=== PATIENT | female | born 1960 | race Caucasian/White ===

== ENCOUNTER 2017-06-19 12:11 | Inpatient (IN) | payer OTHER ==
[~2017-06-19] VITALS: Ht 170.2 cm; Wt 138.3 kg
[~2017-06-19 12:11] MED LIST: ASPI325T8 PO; ATORVASTATIN CA80 MG PO; CHOL200044 PO; FERR325C PO; FLUT12AE IH; FOLI1TAB16 PO; HYDR-2762 PO; LANS30CA PO; LINA5TAB4 PO; LISI40TA PO; MAGN71.5 PO; METF-620 PO; METO10TA PO; MONT10TA9 PO; PRED50TA PO; PROAIR HFA8.5 GM IH; SERT25TA PO; VERA240C2 PO; VITA1TAB19 PO
--- NOTE | 2017-06-19 12:33 | EKG ---
[facility] [address] [place] [address] Test Date: 2017-06-19 Test Time: 12:19:59 Pat Name: MANDY DONALDSON Department: Room: Gender: Female Inspector Timers: : 1960 Requested By: BEATRICE ROLAND Order Number: [id number] Reading MD: Shalom Garrison MD Measurements Intervals Divide Rate: 92 P: 48 IL: 188 QRS: -74 QRSD: 136 T: 57 QT: 376 QTc: 470 Interpretive Statements SINUS RHYTHM ABNORMAL LEFT AXIS DEVIATION RIGHT BUNDLE BRANCH BLOCK RVH WITH REPOLARIZATION ABNORMALITY QRS(T) CONTOUR ABNORMALITY CONSISTENT WITH ANTERIOR INFARCT Electronically Signed On 06-19-2017 16:22:15 [employer]IC[employer] HELPER by Shalom Garrison MD
--- NOTE | 2017-06-19 12:34 | PHYS DOC ---
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 Denies congestive heart failure but reports taking a diuretic unsure which type. Denies blood clots to the leg or lung or anticoagulation therapy. Denies worsening leg swelling Review of Systems Review of Systems Constitutional: Denies fever or chills [] Eyes: Denies change in visual acuity, redness, or eye pain [] HENT: Denies nasal congestion or sore throat [] Respiratory: Denies cough or shortness of breath [] Cardiovascular: No additional information not addressed in HPI [] GI: Denies abdominal pain, nausea, vomiting, bloody stools or diarrhea [] : Denies dysuria or hematuria [] Musculoskeletal: Denies back pain or joint pain [] Integument: Denies rash or skin lesions [] Neurologic: Denies headache, focal weakness or sensory changes [] Endocrine: Denies polyuria or polydipsia [] All other systems were reviewed and found to be within normal limits, except as documented in this note. Current Medications Current Medications Current Medications Medications (Trade) Dose Ordered Sig/Joy Start Time Stop Time Status Last Admin Dose Admin Azithromycin 250 ml @ 250 mls/hr 1X ONCE 06/19/17 13:45 06/19/17 14:44 Azithromycin 500 mg/Sodium Chloride 250 ml @ 250 mls/hr 1X ONCE 06/19/17 13:45 06/19/17 14:44 UNV Ceftriaxone Sodium 50 ml @ 100 mls/hr 1X ONCE 06/19/17 13:45 06/19/17 14:14 Methylprednisolone Sodium Succinate (SOLU-Medrol 125MG VIAL) 125 mg 1X ONCE 06/19/17 12:45 06/19/17 12:46 DC 06/19/17 12:45 125 MG Allergies Allergies Allergies Coded Allergies Type Severity Reaction Last Updated Verified I S O L A T I O N *CONTACT* Allergy Unknown 10/02/15 Yes prednisone Adverse Reaction Intermediate VOMITING 10/05/15 Yes theophylline Adverse Reaction Intermediate VOMITING 10/05/15 Yes Physical Exam Physical Exam Constitutional: Well developed, well nourished, mild acute distress, non-toxic appearance. [] HENT: Normocephalic, atraumatic, bilateral external ears normal, oropharynx moist, no oral exudates, nose normal. [] Eyes: PERRLA, EOMI, conjunctiva normal, no discharge. [] Neck: Normal range of motion, no tenderness, supple, no stridor. [] Cardiovascular:Heart rate regular rhythm, no murmur [] Lungs & Thorax: Bilateral breath sounds mild wheezing to auscultation [] Abdomen: Bowel sounds normal, soft, no tenderness, no masses, no pulsatile masses. [] Skin: Warm, dry, no erythema, no rash. [] Back: No tenderness, no CVA tenderness. [] Extremities: No tenderness, no cyanosis, no clubbing, ROM intact, no edema. [] Neurologic: Alert and oriented X 3, normal motor function, normal sensory function, no focal deficits noted. [] Psychologic: Affect normal, judgement normal, mood normal. [] Current Patient Data Vital Signs Vital Signs Date Time Temp Pulse Resp B/P (MAP) Pulse Ox O2 Delivery O2 Flow Rate FiO2 06/19/17 12:13 98.2 100 24 191/96 (127) 94 Room Air 98.2 Lab Values Laboratory Tests Test 06/19/17 12:31 06/19/17 13:00 White Blood Count 17.1 x10^3/uL (4.0-11.0) H Red Blood Count 4.57 x10^6/uL (3.50-5.40) Hemoglobin 14.0 g/dL (12.0-15.5) Hematocrit 42.7 % (36.0-47.0) Mean Corpuscular Volume 93 fL (79-100) Mean Corpuscular Hemoglobin 31 pg (25-35) Mean Corpuscular Hemoglobin Concent 33 g/dL (31-37) Red Cell Distribution Width 15.7 % (11.5-14.5) H Platelet Count 383 x10^3/uL (140-400) Neutrophils (%) (Auto) 81 % (31-73) H Lymphocytes (%) (Auto) 12 % (24-48) L Monocytes (%) (Auto) 6 % (0-9) Eosinophils (%) (Auto) 0 % (0-3) Basophils (%) (Auto) 0 % (0-3) Neutrophils # (Auto) 13.8 x10^3uL (1.8-7.7) H Lymphocytes # (Auto) 2.0 x10^3/uL (1.0-4.8) Monocytes # (Auto) 1.1 x10^3/uL (0.0-1.1) Eosinophils # (Auto) 0.1 x10^3/uL (0.0-0.7) Basophils # (Auto) 0.1 x10^3/uL (0.0-0.2) Segmented Neutrophils % 79 % (35-66) H Lymphocytes % 16 % (24-48) L Monocytes % 3 % (0-10) Eosinophils % 2 % (0-5) Platelet Estimate Adequate (ADEQUATE) Lactic Acid Level 2.2 mmol/L (0.4-2.0) H Sodium Level 139 mmol/L (136-145) Potassium Level 4.2 mmol/L (3.5-5.1) Chloride Level 101 mmol/L (98-107) Carbon Dioxide Level 31 mmol/L (21-32) Anion Gap 7 (6-14) Blood Urea Nitrogen 27 mg/dL (7-20) H Creatinine 1.0 mg/dL (0.6-1.0) Estimated GFR (Cockcroft-Gault) 56.7 BUN/Creatinine Ratio 27 (6-20) H Glucose Level 139 mg/dL (70-99) H Calcium Level 10.3 mg/dL (8.5-10.1) H Total Bilirubin 0.4 mg/dL (0.2-1.0) Aspartate Amino Transferase (AST) 12 U/L (15-37) L Alanine Aminotransferase (ALT) 24 U/L (14-59) Alkaline Phosphatase 120 U/L (46-116) H Troponin I Quantitative < 0.017 ng/mL (0.000-0.055) QM-Uhx-C-Type Natriuretic Peptide 260 pg/mL (0-124) H Total Protein 7.2 g/dL (6.4-8.2) Albumin 3.2 g/dL (3.4-5.0) L Albumin/Globulin Ratio 0.8 (1.0-1.7) L Laboratory Tests 06/19/17 12:31 Laboratory Tests 06/19/17 13:00 EKG EKG EKG normal sinus rhythm rate of 92) right bundle branch block no STEMI QTC 470 my interpretation[] Radiology/Procedures Radiology/Procedures Chest x-ray suggestive of left lower lobe pneumonia per radiology report[] Course & Med Decision Making Course & Med Decision Making Pertinent Labs and Imaging studies reviewed. (See chart for details). Patient reports productive cough chest x-ray consistent with left lower lobe infiltrate and leukocytosis on the labs will treat accordingly she'll be admitted. We've given her IV Rocephin and azithromycin. Discussed case with Dr. Daniela Burden agrees to the admission.[] Dragon Disclaimer Dragon Disclaimer This electronic medical record was generated, in whole or in part, using a voice recognition dictation system. Departure Departure Impression: Primary Impression: Left lower lobe pneumonia Additional Impression: Asthma Disposition: ADMITTED INPATIENT Condition: STABLE Referrals: DEEPIKA BEAVERS DO (PCP) Problem Qualifiers BEATRICE ROLAND MD Jun 19, 2017 12:34
[2017-06-19 12:45] LABS: BASO # 0.1 x10^3/uL (0.0-0.2); BASO % 0 % (0-3); EOS % 0 % (0-3); HEMATOCRIT 42.7 % (36.0-47.0); LYMPH % 12 % (24-48); MEAN CORPUSCULAR HEMOGLOBIN 31 pg (25-35); MEAN CORPUSCULAR HGB CONC 33 g/dL (31-37); MEAN CORPUSCULAR VOLUME 93 fL (79-100); MONO % 6 % (0-9); NEUT % 81 % (31-73); PLATELET COUNT 383 x10^3/uL (140-400); RED BLOOD COUNT 4.57 x10^6/uL (3.50-5.40); RED CELL DISTRIBUTION WIDTH 15.7 % (11.5-14.5); WHITE BLOOD COUNT 17.1 x10^3/uL (4.0-11.0)
[2017-06-19] MEDS ORDERED: methylPREDNISolone SOD SUCC PF 125 MG/2 ML VIAL. IV ONE (12:45)
--- NOTE | 2017-06-19 12:58 | RAD ---
Indication: Cough and short of breath. Technique: Upright portable chest radiograph was obtained. Comparison is from June 10, 2017. Findings: There is left basilar atelectasis and/ or infiltrate which is new from prior. Right lung is clear. Heart is upper limits of normal in size although there is no evidence of heart failure. Leads overlie the patient. Impression: 1. New left basilar atelectasis and/ or infiltrate. 2. Borderline cardiomegaly.
[2017-06-19 13:20] LABS: CALCIUM 10.3 mg/dL (8.5-10.1); GFR 56.7; POTASSIUM 4.2 mmol/L (3.5-5.1)
[2017-06-19 13:26] LABS: ALBUMIN 3.2 g/dL (3.4-5.0); ALBUMIN/GLOBULIN RATIO 0.8 (1.0-1.7); TOTAL BILIRUBIN 0.4 mg/dL (0.2-1.0); TOTAL PROTEIN 7.2 g/dL (6.4-8.2)
[2017-06-19] MEDS ORDERED: AZITHRMYCN 500MG IVPB FOR OMNI 250 ML IV ONE (13:45)
[2017-06-19] MEDS ORDERED: AZITHROMYCIN 500 MG in IV NORMAL SALINE 250ML 250 ML IV ONE (13:45)
[2017-06-19 13:52] LABS: % EOS 2 % (0-5); PLT ESTIMATE ADEQUATE (ADEQUATE)
[2017-06-19] MEDS ORDERED: MORPHINE SULFATE 4 MG/ML DISP.SYRIN. IV PRN (14:00)
[2017-06-19] MEDS ORDERED: ONDANSETRON PF 4 MG/2 ML VIAL. IV PRN (14:00)
[2017-06-19] MEDS ORDERED: IV NORMAL SALINE 500ML BAG 500 ML IV ONE (14:45)
[2017-06-19 15:00] VITALS: BP 161/95
[2017-06-19] MEDS ORDERED: HYDROcodone/CHLORPHEN POLIS 5 ML SUS.ER.12H PO PRN (16:00)
[2017-06-19] MEDS ORDERED: ALBUTEROL SULFATE 2.5 MG/3 ML NEBU. NEB PRN (16:00)
[2017-06-19] MEDS ORDERED: BUDESONIDE 0.5 MG/2 ML NEBU. NEB ONE (16:00)
[2017-06-19] MEDS ORDERED: LISI10TA2 PO (16:06)
--- NOTE | 2017-06-19 17:26 | PDOC1 ---
History and Physical Date of Admission Date of Admission DATE: 06/19/17 TIME: 17:20 Identification/Chief Complaint Chief Complaint cough, dyspnea, weakness Problems: Source Source: Caregiver, Chart review, Patient History of Present Illness History of Present Illness Miss Colindres is a 57 year old female admit with acute shortness of breath and cough productive of sputum; denies fever or chest pain; She has been in pulm clinic a few days ago, and was given a burst of prednisone for wheeze, was intially better, now has cough, new sputum, dyspnea and the wheeze is worse, some chest pain with cough, mild she lives with her mother, who was here with her Past Medical History Cardiovascular: HTN Pulmonary: Asthma GI: No pertinent hx Heme/Onc: No pertinent hx Hepatobiliary: No pertinent hx Psych: Other Musculoskeletal: low back pain Rheumatologic: No pertinent hx Infectious disease: No pertinent hx Past Surgical History Past Surgical History: Cholecystectomy Family History Family History: No Significant Social History Smoke: No ALCOHOL: none Drugs: None Current Problem List Problem List Problems Medical Problems: (1) Asthma Status: Acute (2) Left lower lobe pneumonia Status: Acute Problems: Current Medications Current Medications Current Medications Methylprednisolone Sodium Succinate (SOLU-Medrol 125MG VIAL) 125 mg 1X ONCE IV Last administered on 06/19/17t 12:45; Start 06/19/17 at 12:45; Stop at 12:46; Status DC Ceftriaxone Sodium 50 ml @ 100 mls/hr 1X ONCE IV Last administered on t 14:41; Start 06/19/17 at 13:45; Stop 06/19/17 at 14:14; Status DC Azithromycin 500 mg/Sodium Chloride 250 ml @ 250 mls/hr 1X ONCE IV ; Start at 13:45; Stop 06/19/17 at 14:44; Status UNV Azithromycin 250 ml @ 250 mls/hr 1X ONCE IV ; Start 06/19/17 at 13:45; Stop 06/19/17 at 14:44; Status DC Ondansetron HCl (Zofran) 4 mg PRN Q8HRS PRN IV NAUSEA/VOMITING; Start at 14:00; Stop 06/20/17 at 13:59 Morphine Sulfate 4 mg PRN Q2HR PRN IV PAIN; Start 06/19/17 at 14:00; Stop at 13:59 Sodium Chloride 500 ml @ 500 mls/hr 1X ONCE IV ; Start 06/19/17 at 14:45; Stop 06/19/17 at 15:44; Status DC Chlorphenir/ Hydrocodone Polistirex (Tussionex) 5 ml PRN Q12HR PRN PO COUGH; Start 06/19/17 at 16:00 Albuterol Sulfate (Ventolin Neb Soln) 2.5 mg PRN Q4HRS PRN NEB SHORTNESS OF BREATH; Start 06/19/17 at 16:00 Albuterol Sulfate (Ventolin Neb Soln) 2.5 mg RTQID NEB ; Start 06/19/17 at 16: 00 Budesonide (Pulmicort) 0.5 mg RTBID NEB ; Start 06/19/17 at 20:00 Budesonide (Pulmicort) 0.5 mg 1X ONCE NEB ; Start 06/19/17 at 16:00; Stop at 16:01; Status DC Aspirin (Zak Aspirin) 325 mg DAILY PO ; Start 06/20/17 at 09:00 Acetaminophen/ Hydrocodone Bitart (Lortab 7.5/325) 1 tab PRN Q6HRS PRN PO PAIN ; Start 06/19/17 at 16:00 Linagliptin (Tradjenta) 5 mg DAILY PO ; Start 06/20/17 at 09:00 Lisinopril (Prinivil) 40 mg DAILY PO ; Start 06/20/17 at 09:00 Metformin HCl (Glucophage) 1,000 mg BIDWMEALS PO ; Start 06/19/17 at 17:00 Metoclopramide HCl (Reglan) 10 mg QIDACHS PO ; Start 06/19/17 at 16:30 Montelukast Sodium (Singulair) 10 mg HS PO ; Start 06/19/17 at 21:00 Sertraline HCl (Zoloft) 25 mg DAILY PO ; Start 06/20/17 at 09:00 Atorvastatin Calcium (Lipitor) 80 mg QHS PO ; Start 06/19/17 at 21:00 Pantoprazole Sodium (Protonix) 40 mg DAILYAC PO ; Start 06/20/17 at 07:30 Non-Formulary Medication 0.5 cap DAILY PO ; Start 06/20/17 at 09:00; Stop at 09:00; Status DC Verapamil HCl (Calan Sr) 120 mg DAILY PO ; Start 06/20/17 at 09:00 Active Scripts Active Prednisone 50 Mg Tablet 1 Tab PO DAILY B Complex (Vitamin B Complex) 1 Each Tablet 1 Each PO DAILY Reported Lisinopril 10 Mg Tablet 1 Tab PO DAILY Tradjenta (Linagliptin) 5 Mg Tablet 5 Tab PO DAILY Proair Hfa Inhaler (Albuterol Sulfate) 8.5 Gm Hfa.aer.ad 2 Puff IH PRN Q4-6HRS Flovent 110MCG Hfa (Fluticasone Propionate) 12 Gm Aer.w.adap 2 Puff IH BID Montelukast Sodium Tablet (Montelukast Sodium) 10 Mg Tablet 10 Mg PO HS Aspirin 325 Mg Tablet 1 Tab PO DAILY Iron (Ferrous Sulfate) 325 Mg Capsule.er 325 Mg PO Metoclopramide Hcl 10 Mg Tablet 10 Mg PO QIDACHS Atorvastatin Calcium 80 Mg Tablet 1 Tab PO DAILY Lansoprazole 30 Mg Capsule.dr 1 Cap PO DAILY Metformin Hcl 1,000 Mg Tablet 1 Tab PO BID Verapamil Er (Verapamil Hcl) 240 Mg Cap24h.pel 0.5 Cap PO DAILY Folic Acid 1 Mg Tablet 1 Tab PO DAILY Zoloft (Sertraline Hcl) 25 Mg Tablet 1 Tab PO DAILY Hydrocodone-Apap 7.5-325 (Hydrocodone Bit/Acetaminophen) 1 Each Tablet 1 Tab PO PRN Q6HRS PRN Allergies Allergies: Coded Allergies: I S O L A T I O N *CONTACT* (Verified Allergy, Unknown, 10/02/15) mrsa + prednisone (Verified Adverse Reaction, Intermediate, VOMITING, 10/05/15) theophylline (Verified Adverse Reaction, Intermediate, VOMITING, 10/05/15) ROS General: YES: Fatigue, Malaise, Appetite, No: Chills, Night Sweats, Other PSYCHOLOGICAL ROS: No: Anxiety, Behavioral Disorder, Concentration difficultie , Decreased libido, Depression, Disorientation, Hallucinations, Hostility, Irritablity, Memory difficulties, Mood Swings, Obsessive thoughts, Physical abuse, Sexual abuse, Sleep disturbances, Suicidal ideation, Other Eyes: No Blurry vision, No Decreased vision, No Double vision, No Dry eyes, No Excessive tearing, No Eye Pain, No Itchy Eyes, No Loss of vision, No Photophobia , No Scotomata, No Uses contacts, No Uses glasses, No Other HEENT: No: Heacaches, Visual Changes, Hearing change, Nasal congestion, Nasal discharge, Oral lesions, Sinus pain, Sore Throat, Epistaxis, Sneezing, Snoring, Tinnitus, Vertigo, Vocal changes, Other Hematological and Lymphatic: No: Bleeding Problems, Blood Clots, Blood Transfusions, Brusing, Night Sweats, Pallor, Swollen Lymph Nodes, Other ENDOCRINE: No: Breast Changes, Galactorrhea, Hair Pattern Changes, Hot Flashes , Malaise/lethargy, Mood Swings, Palpitations, Polydipsia/polyuria, Skin Changes , Temperature Intolerance, Unexpected Weight Changes, Other Respiratory: YES: Cough, SOB with excertion, Sputum Changes Cardiovascular: yes Chest Pain, No Palpitations, No Orthopnea, No Paroxysmal Noc. Dyspnea, No Edema, No Lt Headedness, No Other Gastrointestinal: Yes Nausea, No Vomiting, No Abdominal Pain, No Diarrhea, No Constipation, No Melena, No Hematochezia, No Other Genitourinary: No Dysuria, No Frequency, No Incontinence, No Hematuria, No Retention, No Discharge, No Urgency, No Pain, No Flank Pain, No Other, No , No , No , No , No , No , No Musculoskeletal: Yes Joint Pain, Yes Joint Stiffness, No Gait Disturbance, No Joint Swelling, No Muscle Pain, No Muscular Weakness , No Pain In:, No Swelling In:, No Other Neurological: No Behavorial Changes, No Bowel/Bladder ControlChng, No Confusion , No Dizziness, No Gait Disturbance, No Headaches, No Impaired Coord/balance, No Memory Loss, No Numbness/Tingling, No Seizures, No Speech Problems, No Tremors, No Visual Changes, No Weakness, No Other Skin: Yes Rash, No Dry Skin, No Eczema, No Hair Changes, No Lumps, No Mole Changes, No Mottling, No Nail Changes, No Pruritus Physical Exam General: Alert, Cooperative, mild distress HEENT: PERRLA, EOMI, Mucous membr. moist/pink Lungs: Other (wheeze, mod volume) Heart: no gallops Abdomen: Normal bowel sounds (very obese), Soft Rectal Exam: not examined Extremities: Normal pulses Skin: No rashes, No significant lesion Neuro: Normal speech, Normal tone, Sensation intact Psych/Mental Status: Other Vitals Vitals Vital Signs Date Time Temp Pulse Resp B/P (MAP) Pulse Ox O2 Delivery O2 Flow Rate FiO2 06/19/17 15:40 Nasal Cannula 2.0 06/19/17 15:00 98.1 103 20 161/95 (117) 92 98.1 Labs Labs Laboratory Tests Test 06/19/17 12:31 06/19/17 13:00 06/19/17 16:56 White Blood Count 17.1 x10^3/uL (4.0-11.0) Red Blood Count 4.57 x10^6/uL (3.50-5.40) Hemoglobin 14.0 g/dL (12.0-15.5) Hematocrit 42.7 % (36.0-47.0) Mean Corpuscular Volume 93 fL (79-100) Mean Corpuscular Hemoglobin 31 pg (25-35) Mean Corpuscular Hemoglobin Concent 33 g/dL (31-37) Red Cell Distribution Width 15.7 % (11.5-14.5) Platelet Count 383 x10^3/uL (140-400) Neutrophils (%) (Auto) 81 % (31-73) Lymphocytes (%) (Auto) 12 % (24-48) Monocytes (%) (Auto) 6 % (0-9) Eosinophils (%) (Auto) 0 % (0-3) Basophils (%) (Auto) 0 % (0-3) Neutrophils # (Auto) 13.8 x10^3uL (1.8-7.7) Lymphocytes # (Auto) 2.0 x10^3/uL (1.0-4.8) Monocytes # (Auto) 1.1 x10^3/uL (0.0-1.1) Eosinophils # (Auto) 0.1 x10^3/uL (0.0-0.7) Basophils # (Auto) 0.1 x10^3/uL (0.0-0.2) Segmented Neutrophils % 79 % (35-66) Lymphocytes % 16 % (24-48) Monocytes % 3 % (0-10) Eosinophils % 2 % (0-5) Platelet Estimate Adequate (ADEQUATE) Lactic Acid Level 2.2 mmol/L (0.4-2.0) Sodium Level 139 mmol/L (136-145) Potassium Level 4.2 mmol/L (3.5-5.1) Chloride Level 101 mmol/L (98-107) Carbon Dioxide Level 31 mmol/L (21-32) Anion Gap 7 (6-14) Blood Urea Nitrogen 27 mg/dL (7-20) Creatinine 1.0 mg/dL (0.6-1.0) Estimated GFR (Cockcroft-Gault) 56.7 BUN/Creatinine Ratio 27 (6-20) Glucose Level 139 mg/dL (70-99) Calcium Level 10.3 mg/dL (8.5-10.1) Total Bilirubin 0.4 mg/dL (0.2-1.0) Aspartate Amino Transf (AST/SGOT) 12 U/L (15-37) Alanine Aminotransferase (ALT/SGPT) 24 U/L (14-59) Alkaline Phosphatase 120 U/L (46-116) Troponin I Quantitative < 0.017 ng/mL (0.000-0.055) KZ-Zzt-B-Type Natriuretic Peptide 260 pg/mL (0-124) Total Protein 7.2 g/dL (6.4-8.2) Albumin 3.2 g/dL (3.4-5.0) Albumin/Globulin Ratio 0.8 (1.0-1.7) Glucose (Fingerstick) 282 mg/dL (70-99) Laboratory Tests Test 06/19/17 12:31 06/19/17 13:00 06/19/17 16:56 White Blood Count 17.1 x10^3/uL (4.0-11.0) Red Blood Count 4.57 x10^6/uL (3.50-5.40) Hemoglobin 14.0 g/dL (12.0-15.5) Hematocrit 42.7 % (36.0-47.0) Mean Corpuscular Volume 93 fL (79-100) Mean Corpuscular Hemoglobin 31 pg (25-35) Mean Corpuscular Hemoglobin Concent 33 g/dL (31-37) Red Cell Distribution Width 15.7 % (11.5-14.5) Platelet Count 383 x10^3/uL (140-400) Neutrophils (%) (Auto) 81 % (31-73) Lymphocytes (%) (Auto) 12 % (24-48) Monocytes (%) (Auto) 6 % (0-9) Eosinophils (%) (Auto) 0 % (0-3) Basophils (%) (Auto) 0 % (0-3) Neutrophils # (Auto) 13.8 x10^3uL (1.8-7.7) Lymphocytes # (Auto) 2.0 x10^3/uL (1.0-4.8) Monocytes # (Auto) 1.1 x10^3/uL (0.0-1.1) Eosinophils # (Auto) 0.1 x10^3/uL (0.0-0.7) Basophils # (Auto) 0.1 x10^3/uL (0.0-0.2) Segmented Neutrophils % 79 % (35-66) Lymphocytes % 16 % (24-48) Monocytes % 3 % (0-10) Eosinophils % 2 % (0-5) Platelet Estimate Adequate (ADEQUATE) Lactic Acid Level 2.2 mmol/L (0.4-2.0) Sodium Level 139 mmol/L (136-145) Potassium Level 4.2 mmol/L (3.5-5.1) Chloride Level 101 mmol/L (98-107) Carbon Dioxide Level 31 mmol/L (21-32) Anion Gap 7 (6-14) Blood Urea Nitrogen 27 mg/dL (7-20) Creatinine 1.0 mg/dL (0.6-1.0) Estimated GFR (Cockcroft-Gault) 56.7 BUN/Creatinine Ratio 27 (6-20) Glucose Level 139 mg/dL (70-99) Calcium Level 10.3 mg/dL (8.5-10.1) Total Bilirubin 0.4 mg/dL (0.2-1.0) Aspartate Amino Transf (AST/SGOT) 12 U/L (15-37) Alanine Aminotransferase (ALT/SGPT) 24 U/L (14-59) Alkaline Phosphatase 120 U/L (46-116) Troponin I Quantitative < 0.017 ng/mL (0.000-0.055) UV-Jfg-R-Type Natriuretic Peptide 260 pg/mL (0-124) Total Protein 7.2 g/dL (6.4-8.2) Albumin 3.2 g/dL (3.4-5.0) Albumin/Globulin Ratio 0.8 (1.0-1.7) Glucose (Fingerstick) 282 mg/dL (70-99) VTE Prophylaxis Ordered VTE Prophylaxis Devices: No VTE Pharmacological Prophylaxi: Yes Assessment/Plan Assessment/Plan pneumonia tachycardia, tachypnea, sirs, Sepsis acute hypoxic respiratory failure morbid obesity, BMI 48 Dm2 htn rash on hands from compulsive handwashing, admit JOSE JUAN YOST MD Jun 19, 2017 17:26
[2017-06-19] MEDS: HYDROcodone/APAP 7.5/325MG 1 TAB TABLET PO PRN (17:43)
[2017-06-19] MEDS: METOCLOPRAMIDE 10 MG TABLET. PO SCH ×2 (17:43→21:36)
[2017-06-19 19:00] VITALS: BP 145/85
[2017-06-19] MEDS: ALBUTEROL SULFATE 2.5 MG/3 ML NEBU. NEB SCH (20:32)
[2017-06-19] MEDS: BUDESONIDE 0.5 MG/2 ML NEBU. NEB SCH (20:33)
[2017-06-19] MEDS: ENOXAPARIN 40 MG/0.4 ML SYRINGE. SQ SCH (21:36)
[2017-06-19] MEDS: MONTELUKAST SODIUM 10 MG TABLET. PO SCH (21:37)
[2017-06-19] MEDS: ATORVASTATIN CALCIUM 40 MG TABLET. PO SCH (21:37)
[2017-06-19 23:00] VITALS: BP 146/76
[2017-06-20] MEDS: HYDROcodone/APAP 7.5/325MG 1 TAB TABLET PO PRN ×2 (03:08→21:24)
[2017-06-20 03:40] VITALS: BP 152/82
[2017-06-20 07:00] VITALS: BP 148/80
[2017-06-20] MEDS: BUDESONIDE 0.5 MG/2 ML NEBU. NEB SCH ×2 (07:30→18:24)
[2017-06-20] MEDS: ALBUTEROL SULFATE 2.5 MG/3 ML NEBU. NEB SCH ×4 (07:32→18:23)
[2017-06-20] MEDS: ASPIRIN 325 MG TABLET PO SCH (08:59)
[2017-06-20] MEDS: LINAGLIPTIN 5 MG TABLET PO SCH (08:59)
[2017-06-20] MEDS: PANTOPRAZOLE 40 MG TABLET.DR. PO SCH (08:59)
[2017-06-20] MEDS: SERTRALINE 25 MG TABLET. PO SCH (08:59)
[2017-06-20] MEDS: METOCLOPRAMIDE 10 MG TABLET. PO SCH ×4 (08:59→21:25)
[2017-06-20] MEDS: LISINOPRIL 40 MG TABLET. PO SCH (09:00)
[2017-06-20] MEDS ORDERED: VERAPAMIL HCL PO SCH (09:00)
[2017-06-20] MEDS: ENOXAPARIN 40 MG/0.4 ML SYRINGE. SQ SCH ×2 (09:00→21:26)
--- NOTE | 2017-06-20 09:49 | PDOC ---
PROGRESS NOTES Chief Complaint Chief Complaint Acute hypoxic respir failure ASSESSMENT AND PLAN: 1. RLL PNA: cont azithro/ceftriax 2. Asthma exacerbation: Prednisone allergic , but apparently tolerating methylpred. d/w her and mother: rxn was back pain - doubt allergy 3. Sepsis: tachycardia, leukocytosis, no hypotension or fevers. lactic acid increasing, rpt in AM 4. HTN: borderline control. monitor closely, prob will need med adjustment 5. DM2: fair control on home regimen; prob affected by steroids, infection 6. Morbid obesity (BMI 48): nutrition consult 7. Rash on hands from compulsive handwashing 8. upper back/shoulder pain: add flexeril to pain regimen History of Present Illness History of Present Illness some SOB, but much improved since admit. c/o R back/shoulder pain, worsening Vitals Vitals Vital Signs Date Time Temp Pulse Resp B/P (MAP) Pulse Ox O2 Delivery O2 Flow Rate FiO2 06/20/17 09:00 80 148/80 06/20/17 07:35 93 Nasal Cannula 2.0 06/20/17 07:00 97.2 22 97.2 Physical Exam General: Alert, Cooperative, No acute distress Heart: Regular rate Lungs: Clear Abdomen: Normal bowel sounds (very obese), Soft Extremities: No edema Skin: No rashes Labs LABS Laboratory Tests Test 06/19/17 12:31 06/19/17 13:00 06/19/17 16:56 06/19/17 17:00 White Blood Count 17.1 x10^3/uL (4.0-11.0) Red Blood Count 4.57 x10^6/uL (3.50-5.40) Hemoglobin 14.0 g/dL (12.0-15.5) Hematocrit 42.7 % (36.0-47.0) Mean Corpuscular Volume 93 fL (79-100) Mean Corpuscular Hemoglobin 31 pg (25-35) Mean Corpuscular Hemoglobin Concent 33 g/dL (31-37) Red Cell Distribution Width 15.7 % (11.5-14.5) Platelet Count 383 x10^3/uL (140-400) Neutrophils (%) (Auto) 81 % (31-73) Lymphocytes (%) (Auto) 12 % (24-48) Monocytes (%) (Auto) 6 % (0-9) Eosinophils (%) (Auto) 0 % (0-3) Basophils (%) (Auto) 0 % (0-3) Neutrophils # (Auto) 13.8 x10^3uL (1.8-7.7) Lymphocytes # (Auto) 2.0 x10^3/uL (1.0-4.8) Monocytes # (Auto) 1.1 x10^3/uL (0.0-1.1) Eosinophils # (Auto) 0.1 x10^3/uL (0.0-0.7) Basophils # (Auto) 0.1 x10^3/uL (0.0-0.2) Segmented Neutrophils % 79 % (35-66) Lymphocytes % 16 % (24-48) Monocytes % 3 % (0-10) Eosinophils % 2 % (0-5) Platelet Estimate Adequate (ADEQUATE) Lactic Acid Level 2.2 mmol/L (0.4-2.0) Sodium Level 139 mmol/L (136-145) Potassium Level 4.2 mmol/L (3.5-5.1) Chloride Level 101 mmol/L (98-107) Carbon Dioxide Level 31 mmol/L (21-32) Anion Gap 7 (6-14) Blood Urea Nitrogen 27 mg/dL (7-20) Creatinine 1.0 mg/dL (0.6-1.0) Estimated GFR (Cockcroft-Gault) 56.7 BUN/Creatinine Ratio 27 (6-20) Glucose Level 139 mg/dL (70-99) Calcium Level 10.3 mg/dL (8.5-10.1) Total Bilirubin 0.4 mg/dL (0.2-1.0) Aspartate Amino Transf (AST/SGOT) 12 U/L (15-37) Alanine Aminotransferase (ALT/SGPT) 24 U/L (14-59) Alkaline Phosphatase 120 U/L (46-116) Troponin I Quantitative < 0.017 ng/mL (0.000-0.055) SQ-Pxk-L-Type Natriuretic Peptide 260 pg/mL (0-124) Total Protein 7.2 g/dL (6.4-8.2) Albumin 3.2 g/dL (3.4-5.0) Albumin/Globulin Ratio 0.8 (1.0-1.7) Glucose (Fingerstick) 282 mg/dL (70-99) Nasal Screen MRSA (PCR) Positive (Negative) Test 06/19/17 20:00 06/19/17 21:29 06/20/17 08:24 Lactic Acid Level 3.8 mmol/L (0.4-2.0) Glucose (Fingerstick) 181 mg/dL (70-99) 152 mg/dL (70-99) DANYA KLINE MD Jun 20, 2017 09:49
[2017-06-20] MEDS: VERAPAMIL SR 120 MG TABLET.ER. PO SCH (09:58)
[2017-06-20 11:00] VITALS: BP 148/80
[2017-06-20] MEDS: cefTRIAXone IV Push 1 GM VIAL. IVP SCH (11:46)
[2017-06-20] MEDS: MINERAL OIL/PETROLATUM TOPICAL CREAM 113GM JAR. TP PRN (11:46)
[2017-06-20] MEDS: AZITHROMYCIN 500 MG in IV NORMAL SALINE 250ML 250 ML IV SCH (11:46)
--- NOTE | 2017-06-20 13:26 | CONS ---
DATE OF CONSULTATION: PULMONARY CONSULTATION ATTENDING PHYSICIAN: Dr. Burden. REASON FOR CONSULTATION: Dyspnea. HISTORY OF PRESENT ILLNESS: The patient is a 57-year-old morbidly obese patient who has a history of adult-onset asthma. She was seen in the Pulmonary Clinic few days ago with wheezing and was given prednisone. She did not have any significant clinical improvement and as a result, she was having more wheezing and was hospitalized. She also has a cough, which is productive of colored sputum. She thinks it is yellow to green and the wheezing was worse as well. The patient was seen in the ER and hospitalized. Her chest x-ray was reviewed by me and it shows elevated left hemidiaphragm with associated atelectasis versus infiltrate. Her symptoms do suggest pneumonia. I have been asked to see her for further evaluation. She states she does meet the criteria for sleep apnea testing; however, her insurance does not cover. PAST MEDICAL HISTORY: Significant for history of asthma, history of hypertension, morbid obesity, low back pain. PAST SURGICAL HISTORY: Cholecystectomy. FAMILY HISTORY: Noncontributory to lungs. ALLERGIES: PREDNISONE AND THEOPHYLLINE. REVIEW OF SYSTEMS: Twelve-point systems were obtained. Pertinent positives discussed in my history of present illness, otherwise noncontributory. All systems that were negative were reviewed as well. CURRENT MEDICATIONS: Reviewed as listed in the MRAD. SOCIAL HISTORY: Nonsmoker. PHYSICAL EXAMINATION: GENERAL: She is awake, following commands. VITAL SIGNS: Blood pressure 148/80, pulse ox 93% on 2 liters, afebrile. HEENT: Sclerae nonicteric. NECK: Supple. LUNGS: With occasional wheezes. CARDIOVASCULAR: Regular ____. ABDOMEN: Soft, obese. EXTREMITIES: With trace pitting edema. LABORATORY DATA: Reviewed. White cell count 17.1, hemoglobin 14.0 and platelets are 383. BUN is 27 and creatinine of 1.0. Albumin 3.2. IMPRESSION: 1. Dyspnea secondary to acute exacerbation of asthma with bronchospasm. 2. Suspected left lower lobe pneumonia. 3. Underlying obesity with suspected obstructive sleep apnea, but her insurance Medicaid does not cover sleep study or CPAP. RECOMMENDATIONS: 1. Continue with present bronchodilators with albuterol nebulizer q.i.d. 2. Continue with Pulmicort. 3. Holding oral prednisone due to allergies. 4. Continue antibiotics. 5. Wean off oxygen once clinically better. 6. We will follow along with you. BECKIE MARTÍNEZ MD DR: ANGIE/faizan JOB#: [id number] / [id number]
[2017-06-20 15:00] VITALS: BP 110/66
[2017-06-20 19:00] VITALS: BP 123/58
[2017-06-20] MEDS: MONTELUKAST SODIUM 10 MG TABLET. PO SCH (21:25)
[2017-06-20] MEDS: ATORVASTATIN CALCIUM 40 MG TABLET. PO SCH (21:25)
[2017-06-20] MEDS: LACTOBACILLUS RHAMNOSUS GG 1 CAPSULE. PO SCH (21:25)
[2017-06-20 23:00] VITALS: BP 139/55
[2017-06-21 03:00] VITALS: BP 140/64
[2017-06-21 05:29] LABS: BASO % 0 % (0-3); EOS % 1 % (0-3); HEMATOCRIT 39.6 % (36.0-47.0); HEMOGLOBIN 12.8 g/dL (12.0-15.5); LYMPH # 1.5 x10^3/uL (1.0-4.8); LYMPH % 11 % (24-48); MEAN CORPUSCULAR HEMOGLOBIN 30 pg (25-35); MEAN CORPUSCULAR HGB CONC 32 g/dL (31-37); MEAN CORPUSCULAR VOLUME 94 fL (79-100); MONO % 6 % (0-9); NEUT % 81 % (31-73); PLATELET COUNT 314 x10^3/uL (140-400); RED BLOOD COUNT 4.23 x10^6/uL (3.50-5.40); RED CELL DISTRIBUTION WIDTH 15.9 % (11.5-14.5); WHITE BLOOD COUNT 13.1 x10^3/uL (4.0-11.0)
[2017-06-21 05:55] LABS: ALBUMIN 2.8 g/dL (3.4-5.0); ALBUMIN/GLOBULIN RATIO 0.8 (1.0-1.7); CALCIUM 9.4 mg/dL (8.5-10.1); CREATININE 1.4 mg/dL (0.6-1.0); GFR 38.5; POTASSIUM 4.3 mmol/L (3.5-5.1); TOTAL BILIRUBIN 0.4 mg/dL (0.2-1.0); TOTAL PROTEIN 6.5 g/dL (6.4-8.2)
[2017-06-21] MEDS: CYCLOBENZAPRINE 10 MG TABLET. PO PRN ×3 (06:38→20:13)
[2017-06-21 07:00] VITALS: BP 106/68
[2017-06-21] MEDS: ALBUTEROL SULFATE 2.5 MG/3 ML NEBU. NEB SCH ×4 (08:14→20:57)
[2017-06-21] MEDS: BUDESONIDE 0.5 MG/2 ML NEBU. NEB SCH ×2 (08:14→20:57)
[2017-06-21] MEDS: SERTRALINE 25 MG TABLET. PO SCH (09:21)
[2017-06-21] MEDS: VERAPAMIL SR 120 MG TABLET.ER. PO SCH (09:21)
[2017-06-21] MEDS: PANTOPRAZOLE 40 MG TABLET.DR. PO SCH (09:21)
[2017-06-21] MEDS: ASPIRIN 325 MG TABLET PO SCH (09:22)
[2017-06-21] MEDS: ENOXAPARIN 40 MG/0.4 ML SYRINGE. SQ SCH ×2 (09:22→20:14)
[2017-06-21] MEDS: LACTOBACILLUS RHAMNOSUS GG 1 CAPSULE. PO SCH ×2 (09:22→20:13)
[2017-06-21] MEDS: LINAGLIPTIN 5 MG TABLET PO SCH (09:22)
[2017-06-21] MEDS: METOCLOPRAMIDE 10 MG TABLET. PO SCH ×4 (09:22→23:54)
[2017-06-21] MEDS: LISINOPRIL 40 MG TABLET. PO SCH (09:22)
[2017-06-21] MEDS: MINERAL OIL/PETROLATUM TOPICAL CREAM 113GM JAR. TP PRN (09:23)
[2017-06-21] MEDS: cefTRIAXone IV Push 1 GM VIAL. IVP SCH (09:23)
[2017-06-21] MEDS: AZITHROMYCIN 500 MG in IV NORMAL SALINE 250ML 250 ML IV SCH (09:24)
[2017-06-21 10:31] VITALS: BP 96/55
--- NOTE | 2017-06-21 12:01 | PDOC ---
PULMONARY PROGRESS NOTES Subjective better Vitals Vital Signs Date Time Temp Pulse Resp B/P (MAP) Pulse Ox O2 Delivery O2 Flow Rate FiO2 06/21/17 11:05 89 Nasal Cannula 3.0 06/21/17 10:31 98.3 90 20 96/55 (69) 98.3 General: Alert, No acute distress Lungs: Clear Cardiovascular: S1 Abdomen: Soft Neuro Exam: Alert Extremities: Other (trace edema) Labs Laboratory Tests Test 06/19/17 12:31 06/19/17 13:00 06/19/17 16:56 06/19/17 17:00 White Blood Count 17.1 x10^3/uL (4.0-11.0) Red Blood Count 4.57 x10^6/uL (3.50-5.40) Hemoglobin 14.0 g/dL (12.0-15.5) Hematocrit 42.7 % (36.0-47.0) Mean Corpuscular Volume 93 fL (79-100) Mean Corpuscular Hemoglobin 31 pg (25-35) Mean Corpuscular Hemoglobin Concent 33 g/dL (31-37) Red Cell Distribution Width 15.7 % (11.5-14.5) Platelet Count 383 x10^3/uL (140-400) Neutrophils (%) (Auto) 81 % (31-73) Lymphocytes (%) (Auto) 12 % (24-48) Monocytes (%) (Auto) 6 % (0-9) Eosinophils (%) (Auto) 0 % (0-3) Basophils (%) (Auto) 0 % (0-3) Neutrophils # (Auto) 13.8 x10^3uL (1.8-7.7) Lymphocytes # (Auto) 2.0 x10^3/uL (1.0-4.8) Monocytes # (Auto) 1.1 x10^3/uL (0.0-1.1) Eosinophils # (Auto) 0.1 x10^3/uL (0.0-0.7) Basophils # (Auto) 0.1 x10^3/uL (0.0-0.2) Segmented Neutrophils % 79 % (35-66) Lymphocytes % 16 % (24-48) Monocytes % 3 % (0-10) Eosinophils % 2 % (0-5) Platelet Estimate Adequate (ADEQUATE) Lactic Acid Level 2.2 mmol/L (0.4-2.0) Sodium Level 139 mmol/L (136-145) Potassium Level 4.2 mmol/L (3.5-5.1) Chloride Level 101 mmol/L (98-107) Carbon Dioxide Level 31 mmol/L (21-32) Anion Gap 7 (6-14) Blood Urea Nitrogen 27 mg/dL (7-20) Creatinine 1.0 mg/dL (0.6-1.0) Estimated GFR (Cockcroft-Gault) 56.7 BUN/Creatinine Ratio 27 (6-20) Glucose Level 139 mg/dL (70-99) Calcium Level 10.3 mg/dL (8.5-10.1) Total Bilirubin 0.4 mg/dL (0.2-1.0) Aspartate Amino Transf (AST/SGOT) 12 U/L (15-37) Alanine Aminotransferase (ALT/SGPT) 24 U/L (14-59) Alkaline Phosphatase 120 U/L (46-116) Troponin I Quantitative < 0.017 ng/mL (0.000-0.055) [id number]-I-Type Natriuretic Peptide 260 pg/mL (0-124) Total Protein 7.2 g/dL (6.4-8.2) Albumin 3.2 g/dL (3.4-5.0) Albumin/Globulin Ratio 0.8 (1.0-1.7) Glucose (Fingerstick) 282 mg/dL (70-99) Nasal Screen MRSA (PCR) Positive (Negative) Test 06/19/17 20:00 06/19/17 21:29 06/20/17 08:24 06/20/17 11:59 Lactic Acid Level 3.8 mmol/L (0.4-2.0) Glucose (Fingerstick) 181 mg/dL (70-99) 152 mg/dL (70-99) 137 mg/dL (70-99) Test 06/20/17 16:56 06/21/17 03:45 06/21/17 03:50 06/21/17 07:53 Glucose (Fingerstick) 149 mg/dL (70-99) 141 mg/dL (70-99) White Blood Count 13.1 x10^3/uL (4.0-11.0) Red Blood Count 4.23 x10^6/uL (3.50-5.40) Hemoglobin 12.8 g/dL (12.0-15.5) Hematocrit 39.6 % (36.0-47.0) Mean Corpuscular Volume 94 fL (79-100) Mean Corpuscular Hemoglobin 30 pg (25-35) Mean Corpuscular Hemoglobin Concent 32 g/dL (31-37) Red Cell Distribution Width 15.9 % (11.5-14.5) Platelet Count 314 x10^3/uL (140-400) Neutrophils (%) (Auto) 81 % (31-73) Lymphocytes (%) (Auto) 11 % (24-48) Monocytes (%) (Auto) 6 % (0-9) Eosinophils (%) (Auto) 1 % (0-3) Basophils (%) (Auto) 0 % (0-3) Neutrophils # (Auto) 10.6 x10^3uL (1.8-7.7) Lymphocytes # (Auto) 1.5 x10^3/uL (1.0-4.8) Monocytes # (Auto) 0.8 x10^3/uL (0.0-1.1) Eosinophils # (Auto) 0.1 x10^3/uL (0.0-0.7) Basophils # (Auto) 0.0 x10^3/uL (0.0-0.2) Sodium Level 140 mmol/L (136-145) Potassium Level 4.3 mmol/L (3.5-5.1) Chloride Level 102 mmol/L (98-107) Carbon Dioxide Level 31 mmol/L (21-32) Anion Gap 7 (6-14) Blood Urea Nitrogen 34 mg/dL (7-20) Creatinine 1.4 mg/dL (0.6-1.0) Estimated GFR (Cockcroft-Gault) 38.5 BUN/Creatinine Ratio 24 (6-20) Glucose Level 144 mg/dL (70-99) Lactic Acid Level 0.5 mmol/L (0.4-2.0) Calcium Level 9.4 mg/dL (8.5-10.1) Total Bilirubin 0.4 mg/dL (0.2-1.0) Aspartate Amino Transf (AST/SGOT) 15 U/L (15-37) Alanine Aminotransferase (ALT/SGPT) 23 U/L (14-59) Alkaline Phosphatase 106 U/L (46-116) Total Protein 6.5 g/dL (6.4-8.2) Albumin 2.8 g/dL (3.4-5.0) Albumin/Globulin Ratio 0.8 (1.0-1.7) Test 06/21/17 11:49 Glucose (Fingerstick) 105 mg/dL (70-99) Laboratory Tests Test 06/20/17 11:59 06/20/17 16:56 06/21/17 03:45 06/21/17 03:50 Glucose (Fingerstick) 137 mg/dL (70-99) 149 mg/dL (70-99) White Blood Count 13.1 x10^3/uL (4.0-11.0) Red Blood Count 4.23 x10^6/uL (3.50-5.40) Hemoglobin 12.8 g/dL (12.0-15.5) Hematocrit 39.6 % (36.0-47.0) Mean Corpuscular Volume 94 fL (79-100) Mean Corpuscular Hemoglobin 30 pg (25-35) Mean Corpuscular Hemoglobin Concent 32 g/dL (31-37) Red Cell Distribution Width 15.9 % (11.5-14.5) Platelet Count 314 x10^3/uL (140-400) Neutrophils (%) (Auto) 81 % (31-73) Lymphocytes (%) (Auto) 11 % (24-48) Monocytes (%) (Auto) 6 % (0-9) Eosinophils (%) (Auto) 1 % (0-3) Basophils (%) (Auto) 0 % (0-3) Neutrophils # (Auto) 10.6 x10^3uL (1.8-7.7) Lymphocytes # (Auto) 1.5 x10^3/uL (1.0-4.8) Monocytes # (Auto) 0.8 x10^3/uL (0.0-1.1) Eosinophils # (Auto) 0.1 x10^3/uL (0.0-0.7) Basophils # (Auto) 0.0 x10^3/uL (0.0-0.2) Sodium Level 140 mmol/L (136-145) Potassium Level 4.3 mmol/L (3.5-5.1) Chloride Level 102 mmol/L (98-107) Carbon Dioxide Level 31 mmol/L (21-32) Anion Gap 7 (6-14) Blood Urea Nitrogen 34 mg/dL (7-20) Creatinine 1.4 mg/dL (0.6-1.0) Estimated GFR (Cockcroft-Gault) 38.5 BUN/Creatinine Ratio 24 (6-20) Glucose Level 144 mg/dL (70-99) Lactic Acid Level 0.5 mmol/L (0.4-2.0) Calcium Level 9.4 mg/dL (8.5-10.1) Total Bilirubin 0.4 mg/dL (0.2-1.0) Aspartate Amino Transf (AST/SGOT) 15 U/L (15-37) Alanine Aminotransferase (ALT/SGPT) 23 U/L (14-59) Alkaline Phosphatase 106 U/L (46-116) Total Protein 6.5 g/dL (6.4-8.2) Albumin 2.8 g/dL (3.4-5.0) Albumin/Globulin Ratio 0.8 (1.0-1.7) Test 06/21/17 07:53 06/21/17 11:49 Glucose (Fingerstick) 141 mg/dL (70-99) 105 mg/dL (70-99) Medications Active Scripts Medications Dose Route/Sig Max Daily Dose Days Date Category Lisinopril 10 Mg Tablet 1 Tab PO DAILY 06/19/17 Reported Prednisone 50 Mg Tablet 1 Tab PO DAILY 06/10/17 Rx Tradjenta (Linagliptin) 5 Mg Tablet 5 Tab PO DAILY 06/10/17 Reported B Complex (Vitamin B Complex) 1 Each Tablet 1 Each PO DAILY 10/08/15 Rx Proair Hfa Inhaler (Albuterol Sulfate) 8.5 Gm Hfa.aer.ad 2 Puff IH PRN Q4-6HRS 10/01/15 Reported Flovent 110MCG Hfa (Fluticasone Propionate) 12 Gm Aer.w.adap 2 Puff IH BID 10/01/15 Reported Montelukast Sodium Tablet (Montelukast Sodium) 10 Mg Tablet 10 Mg PO HS 10/01/15 Reported Aspirin 325 Mg Tablet 1 Tab PO DAILY 10/01/15 Reported Iron (Ferrous Sulfate) 325 Mg Capsule.er 325 Mg PO 10/01/15 Reported Metoclopramide Hcl 10 Mg Tablet 10 Mg PO QIDACHS 10/01/15 Reported Atorvastatin Calcium 80 Mg Tablet 1 Tab PO DAILY 10/01/15 Reported Lansoprazole 30 Mg Capsule.dr 1 Cap PO DAILY 10/01/15 Reported Metformin Hcl 1,000 Mg Tablet 1 Tab PO BID 10/01/15 Reported Verapamil Er (Verapamil Hcl) 240 Mg Cap24h.pel 0.5 Cap PO DAILY 10/01/15 Reported Folic Acid 1 Mg Tablet 1 Tab PO DAILY 10/01/15 Reported Zoloft (Sertraline Hcl) 25 Mg Tablet 1 Tab PO DAILY 10/01/15 Reported Hydrocodone-Apap 7.5-325 (Hydrocodone Bit/Acetaminophen) 1 Each Tablet 1 Tab PO PRN Q6HRS PRN 10/01/15 Reported Impression . 1. Dyspnea secondary to acute exacerbation of asthma with bronchospasm. 2. Suspected left lower lobe pneumonia. 3. Underlying obesity with suspected obstructive sleep apnea, but her insurance Medicaid does not cover sleep study or CPAP. Plan . 1. Continue with present bronchodilators with albuterol nebulizer q.i.d. 2. Continue with Pulmicort. 3. Holding oral prednisone due to allergies. 4. Continue antibiotics. 5. Wean off oxygen once clinically better. 6. We will follow along with you. BECKIE MARTÍNEZ MD Jun 21, 2017 12:01
--- NOTE | 2017-06-21 13:53 | PDOC ---
PROGRESS NOTES Chief Complaint Chief Complaint Acute hypoxic respir failure ASSESSMENT AND PLAN: 1. RLL PNA: cont azithro/ceftriax 2. Asthma exacerbation: Prednisone allergic , but apparently tolerating methylpred. d/w her and mother: rxn was back pain - doubt allergy 3. Sepsis: tachycardia, leukocytosis improving. no hypotension or fevers. lactic acidosis resolved 4. HTN: borderline control. monitor closely, prob will need med adjustment 5. DM2: fair control on home regimen; prob affected by steroids, infection 6. Morbid obesity (BMI 48): nutrition consult 7. Rash on hands from compulsive handwashing 8. upper back/shoulder pain: add flexeril to pain regimen 9. Chest pain: admits to it today, although apparently off and on for days/ weeks. relates she has had "heart issues" in past, requests cardiology consult. suspect MS pain History of Present Illness History of Present Illness breathing unchanged. minor cough. pain in upper back/shoulder R Vitals Vitals Vital Signs Date Time Temp Pulse Resp B/P (MAP) Pulse Ox O2 Delivery O2 Flow Rate FiO2 06/21/17 11:05 89 Nasal Cannula 3.0 06/21/17 10:31 98.3 90 20 96/55 (69) 98.3 Physical Exam General: Alert, Cooperative, No acute distress Heart: Regular rate Lungs: Clear Abdomen: Normal bowel sounds (very obese), Soft Extremities: No edema Skin: No rashes Labs LABS Laboratory Tests Test 06/20/17 16:56 06/21/17 03:45 06/21/17 03:50 06/21/17 07:53 Glucose (Fingerstick) 149 mg/dL (70-99) 141 mg/dL (70-99) White Blood Count 13.1 x10^3/uL (4.0-11.0) Red Blood Count 4.23 x10^6/uL (3.50-5.40) Hemoglobin 12.8 g/dL (12.0-15.5) Hematocrit 39.6 % (36.0-47.0) Mean Corpuscular Volume 94 fL (79-100) Mean Corpuscular Hemoglobin 30 pg (25-35) Mean Corpuscular Hemoglobin Concent 32 g/dL (31-37) Red Cell Distribution Width 15.9 % (11.5-14.5) Platelet Count 314 x10^3/uL (140-400) Neutrophils (%) (Auto) 81 % (31-73) Lymphocytes (%) (Auto) 11 % (24-48) Monocytes (%) (Auto) 6 % (0-9) Eosinophils (%) (Auto) 1 % (0-3) Basophils (%) (Auto) 0 % (0-3) Neutrophils # (Auto) 10.6 x10^3uL (1.8-7.7) Lymphocytes # (Auto) 1.5 x10^3/uL (1.0-4.8) Monocytes # (Auto) 0.8 x10^3/uL (0.0-1.1) Eosinophils # (Auto) 0.1 x10^3/uL (0.0-0.7) Basophils # (Auto) 0.0 x10^3/uL (0.0-0.2) Sodium Level 140 mmol/L (136-145) Potassium Level 4.3 mmol/L (3.5-5.1) Chloride Level 102 mmol/L (98-107) Carbon Dioxide Level 31 mmol/L (21-32) Anion Gap 7 (6-14) Blood Urea Nitrogen 34 mg/dL (7-20) Creatinine 1.4 mg/dL (0.6-1.0) Estimated GFR (Cockcroft-Gault) 38.5 BUN/Creatinine Ratio 24 (6-20) Glucose Level 144 mg/dL (70-99) Lactic Acid Level 0.5 mmol/L (0.4-2.0) Calcium Level 9.4 mg/dL (8.5-10.1) Total Bilirubin 0.4 mg/dL (0.2-1.0) Aspartate Amino Transf (AST/SGOT) 15 U/L (15-37) Alanine Aminotransferase (ALT/SGPT) 23 U/L (14-59) Alkaline Phosphatase 106 U/L (46-116) Total Protein 6.5 g/dL (6.4-8.2) Albumin 2.8 g/dL (3.4-5.0) Albumin/Globulin Ratio 0.8 (1.0-1.7) Test 06/21/17 11:49 Glucose (Fingerstick) 105 mg/dL (70-99) DANYA KLINE MD Jun 21, 2017 13:53
[2017-06-21 14:38] VITALS: BP 117/64
--- NOTE | 2017-06-21 15:43 | PDOC2 ---
PATRICA WILKINSON AIRCRAFT MAINTENANCE INSTRUCTOR 06/21/17 1543: CARDIAC CONSULT DATE OF CONSULT Date of Consult DATE: 06/21/17 TIME: 15:22 REASON FOR CONSULT Reason for Consult: Chest pain REFERRING PHYSICIAN Referring Physician: Laurie SOURCE Source: Chart review, Patient HISTORY OF PRESENT ILLNESS HISTORY OF PRESENT ILLNESS This is a 57 yo female admitted for complains of increasing SOA with productive cough. NO fever or chills. Reports that 2 days prior she got admitted she was having right upper chest tightness and more so to her right shoulder and right back. This is not reproducible with cough but with moderate palpation and also relieved by muscle relaxant. Complains of slight nausea but claims she does have GERD. Denies any diaphoresis, palpitations or frequent dizziness. Complains of increasing SOA as well and she does not utilize O2 at home and previously using CPAP but she needed to be retested but cold not afford it for reevaluation and continuation of device. Denies any VTE or arrhythmias. PAST MEDICAL HISTORY Cardiovascular: CAD, HTN, Hyperlipidemia Pulmonary: COPD, Other (DRAKE) CENTRAL NERVOUS SYSTEM: Other (No pertinent history) GI: Diverticulosis, GERD, GI bleed, Hemorrhoids, Other (gastroparesis) Heme/Onc: Anemia NOS (pernicious with blood transfusion) Hepatobiliary: Other (MENDEZ) Psych: Anxiety Musculoskeletal: low back pain, Osteoarthritis Rheumatologic: No pertinent hx Infectious disease: Other (MRSA) ENT: No pertinent hx Renal/: No pertinent hx Endocrine: Diabetes (2) Dermatology: No pertinent hx PAST SURGICAL HISTORY Past Surgical History: Cholecystectomy, Tubal Ligation FAMILY HISTORY Family History noncontributory to CV SOCIAL HISTORY Smoke: Quit ALCOHOL: none Drugs: None Lives: Alone CURRENT MEDICATIONS CURRENT MEDICATIONS Current Medications Medications (Trade) Dose Ordered Sig/Joy Route PRN Reason Start Time Stop Time Status Last Admin Dose Admin Lactobacillus Rhamnosus (Culturelle) 1 cap BID PO 06/20/17 21:00 06/21/17 09:22 Cyclobenzaprine HCl (Flexeril) 10 mg PRN Q6HRS PRN PO MUSCLE SPASMS 06/20/17 20:15 06/21/17 13:45 ALLERGIES ALLERGIES: Coded Allergies: I S O L A T I O N *CONTACT* (Verified Allergy, Unknown, 10/02/15) mrsa + prednisone (Verified Adverse Reaction, Intermediate, VOMITING, 10/05/15) theophylline (Verified Adverse Reaction, Intermediate, VOMITING, 10/05/15) ROS Review of System 14 point ROS evaluated with pertinent positives noted per HPI PHYSICAL EXAM General: Alert, Oriented X3, Cooperative, No acute distress HEENT: Atraumatic, Mucous membr. moist/pink Lungs: Other (faint basilar crackles O2 3LPM) Heart: Regular rate (SR), Other (distant heart sounds) Abdomen: Soft, Other (obese) Extremities: No cyanosis, No edema Skin: No breakdown, No significant lesion Neuro: Normal speech, Sensation intact Psych/Mental Status: Mental status NL, Mood NL MUSCULOSKELETAL: Osteoarthritic changes both hands VITALS VITALS Vital Signs Date Time Temp Pulse Resp B/P (MAP) Pulse Ox O2 Delivery O2 Flow Rate FiO2 06/21/17 14:38 98.1 100 18 117/64 (81) 92 Nasal Cannula 3.0 98.1 LABS Lab: Laboratory Tests Test 06/20/17 16:56 06/21/17 03:45 06/21/17 03:50 06/21/17 07:53 Glucose (Fingerstick) 149 mg/dL (70-99) 141 mg/dL (70-99) White Blood Count 13.1 x10^3/uL (4.0-11.0) Red Blood Count 4.23 x10^6/uL (3.50-5.40) Hemoglobin 12.8 g/dL (12.0-15.5) Hematocrit 39.6 % (36.0-47.0) Mean Corpuscular Volume 94 fL (79-100) Mean Corpuscular Hemoglobin 30 pg (25-35) Mean Corpuscular Hemoglobin Concent 32 g/dL (31-37) Red Cell Distribution Width 15.9 % (11.5-14.5) Platelet Count 314 x10^3/uL (140-400) Neutrophils (%) (Auto) 81 % (31-73) Lymphocytes (%) (Auto) 11 % (24-48) Monocytes (%) (Auto) 6 % (0-9) Eosinophils (%) (Auto) 1 % (0-3) Basophils (%) (Auto) 0 % (0-3) Neutrophils # (Auto) 10.6 x10^3uL (1.8-7.7) Lymphocytes # (Auto) 1.5 x10^3/uL (1.0-4.8) Monocytes # (Auto) 0.8 x10^3/uL (0.0-1.1) Eosinophils # (Auto) 0.1 x10^3/uL (0.0-0.7) Basophils # (Auto) 0.0 x10^3/uL (0.0-0.2) Sodium Level 140 mmol/L (136-145) Potassium Level 4.3 mmol/L (3.5-5.1) Chloride Level 102 mmol/L (98-107) Carbon Dioxide Level 31 mmol/L (21-32) Anion Gap 7 (6-14) Blood Urea Nitrogen 34 mg/dL (7-20) Creatinine 1.4 mg/dL (0.6-1.0) Estimated GFR (Cockcroft-Gault) 38.5 BUN/Creatinine Ratio 24 (6-20) Glucose Level 144 mg/dL (70-99) Lactic Acid Level 0.5 mmol/L (0.4-2.0) Calcium Level 9.4 mg/dL (8.5-10.1) Total Bilirubin 0.4 mg/dL (0.2-1.0) Aspartate Amino Transf (AST/SGOT) 15 U/L (15-37) Alanine Aminotransferase (ALT/SGPT) 23 U/L (14-59) Alkaline Phosphatase 106 U/L (46-116) Total Protein 6.5 g/dL (6.4-8.2) Albumin 2.8 g/dL (3.4-5.0) Albumin/Globulin Ratio 0.8 (1.0-1.7) Test 06/21/17 11:49 Glucose (Fingerstick) 105 mg/dL (70-99) IMAGES IMAGES CTA IMPRESSION: 1. No finding to suggest active gastrointestinal hemorrhage. 2. Slight stranding within the right inguinal region likely due to relative recent catheterization. No pseudoaneurysm or hematoma is seen. 3. Colonic diverticulosis without diverticulitis. 4. Hepatomegaly and hepatic steatosis. There is a ill-defined region of hyperdensity within the right hepatic lobe likely due to focal fatty sparing or transient hepatic attenuation difference. 5. Small right renal cysts and 5 mm hypodense lesion within the left kidney which is too small to characterize, possibly a complicated cyst. Follow-up can be performed to confirm benignity. 6. Grade 2-3 anterolisthesis with partial defects and severe degenerative change at the lumbosacral junction. DATE: 10/03/15 1207 HEART CATH HEART CATH Conclusion 1. Nonobstructive single vessel coronary artery disease 2. Normal left ventricular systolic function with ejection fraction estimated at 55% 3. No significant mitral regurgitation or aortic stenosis The right coronary artery was a large and dominant vessel arising from the right sinus of Valsalva and that showed 60-70% stenosis involving the proximal segment of a medium caliber posterior descending branch. The rest of the artery did not show any significant stenosis. Recommendations Medical Therapy DATE: 10/01/15 0720 ASSESSMENT/PLAN ASSESSMENT/PLAN 1. Atypical chest pain: likely MSK but concerning with associated dyspnea and EKG SR with RBBB/LAFB and first degree AV block with anterolateral ST-T wave changes Initial troponin normal. 2. CAD: 60-70% RCA lesion involving the proximal segment of a medium caliber posterior descending branch from [facility] 09/2015 3. AECOPD with possible pneumonia: pulmonary following 4. Accelerated HTN: now normalized 5. TRUMAN on CKD: per PCP 6. DM2/HLP 7. Morbid obesity/MENDEZ: BMI 47 8. Hx of GERD and gastroparesis 9. Arrhythmia: PSVT episode difficult to discern due to first degree AV block likely sinus tach. 10. Uncontrolled DRAKE: could not afford retest for DRAKE but used to wear CPAP in the past. Recommendations 1. TTE. lipid panel, troponin 2. Continue with secondary prevention 3. Await pending cardiac testing for ishcemic w/u consideration 4. Hold metformin this afternoon. Continue with verapamil. 5. BMP and Mg in am. Problems: MIKAELA CAMARA MD 06/22/17 0914: CARDIAC CONSULT ALLERGIES ALLERGIES: Coded Allergies: I S O L A T I O N *CONTACT* (Verified Allergy, Unknown, 10/02/15) mrsa + prednisone (Verified Adverse Reaction, Intermediate, VOMITING, 10/05/15) theophylline (Verified Adverse Reaction, Intermediate, VOMITING, 10/05/15) ASSESSMENT/PLAN ASSESSMENT/PLAN Patient seen and examined 06/21/17 (late entry). Agree with ACCOUNTS RECEIVABLE ASSOCIATE's assessment and plan. Chest pain with atypical features and most probably musculoskeletal. Myocardial infarction was ruled out. 2-D echo showed normal LV systolic function without any wall motion abnormalities. Blood pressure better controlled since admission. Telemetry showed sinus tachycardia without any significant arrhythmias. Continue treatment for AECOPD per pulmonary team. Thank you for your consultation. Problems: PATRICA WILKINSON APRN Jun 21, 2017 15:43 MIKAELA CAMARA MD Jun 22, 2017 09:14
[2017-06-21 15:54] LABS: CHOLESTEROL/HDL RATIO 3.8
[2017-06-21] MEDS ORDERED: PERFLUTREN PROTEIN-A MICROSPHR 0.22 MG/ML 3 ML VIAL. IV ONE (16:00)
--- NOTE | 2017-06-21 16:08 | EKG ---
[facility] [address] [place] [address] Test Date: 2017-06-21 Test Time: 15:57:41 Pat Name: MANDY DONALDSON Department: Room: 567 1 Gender: F Vegetable Inspector: CELIA : 1960 Requested By: PATRICA WILKINSON Order Number: [id number] Reading MD: Shaji Sykes Measurements Intervals Dustin Rate: 95 P: -36 MI: 142 QRS: -85 QRSD: 146 T: 58 QT: 370 QTc: 468 Interpretive Statements SINUS RHYTHM ABNORMAL LEFT AXIS DEVIATION NON SPECIFIC INTRAVENTRICULAR BLOCK RVH WITH REPOLARIZATION ABNORMALITY QRS(T) CONTOUR ABNORMALITY CONSIDER ANTEROLATERAL INFARCT CONSISTENT WITH INFERIOR INFARCT PROBABLY OLD ABNORMAL ECG RI6.01 Electronically Signed On 06-21-2017 16:14:04 MARINE GEOLOGIST by Shaji Sykes
--- NOTE | 2017-06-21 16:45 | CARD ---
APPROVED REPORT EXAM: Two-dimensional and M-mode echocardiogram with Doppler, color Doppler with contrast. Other Information Quality : Technically Limited Rhythm : NSRTechnically limited study due to body habitus. INDICATION Dyspnea Echo Enhancing Agent Indication: Endocardial border delineation Agent/Amount Used: Optison 2mL 2D DIMENSIONS Left Atrium(2D)3.9 (1.6-4.0cm)Aortic Root(2D)3.1 (2.0-3.7cm) LVOT Diameter2.5 (1.8-2.4cm) Aortic Valve AoV Peak Alfredo.167.9cm/sAoV VTI23.7cm AO Peak GR.11.3mmHgLVOT VTI 18.08cm AO Mean GR.6mmHg Mitral Valve MV E Wtzdhgpx87.8cm/sMV E Peak Gr.3mmHg MV DECEL [id number] A Eapdfcgp550.9cm/s MV KHN76hnQ/A Ratio0.7 MV A Xvnhclhm050ahIGN (PHT)4.07cm2 TDI Lateral E' P. V7.01cm/sMedial E' P. V5.53cm/s E/Lateral E'10.4E/Medial E'13.2 LEFT VENTRICLE The left ventricle is not well visualized. There is normal left ventricular wall thickness. Left vent ricle systolic function is normal. The Ejection Fraction is 55-60%. There is normal LV segmental wall motion, delineated with contrast use due to technically difficult images. Tissue Doppler imaging rev eals mild left ventricular diastolic dysfunction. Transmitral Doppler flow pattern is Grade I-abnorma l relaxation pattern. RIGHT VENTRICLE The right ventricle appears normal size. The right ventricular systolic function is normal. ATRIA The left atrium size is normal. The right atrium is not well visualized. The interatrial septum is in tact with no evidence for an atrial septal defect or patent foramen ovale as noted on 2-D or Doppler imaging. AORTIC VALVE Not well visualized. Doppler and Color Flow revealed no significant aortic regurgitation. There is no significant aortic valvular stenosis. MITRAL VALVE Not well visualized. There is no evidence of mitral valve prolapse. There is no mitral valve stenosis . Doppler and Color Flow revealed no mitral valve regurgitation noted. TRICUSPID VALVE The tricuspid valve is not well visualized. Doppler and Color Flow revealed no tricuspid valve regurg itation noted. Unable to estimate PA pressure. There is no tricuspid valve stenosis. PULMONIC VALVE The pulmonic valve is not well visualized. Doppler and Color Flow revealed no pulmonic valvular regur gitation. There is no pulmonic valvular stenosis. GREAT VESSELS The aortic root is normal in size. The ascending aorta is normal in size. Pulmonary veins not recorde d. The IVC was not visualized. PERICARDIAL EFFUSION There is no evidence of significant pericardial effusion. Critical Notification Critical Value: No <Conclusion> Left ventricle systolic function is normal. The Ejection Fraction is 55-60%. There is normal LV segmental wall motion, delineated with contrast use due to technically difficult i mages.
[2017-06-21 19:00] VITALS: BP 128/75
[2017-06-21] MEDS: ATORVASTATIN CALCIUM 40 MG TABLET. PO SCH (20:13)
[2017-06-21] MEDS: MONTELUKAST SODIUM 10 MG TABLET. PO SCH (20:13)
[2017-06-21 22:34] VITALS: BP 133/61
[2017-06-21] MEDS: oxyCODONE/APAP 5/325 1 TAB TABLET PO PRN (23:54)
[2017-06-22 02:38] VITALS: BP 136/89
[2017-06-22 05:36] LABS: BASO % 0 % (0-3); EOS % 2 % (0-3); HEMATOCRIT 39.1 % (36.0-47.0); HEMOGLOBIN 12.4 g/dL (12.0-15.5); LYMPH # 1.3 x10^3/uL (1.0-4.8); LYMPH % 11 % (24-48); MEAN CORPUSCULAR HEMOGLOBIN 30 pg (25-35); MEAN CORPUSCULAR HGB CONC 32 g/dL (31-37); MEAN CORPUSCULAR VOLUME 94 fL (79-100); MONO % 6 % (0-9); NEUT % 81 % (31-73); PLATELET COUNT 290 x10^3/uL (140-400); RED BLOOD COUNT 4.15 x10^6/uL (3.50-5.40); RED CELL DISTRIBUTION WIDTH 15.7 % (11.5-14.5)
[2017-06-22] MEDS: oxyCODONE/APAP 5/325 1 TAB TABLET PO PRN ×3 (06:04→20:41)
[2017-06-22 06:07] LABS: ALBUMIN 2.8 g/dL (3.4-5.0); ALBUMIN/GLOBULIN RATIO 0.8 (1.0-1.7); CALCIUM 9.5 mg/dL (8.5-10.1); CREATININE 1.1 mg/dL (0.6-1.0); GFR 50.8; MAGNESIUM 1.6 mg/dL (1.8-2.4); POTASSIUM 4.1 mmol/L (3.5-5.1); TOTAL BILIRUBIN 0.4 mg/dL (0.2-1.0); TOTAL PROTEIN 6.3 g/dL (6.4-8.2)
[2017-06-22 07:00] VITALS: BP 123/67
[2017-06-22] MEDS: ALBUTEROL SULFATE 2.5 MG/3 ML NEBU. NEB SCH ×4 (07:18→20:39)
[2017-06-22] MEDS: METOCLOPRAMIDE 10 MG TABLET. PO SCH ×4 (07:30→20:35)
[2017-06-22] MEDS: BUDESONIDE 0.5 MG/2 ML NEBU. NEB SCH ×2 (08:00→20:39)
--- NOTE | 2017-06-22 09:03 | PDOC ---
PROGRESS NOTES Chief Complaint Chief Complaint Acute hypoxic respir failure ASSESSMENT AND PLAN: 1. RLL PNA: cont azithro/ceftriax 2. Asthma exacerbation: much improved.cont nebs, suppl O2 PRN 3. Sepsis: tachycardia, leukocytosis improving. no hypotension or fevers. lactic acidosis resolved 4. HTN: borderline control. monitor closely, prob will need med adjustment 5. DM2: better control on home regimen plus ISS. prob affected by steroids, infection 6. Morbid obesity (BMI 48): nutrition consult 7. Rash on hands from compulsive handwashing 8. upper back/shoulder pain: flexeril 9. Chest pain: ruled out for ACS with enzymes. echo WNL. d/w card: MPI would be inappropriate in setting of PNA/acute asthma. she admits pain is only in post R shoulder, most likely musculoskeletal History of Present Illness History of Present Illness breathing better. no c/o Vitals Vitals Vital Signs Date Time Temp Pulse Resp B/P (MAP) Pulse Ox O2 Delivery O2 Flow Rate FiO2 06/22/17 07:20 93 Nasal Cannula 3.0 06/22/17 07:00 97.9 88 20 123/67 (85) 97.9 Physical Exam General: Alert, Oriented X3, Cooperative, No acute distress Heart: Regular rate, Other (distant heart sounds) Lungs: Clear Abdomen: Soft, Other (obese) Extremities: No cyanosis, No edema Skin: No breakdown, No significant lesion Labs LABS Laboratory Tests Test 06/21/17 11:49 06/21/17 16:04 06/21/17 20:30 06/22/17 03:50 Glucose (Fingerstick) 105 mg/dL (70-99) 215 mg/dL (70-99) 158 mg/dL (70-99) White Blood Count 12.0 x10^3/uL (4.0-11.0) Red Blood Count 4.15 x10^6/uL (3.50-5.40) Hemoglobin 12.4 g/dL (12.0-15.5) Hematocrit 39.1 % (36.0-47.0) Mean Corpuscular Volume 94 fL (79-100) Mean Corpuscular Hemoglobin 30 pg (25-35) Mean Corpuscular Hemoglobin Concent 32 g/dL (31-37) Red Cell Distribution Width 15.7 % (11.5-14.5) Platelet Count 290 x10^3/uL (140-400) Neutrophils (%) (Auto) 81 % (31-73) Lymphocytes (%) (Auto) 11 % (24-48) Monocytes (%) (Auto) 6 % (0-9) Eosinophils (%) (Auto) 2 % (0-3) Basophils (%) (Auto) 0 % (0-3) Neutrophils # (Auto) 9.7 x10^3uL (1.8-7.7) Lymphocytes # (Auto) 1.3 x10^3/uL (1.0-4.8) Monocytes # (Auto) 0.7 x10^3/uL (0.0-1.1) Eosinophils # (Auto) 0.2 x10^3/uL (0.0-0.7) Basophils # (Auto) 0.0 x10^3/uL (0.0-0.2) Sodium Level 141 mmol/L (136-145) Potassium Level 4.1 mmol/L (3.5-5.1) Chloride Level 104 mmol/L (98-107) Carbon Dioxide Level 32 mmol/L (21-32) Anion Gap 5 (6-14) Blood Urea Nitrogen 31 mg/dL (7-20) Creatinine 1.1 mg/dL (0.6-1.0) Estimated GFR (Cockcroft-Gault) 50.8 BUN/Creatinine Ratio 28 (6-20) Glucose Level 151 mg/dL (70-99) Calcium Level 9.5 mg/dL (8.5-10.1) Magnesium Level 1.6 mg/dL (1.8-2.4) Total Bilirubin 0.4 mg/dL (0.2-1.0) Aspartate Amino Transf (AST/SGOT) 12 U/L (15-37) Alanine Aminotransferase (ALT/SGPT) 22 U/L (14-59) Alkaline Phosphatase 100 U/L (46-116) Total Protein 6.3 g/dL (6.4-8.2) Albumin 2.8 g/dL (3.4-5.0) Albumin/Globulin Ratio 0.8 (1.0-1.7) Test 06/22/17 07:38 Glucose (Fingerstick) 157 mg/dL (70-99) DANYA KLINE MD Jun 22, 2017 09:03
[2017-06-22 11:00] VITALS: BP 122/72
[2017-06-22] MEDS: VERAPAMIL SR 120 MG TABLET.ER. PO SCH (11:03)
[2017-06-22] MEDS: SERTRALINE 25 MG TABLET. PO SCH (11:03)
[2017-06-22] MEDS: LACTOBACILLUS RHAMNOSUS GG 1 CAPSULE. PO SCH ×2 (11:03→20:35)
[2017-06-22] MEDS: PANTOPRAZOLE 40 MG TABLET.DR. PO SCH (11:04)
[2017-06-22] MEDS: LINAGLIPTIN 5 MG TABLET PO SCH (11:04)
[2017-06-22] MEDS: LISINOPRIL 40 MG TABLET. PO SCH (11:05)
[2017-06-22] MEDS: ENOXAPARIN 40 MG/0.4 ML SYRINGE. SQ SCH ×2 (11:07→20:36)
[2017-06-22] MEDS: ASPIRIN ENTERIC COATED 325 MG TABLET.DR. PO SCH (11:07)
[2017-06-22] MEDS: cefTRIAXone IV Push 1 GM VIAL. IVP SCH (11:08)
[2017-06-22] MEDS: CYCLOBENZAPRINE 10 MG TABLET. PO PRN (11:09)
--- NOTE | 2017-06-22 13:53 | PDOC ---
PULMONARY PROGRESS NOTES Subjective better Vitals Vital Signs Date Time Temp Pulse Resp B/P (MAP) Pulse Ox O2 Delivery O2 Flow Rate FiO2 06/22/17 11:09 Nasal Cannula 3.0 06/22/17 11:05 95 122/72 06/22/17 11:00 97.7 20 93 97.7 General: Alert, No acute distress Lungs: Clear Cardiovascular: S1 Abdomen: Soft Neuro Exam: Alert Extremities: Other (trace edema) Labs Laboratory Tests Test 06/20/17 16:56 06/21/17 03:45 06/21/17 03:50 06/21/17 07:53 Glucose (Fingerstick) 149 mg/dL (70-99) 141 mg/dL (70-99) White Blood Count 13.1 x10^3/uL (4.0-11.0) Red Blood Count 4.23 x10^6/uL (3.50-5.40) Hemoglobin 12.8 g/dL (12.0-15.5) Hematocrit 39.6 % (36.0-47.0) Mean Corpuscular Volume 94 fL (79-100) Mean Corpuscular Hemoglobin 30 pg (25-35) Mean Corpuscular Hemoglobin Concent 32 g/dL (31-37) Red Cell Distribution Width 15.9 % (11.5-14.5) Platelet Count 314 x10^3/uL (140-400) Neutrophils (%) (Auto) 81 % (31-73) Lymphocytes (%) (Auto) 11 % (24-48) Monocytes (%) (Auto) 6 % (0-9) Eosinophils (%) (Auto) 1 % (0-3) Basophils (%) (Auto) 0 % (0-3) Neutrophils # (Auto) 10.6 x10^3uL (1.8-7.7) Lymphocytes # (Auto) 1.5 x10^3/uL (1.0-4.8) Monocytes # (Auto) 0.8 x10^3/uL (0.0-1.1) Eosinophils # (Auto) 0.1 x10^3/uL (0.0-0.7) Basophils # (Auto) 0.0 x10^3/uL (0.0-0.2) Sodium Level 140 mmol/L (136-145) Potassium Level 4.3 mmol/L (3.5-5.1) Chloride Level 102 mmol/L (98-107) Carbon Dioxide Level 31 mmol/L (21-32) Anion Gap 7 (6-14) Blood Urea Nitrogen 34 mg/dL (7-20) Creatinine 1.4 mg/dL (0.6-1.0) Estimated GFR (Cockcroft-Gault) 38.5 BUN/Creatinine Ratio 24 (6-20) Glucose Level 144 mg/dL (70-99) Lactic Acid Level 0.5 mmol/L (0.4-2.0) Calcium Level 9.4 mg/dL (8.5-10.1) Total Bilirubin 0.4 mg/dL (0.2-1.0) Aspartate Amino Transf (AST/SGOT) 15 U/L (15-37) Alanine Aminotransferase (ALT/SGPT) 23 U/L (14-59) Alkaline Phosphatase 106 U/L (46-116) Troponin I Quantitative < 0.017 ng/mL (0.000-0.055) Total Protein 6.5 g/dL (6.4-8.2) Albumin 2.8 g/dL (3.4-5.0) Albumin/Globulin Ratio 0.8 (1.0-1.7) Triglycerides Level 293 mg/dL (0-150) Cholesterol Level 160 mg/dL (0-200) LDL Cholesterol, Calculated 59 mg/dL (0-100) VLDL Cholesterol, Calculated 59 mg/dL (0-40) Non-HDL Cholesterol Calculated 118 mg/dL (0-129) HDL Cholesterol 42 mg/dL (40-60) Cholesterol/HDL Ratio 3.8 Test 06/21/17 11:49 06/21/17 16:04 06/21/17 20:30 06/22/17 03:50 Glucose (Fingerstick) 105 mg/dL (70-99) 215 mg/dL (70-99) 158 mg/dL (70-99) White Blood Count 12.0 x10^3/uL (4.0-11.0) Red Blood Count 4.15 x10^6/uL (3.50-5.40) Hemoglobin 12.4 g/dL (12.0-15.5) Hematocrit 39.1 % (36.0-47.0) Mean Corpuscular Volume 94 fL (79-100) Mean Corpuscular Hemoglobin 30 pg (25-35) Mean Corpuscular Hemoglobin Concent 32 g/dL (31-37) Red Cell Distribution Width 15.7 % (11.5-14.5) Platelet Count 290 x10^3/uL (140-400) Neutrophils (%) (Auto) 81 % (31-73) Lymphocytes (%) (Auto) 11 % (24-48) Monocytes (%) (Auto) 6 % (0-9) Eosinophils (%) (Auto) 2 % (0-3) Basophils (%) (Auto) 0 % (0-3) Neutrophils # (Auto) 9.7 x10^3uL (1.8-7.7) Lymphocytes # (Auto) 1.3 x10^3/uL (1.0-4.8) Monocytes # (Auto) 0.7 x10^3/uL (0.0-1.1) Eosinophils # (Auto) 0.2 x10^3/uL (0.0-0.7) Basophils # (Auto) 0.0 x10^3/uL (0.0-0.2) Sodium Level 141 mmol/L (136-145) Potassium Level 4.1 mmol/L (3.5-5.1) Chloride Level 104 mmol/L (98-107) Carbon Dioxide Level 32 mmol/L (21-32) Anion Gap 5 (6-14) Blood Urea Nitrogen 31 mg/dL (7-20) Creatinine 1.1 mg/dL (0.6-1.0) Estimated GFR (Cockcroft-Gault) 50.8 BUN/Creatinine Ratio 28 (6-20) Glucose Level 151 mg/dL (70-99) Calcium Level 9.5 mg/dL (8.5-10.1) Magnesium Level 1.6 mg/dL (1.8-2.4) Total Bilirubin 0.4 mg/dL (0.2-1.0) Aspartate Amino Transf (AST/SGOT) 12 U/L (15-37) Alanine Aminotransferase (ALT/SGPT) 22 U/L (14-59) Alkaline Phosphatase 100 U/L (46-116) Total Protein 6.3 g/dL (6.4-8.2) Albumin 2.8 g/dL (3.4-5.0) Albumin/Globulin Ratio 0.8 (1.0-1.7) Test 06/22/17 07:38 06/22/17 11:42 Glucose (Fingerstick) 157 mg/dL (70-99) 117 mg/dL (70-99) Laboratory Tests Test 06/21/17 16:04 06/21/17 20:30 06/22/17 03:50 06/22/17 07:38 Glucose (Fingerstick) 215 mg/dL (70-99) 158 mg/dL (70-99) 157 mg/dL (70-99) White Blood Count 12.0 x10^3/uL (4.0-11.0) Red Blood Count 4.15 x10^6/uL (3.50-5.40) Hemoglobin 12.4 g/dL (12.0-15.5) Hematocrit 39.1 % (36.0-47.0) Mean Corpuscular Volume 94 fL (79-100) Mean Corpuscular Hemoglobin 30 pg (25-35) Mean Corpuscular Hemoglobin Concent 32 g/dL (31-37) Red Cell Distribution Width 15.7 % (11.5-14.5) Platelet Count 290 x10^3/uL (140-400) Neutrophils (%) (Auto) 81 % (31-73) Lymphocytes (%) (Auto) 11 % (24-48) Monocytes (%) (Auto) 6 % (0-9) Eosinophils (%) (Auto) 2 % (0-3) Basophils (%) (Auto) 0 % (0-3) Neutrophils # (Auto) 9.7 x10^3uL (1.8-7.7) Lymphocytes # (Auto) 1.3 x10^3/uL (1.0-4.8) Monocytes # (Auto) 0.7 x10^3/uL (0.0-1.1) Eosinophils # (Auto) 0.2 x10^3/uL (0.0-0.7) Basophils # (Auto) 0.0 x10^3/uL (0.0-0.2) Sodium Level 141 mmol/L (136-145) Potassium Level 4.1 mmol/L (3.5-5.1) Chloride Level 104 mmol/L (98-107) Carbon Dioxide Level 32 mmol/L (21-32) Anion Gap 5 (6-14) Blood Urea Nitrogen 31 mg/dL (7-20) Creatinine 1.1 mg/dL (0.6-1.0) Estimated GFR (Cockcroft-Gault) 50.8 BUN/Creatinine Ratio 28 (6-20) Glucose Level 151 mg/dL (70-99) Calcium Level 9.5 mg/dL (8.5-10.1) Magnesium Level 1.6 mg/dL (1.8-2.4) Total Bilirubin 0.4 mg/dL (0.2-1.0) Aspartate Amino Transf (AST/SGOT) 12 U/L (15-37) Alanine Aminotransferase (ALT/SGPT) 22 U/L (14-59) Alkaline Phosphatase 100 U/L (46-116) Total Protein 6.3 g/dL (6.4-8.2) Albumin 2.8 g/dL (3.4-5.0) Albumin/Globulin Ratio 0.8 (1.0-1.7) Test 06/22/17 11:42 Glucose (Fingerstick) 117 mg/dL (70-99) Medications Active Scripts Medications Dose Route/Sig Max Daily Dose Days Date Category Lisinopril 10 Mg Tablet 1 Tab PO DAILY 06/19/17 Reported Prednisone 50 Mg Tablet 1 Tab PO DAILY 06/10/17 Rx Tradjenta (Linagliptin) 5 Mg Tablet 5 Tab PO DAILY 06/10/17 Reported B Complex (Vitamin B Complex) 1 Each Tablet 1 Each PO DAILY 10/08/15 Rx Proair Hfa Inhaler (Albuterol Sulfate) 8.5 Gm Hfa.aer.ad 2 Puff IH PRN Q4-6HRS 10/01/15 Reported Flovent 110MCG Hfa (Fluticasone Propionate) 12 Gm Aer.w.adap 2 Puff IH BID 10/01/15 Reported Montelukast Sodium Tablet (Montelukast Sodium) 10 Mg Tablet 10 Mg PO HS 10/01/15 Reported Aspirin 325 Mg Tablet 1 Tab PO DAILY 10/01/15 Reported Iron (Ferrous Sulfate) 325 Mg Capsule.er 325 Mg PO 10/01/15 Reported Metoclopramide Hcl 10 Mg Tablet 10 Mg PO QIDACHS 10/01/15 Reported Atorvastatin Calcium 80 Mg Tablet 1 Tab PO DAILY 10/01/15 Reported Lansoprazole 30 Mg Capsule. 1 Cap PO DAILY 10/01/15 Reported Metformin Hcl 1,000 Mg Tablet 1 Tab PO BID 10/01/15 Reported Verapamil Er (Verapamil Hcl) 240 Mg Cap24h.pel 0.5 Cap PO DAILY 10/01/15 Reported Folic Acid 1 Mg Tablet 1 Tab PO DAILY 10/01/15 Reported Zoloft (Sertraline Hcl) 25 Mg Tablet 1 Tab PO DAILY 10/01/15 Reported Hydrocodone-Apap 7.5-325 (Hydrocodone Bit/Acetaminophen) 1 Each Tablet 1 Tab PO PRN Q6HRS PRN 10/01/15 Reported Impression . 1. Dyspnea secondary to acute exacerbation of asthma with bronchospasm. better 2. Suspected left lower lobe pneumonia. 3. Underlying obesity with suspected obstructive sleep apnea, but her insurance Medicaid does not cover sleep study or CPAP. Plan . 1. Continue with present bronchodilators with albuterol nebulizer q.i.d. 2. Continue with Pulmicort. 3. Holding oral prednisone due to allergies. 4. Continue antibiotics. 5. Wean off oxygen once clinically better. 6. repeat cxr, If better, can go home in am. d/w BECKIE Gibbs MD Jun 22, 2017 13:53
--- NOTE | 2017-06-22 14:37 | PDOC ---
CARDIO Progress Notes Date and Time Date of Service 06/22/2017 Time of Evaluation 1200 Subjective Subjective: No Chest Pain, No shortness of breath, No Palpitations, Other ( right shoulder blade pain reproducible with palpation) Vitals Vitals Vital Signs Date Time Temp Pulse Resp B/P (MAP) Pulse Ox O2 Delivery O2 Flow Rate FiO2 06/22/17 11:09 Nasal Cannula 3.0 06/22/17 11:05 95 122/72 06/22/17 11:00 97.7 20 93 97.7 Weight Weight [ ] Input and Output Intake and Output Intake and Output 06/22/17 07:00 Intake Total 880 ml Output Total 400 ml Balance 480 ml Intake Oral 880 ml Output Urine Total 400 ml # Voids 6 # Bowel Movements 1 Laboratory Labs Laboratory Tests Test 06/21/17 16:04 06/21/17 20:30 06/22/17 03:50 06/22/17 07:38 Glucose (Fingerstick) 215 mg/dL (70-99) 158 mg/dL (70-99) 157 mg/dL (70-99) White Blood Count 12.0 x10^3/uL (4.0-11.0) Red Blood Count 4.15 x10^6/uL (3.50-5.40) Hemoglobin 12.4 g/dL (12.0-15.5) Hematocrit 39.1 % (36.0-47.0) Mean Corpuscular Volume 94 fL (79-100) Mean Corpuscular Hemoglobin 30 pg (25-35) Mean Corpuscular Hemoglobin Concent 32 g/dL (31-37) Red Cell Distribution Width 15.7 % (11.5-14.5) Platelet Count 290 x10^3/uL (140-400) Neutrophils (%) (Auto) 81 % (31-73) Lymphocytes (%) (Auto) 11 % (24-48) Monocytes (%) (Auto) 6 % (0-9) Eosinophils (%) (Auto) 2 % (0-3) Basophils (%) (Auto) 0 % (0-3) Neutrophils # (Auto) 9.7 x10^3uL (1.8-7.7) Lymphocytes # (Auto) 1.3 x10^3/uL (1.0-4.8) Monocytes # (Auto) 0.7 x10^3/uL (0.0-1.1) Eosinophils # (Auto) 0.2 x10^3/uL (0.0-0.7) Basophils # (Auto) 0.0 x10^3/uL (0.0-0.2) Sodium Level 141 mmol/L (136-145) Potassium Level 4.1 mmol/L (3.5-5.1) Chloride Level 104 mmol/L (98-107) Carbon Dioxide Level 32 mmol/L (21-32) Anion Gap 5 (6-14) Blood Urea Nitrogen 31 mg/dL (7-20) Creatinine 1.1 mg/dL (0.6-1.0) Estimated GFR (Cockcroft-Gault) 50.8 BUN/Creatinine Ratio 28 (6-20) Glucose Level 151 mg/dL (70-99) Calcium Level 9.5 mg/dL (8.5-10.1) Magnesium Level 1.6 mg/dL (1.8-2.4) Total Bilirubin 0.4 mg/dL (0.2-1.0) Aspartate Amino Transf (AST/SGOT) 12 U/L (15-37) Alanine Aminotransferase (ALT/SGPT) 22 U/L (14-59) Alkaline Phosphatase 100 U/L (46-116) Total Protein 6.3 g/dL (6.4-8.2) Albumin 2.8 g/dL (3.4-5.0) Albumin/Globulin Ratio 0.8 (1.0-1.7) Test 06/22/17 11:42 Glucose (Fingerstick) 117 mg/dL (70-99) Microbiology Micro Microbiology 06/19/17 Blood Culture - Preliminary, Resulted NO GROWTH AFTER 3 DAYS Physical Exam HEENT: Neck Supple W Full Motion Chest: Symmetric LUNGS: Other (basilar crackles) Heart: S1S2, RRR (SR) Abdomen: Soft N/T, Other (obese) Extremities: No Edema, No Calf Tenderness Neurology: alert, oriented, follow commands Assessment Assessment 1. Atypical chest pain: MSK reprodcuible and relieved by muscle relaxant. Troponin series normal. EKG changes likely from LV strain. EF normal and wall motion normal. 2. CAD: 60-70% RCA lesion involving the proximal segment of a medium caliber posterior descending branch from [facility] 09/2015 3. AECOPD with possible pneumonia: pulmonary following 4. Accelerated HTN: controlled 5. TRUMAN on CKD: per PCP 6. DM2/HLP 7. Morbid obesity/MENDEZ: BMI 47 8. Hx of GERD and gastroparesis 9. Arrhythmia: PSVT episode difficult to discern due to first degree AV block likely sinus tach. 10. Uncontrolled DRAKE: could not afford retest for DRAKE but used to wear CPAP in the past. Recommendations 1. Continue with secondary prevention 2. Follow up in office in 4 weeks. 3. Continue with pulmonary recommendations 4. Replace Mg today. Will follow along peripherally. PATRICA WILKINSON EMPLOYEE RELATIONS DIRECTOR Jun 22, 2017 14:37
[2017-06-22 15:00] VITALS: BP 113/72
[2017-06-22] MEDS ORDERED: MAGNESIUM SULFATE 2GM 50 ML IV ONE (15:00)
[2017-06-22] MEDS: DOCUSATE SODIUM 100 MG CAPSULE. PO SCH (15:49)
[2017-06-22] MEDS: HYDROcodone/APAP 7.5/325MG 1 TAB TABLET PO PRN (16:46)
[2017-06-22 19:00] VITALS: BP 122/80
[2017-06-22] MEDS: MONTELUKAST SODIUM 10 MG TABLET. PO SCH (20:35)
[2017-06-22] MEDS: ATORVASTATIN CALCIUM 40 MG TABLET. PO SCH (20:36)
[2017-06-22 23:00] VITALS: BP 136/78
[2017-06-23 03:00] VITALS: BP 125/78
[2017-06-23 06:14] LABS: BASO % 0 % (0-3); EOS % 2 % (0-3); HEMATOCRIT 39.3 % (36.0-47.0); HEMOGLOBIN 12.7 g/dL (12.0-15.5); LYMPH # 1.6 x10^3/uL (1.0-4.8); LYMPH % 12 % (24-48); MEAN CORPUSCULAR HEMOGLOBIN 30 pg (25-35); MEAN CORPUSCULAR HGB CONC 32 g/dL (31-37); MEAN CORPUSCULAR VOLUME 94 fL (79-100); MONO % 6 % (0-9); NEUT % 80 % (31-73); PLATELET COUNT 306 x10^3/uL (140-400); RED CELL DISTRIBUTION WIDTH 15.4 % (11.5-14.5); WHITE BLOOD COUNT 13.4 x10^3/uL (4.0-11.0)
[2017-06-23] MEDS: oxyCODONE/APAP 5/325 1 TAB TABLET PO PRN (06:33)
[2017-06-23 06:35] LABS: ALBUMIN/GLOBULIN RATIO 0.8 (1.0-1.7); CREATININE 1.2 mg/dL (0.6-1.0); TOTAL BILIRUBIN 0.3 mg/dL (0.2-1.0); TOTAL PROTEIN 6.8 g/dL (6.4-8.2)
[2017-06-23 07:00] VITALS: BP 124/76
[2017-06-23] MEDS: BUDESONIDE 0.5 MG/2 ML NEBU. NEB SCH (07:33)
[2017-06-23] MEDS: ALBUTEROL SULFATE 2.5 MG/3 ML NEBU. NEB SCH (07:33)
[2017-06-23 08:09] VITALS: BP 136/78
[2017-06-23] MEDS: LACTOBACILLUS RHAMNOSUS GG 1 CAPSULE. PO SCH (08:22)
[2017-06-23] MEDS: VERAPAMIL SR 120 MG TABLET.ER. PO SCH (08:23)
[2017-06-23] MEDS: SERTRALINE 25 MG TABLET. PO SCH (08:23)
[2017-06-23] MEDS: DOCUSATE SODIUM 100 MG CAPSULE. PO SCH (08:23)
[2017-06-23] MEDS: PANTOPRAZOLE 40 MG TABLET.DR. PO SCH (08:23)
[2017-06-23] MEDS: LISINOPRIL 40 MG TABLET. PO SCH (08:29)
[2017-06-23] MEDS: CYCLOBENZAPRINE 10 MG TABLET. PO PRN (08:29)
[2017-06-23] MEDS: ASPIRIN ENTERIC COATED 325 MG TABLET.DR. PO SCH (08:29)
[2017-06-23] MEDS: LINAGLIPTIN 5 MG TABLET PO SCH (08:29)
[2017-06-23] MEDS: METOCLOPRAMIDE 10 MG TABLET. PO SCH ×2 (08:30→11:15)
[2017-06-23] MEDS: ENOXAPARIN 40 MG/0.4 ML SYRINGE. SQ SCH (08:36)
--- NOTE | 2017-06-23 08:39 | RAD ---
Portable chest, 06/23/2017: History: Pneumonia Comparison is made to a study from 06/19/2017. The cardiac silhouette is at the upper limits of normal in size, accentuated by prominent epicardial fat pads. The pulmonary vascularity is normal. There is a mild unchanged streaky left basilar opacity compatible with atelectasis. A component of pneumonia cannot be excluded. The lungs are otherwise clear. There is no evidence of pleural fluid. IMPRESSION: 1. Mild streaky left basilar atelectasis. 2. No significant change since 06/19/2017.
--- NOTE | 2017-06-23 09:41 | PDOC ---
PULMONARY PROGRESS NOTES Subjective better Vitals Vital Signs Date Time Temp Pulse Resp B/P (MAP) Pulse Ox O2 Delivery O2 Flow Rate FiO2 06/23/17 08:29 72 136/78 06/23/17 08:09 97.5 18 91 97.5 06/23/17 07:37 Nasal Cannula 3.0 General: Alert, No acute distress Lungs: Clear Cardiovascular: S1 Abdomen: Soft Neuro Exam: Alert Extremities: Other (trace edema) Labs Laboratory Tests Test 06/21/17 11:49 06/21/17 16:04 06/21/17 20:30 06/22/17 03:50 Glucose (Fingerstick) 105 mg/dL (70-99) 215 mg/dL (70-99) 158 mg/dL (70-99) White Blood Count 12.0 x10^3/uL (4.0-11.0) Red Blood Count 4.15 x10^6/uL (3.50-5.40) Hemoglobin 12.4 g/dL (12.0-15.5) Hematocrit 39.1 % (36.0-47.0) Mean Corpuscular Volume 94 fL (79-100) Mean Corpuscular Hemoglobin 30 pg (25-35) Mean Corpuscular Hemoglobin Concent 32 g/dL (31-37) Red Cell Distribution Width 15.7 % (11.5-14.5) Platelet Count 290 x10^3/uL (140-400) Neutrophils (%) (Auto) 81 % (31-73) Lymphocytes (%) (Auto) 11 % (24-48) Monocytes (%) (Auto) 6 % (0-9) Eosinophils (%) (Auto) 2 % (0-3) Basophils (%) (Auto) 0 % (0-3) Neutrophils # (Auto) 9.7 x10^3uL (1.8-7.7) Lymphocytes # (Auto) 1.3 x10^3/uL (1.0-4.8) Monocytes # (Auto) 0.7 x10^3/uL (0.0-1.1) Eosinophils # (Auto) 0.2 x10^3/uL (0.0-0.7) Basophils # (Auto) 0.0 x10^3/uL (0.0-0.2) Sodium Level 141 mmol/L (136-145) Potassium Level 4.1 mmol/L (3.5-5.1) Chloride Level 104 mmol/L (98-107) Carbon Dioxide Level 32 mmol/L (21-32) Anion Gap 5 (6-14) Blood Urea Nitrogen 31 mg/dL (7-20) Creatinine 1.1 mg/dL (0.6-1.0) Estimated GFR (Cockcroft-Gault) 50.8 BUN/Creatinine Ratio 28 (6-20) Glucose Level 151 mg/dL (70-99) Calcium Level 9.5 mg/dL (8.5-10.1) Magnesium Level 1.6 mg/dL (1.8-2.4) Total Bilirubin 0.4 mg/dL (0.2-1.0) Aspartate Amino Transf (AST/SGOT) 12 U/L (15-37) Alanine Aminotransferase (ALT/SGPT) 22 U/L (14-59) Alkaline Phosphatase 100 U/L (46-116) Total Protein 6.3 g/dL (6.4-8.2) Albumin 2.8 g/dL (3.4-5.0) Albumin/Globulin Ratio 0.8 (1.0-1.7) Test 06/22/17 07:38 06/22/17 11:42 06/22/17 16:45 06/22/17 21:10 Glucose (Fingerstick) 157 mg/dL (70-99) 117 mg/dL (70-99) 138 mg/dL (70-99) 134 mg/dL (70-99) Test 06/23/17 04:00 06/23/17 07:49 White Blood Count 13.4 x10^3/uL (4.0-11.0) Red Blood Count 4.20 x10^6/uL (3.50-5.40) Hemoglobin 12.7 g/dL (12.0-15.5) Hematocrit 39.3 % (36.0-47.0) Mean Corpuscular Volume 94 fL (79-100) Mean Corpuscular Hemoglobin 30 pg (25-35) Mean Corpuscular Hemoglobin Concent 32 g/dL (31-37) Red Cell Distribution Width 15.4 % (11.5-14.5) Platelet Count 306 x10^3/uL (140-400) Neutrophils (%) (Auto) 80 % (31-73) Lymphocytes (%) (Auto) 12 % (24-48) Monocytes (%) (Auto) 6 % (0-9) Eosinophils (%) (Auto) 2 % (0-3) Basophils (%) (Auto) 0 % (0-3) Neutrophils # (Auto) 10.7 x10^3uL (1.8-7.7) Lymphocytes # (Auto) 1.6 x10^3/uL (1.0-4.8) Monocytes # (Auto) 0.8 x10^3/uL (0.0-1.1) Eosinophils # (Auto) 0.3 x10^3/uL (0.0-0.7) Basophils # (Auto) 0.0 x10^3/uL (0.0-0.2) Sodium Level 141 mmol/L (136-145) Potassium Level 4.0 mmol/L (3.5-5.1) Chloride Level 102 mmol/L (98-107) Carbon Dioxide Level 31 mmol/L (21-32) Anion Gap 8 (6-14) Blood Urea Nitrogen 32 mg/dL (7-20) Creatinine 1.2 mg/dL (0.6-1.0) Estimated GFR (Cockcroft-Gault) 46.0 BUN/Creatinine Ratio 27 (6-20) Glucose Level 145 mg/dL (70-99) Calcium Level 10.0 mg/dL (8.5-10.1) Total Bilirubin 0.3 mg/dL (0.2-1.0) Aspartate Amino Transf (AST/SGOT) 11 U/L (15-37) Alanine Aminotransferase (ALT/SGPT) 24 U/L (14-59) Alkaline Phosphatase 100 U/L (46-116) Total Protein 6.8 g/dL (6.4-8.2) Albumin 3.0 g/dL (3.4-5.0) Albumin/Globulin Ratio 0.8 (1.0-1.7) Glucose (Fingerstick) 130 mg/dL (70-99) Laboratory Tests Test 06/22/17 11:42 06/22/17 16:45 06/22/17 21:10 06/23/17 04:00 Glucose (Fingerstick) 117 mg/dL (70-99) 138 mg/dL (70-99) 134 mg/dL (70-99) White Blood Count 13.4 x10^3/uL (4.0-11.0) Red Blood Count 4.20 x10^6/uL (3.50-5.40) Hemoglobin 12.7 g/dL (12.0-15.5) Hematocrit 39.3 % (36.0-47.0) Mean Corpuscular Volume 94 fL (79-100) Mean Corpuscular Hemoglobin 30 pg (25-35) Mean Corpuscular Hemoglobin Concent 32 g/dL (31-37) Red Cell Distribution Width 15.4 % (11.5-14.5) Platelet Count 306 x10^3/uL (140-400) Neutrophils (%) (Auto) 80 % (31-73) Lymphocytes (%) (Auto) 12 % (24-48) Monocytes (%) (Auto) 6 % (0-9) Eosinophils (%) (Auto) 2 % (0-3) Basophils (%) (Auto) 0 % (0-3) Neutrophils # (Auto) 10.7 x10^3uL (1.8-7.7) Lymphocytes # (Auto) 1.6 x10^3/uL (1.0-4.8) Monocytes # (Auto) 0.8 x10^3/uL (0.0-1.1) Eosinophils # (Auto) 0.3 x10^3/uL (0.0-0.7) Basophils # (Auto) 0.0 x10^3/uL (0.0-0.2) Sodium Level 141 mmol/L (136-145) Potassium Level 4.0 mmol/L (3.5-5.1) Chloride Level 102 mmol/L (98-107) Carbon Dioxide Level 31 mmol/L (21-32) Anion Gap 8 (6-14) Blood Urea Nitrogen 32 mg/dL (7-20) Creatinine 1.2 mg/dL (0.6-1.0) Estimated GFR (Cockcroft-Gault) 46.0 BUN/Creatinine Ratio 27 (6-20) Glucose Level 145 mg/dL (70-99) Calcium Level 10.0 mg/dL (8.5-10.1) Total Bilirubin 0.3 mg/dL (0.2-1.0) Aspartate Amino Transf (AST/SGOT) 11 U/L (15-37) Alanine Aminotransferase (ALT/SGPT) 24 U/L (14-59) Alkaline Phosphatase 100 U/L (46-116) Total Protein 6.8 g/dL (6.4-8.2) Albumin 3.0 g/dL (3.4-5.0) Albumin/Globulin Ratio 0.8 (1.0-1.7) Test 06/23/17 07:49 Glucose (Fingerstick) 130 mg/dL (70-99) Medications Active Scripts Medications Dose Route/Sig Max Daily Dose Days Date Category Lisinopril 10 Mg Tablet 1 Tab PO DAILY 06/19/17 Reported Prednisone 50 Mg Tablet 1 Tab PO DAILY 06/10/17 Rx Tradjenta (Linagliptin) 5 Mg Tablet 5 Tab PO DAILY 06/10/17 Reported B Complex (Vitamin B Complex) 1 Each Tablet 1 Each PO DAILY 10/08/15 Rx Proair Hfa Inhaler (Albuterol Sulfate) 8.5 Gm Hfa.aer.ad 2 Puff IH PRN Q4-6HRS 10/01/15 Reported Flovent 110MCG Hfa (Fluticasone Propionate) 12 Gm Aer.w.adap 2 Puff IH BID 10/01/15 Reported Montelukast Sodium Tablet (Montelukast Sodium) 10 Mg Tablet 10 Mg PO HS 10/01/15 Reported Aspirin 325 Mg Tablet 1 Tab PO DAILY 10/01/15 Reported Iron (Ferrous Sulfate) 325 Mg Capsule.er 325 Mg PO 10/01/15 Reported Metoclopramide Hcl 10 Mg Tablet 10 Mg PO QIDACHS 10/01/15 Reported Atorvastatin Calcium 80 Mg Tablet 1 Tab PO DAILY 10/01/15 Reported Lansoprazole 30 Mg Capsule.dr 1 Cap PO DAILY 10/01/15 Reported Metformin Hcl 1,000 Mg Tablet 1 Tab PO BID 10/01/15 Reported Verapamil Er (Verapamil Hcl) 240 Mg Cap24h.pel 0.5 Cap PO DAILY 10/01/15 Reported Folic Acid 1 Mg Tablet 1 Tab PO DAILY 10/01/15 Reported Zoloft (Sertraline Hcl) 25 Mg Tablet 1 Tab PO DAILY 10/01/15 Reported Hydrocodone-Apap 7.5-325 (Hydrocodone Bit/Acetaminophen) 1 Each Tablet 1 Tab PO PRN Q6HRS PRN 10/01/15 Reported Impression . 1. Dyspnea secondary to acute exacerbation of asthma with bronchospasm. better 2. Suspected left lower lobe pneumonia. 3. Underlying obesity with suspected obstructive sleep apnea, but her insurance Medicaid does not cover sleep study or CPAP. Plan . 1. Continue with present bronchodilators with albuterol nebulizer q.i.d. 2. Continue with Pulmicort. 3. Holding oral prednisone due to allergies. 4. Continue antibiotics. 5. Wean off oxygen once clinically better. 6. repeat cxr, stable, ok with dc home BECKIE MARTÍNEZ MD Jun 23, 2017 09:41
[2017-06-23 10:38] VITALS: BP 127/74
[2017-06-23] MEDS: cefTRIAXone IV Push 1 GM VIAL. IVP SCH (10:53)
[2017-06-23] MEDS ORDERED: LISI40TA PO (12:10)
[2017-06-23] MEDS ORDERED: ASPI325T11 PO (12:10)
[2017-06-23] MEDS ORDERED: VERA120T2 PO (12:10)
[2017-06-23] MEDS ORDERED: LACT1CAP19 PO (12:10)
[2017-06-23] MEDS ORDERED: DOXY100C2 PO (12:11)
[2017-06-23] MEDS: HYDROcodone/APAP 7.5/325MG 1 TAB TABLET PO PRN (12:13)
[2017-06-23 14:31] VITALS: BP 120/73
[2017-06-23] MEDS ORDERED: CEFPODOXIME PROXETIL 100 MG TABLET. PO SCH (21:00)
--- NOTE | 2017-06-24 19:15 | DS ---
DATE OF DISCHARGE: 06/23/2017 CHIEF COMPLAINT: Acute hypoxic respiratory failure. HOSPITAL COURSE: The patient is a 57-year-old morbidly obese woman with asthma, who presented with acute respiratory failure. She was diagnosed with a right lower lobe pneumonia triggering an asthma exacerbation. She was started on azithromycin and ceftriaxone as well as IV steroids, which were later switched to a p.o. taper. Nebulizers and supplemental O2 were added. Her symptoms slowly improved. With tachycardia and leukocytosis as well as lactic acidosis, she was deemed to have sepsis as well, which thankfully resolved within the first 12 hours of admission. Blood pressure and hypertension were monitored and adjusted as needed. She complained of some chest pain although later admitted that this was essentially located only in her right back/shoulder area. A Cardiology consult was obtained and an echocardiogram was obtained, which was negative. A stress test was deferred due to respiratory issues and can be obtained on an outpatient basis. Her back pain was attributed to musculoskeletal causes. PHYSICAL EXAMINATION: VITAL SIGNS: Blood pressure of 122/72, heart rate 95, respiratory rate 20. No fevers. GENERAL: Alert and oriented, morbidly obese. LUNGS: Clear without wheezes. HEART: Regular rate and rhythm. ABDOMEN: Morbidly obese, positive bowel sounds. EXTREMITIES: Trace edema. DISCHARGE DATE: 06/23/2017. DISCHARGE DIAGNOSES: Right lower lobe pneumonia and asthma exacerbation. DISCHARGE DISPOSITION: To home with services. DISCHARGE CONDITION: Improved. DISCHARGE MEDICATIONS: Please refer to MAR. DISCHARGE INSTRUCTIONS: The patient will follow up with her nuclear medical technologist and primary care physician in the next month. Greater than 30 minutes were spent in arranging her discharge. DANYA KLINE MD DR: [place]/nts JOB#: [id number] / [id number] DEEPIKA Ovalles
[2017-07-07] MEDS ORDERED: LACT1CAP19 PO (16:03)
[2017-07-07] MEDS ORDERED: ALPR0.254 PO (16:03)
[2017-07-07] MEDS ORDERED: GUAI600T47 PO (16:03)
[2017-07-07] MEDS ORDERED: AMOX1TAB11 PO (16:03)
[2017-07-07] MEDS ORDERED: CLON0.2T10 PO (16:03)
== END 2017-06-23 15:30 | disposition home health service (06) | DRG 871 ==
LOC: ER 12:11 → 5 SOUTH 13:49
PROVIDERS: ADMIT Internal Medicine; ATTEND Internal Medicine
DX: A41.9 Sepsis, unspecified organism (principal); J96.01 Acute respiratory failure with hypoxia; E87.2 Acidosis; J44.0 Chronic obstructive pulmonary disease with (acute) lower respiratory infection; N17.9 Acute kidney failure, unspecified; J18.1 Lobar pneumonia, unspecified organism; J45.901 Unspecified asthma with (acute) exacerbation; E66.01 Morbid (severe) obesity due to excess calories; J44.1 Chronic obstructive pulmonary disease with (acute) exacerbation; Z68.42 Body mass index [BMI] 45.0-49.9, adult; E11.22 Type 2 diabetes mellitus with diabetic chronic kidney disease; E11.43 Type 2 diabetes mellitus with diabetic autonomic (poly)neuropathy; E78.5 Hyperlipidemia, unspecified; G47.33 Obstructive sleep apnea (adult) (pediatric); I12.9 Hypertensive chronic kidney disease with stage 1 through stage 4 chronic kidney disease, or unspecified chronic kidney disease; I25.10 Atherosclerotic heart disease of native coronary artery without angina pectoris; I45.10 Unspecified right bundle-branch block; I44.0 Atrioventricular block, first degree; K21.9 Gastro-esophageal reflux disease without esophagitis; K31.84 Gastroparesis; K57.30 Diverticulosis of large intestine without perforation or abscess without bleeding; K76.0 Fatty (change of) liver, not elsewhere classified; R07.89 Other chest pain; N18.9 Chronic kidney disease, unspecified; N28.1 Cyst of kidney, acquired; F41.9 Anxiety disorder, unspecified; M43.17 Spondylolisthesis, lumbosacral region; Z90.49 Acquired absence of other specified parts of digestive tract; Z88.5 Allergy status to narcotic agent; Z88.8 Allergy status to other drugs, medicaments and biological substances
CPT/HCPCS: 99285; C8929; 36415; 71010; 80053; 80061; 82962; 83605; 83735; 83880; 84484; 85007; 85025; 87040; 87641; 93005; 94620; 94640; 94760; 96374; J0456; J0690; J0696; J1650; J2405; J2930; J7050; J7060; J7613; J7626; J8597; Q9956; J7030

== ENCOUNTER 2017-06-29 02:31 | Inpatient (IN) | payer OTHER ==
[~2017-06-29] VITALS: Ht 170.2 cm; Wt 141.2 kg
[~2017-06-29 02:31] MED LIST changes: +ASPI325T11 PO; +DOXY100C2 PO; +LACT1CAP19 PO; +LISI10TA2 PO; +VERA120T2 PO
[2017-06-29 03:00] LABS: HCO3 ABG 27 mmol/L (21-28); PCO2 ABG 48 mmHg (35-46); PO2 ABG 70 mmHg (65-108); SAT O2 ABG 93 % (92-99)
[2017-06-29] MEDS ORDERED: methylPREDNISolone SOD SUCC PF 125 MG/2 ML VIAL. IV ONE (03:00)
[2017-06-29] MEDS ORDERED: IV NORMAL SALINE 1000ML BAG 1,000 ML IV SCH (03:00)
[2017-06-29 03:01] LABS: PH ABG 7.37 (7.35-7.45)
--- NOTE | 2017-06-29 03:04 | PHYS DOC ---
Past Medical History Past Medical History: Asthma, Bronchitis, Diabetes-Type II, Hypertension, Other Additional Past Medical Histor: Morbid Obesity Past Surgical History: Cholecystectomy Additional Information: non smoker Alcohol Use: None Drug Use: None Adult General Chief Complaint Chief Complaint: SHORTNESS OF BREATH HPI HPI Patient is a 57 year old female who presents with respiratory distress. SHe was recently admitted from June 19 - June 24 with right lower lobe pneumonia, acute respiratory failure and exacerbation of her asthma. She is treated with Rocephin and Zithromax and placed on IV steroids. Echocardiogram was unremarkable. Lactic acid was 2.2 and a creatinine was 1.2. She was discharged to home. She states she was doing better and then earlier in the evening at 2100 PM she developed increasing difficulty breathing. When the paramedics arrived her oxygen saturation was in the mid 80s on room air. She's given breathing treatment placed on oxygen she did improve to 90%. Per the mother (who lives with patient) she has been struggling ever since she came home with her breathing. Review of Systems Review of Systems Constitutional: Denies fever or chills Eyes: Denies change in visual acuity, redness, or eye pain HENT: Denies nasal congestion or sore throat Respiratory: POS cough and shortness of breath Cardiovascular: No chest pain GI: Denies abdominal pain, nausea, vomiting, bloody stools or diarrhea : Denies dysuria or hematuria Musculoskeletal: Denies back pain or joint pain Integument: POS rash and bilateral hands Neurologic: Denies headache, focal weakness or sensory changes All other systems were reviewed and found to be within normal limits, except as documented in this note. Current Medications Current Medications Current Medications Medications (Trade) Dose Ordered Sig/Joy Start Time Stop Time Status Last Admin Dose Admin Enoxaparin Sodium (Lovenox 150mg Syringe) 140 mg Q12HR 06/29/17 04:00 Enoxaparin Sodium (Lovenox Per Pharmacy Treatment Dosing) 1 each 1X ONCE 06/29/17 03:45 06/29/17 03:53 DC Info (Anti-Coagulation Monitoring By Pharmacy) 1 each PRN DAILY PRN 06/29/17 04:00 Levofloxacin/ Dextrose 150 ml @ 100 mls/hr 1X ONCE 06/29/17 03:30 06/29/17 04:59 06/29/17 03:09 100 MLS/HR Methylprednisolone Sodium Succinate (SOLU-Medrol 125MG VIAL) 125 mg 1X ONCE 06/29/17 03:00 06/29/17 03:01 DC 06/29/17 03:10 125 MG Sodium Chloride 1,000 ml @ 150 mls/hr Q6H40M 06/29/17 03:00 06/29/17 09:39 06/29/17 03:10 150 MLS/HR Allergies Allergies Allergies Coded Allergies Type Severity Reaction Last Updated Verified I S O L A T I O N *CONTACT* Allergy Unknown 10/02/15 Yes prednisone Adverse Reaction Intermediate VOMITING 10/05/15 Yes theophylline Adverse Reaction Intermediate VOMITING 10/05/15 Yes Physical Exam Physical Exam Constitutional: Well developed, well nourished, morbidly obese female in respiratory distress HENT: Normocephalic, atraumatic, bilateral external ears normal, oropharynx moist, no oral exudates, nose normal. Eyes: PERRLA, EOMI, conjunctiva normal, no discharge. Neck: Normal range of motion, no tenderness, supple, no stridor. Cardiovascular:Heart rate regular rhythm, no murmur Lungs & Thorax: Bilateral breath sounds coarse and wheezing. Abdomen: Bowel sounds normal, soft, no tenderness, no masses, no pulsatile masses. Skin: Warm, dry, no erythema, contact dermatitis to bilateral dorsum of hands. Back: No tenderness, no CVA tenderness. Extremities: No tenderness, no cyanosis, no clubbing, ROM intact, no edema. Neurologic: Alert and oriented X 3, normal motor function, normal sensory function, no focal deficits noted. Current Patient Data Vital Signs Vital Signs Date Time Temp Pulse Resp B/P (MAP) Pulse Ox O2 Delivery O2 Flow Rate FiO2 06/29/17 02:45 96 BiPAP/CPAP 06/29/17 02:35 98.1 88 28 111/67 (82) 4.0 98.1 Lab Values Laboratory Tests Test 06/29/17 02:42 06/29/17 03:00 O2 Saturation 93 % (92-99) Arterial Blood pH 7.37 (7.35-7.45) Arterial Blood pCO2 at Patient Temp 48 mmHg (35-46) H Arterial Blood pO2 at Patient Temp 70 mmHg (65-108) Arterial Blood HCO3 27 mmol/L (21-28) Arterial Blood Base Excess 1 mmol/L (-3-3) FiO2 25.0 White Blood Count 13.9 x10^3/uL (4.0-11.0) H Red Blood Count 4.14 x10^6/uL (3.50-5.40) Hemoglobin 12.5 g/dL (12.0-15.5) Hematocrit 38.1 % (36.0-47.0) Mean Corpuscular Volume 92 fL (79-100) Mean Corpuscular Hemoglobin 30 pg (25-35) Mean Corpuscular Hemoglobin Concent 33 g/dL (31-37) Red Cell Distribution Width 14.8 % (11.5-14.5) H Platelet Count 326 x10^3/uL (140-400) Neutrophils (%) (Auto) 84 % (31-73) H Lymphocytes (%) (Auto) 8 % (24-48) L Monocytes (%) (Auto) 6 % (0-9) Eosinophils (%) (Auto) 2 % (0-3) Basophils (%) (Auto) 0 % (0-3) Neutrophils # (Auto) 11.7 x10^3uL (1.8-7.7) H Lymphocytes # (Auto) 1.1 x10^3/uL (1.0-4.8) Monocytes # (Auto) 0.8 x10^3/uL (0.0-1.1) Eosinophils # (Auto) 0.2 x10^3/uL (0.0-0.7) Basophils # (Auto) 0.0 x10^3/uL (0.0-0.2) Prothrombin Time 13.4 SEC (11.7-14.0) Prothrombin Time INR 1.1 (0.8-1.1) D-Dimer (Aileen) 0.54 ug/mlFEU (0.00-0.50) H Sodium Level 131 mmol/L (136-145) L Potassium Level 4.4 mmol/L (3.5-5.1) Chloride Level 92 mmol/L (98-107) L Carbon Dioxide Level 29 mmol/L (21-32) Anion Gap 10 (6-14) Blood Urea Nitrogen 24 mg/dL (7-20) H Creatinine 0.9 mg/dL (0.6-1.0) Estimated GFR (Cockcroft-Gault) 64.1 BUN/Creatinine Ratio 27 (6-20) H Glucose Level 164 mg/dL (70-99) H Lactic Acid Level 0.8 mmol/L (0.4-2.0) Calcium Level 9.4 mg/dL (8.5-10.1) Magnesium Level 2.1 mg/dL (1.8-2.4) Total Bilirubin 0.6 mg/dL (0.2-1.0) Aspartate Amino Transferase (AST) 18 U/L (15-37) Alanine Aminotransferase (ALT) 21 U/L (14-59) Alkaline Phosphatase 107 U/L (46-116) Creatine Kinase 100 U/L (26-192) Creatine Kinase MB (Mass) 0.9 ng/mL (0.0-3.6) Creatine Kinase MB Relative Index 0.9 % (0-4) Troponin I Quantitative < 0.017 ng/mL (0.000-0.055) RZ-Sec-D-Type Natriuretic Peptide 171 pg/mL (0-124) H Total Protein 6.5 g/dL (6.4-8.2) Albumin 3.4 g/dL (3.4-5.0) Albumin/Globulin Ratio 1.1 (1.0-1.7) Lipase 113 U/L (73-393) Laboratory Tests 06/29/17 03:00 Laboratory Tests 06/29/17 03:00 EKG EKG EKG interpreted by myself at 0243 am with NSR, rate 89, LAD, RBBB, no specific ST changes (no change from prior 06/19/17) Radiology/Procedures Radiology/Procedures CXR interpreted by myself at 0315 am with enlarged cardiac silhouette, bibasilar atelectasis, little change from 06/23/17 that possible improvement in the left linear atelectasis in the lower lobe Course & Med Decision Making Course & Med Decision Making Evaluated patient upon arrival. Reviewed recent admission. Patient had improved on oxygen and duoneb but with history of recent pulmonary compromise and her increase work of breathing felt BIPAP would be appropriate. Solumedrol 125 IV; lab; blood culture drawn. Levaquin for broad spectrum coverage (was treated with Rocephin and azithromax last week). No recent d dimer performed; will check due to change in respiratory status. At 0255 AM: ABG on 25% BIPAP: 7.37/ 47/70. At 0330 am: D dimer elevated. Lovenox dosed and will order VQ today as her Cr elevated. Patient resting. BP 98/61, P 93, sat 95% on BIPAP. Updated mother. I have spoken with the patient and/or caregivers. I have explained the patient' s condition, diagnosis and treatment plan based on the information available to me at this time. I have answered the patient's and/or caregiver's questions and addressed any concerns. The patient and/or caregivers have as good an understanding of the patient's diagnosis, condition and treatment plan as can be expected at this point. The patient has been stabilized within the capability of the emergency department. The patient will be transported for further care and management or will be moved to an observation or inpatient service. I have communicated with the staff or medical practitioner taking over this patient's care. I have assessed this patient clinically and believe that their condition requires admission to the hospital. After consulting the admitting physician about this case, they have asked that I admit this patient to their service as an inpatient based on the clinical presentation and my impression. I spent approximately 30 minutes working and engaged directly in the patient care providing critical care evaluation this includes but not limited to time spent engaged in work directly related to the individual patients care. I spent time at the bedside, reviewing test results, discussing the case with staff, documenting the medical record and time spent with EMS discussing specific treatment issues when the patient presented and during his evaluation. This includes any discussion and updates with family members and/or patient. PERC Criteria Assessment: Age > 50: YES HR > 100: No 02 < 95%: No H/o DVT/PE: YES Recent trauma/surgery: No Hemoptysis No Exogenous Estrogen: No Unilateral Leg swelling: No Pretest probability > 15%: YES MACE Scoring: History: Highly suspicious (2 points); Moderately suspicious (1 point). Slightly suspicious (0 point). EKG: ST segment depression (2 points). Nonspecific repolarization disturbance ( 1 point). normal (0 point) Age: Greater than 65 (2 points), 65-45 (1 point); less than 45 years old (0 points). Risk factors:> 3 risk factors (2 points), 1-2 risk factors (one point), no risk factors (0 point). Troponin: > 2 times normal (2 points), 1-2 times normal (1 point) normal limits (0 point) Total score: _3 Score % pts MACE/n MACE Policy 0-3: 32% 1.9% 0.05% Discharge 4-6: 51% 413/3136 13% 1.3% Observation Risk management 7-10: 17% 518/1045 50% 2.8% Observation Treatment, CAGb Dragon Disclaimer Dragon Disclaimer This electronic medical record was generated, in whole or in part, using a voice recognition dictation system. Departure Departure Impression: Primary Impression: Respiratory failure, acute and chronic Additional Impressions: Asthma exacerbation Elevated d-dimer Disposition: ADMITTED INPATIENT Admitting Physician: Other (Flbright) Condition: CRITICAL Referrals: DEEPIKA BEAVERS DO (PCP) Problem Qualifiers Primary Impression: Respiratory failure, acute and chronic Respiratory failure complication: hypoxia Qualified Codes: J96.21 - Acute and chronic respiratory failure with hypoxia Additional Impressions: Asthma exacerbation Asthma severity: severe Asthma persistence: persistent Qualified Codes: J45.51 - Severe persistent asthma with (acute) exacerbation RAAD GEORGES MD Jun 29, 2017 03:04
[2017-06-29 03:12] LABS: BASO % 0 % (0-3); EOS % 2 % (0-3); HEMATOCRIT 38.1 % (36.0-47.0); HEMOGLOBIN 12.5 g/dL (12.0-15.5); LYMPH # 1.1 x10^3/uL (1.0-4.8); LYMPH % 8 % (24-48); MEAN CORPUSCULAR HEMOGLOBIN 30 pg (25-35); MEAN CORPUSCULAR HGB CONC 33 g/dL (31-37); MEAN CORPUSCULAR VOLUME 92 fL (79-100); MONO % 6 % (0-9); NEUT % 84 % (31-73); PLATELET COUNT 326 x10^3/uL (140-400); RED BLOOD COUNT 4.14 x10^6/uL (3.50-5.40); RED CELL DISTRIBUTION WIDTH 14.8 % (11.5-14.5); WHITE BLOOD COUNT 13.9 x10^3/uL (4.0-11.0)
[2017-06-29 03:20] LABS: INR 1.1 (0.8-1.1); PROTHROMBIN TIME PATIENT 13.4 SEC (11.7-14.0)
[2017-06-29 03:46] LABS: CALCIUM 9.4 mg/dL (8.5-10.1); CREATININE 0.9 mg/dL (0.6-1.0); GFR 64.1; POTASSIUM 4.4 mmol/L (3.5-5.1)
[2017-06-29 03:49] LABS: CKMB MASS 0.9 ng/mL (0.0-3.6)
[2017-06-29 03:52] LABS: ALBUMIN 3.4 g/dL (3.4-5.0); ALBUMIN/GLOBULIN RATIO 1.1 (1.0-1.7); MAGNESIUM 2.1 mg/dL (1.8-2.4); TOTAL BILIRUBIN 0.6 mg/dL (0.2-1.0); TOTAL PROTEIN 6.5 g/dL (6.4-8.2)
[2017-06-29] MEDS ORDERED: ANTI-COAG MONITOR BY PHARMACY. MC PRN (04:00)
[2017-06-29] MEDS ORDERED: ONDANSETRON PF 4 MG/2 ML VIAL. IV PRN (04:15)
[2017-06-29] MEDS ORDERED: levOFLOXacin PER PHARMACY. MC PRN (04:15)
[2017-06-29 05:35] VITALS: BP 121/72
[2017-06-29] MEDS: IV NORMAL SALINE 1000ML BAG 1,000 ML IV SCH ×2 (05:41→12:27)
[2017-06-29] MEDS: methylPREDNISolone SOD SUCC PF 40 MG/ML VIAL. IV SCH ×3 (05:46→17:56)
[2017-06-29 07:00] VITALS: BP 148/88
--- NOTE | 2017-06-29 07:45 | RAD ---
Single view chest History:Shortness of air An AP view of the chest is submitted. Comparison: 06/23/2017. Findings: Pericardial cardiac silhouette is stable, probably within normal limits given the presence of epicardial fat. There is again tortuous, possibly ectatic thoracic aorta. There is decreased atelectasis of the left lung base. There is some residual somewhat linear airspace opacity of the perihilar region. There are low lung volumes, suboptimal inspiration. There is some fullness of the right hilar region although fairly similar compared with 2015 exam allowing for lesser degree of inspiration on this exam. Impression: 1. There is suboptimal inspiration. There is decreased atelectasis left lung base, some residual possible atelectasis of the right perihilar region.
[2017-06-29 11:00] VITALS: BP 122/85
--- NOTE | 2017-06-29 11:35 | EKG ---
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
[2017-06-29] MEDS: LACTOBACILLUS RHAMNOSUS GG 1 CAPSULE. PO SCH ×2 (12:22→20:51)
[2017-06-29] MEDS: ASPIRIN ENTERIC COATED 325 MG TABLET.DR. PO SCH (12:23)
[2017-06-29] MEDS: VERAPAMIL SR 120 MG TABLET.ER. PO SCH (12:23)
[2017-06-29] MEDS: METOCLOPRAMIDE 10 MG TABLET. PO SCH ×3 (12:23→20:51)
[2017-06-29] MEDS: LISINOPRIL 10 MG TABLET PO SCH (12:24)
[2017-06-29] MEDS: LINAGLIPTIN 5 MG TABLET PO SCH (12:24)
[2017-06-29] MEDS: SERTRALINE 25 MG TABLET. PO SCH (12:24)
[2017-06-29] MEDS: FOLIC ACID 1 MG TABLET. PO SCH (12:24)
[2017-06-29] MEDS: PANTOPRAZOLE 40 MG TABLET.DR. PO SCH (12:24)
[2017-06-29] MEDS: BUDESONIDE 0.5 MG/2 ML NEBU. NEB SCH ×2 (13:00→19:29)
[2017-06-29] MEDS ORDERED: AZITHROMYCIN 500 MG in IV NORMAL SALINE 250ML 250 ML IV SCH (13:30)
--- NOTE | 2017-06-29 13:38 | HP ---
ADMIT DATE: 06/29/2017 CHIEF COMPLAINT: Dyspnea. HISTORY OF PRESENT ILLNESS: The patient is a 57-year-old morbidly obese woman with history of asthma and recent admission from June 19- with right lower lobe pneumonia who presented with acute onset shortness of breath. She relates that she has been doing fairly well since discharge, but yesterday started to become very short of breath prompting return to the Emergency Room. Her mother actually states that she has been short of breath ever since she left the hospital. The patient denies. In the Emergency Room, she was found hypoxic in the mid 80s on room air, but improved with placement of oxygen and breathing treatment. She is now admitted for asthma exacerbation. PAST MEDICAL HISTORY: Asthma and recent bronchitis/pneumonia, diabetes type 2, hypertension, morbid obesity. PAST SURGICAL HISTORY: She is status post cholecystectomy. FAMILY HISTORY: No asthma known in family. Morbid obesity. SOCIAL HISTORY: Lives with her mother. Never smoked, no toxic habits. ALLERGIES: PREDNISONE AND THEOPHYLLINE. MEDICATIONS: MAR reconciled with home medications. REVIEW OF SYSTEMS: Positive as per history of present illness. She does have cough, mainly nonproductive. Denies any fevers or chills, any nausea, vomiting or diarrhea. Rest of organ system review is likewise negative for any other findings. PHYSICAL EXAMINATION: VITAL SIGNS: From today show a blood pressure of 122/85, heart rate of 97, respiratory rate at 16. She is afebrile. GENERAL: This is a morbidly obese 57-year-old woman, in mild respiratory distress, alert and oriented. HEENT: Shows no scleral icterus. NECK: Thick. LUNGS: Fairly clear, bilaterally tight. HEART: Tachycardic. ABDOMEN: Massively obese, positive bowel sounds. EXTREMITIES: Showed trace edema. SKIN: Warm, soft and dry. NEUROLOGIC: She appears grossly intact. LABORATORY DATA: CBC with a WBC of 13.9, hemoglobin 12.5, platelets of 326. Chemistries with a BUN and creatinine of 24 and 0.9. Electrolytes with sodium of 131. Liver function tests within normal, albumin of 3.4. IMAGING: Chest x-ray shows suboptimal inspiration, decreased atelectasis left lung base. Some residual in the right perihilar region. ASSESSMENT AND PLAN: The patient is a 57-year-old asthmatic now presenting with recurrent asthma exacerbation. It is unclear what has set this off. She does not appear infected, although bronchitis cannot be ruled out. We will place her on empiric azithromycin, stop the Levaquin started in the Emergency Room. She will receive IV steroids for the time being, inhalers and supplemental oxygen. She has diabetes mellitus, typically controlled on linagliptin. This is worse with ongoing steroids. We will add insulin sliding scale; if need be, start Levemir to cover her in the interim. Home medications otherwise will be continued including for high blood pressure and tachycardia. She will be started on Lovenox for prophylaxis. DANYA KLINE MD DR: [place]/nts JOB#: [id number] / [id number] DEEPIKA Ovalles
[2017-06-29 15:00] VITALS: BP 125/79
[2017-06-29] MEDS: IPRATRPIUM/ALBUTEROL 0.5/2.5MG 3 ML NEBU. NEB SCH ×2 (15:05→19:30)
--- NOTE | 2017-06-29 18:01 | PDOC ---
PULMONARY PROGRESS NOTES Vitals Vital Signs Date Time Temp Pulse Resp B/P (MAP) Pulse Ox O2 Delivery O2 Flow Rate FiO2 06/29/17 15:05 97 Nasal Cannula 1.0 06/29/17 15:00 98.2 95 17 125/79 (94) 98.2 General: Alert, No acute distress Lungs: Clear Cardiovascular: S1 Abdomen: Soft Extremities: Other Labs Laboratory Tests Test 06/29/17 02:42 06/29/17 03:00 06/29/17 07:47 06/29/17 08:36 O2 Saturation 93 % (92-99) Arterial Blood pH 7.37 (7.35-7.45) Arterial Blood pCO2 at Patient Temp 48 mmHg (35-46) Arterial Blood pO2 at Patient Temp 70 mmHg (65-108) Arterial Blood HCO3 27 mmol/L (21-28) Arterial Blood Base Excess 1 mmol/L (-3-3) FiO2 25.0 White Blood Count 13.9 x10^3/uL (4.0-11.0) Red Blood Count 4.14 x10^6/uL (3.50-5.40) Hemoglobin 12.5 g/dL (12.0-15.5) Hematocrit 38.1 % (36.0-47.0) Mean Corpuscular Volume 92 fL (79-100) Mean Corpuscular Hemoglobin 30 pg (25-35) Mean Corpuscular Hemoglobin Concent 33 g/dL (31-37) Red Cell Distribution Width 14.8 % (11.5-14.5) Platelet Count 326 x10^3/uL (140-400) Neutrophils (%) (Auto) 84 % (31-73) Lymphocytes (%) (Auto) 8 % (24-48) Monocytes (%) (Auto) 6 % (0-9) Eosinophils (%) (Auto) 2 % (0-3) Basophils (%) (Auto) 0 % (0-3) Neutrophils # (Auto) 11.7 x10^3uL (1.8-7.7) Lymphocytes # (Auto) 1.1 x10^3/uL (1.0-4.8) Monocytes # (Auto) 0.8 x10^3/uL (0.0-1.1) Eosinophils # (Auto) 0.2 x10^3/uL (0.0-0.7) Basophils # (Auto) 0.0 x10^3/uL (0.0-0.2) Prothrombin Time 13.4 SEC (11.7-14.0) Prothromb Time International Ratio 1.1 (0.8-1.1) D-Dimer (Aileen) 0.54 ug/mlFEU (0.00-0.50) Sodium Level 131 mmol/L (136-145) Potassium Level 4.4 mmol/L (3.5-5.1) Chloride Level 92 mmol/L (98-107) Carbon Dioxide Level 29 mmol/L (21-32) Anion Gap 10 (6-14) Blood Urea Nitrogen 24 mg/dL (7-20) Creatinine 0.9 mg/dL (0.6-1.0) Estimated GFR (Cockcroft-Gault) 64.1 BUN/Creatinine Ratio 27 (6-20) Glucose Level 164 mg/dL (70-99) Lactic Acid Level 0.8 mmol/L (0.4-2.0) Calcium Level 9.4 mg/dL (8.5-10.1) Magnesium Level 2.1 mg/dL (1.8-2.4) Total Bilirubin 0.6 mg/dL (0.2-1.0) Aspartate Amino Transf (AST/SGOT) 18 U/L (15-37) Alanine Aminotransferase (ALT/SGPT) 21 U/L (14-59) Alkaline Phosphatase 107 U/L (46-116) Creatine Kinase 100 U/L (26-192) Creatine Kinase MB (Mass) 0.9 ng/mL (0.0-3.6) Creatine Kinase MB Relative Index 0.9 % (0-4) Troponin I Quantitative < 0.017 ng/mL (0.000-0.055) AG-Eyk-S-Type Natriuretic Peptide 171 pg/mL (0-124) Total Protein 6.5 g/dL (6.4-8.2) Albumin 3.4 g/dL (3.4-5.0) Albumin/Globulin Ratio 1.1 (1.0-1.7) Lipase 113 U/L (73-393) Glucose (Fingerstick) 185 mg/dL (70-99) Nasal Screen MRSA (PCR) Positive (Negative) Test 06/29/17 09:45 06/29/17 11:18 06/29/17 15:45 Troponin I Quantitative < 0.017 ng/mL (0.000-0.055) < 0.017 ng/mL (0.000-0.055) Glucose (Fingerstick) 191 mg/dL (70-99) Laboratory Tests Test 06/29/17 02:42 06/29/17 03:00 06/29/17 07:47 06/29/17 08:36 O2 Saturation 93 % (92-99) Arterial Blood pH 7.37 (7.35-7.45) Arterial Blood pCO2 at Patient Temp 48 mmHg (35-46) Arterial Blood pO2 at Patient Temp 70 mmHg (65-108) Arterial Blood HCO3 27 mmol/L (21-28) Arterial Blood Base Excess 1 mmol/L (-3-3) FiO2 25.0 White Blood Count 13.9 x10^3/uL (4.0-11.0) Red Blood Count 4.14 x10^6/uL (3.50-5.40) Hemoglobin 12.5 g/dL (12.0-15.5) Hematocrit 38.1 % (36.0-47.0) Mean Corpuscular Volume 92 fL (79-100) Mean Corpuscular Hemoglobin 30 pg (25-35) Mean Corpuscular Hemoglobin Concent 33 g/dL (31-37) Red Cell Distribution Width 14.8 % (11.5-14.5) Platelet Count 326 x10^3/uL (140-400) Neutrophils (%) (Auto) 84 % (31-73) Lymphocytes (%) (Auto) 8 % (24-48) Monocytes (%) (Auto) 6 % (0-9) Eosinophils (%) (Auto) 2 % (0-3) Basophils (%) (Auto) 0 % (0-3) Neutrophils # (Auto) 11.7 x10^3uL (1.8-7.7) Lymphocytes # (Auto) 1.1 x10^3/uL (1.0-4.8) Monocytes # (Auto) 0.8 x10^3/uL (0.0-1.1) Eosinophils # (Auto) 0.2 x10^3/uL (0.0-0.7) Basophils # (Auto) 0.0 x10^3/uL (0.0-0.2) Prothrombin Time 13.4 SEC (11.7-14.0) Prothromb Time International Ratio 1.1 (0.8-1.1) D-Dimer (Aileen) 0.54 ug/mlFEU (0.00-0.50) Sodium Level 131 mmol/L (136-145) Potassium Level 4.4 mmol/L (3.5-5.1) Chloride Level 92 mmol/L (98-107) Carbon Dioxide Level 29 mmol/L (21-32) Anion Gap 10 (6-14) Blood Urea Nitrogen 24 mg/dL (7-20) Creatinine 0.9 mg/dL (0.6-1.0) Estimated GFR (Cockcroft-Gault) 64.1 BUN/Creatinine Ratio 27 (6-20) Glucose Level 164 mg/dL (70-99) Lactic Acid Level 0.8 mmol/L (0.4-2.0) Calcium Level 9.4 mg/dL (8.5-10.1) Magnesium Level 2.1 mg/dL (1.8-2.4) Total Bilirubin 0.6 mg/dL (0.2-1.0) Aspartate Amino Transf (AST/SGOT) 18 U/L (15-37) Alanine Aminotransferase (ALT/SGPT) 21 U/L (14-59) Alkaline Phosphatase 107 U/L (46-116) Creatine Kinase 100 U/L (26-192) Creatine Kinase MB (Mass) 0.9 ng/mL (0.0-3.6) Creatine Kinase MB Relative Index 0.9 % (0-4) Troponin I Quantitative < 0.017 ng/mL (0.000-0.055) OY-Cnm-W-Type Natriuretic Peptide 171 pg/mL (0-124) Total Protein 6.5 g/dL (6.4-8.2) Albumin 3.4 g/dL (3.4-5.0) Albumin/Globulin Ratio 1.1 (1.0-1.7) Lipase 113 U/L (73-393) Glucose (Fingerstick) 185 mg/dL (70-99) Nasal Screen MRSA (PCR) Positive (Negative) Test 06/29/17 09:45 06/29/17 11:18 06/29/17 15:45 Troponin I Quantitative < 0.017 ng/mL (0.000-0.055) < 0.017 ng/mL (0.000-0.055) Glucose (Fingerstick) 191 mg/dL (70-99) Medications Active Scripts Medications Dose Route/Sig Max Daily Dose Days Date Category Doxycycline Hyclate 100 Mg Capsule 1 Cap PO BID 06/23/17 Rx Calan Sr (Verapamil Hcl) 120 Mg Tablet.er 120 Mg PO DAILY 06/23/17 Rx Lisinopril 40 Mg Tablet 40 Mg PO DAILY 06/23/17 Rx Culturelle (Lactobacillus Rhamnosus Gg) 1 Each Cap.sprink 1 Cap PO BID 06/23/17 Rx Aspirin Ec (Aspirin) 325 Mg Tablet. 325 Mg PO DAILYWBKFT 06/23/17 Rx Lisinopril 10 Mg Tablet 1 Tab PO DAILY 06/19/17 Reported Prednisone 50 Mg Tablet 1 Tab PO DAILY 06/10/17 Rx Tradjenta (Linagliptin) 5 Mg Tablet 5 Tab PO DAILY 06/10/17 Reported Proair Hfa Inhaler (Albuterol Sulfate) 8.5 Gm Hfa.aer.ad 2 Puff IH PRN Q4-6HRS 10/01/15 Reported Flovent 110MCG Hfa (Fluticasone Propionate) 12 Gm Aer.w.adap 2 Puff IH BID 10/01/15 Reported Montelukast Sodium Tablet (Montelukast Sodium) 10 Mg Tablet 10 Mg PO HS 10/01/15 Reported Aspirin 325 Mg Tablet 1 Tab PO DAILY 10/01/15 Reported Iron (Ferrous Sulfate) 325 Mg Capsule.er 325 Mg PO 10/01/15 Reported Metoclopramide Hcl 10 Mg Tablet 10 Mg PO QIDACHS 10/01/15 Reported Atorvastatin Calcium 80 Mg Tablet 1 Tab PO DAILY 10/01/15 Reported Lansoprazole 30 Mg Capsule.dr 1 Cap PO DAILY 10/01/15 Reported Verapamil Er (Verapamil Hcl) 240 Mg Cap24h.pel 0.5 Cap PO DAILY 10/01/15 Reported Folic Acid 1 Mg Tablet 1 Tab PO DAILY 10/01/15 Reported Zoloft (Sertraline Hcl) 25 Mg Tablet 1 Tab PO DAILY 10/01/15 Reported Hydrocodone-Apap 7.5-325 (Hydrocodone Bit/Acetaminophen) 1 Each Tablet 1 Tab PO PRN Q6HRS PRN 10/01/15 Reported Impression . CONSULT DICTATED VENOUS DOPPLER ORDERED AGREE WITH CURRENT RX THANKS MARTHA MAGALLANES MD Jun 29, 2017 18:01
--- NOTE | 2017-06-29 18:23 | CONS ---
DATE OF CONSULTATION: 06/29/2017 ATTENDING PHYSICIAN: Mary Grace Sullivan MD DICTATING PHYSICIAN: Martha Magallanes MD REASON FOR CONSULTATION: The patient seen in pulmonary consultation at the request of Dr. Sullivan for increasing shortness of air. HISTORY OF PRESENT ILLNESS: The patient is a 57-year-old who is nonsmoker with history of asthma, presented with increasing shortness of breath, cough productive of discolored sputum. She denies fever, chills or night sweats. She was seen in the Emergency Room, had saturations of 80%. Past medical history is otherwise remarkable for recent hospitalization, treated for pneumonia. The patient was discharged home. PAST MEDICAL HISTORY: Remarkable for asthma, hypertension, morbid obesity, lower back pain. PAST SURGICAL HISTORY: Cholecystectomy. FAMILY HISTORY: No lung disorders. ALLERGIES: PREDNISONE, THEOPHYLLINE. REVIEW OF SYSTEMS: As indicated above, otherwise, a 10-point system was reviewed and negative. SOCIAL HISTORY: She denies any tobacco use. PHYSICAL EXAMINATION: GENERAL: Morbid obese individual in no respiratory distress. VITAL SIGNS: Stable. O2 saturation greater than 92%. HEENT: Eyes, the sclerae were nonicteric. NECK: Jugular venous distention could not be assessed secondary to body habitus. CHEST: Full expansion. LUNGS: Expiratory wheeze, rhonchi. CARDIOVASCULAR: Regular rate and rhythm with S1, S2, no S3. ABDOMEN: Obese. EXTREMITIES: No clubbing, cyanosis, some edema along with obesity. NEUROLOGIC: The patient was awake, alert, following commands. A detailed neuro exam was not performed. LABORATORY DATA: Arterial blood gas; pH of 7.37, PaCO2 of 48, PaO2 of 70. White count is elevated. Electrolytes were noted. INR was 1.0. Chest x-ray reviewed, no acute cardiopulmonary process. IMPRESSION: 1. Acute respiratory failure secondary to acute asthma exacerbation. 2. Diabetes. 3. Morbid obesity. 4. Acute nonspecific bronchitis. PLAN: 1. Continue current medical regimen. 2. DVT prophylaxis. 3. The patient was to undergo CT angiogram for pulmonary embolism. She is unable to lie down flat. We will obtain venous Dopplers of the lower extremities. I do appreciate the privilege in sharing in the patient's care. MARTHA MAGALLANES MD DR: PREET/faizan JOB#: [id number] / [id number]
[2017-06-29 19:00] VITALS: BP 133/84
[2017-06-29] MEDS: MONTELUKAST SODIUM 10 MG TABLET. PO SCH (20:51)
[2017-06-29] MEDS: ENOXAPARIN 40 MG/0.4 ML SYRINGE. SQ SCH (20:51)
[2017-06-29] MEDS: FERROUS SULFATE 325 MG TABLET. PO SCH (20:51)
[2017-06-29] MEDS: ATORVASTATIN CALCIUM 40 MG TABLET. PO SCH (20:51)
[2017-06-29] MEDS ORDERED: NON FORMULARY ITEM (Fluticasone Propionate (Flovent 110MCG Hfa) 2 PUFF) IH SCH (21:00)
[2017-06-29 22:51] VITALS: BP 130/90
[2017-06-30] VITALS (18 sets, daily range): BP systolic 84–150; BP diastolic 64–96
[2017-06-30] MEDS: methylPREDNISolone SOD SUCC PF 40 MG/ML VIAL. IV SCH ×4 (00:25→17:44)
[2017-06-30] MEDS: IV NORMAL SALINE 1000ML BAG 1,000 ML IV SCH ×3 (00:27→22:47)
[2017-06-30] MEDS: ALBUTEROL SULFATE 2.5 MG/3 ML NEBU. NEB PRN (02:07)
[2017-06-30] MEDS ORDERED: ALBUTEROL SULFATE 2.5 MG/3 ML NEBU. NEB ONE (07:00)
[2017-06-30] MEDS ORDERED: ETOMIDATE 20 MG/10 ML VIAL. IV ONE (07:12)
[2017-06-30] MEDS ORDERED: ROCURONIUM 50 MG/5 ML VIAL. ONE (07:13)
--- NOTE | 2017-06-30 07:26 | ED.ADGEN ---
Past Medical History Past Medical History: Asthma, Bronchitis, Diabetes-Type II, Hypertension, Other Additional Past Medical Histor: Morbid Obesity Past Surgical History: Cholecystectomy Additional Information: non smoker Alcohol Use: None Drug Use: None Physician Documentation Physician Documentation A CODE BLUE was called on this patient at 0643. On arrival, the patient was undergoing CPR. Staff had not obtained an initial rhythm strip prior to my arrival. CPR was continued. The patient's rhythm strip was initially interpreted as ventricular tachycardia and patient received defibrillation. On reevaluation of this however, it was determined that the patient did not have ventricular tachycardia but rather had a wide-complex tachycardia. The patient was intubated as outlined in the procedure note during the code. The patient was able to achieve return of spontaneous circulation. The patient's EKG postcode showed atrial fibrillation with rapid ventricular response. With supportive care the patient's heart rate continued to lower to 105-115 bpm and thus was not started on any rate lowering agents. The patient was transferred to ICU for further care. Indication: Respiratory failure Consent: Unable to give consent due to emergent nature. Medications Used: see nursing note Procedure: The patient was placed in the appropriate position. Intubation was performed under direct laryngoscopy with placement of a 7.5 endotracheal tube. Tube was secured at 21 cm at the lip. Initial confirmation of placement included bilateral breath sounds, tube fogging, adequate chest rise, adequate pulse oximetry reading. The patient tolerated the procedure well. Complications: none. EKG interpretation by me: Heart rate 141 bpm, atrial fibrillation with rapid ventricular response Final impression: 1. Cardiac arrest with return of spontaneous circulation 2. Acute respiratory failure BEATRICE PAREDES MD Jun 30, 2017 07:26
[2017-06-30] MEDS: PANTOPRAZOLE 40 MG TABLET.DR. PO SCH (07:30)
[2017-06-30] MEDS: METOCLOPRAMIDE 10 MG TABLET. PO SCH ×4 (07:30→20:44)
--- NOTE | 2017-06-30 07:32 | RAD ---
EXAM: Bilateral lower extremity venous Doppler. HISTORY: Bilateral lower extremity pain/swelling. COMPARISON: None. FINDINGS: Grayscale and Doppler analysis of the both lower extremity deep venous systems was performed with graded compression and augmentation. The common femoral, greater saphenous, superficial femoral, popliteal and calf veins were assessed. Visualization was limited by habitus. There is no evidence of deep venous thrombosis. IMPRESSION: 1. No evidence of deep venous thrombosis.
[2017-06-30] MEDS: IPRATRPIUM/ALBUTEROL 0.5/2.5MG 3 ML NEBU. NEB SCH ×4 (08:00→19:53)
[2017-06-30] MEDS: ASPIRIN ENTERIC COATED 325 MG TABLET.DR. PO SCH (08:00)
[2017-06-30 08:33] LABS: HCO3 ABG 25 mmol/L (21-28); PCO2 ABG 50 mmHg (35-46); PH ABG 7.32 (7.35-7.45); PO2 ABG 91 mmHg (65-108); SAT O2 ABG 96 % (92-99)
[2017-06-30] MEDS: VERAPAMIL SR 120 MG TABLET.ER. PO SCH (08:36)
[2017-06-30] MEDS: SERTRALINE 25 MG TABLET. PO SCH (08:37)
[2017-06-30] MEDS: LINAGLIPTIN 5 MG TABLET PO SCH (08:37)
[2017-06-30] MEDS: LISINOPRIL 10 MG TABLET PO SCH (08:37)
[2017-06-30] MEDS: FOLIC ACID 1 MG TABLET. PO SCH (08:37)
[2017-06-30] MEDS: LACTOBACILLUS RHAMNOSUS GG 1 CAPSULE. PO SCH ×2 (08:37→20:44)
--- NOTE | 2017-06-30 08:54 | RAD ---
Single view of the abdomen 06/30/2017 Indication: Enteric tube placement Comparison study: None Discussion: There is an enteric tube with tip projecting over the expected region of the stomach. Partially visualized bowel gas pattern is nonobstructive. No acute osseous changes are identified. Possible left basilar atelectasis noted. Impression: Enteric tube with tip curled in the stomach
[2017-06-30] MEDS ORDERED: AZITHROMYCIN 250 MG TABLET. PO SCH (09:00)
[2017-06-30] MEDS ORDERED: EPINEPHrine SYRINGE 1 MG/10 ML SYRINGE ONE (09:00)
[2017-06-30 09:08] LABS: BASO % 0 % (0-3); EOS % 0 % (0-3); HEMATOCRIT 35.6 % (36.0-47.0); HEMOGLOBIN 11.5 g/dL (12.0-15.5); LYMPH # 0.3 x10^3/uL (1.0-4.8); LYMPH % 1 % (24-48); MEAN CORPUSCULAR HEMOGLOBIN 30 pg (25-35); MEAN CORPUSCULAR HGB CONC 32 g/dL (31-37); MEAN CORPUSCULAR VOLUME 93 fL (79-100); MONO % 3 % (0-9); NEUT % 95 % (31-73); PLATELET COUNT 352 x10^3/uL (140-400); RED BLOOD COUNT 3.85 x10^6/uL (3.50-5.40); WHITE BLOOD COUNT 24.5 x10^3/uL (4.0-11.0)
[2017-06-30 09:10] LABS: FIO2 ABG 100
[2017-06-30 09:14] LABS: CALCIUM 9.2 mg/dL (8.5-10.1); CREATININE 1.2 mg/dL (0.6-1.0); POTASSIUM 4.4 mmol/L (3.5-5.1)
--- NOTE | 2017-06-30 10:19 | RAD ---
EXAM: Chest one view. HISTORY: Intubated, respiratory failure. COMPARISON: 06/29/2017. FINDINGS: A frontal view of the chest is obtained. An endotracheal tube has its tip 2 cm above the mirna. A nasogastric tube has its tip below the inferior margin of the field of view. Airspace opacities in the left greater than right bases have progressed since the prior study. There is no pneumothorax or clear pleural effusion. The heart is not enlarged. IMPRESSION: 1. Left greater than right basilar airspace infiltrates have progressed.
[2017-06-30 10:31] LABS: PLT ESTIMATE ADEQUATE (ADEQUATE)
--- NOTE | 2017-06-30 10:57 | PDOC ---
Infectious Disease Note Vital Sign Vital Signs Vital Signs Date Time Temp Pulse Resp B/P (MAP) Pulse Ox O2 Delivery O2 Flow Rate FiO2 06/30/17 10:00 92 20 105/72 (83) 100 Ventilator 06/30/17 08:00 97.6 97.6 06/30/17 02:39 3.0 Labs Lab Laboratory Tests Test 06/29/17 11:18 06/29/17 15:45 06/29/17 16:38 06/30/17 08:31 Glucose (Fingerstick) 191 mg/dL (70-99) 171 mg/dL (70-99) Troponin I Quantitative < 0.017 ng/mL (0.000-0.055) O2 Saturation 96 % (92-99) Arterial Blood pH 7.32 (7.35-7.45) Arterial Blood pCO2 at Patient Temp 50 mmHg (35-46) Arterial Blood pO2 at Patient Temp 91 mmHg (65-108) Arterial Blood HCO3 25 mmol/L (21-28) Arterial Blood Base Excess -2 mmol/L (-3-3) FiO2 100 Test 06/30/17 08:47 06/30/17 10:25 White Blood Count 24.5 x10^3/uL (4.0-11.0) Red Blood Count 3.85 x10^6/uL (3.50-5.40) Hemoglobin 11.5 g/dL (12.0-15.5) Hematocrit 35.6 % (36.0-47.0) Mean Corpuscular Volume 93 fL (79-100) Mean Corpuscular Hemoglobin 30 pg (25-35) Mean Corpuscular Hemoglobin Concent 32 g/dL (31-37) Red Cell Distribution Width 15.0 % (11.5-14.5) Platelet Count 352 x10^3/uL (140-400) Neutrophils (%) (Auto) 95 % (31-73) Lymphocytes (%) (Auto) 1 % (24-48) Monocytes (%) (Auto) 3 % (0-9) Eosinophils (%) (Auto) 0 % (0-3) Basophils (%) (Auto) 0 % (0-3) Neutrophils # (Auto) 23.3 x10^3uL (1.8-7.7) Lymphocytes # (Auto) 0.3 x10^3/uL (1.0-4.8) Monocytes # (Auto) 0.8 x10^3/uL (0.0-1.1) Eosinophils # (Auto) 0.0 x10^3/uL (0.0-0.7) Basophils # (Auto) 0.0 x10^3/uL (0.0-0.2) Segmented Neutrophils % 92 % (35-66) Band Neutrophils % 3 % (0-9) Lymphocytes % 1 % (24-48) Monocytes % 4 % (0-10) Platelet Estimate Adequate (ADEQUATE) Sodium Level 127 mmol/L (136-145) Potassium Level 4.4 mmol/L (3.5-5.1) Chloride Level 93 mmol/L (98-107) Carbon Dioxide Level 28 mmol/L (21-32) Anion Gap 6 (6-14) Blood Urea Nitrogen 26 mg/dL (7-20) Creatinine 1.2 mg/dL (0.6-1.0) Estimated GFR (Cockcroft-Gault) 46.0 Glucose Level 290 mg/dL (70-99) Calcium Level 9.2 mg/dL (8.5-10.1) Troponin I Quantitative 0.305 ng/mL (0.000-0.055) Lactic Acid Level 1.7 mmol/L (0.4-2.0) Objective Assessment Pneumonia Respiratory failure s/p Code Dehydration Leukocytosis Morbid obesity Plan Plan of Care zyvox and zosyn d/c azithro supportive care trach aspirate for culture d/w family SANCHO MARTIN MD Jun 30, 2017 10:57
[2017-06-30] MEDS: BUDESONIDE 0.5 MG/2 ML NEBU. NEB SCH ×2 (11:19→19:53)
[2017-06-30] MEDS: PROPOFOL 100 ML IV PRN ×3 (11:27→22:48)
[2017-06-30] MEDS: ENOXAPARIN 40 MG/0.4 ML SYRINGE. SQ SCH ×2 (11:28→20:46)
[2017-06-30] MEDS: PIPERACILLIN/TAZO IV Push 3.375 GM VIAL. IVP SCH ×2 (11:28→17:44)
[2017-06-30] MEDS ORDERED: PIPERACILLIN/TAZOBACTAM 3.375 GM in IV DEXTROSE 5% 50 ML IV SCH (12:00)
--- NOTE | 2017-06-30 12:19 | CONS ---
DATE OF CONSULTATION: DATE OF ADMISSION: 06/29/2017. DATE OF CONSULTATION: 06/30/2017. REQUESTING PHYSICIAN: Dr. Sullivan. REASON FOR CONSULTATION: Pneumonia and sepsis. HISTORY OF PRESENT ILLNESS: This is a 57-year-old morbidly obese female who was just recently discharged from the hospital on 06/24/2017 with pneumonia who came back with shortness of breath. The patient has lot of thick mucus and this morning on the floor as she was coded and had respiratory distress requiring intubation. The patient is currently intubated on a ventilator. The blood pressure in the 100 systolic. The patient is receiving azithromycin, received a dose of Levaquin and consult has been requested. The patient has also white cell count is up, also received steroids. The patient is not able to provide any information. All information was obtained through chart review and discussing with the patient's family at the bedside. PAST MEDICAL HISTORY: Positive for asthma, bronchitis, diabetes, hypertension, morbid obesity and has had cholecystectomy. SOCIAL HISTORY: Negative for smoking, alcohol use or drug use. ALLERGIES: LISTED ALLERGIC TO PREDNISONE AND THEOPHYLLINE. CURRENT MEDICATIONS: The patient is on azithromycin. REVIEW OF SYSTEMS: As per the history of present illness through the patient's nurse and patient's family. No nausea, vomiting, diarrhea or fever noted. PHYSICAL EXAMINATION: GENERAL: She is orally intubated, sedated female, not in distress. VITAL SIGNS: Stable, afebrile. HEENT: NAD. NECK: Supple, no JVP, no lymphadenopathy. LUNGS: Clear. HEART: S1, S2 regular. ABDOMEN: Benign. EXTREMITIES: No edema, cyanosis. SKIN: Unremarkable. NEUROLOGIC: The patient is neurologically intact before the intubation. LABORATORY DATA: White cell count is 24,000. BUN 24, creatinine 0.9. Urinalysis unremarkable. Methicillin-resistant Staphylococcus aureus screen is positive. Blood culture last admission was negative, sputum was not done. Chest x-ray is showing left greater than right basilar infiltrate. IMPRESSION: 1. Pneumonia. 2. Respiratory failure. 3. Status post code. 4. Dehydration. 5. Leukocytosis. 6. Morbid obesity. RECOMMENDATIONS: Recommend discontinue azithromycin, start Zyvox and Zosyn, supportive care. Tracheal aspirate for culture and discussion with family done at the bedside. Thank you very much, Dr. Sullivan for giving me the opportunity to participate in this patient's care. SANCHO MARTIN MD DR: ANA/faizan JOB#: [id number] / [id number]
--- NOTE | 2017-06-30 12:27 | PDOC ---
PROGRESS NOTES Chief Complaint Chief Complaint Pneumonia Respiratory failure Asthma Hypertension Morbid obesity DM 2 Dehydration Leukocytosis Morbid obesity History of Present Illness History of Present Illness Pt seen and examined in the ICU Sedated and intubated: AC/20/500/100 with 5% PEEP Excess salivary secretions noted s/p code Vitals Vitals Vital Signs Date Time Temp Pulse Resp B/P (MAP) Pulse Ox O2 Delivery O2 Flow Rate FiO2 06/30/17 12:00 100.0 91 20 105/66 (79) 100 Ventilator 100.0 06/30/17 02:39 3.0 Physical Exam Physical Exam pt. intubated General: No acute distress Heart: Normal S1, Normal S2 Lungs: Clear, Other (deminished airflow ) Abdomen: Normal bowel sounds, Soft Extremities: No clubbing, No cyanosis Skin: No breakdown, No significant lesion Labs LABS Laboratory Tests Test 06/29/17 15:45 06/29/17 16:38 06/30/17 08:31 06/30/17 08:47 Troponin I Quantitative < 0.017 ng/mL (0.000-0.055) 0.305 ng/mL (0.000-0.055) Glucose (Fingerstick) 171 mg/dL (70-99) O2 Saturation 96 % (92-99) Arterial Blood pH 7.32 (7.35-7.45) Arterial Blood pCO2 at Patient Temp 50 mmHg (35-46) Arterial Blood pO2 at Patient Temp 91 mmHg (65-108) Arterial Blood HCO3 25 mmol/L (21-28) Arterial Blood Base Excess -2 mmol/L (-3-3) FiO2 100 White Blood Count 24.5 x10^3/uL (4.0-11.0) Red Blood Count 3.85 x10^6/uL (3.50-5.40) Hemoglobin 11.5 g/dL (12.0-15.5) Hematocrit 35.6 % (36.0-47.0) Mean Corpuscular Volume 93 fL (79-100) Mean Corpuscular Hemoglobin 30 pg (25-35) Mean Corpuscular Hemoglobin Concent 32 g/dL (31-37) Red Cell Distribution Width 15.0 % (11.5-14.5) Platelet Count 352 x10^3/uL (140-400) Neutrophils (%) (Auto) 95 % (31-73) Lymphocytes (%) (Auto) 1 % (24-48) Monocytes (%) (Auto) 3 % (0-9) Eosinophils (%) (Auto) 0 % (0-3) Basophils (%) (Auto) 0 % (0-3) Neutrophils # (Auto) 23.3 x10^3uL (1.8-7.7) Lymphocytes # (Auto) 0.3 x10^3/uL (1.0-4.8) Monocytes # (Auto) 0.8 x10^3/uL (0.0-1.1) Eosinophils # (Auto) 0.0 x10^3/uL (0.0-0.7) Basophils # (Auto) 0.0 x10^3/uL (0.0-0.2) Segmented Neutrophils % 92 % (35-66) Band Neutrophils % 3 % (0-9) Lymphocytes % 1 % (24-48) Monocytes % 4 % (0-10) Platelet Estimate Adequate (ADEQUATE) Sodium Level 127 mmol/L (136-145) Potassium Level 4.4 mmol/L (3.5-5.1) Chloride Level 93 mmol/L (98-107) Carbon Dioxide Level 28 mmol/L (21-32) Anion Gap 6 (6-14) Blood Urea Nitrogen 26 mg/dL (7-20) Creatinine 1.2 mg/dL (0.6-1.0) Estimated GFR (Cockcroft-Gault) 46.0 Glucose Level 290 mg/dL (70-99) Calcium Level 9.2 mg/dL (8.5-10.1) Test 06/30/17 10:25 Lactic Acid Level 1.7 mmol/L (0.4-2.0) Review of Systems Review of Systems Unobtainable - Pt. intubated Assessment and Plan Assessmemt and Plan Problems Medical Problems: (1) Elevated d-dimer Status: Acute Assessment: Pneumonia Respiratory failure Asthma Hypertension Morbid obesity DM 2 Dehydration Leukocytosis Morbid obesity Plan: ID Consulted, continue empiric abx Continue ICU monitoring Continue steroids and breathing treatment Continue home medications Recheck labs in am PT/OT consult Problems: Comment Review of Relevant I have reviewed the following items jess (where applicable) has been applied. Labs Laboratory Tests Test 06/29/17 02:42 06/29/17 03:00 06/29/17 07:47 06/29/17 08:36 O2 Saturation 93 % (92-99) Arterial Blood pH 7.37 (7.35-7.45) Arterial Blood pCO2 at Patient Temp 48 mmHg (35-46) Arterial Blood pO2 at Patient Temp 70 mmHg (65-108) Arterial Blood HCO3 27 mmol/L (21-28) Arterial Blood Base Excess 1 mmol/L (-3-3) FiO2 25.0 White Blood Count 13.9 x10^3/uL (4.0-11.0) Red Blood Count 4.14 x10^6/uL (3.50-5.40) Hemoglobin 12.5 g/dL (12.0-15.5) Hematocrit 38.1 % (36.0-47.0) Mean Corpuscular Volume 92 fL (79-100) Mean Corpuscular Hemoglobin 30 pg (25-35) Mean Corpuscular Hemoglobin Concent 33 g/dL (31-37) Red Cell Distribution Width 14.8 % (11.5-14.5) Platelet Count 326 x10^3/uL (140-400) Neutrophils (%) (Auto) 84 % (31-73) Lymphocytes (%) (Auto) 8 % (24-48) Monocytes (%) (Auto) 6 % (0-9) Eosinophils (%) (Auto) 2 % (0-3) Basophils (%) (Auto) 0 % (0-3) Neutrophils # (Auto) 11.7 x10^3uL (1.8-7.7) Lymphocytes # (Auto) 1.1 x10^3/uL (1.0-4.8) Monocytes # (Auto) 0.8 x10^3/uL (0.0-1.1) Eosinophils # (Auto) 0.2 x10^3/uL (0.0-0.7) Basophils # (Auto) 0.0 x10^3/uL (0.0-0.2) Prothrombin Time 13.4 SEC (11.7-14.0) Prothromb Time International Ratio 1.1 (0.8-1.1) D-Dimer (Aileen) 0.54 ug/mlFEU (0.00-0.50) Sodium Level 131 mmol/L (136-145) Potassium Level 4.4 mmol/L (3.5-5.1) Chloride Level 92 mmol/L (98-107) Carbon Dioxide Level 29 mmol/L (21-32) Anion Gap 10 (6-14) Blood Urea Nitrogen 24 mg/dL (7-20) Creatinine 0.9 mg/dL (0.6-1.0) Estimated GFR (Cockcroft-Gault) 64.1 BUN/Creatinine Ratio 27 (6-20) Glucose Level 164 mg/dL (70-99) Lactic Acid Level 0.8 mmol/L (0.4-2.0) Calcium Level 9.4 mg/dL (8.5-10.1) Magnesium Level 2.1 mg/dL (1.8-2.4) Total Bilirubin 0.6 mg/dL (0.2-1.0) Aspartate Amino Transf (AST/SGOT) 18 U/L (15-37) Alanine Aminotransferase (ALT/SGPT) 21 U/L (14-59) Alkaline Phosphatase 107 U/L (46-116) Creatine Kinase 100 U/L (26-192) Creatine Kinase MB (Mass) 0.9 ng/mL (0.0-3.6) Creatine Kinase MB Relative Index 0.9 % (0-4) Troponin I Quantitative < 0.017 ng/mL (0.000-0.055) HN-Vmx-L-Type Natriuretic Peptide 171 pg/mL (0-124) Total Protein 6.5 g/dL (6.4-8.2) Albumin 3.4 g/dL (3.4-5.0) Albumin/Globulin Ratio 1.1 (1.0-1.7) Lipase 113 U/L (73-393) Glucose (Fingerstick) 185 mg/dL (70-99) Nasal Screen MRSA (PCR) Positive (Negative) Test 06/29/17 09:45 06/29/17 11:18 06/29/17 15:45 06/29/17 16:38 Troponin I Quantitative < 0.017 ng/mL (0.000-0.055) < 0.017 ng/mL (0.000-0.055) Glucose (Fingerstick) 191 mg/dL (70-99) 171 mg/dL (70-99) Test 06/30/17 08:31 06/30/17 08:47 06/30/17 10:25 O2 Saturation 96 % (92-99) Arterial Blood pH 7.32 (7.35-7.45) Arterial Blood pCO2 at Patient Temp 50 mmHg (35-46) Arterial Blood pO2 at Patient Temp 91 mmHg (65-108) Arterial Blood HCO3 25 mmol/L (21-28) Arterial Blood Base Excess -2 mmol/L (-3-3) FiO2 100 White Blood Count 24.5 x10^3/uL (4.0-11.0) Red Blood Count 3.85 x10^6/uL (3.50-5.40) Hemoglobin 11.5 g/dL (12.0-15.5) Hematocrit 35.6 % (36.0-47.0) Mean Corpuscular Volume 93 fL (79-100) Mean Corpuscular Hemoglobin 30 pg (25-35) Mean Corpuscular Hemoglobin Concent 32 g/dL (31-37) Red Cell Distribution Width 15.0 % (11.5-14.5) Platelet Count 352 x10^3/uL (140-400) Neutrophils (%) (Auto) 95 % (31-73) Lymphocytes (%) (Auto) 1 % (24-48) Monocytes (%) (Auto) 3 % (0-9) Eosinophils (%) (Auto) 0 % (0-3) Basophils (%) (Auto) 0 % (0-3) Neutrophils # (Auto) 23.3 x10^3uL (1.8-7.7) Lymphocytes # (Auto) 0.3 x10^3/uL (1.0-4.8) Monocytes # (Auto) 0.8 x10^3/uL (0.0-1.1) Eosinophils # (Auto) 0.0 x10^3/uL (0.0-0.7) Basophils # (Auto) 0.0 x10^3/uL (0.0-0.2) Segmented Neutrophils % 92 % (35-66) Band Neutrophils % 3 % (0-9) Lymphocytes % 1 % (24-48) Monocytes % 4 % (0-10) Platelet Estimate Adequate (ADEQUATE) Sodium Level 127 mmol/L (136-145) Potassium Level 4.4 mmol/L (3.5-5.1) Chloride Level 93 mmol/L (98-107) Carbon Dioxide Level 28 mmol/L (21-32) Anion Gap 6 (6-14) Blood Urea Nitrogen 26 mg/dL (7-20) Creatinine 1.2 mg/dL (0.6-1.0) Estimated GFR (Cockcroft-Gault) 46.0 Glucose Level 290 mg/dL (70-99) Calcium Level 9.2 mg/dL (8.5-10.1) Troponin I Quantitative 0.305 ng/mL (0.000-0.055) Lactic Acid Level 1.7 mmol/L (0.4-2.0) Laboratory Tests Test 06/29/17 15:45 06/29/17 16:38 06/30/17 08:31 06/30/17 08:47 Troponin I Quantitative < 0.017 ng/mL (0.000-0.055) 0.305 ng/mL (0.000-0.055) Glucose (Fingerstick) 171 mg/dL (70-99) O2 Saturation 96 % (92-99) Arterial Blood pH 7.32 (7.35-7.45) Arterial Blood pCO2 at Patient Temp 50 mmHg (35-46) Arterial Blood pO2 at Patient Temp 91 mmHg (65-108) Arterial Blood HCO3 25 mmol/L (21-28) Arterial Blood Base Excess -2 mmol/L (-3-3) FiO2 100 White Blood Count 24.5 x10^3/uL (4.0-11.0) Red Blood Count 3.85 x10^6/uL (3.50-5.40) Hemoglobin 11.5 g/dL (12.0-15.5) Hematocrit 35.6 % (36.0-47.0) Mean Corpuscular Volume 93 fL (79-100) Mean Corpuscular Hemoglobin 30 pg (25-35) Mean Corpuscular Hemoglobin Concent 32 g/dL (31-37) Red Cell Distribution Width 15.0 % (11.5-14.5) Platelet Count 352 x10^3/uL (140-400) Neutrophils (%) (Auto) 95 % (31-73) Lymphocytes (%) (Auto) 1 % (24-48) Monocytes (%) (Auto) 3 % (0-9) Eosinophils (%) (Auto) 0 % (0-3) Basophils (%) (Auto) 0 % (0-3) Neutrophils # (Auto) 23.3 x10^3uL (1.8-7.7) Lymphocytes # (Auto) 0.3 x10^3/uL (1.0-4.8) Monocytes # (Auto) 0.8 x10^3/uL (0.0-1.1) Eosinophils # (Auto) 0.0 x10^3/uL (0.0-0.7) Basophils # (Auto) 0.0 x10^3/uL (0.0-0.2) Segmented Neutrophils % 92 % (35-66) Band Neutrophils % 3 % (0-9) Lymphocytes % 1 % (24-48) Monocytes % 4 % (0-10) Platelet Estimate Adequate (ADEQUATE) Sodium Level 127 mmol/L (136-145) Potassium Level 4.4 mmol/L (3.5-5.1) Chloride Level 93 mmol/L (98-107) Carbon Dioxide Level 28 mmol/L (21-32) Anion Gap 6 (6-14) Blood Urea Nitrogen 26 mg/dL (7-20) Creatinine 1.2 mg/dL (0.6-1.0) Estimated GFR (Cockcroft-Gault) 46.0 Glucose Level 290 mg/dL (70-99) Calcium Level 9.2 mg/dL (8.5-10.1) Test 06/30/17 10:25 Lactic Acid Level 1.7 mmol/L (0.4-2.0) Microbiology 06/29/17 Blood Culture - Preliminary, Resulted NO GROWTH AFTER 1 DAY Medications Current Medications Sodium Chloride 1,000 ml @ 150 mls/hr Q6H40M IV Last administered on 03:10; Start 06/29/17 at 03:00; Stop 06/29/17 at 09:39; Status DC Methylprednisolone Sodium Succinate (SOLU-Medrol 125MG VIAL) 125 mg 1X ONCE IV Last administered on 06/29/17 03:10; Start 06/29/17 at 03:00; Stop at 03:01; Status DC Levofloxacin/ Dextrose 150 ml @ 100 mls/hr 1X ONCE IV Last administered on 03:09; Start 06/29/17 at 03:30; Stop 06/29/17 at 12:50; Status DC Enoxaparin Sodium (Lovenox Per Pharmacy Treatment Dosing) 1 each 1X ONCE MC ; Start 06/29/17 at 03:45; Stop 06/29/17 at 03:53; Status DC Enoxaparin Sodium (Lovenox 150mg Syringe) 140 mg Q12HR SQ Last administered on 06/29/17 04:07; Start 06/29/17 at 04:00; Stop 06/29/17 at 12:50; Status DC Info (Anti-Coagulation Monitoring By Pharmacy) 1 each PRN DAILY PRN MC SEE COMMENTS Last administered on 06/29/17 05:11; Start 06/29/17 at 04:00; Stop 06/29/17 at 12:57; Status DC Ondansetron HCl (Zofran) 4 mg PRN Q8HRS PRN IV NAUSEA/VOMITING; Start at 04:15; Stop 06/30/17 at 04:14; Status DC Methylprednisolone Sodium Succinate (SOLU-Medrol 40MG VIAL) 40 mg Q6HRS IV Last administered on 06/30/17 11:27; Start 06/29/17 at 06:00 Levofloxacin/ Dextrose (Levaquin Per Pharmacy) 1 each PRN DAILY PRN MC SEE COMMENTS; Start 06/29/17 at 04:15; Stop 06/29/17 at 17:11; Status DC Sodium Chloride 1,000 ml @ 100 mls/hr Q10H IV Last administered on 06/30/17 00:27; Start 06/29/17 at 05:15 Levofloxacin/ Dextrose 150 ml @ 100 mls/hr Q24H IV ; Start 06/30/17 at 05:00; Stop 06/30/17 at 05:00; Status DC Aspirin (Ecotrin) 325 mg DAILYWBKFT PO Last administered on 06/29/17 12:23; Start 06/29/17 at 13:00 Folic Acid (Folic Acid) 1 mg DAILY PO Last administered on 06/29/17 12:24; Start 06/29/17 at 13:00 Acetaminophen/ Hydrocodone Bitart (Lortab 7.5/325) 1 tab PRN Q6HRS PRN PO PAIN ; Start 06/29/17 at 12:15 Lactobacillus Rhamnosus (Culturelle) 1 cap BID PO Last administered on 20:51; Start 06/29/17 at 13:00 Linagliptin (Tradjenta) 5 mg DAILY PO Last administered on 06/29/17 12:24; Start 06/29/17 at 13:00 Lisinopril (Prinivil) 10 mg DAILY PO Last administered on 06/29/17 12:24; Start 06/29/17 at 13:00 Metoclopramide HCl (Reglan) 10 mg QIDACHS PO Last administered on 06/29/17 20 :51; Start 06/29/17 at 13:00 Montelukast Sodium (Singulair) 10 mg HS PO Last administered on 06/29/17 20: 51; Start 06/29/17 at 21:00 Sertraline HCl (Zoloft) 25 mg DAILY PO Last administered on 06/29/17 12:24; Start 06/29/17 at 13:00 Verapamil HCl (Calan Sr) 120 mg DAILY PO Last administered on 06/29/17 12:23 ; Start 06/29/17 at 13:00 Albuterol Sulfate (Ventolin Neb Soln) 2.5 mg PRN Q4HRS PRN NEB SHORTNESS OF BREATH Last administered on 06/30/17 02:07; Start 06/29/17 at 12:15 Atorvastatin Calcium (Lipitor) 80 mg QHS PO Last administered on 06/29/17 20: 51; Start 06/29/17 at 21:00 Non-Formulary Medication 2 puff BID IH ; Start 06/29/17 at 21:00; Status UNV Pantoprazole Sodium (Protonix) 40 mg DAILYAC PO Last administered on 12:24; Start 06/29/17 at 13:00 Ferrous Sulfate (Feosol) 325 mg QHS PO Last administered on 06/29/17 20:51; Start 06/29/17 at 21:00 Budesonide (Pulmicort) 0.5 mg RTBID NEB Last administered on 06/30/17 11:19; Start 06/29/17 at 13:00 Enoxaparin Sodium (Lovenox 40mg Syringe) 40 mg BID SQ Last administered on 11:28; Start 06/29/17 at 21:00 Azithromycin 500 mg/Sodium Chloride 250 ml @ 250 mls/hr Q24H IV Last administered on 06/29/17 14:18; Start 06/29/17 at 13:30; Stop 06/30/17 at 03 :30; Status DC Albuterol/ Ipratropium (Duoneb) 3 ml RTQID NEB Last administered on 06/30/17 11:19; Start 06/29/17 at 13:00 Guaifenesin (Mucinex) 600 mg BID PO ; Start 06/30/17 at 09:00 Azithromycin (Zithromax) 500 mg DAILY PO ; Start 06/30/17 at 09:00; Stop 06/30 at 09:00; Status DC Albuterol Sulfate (Ventolin Neb Soln) 2.5 mg 1X ONCE NEB ; Start 06/30/17 at 07:00; Stop 06/30/17 at 07:01; Status DC Azithromycin 500 mg/Sodium Chloride 250 ml @ 250 mls/hr Q24H IV ; Start at 14:00; Stop 06/30/17 at 14:00; Status DC Propofol 100 ml @ 0 mls/hr CONT PRN IV SEE I/O RECORD Last administered on 11:27; Start 06/30/17 at 08:15 Linezolid 300 ml @ 300 mls/hr Q12HR IV Last administered on 06/30/17 11:28; Start 06/30/17 at 11:30 Piperacillin Sod/ Tazobactam Sod 3.375 gm/Dextrose 50 ml @ 100 mls/hr Q6HRS IV ; Start 06/30/17 at 12:00; Status UNV Piperacillin Sod/ Tazobactam Sod (Zosyn) 3.375 gm Q6HRS IVP Last administered on 06/30/17 11:28; Start 06/30/17 at 11:30 Active Scripts Active Doxycycline Hyclate 100 Mg Capsule 1 Cap PO BID Calan Sr (Verapamil Hcl) 120 Mg Tablet.er 120 Mg PO DAILY Lisinopril 40 Mg Tablet 40 Mg PO DAILY Culturelle (Lactobacillus Rhamnosus Gg) 1 Each Cap.sprink 1 Cap PO BID Aspirin Ec (Aspirin) 325 Mg Tablet.dr 325 Mg PO DAILYWBKFT Prednisone 50 Mg Tablet 1 Tab PO DAILY Reported Lisinopril 10 Mg Tablet 1 Tab PO DAILY Tradjenta (Linagliptin) 5 Mg Tablet 5 Tab PO DAILY Proair Hfa Inhaler (Albuterol Sulfate) 8.5 Gm Hfa.aer.ad 2 Puff IH PRN Q4-6HRS Flovent 110MCG Hfa (Fluticasone Propionate) 12 Gm Aer.w.adap 2 Puff IH BID Montelukast Sodium Tablet (Montelukast Sodium) 10 Mg Tablet 10 Mg PO HS Aspirin 325 Mg Tablet 1 Tab PO DAILY Iron (Ferrous Sulfate) 325 Mg Capsule.er 325 Mg PO Metoclopramide Hcl 10 Mg Tablet 10 Mg PO QIDACHS Atorvastatin Calcium 80 Mg Tablet 1 Tab PO DAILY Lansoprazole 30 Mg Capsule.dr 1 Cap PO DAILY Verapamil Er (Verapamil Hcl) 240 Mg Cap24h.pel 0.5 Cap PO DAILY Folic Acid 1 Mg Tablet 1 Tab PO DAILY Zoloft (Sertraline Hcl) 25 Mg Tablet 1 Tab PO DAILY Hydrocodone-Apap 7.5-325 (Hydrocodone Bit/Acetaminophen) 1 Each Tablet 1 Tab PO PRN Q6HRS PRN Vitals/I & O Vital Sign - Last 24 Hours 06/29/17 06/29/17 06/29/17 06/29/17 12:23 12:24 15:00 15:05 Temp 98.2 98.2 Pulse 97 97 95 Resp 17 B/P (MAP) 122/85 122/85 125/79 (94) Pulse Ox 97 O2 Delivery BiPAP/CPAP Nasal Cannula O2 Flow Rate 1.0 06/29/17 06/29/17 06/29/17 06/29/17 19:00 19:30 19:55 22:43 Temp 95.0 95.0 Pulse 86 Resp 18 B/P (MAP) 133/84 (100) Pulse Ox 97 97 96 O2 Delivery Nasal Cannula Nasal Cannula BiPAP/CPAP O2 Flow Rate 1.0 2.0 2.5 06/29/17 06/30/17 06/30/17 06/30/17 22:51 01:09 02:07 02:39 Temp 95.0 96.2 95.0 96.2 Pulse 83 90 Resp 18 18 B/P (MAP) 130/90 (103) 132/87 (102) Pulse Ox 95 100 98 O2 Delivery Nasal Cannula BiPAP/CPAP Nasal Cannula Nasal Cannula O2 Flow Rate 2.5 3.0 3.0 06/30/17 06/30/17 06/30/17 06/30/17 05:19 07:30 07:38 08:00 Temp 97.6 97.6 Pulse 114 96 Resp 20 20 B/P (MAP) 143/96 (112) 84/66 (72) Pulse Ox 99 100 100 O2 Delivery BiPAP/CPAP Ventilator Ventilator Ventilator 06/30/17 06/30/17 06/30/17 06/30/17 08:00 09:00 10:00 11:00 Pulse 94 92 90 Resp 20 20 20 B/P (MAP) 97/64 (75) 105/72 (83) 109/67 (81) Pulse Ox 98 100 100 O2 Delivery Mechanical Ventilator Ventilator Ventilator Ventilator 06/30/17 06/30/17 11:21 12:00 Temp 100.0 100.0 Pulse 91 Resp 20 B/P (MAP) 105/66 (79) Pulse Ox 100 100 O2 Delivery Ventilator Ventilator Intake and Output 06/29/17 06/29/17 06/30/17 15:00 23:00 07:00 Intake Total 200 ml 2572 ml Output Total 252 ml Balance -52 ml 2572 ml TEJAL [id number] III DO Jun 30, 2017 12:27
[2017-06-30] MEDS ORDERED: AZITHROMYCIN 500 MG in IV NORMAL SALINE 250ML 250 ML IV SCH (14:00)
--- NOTE | 2017-06-30 15:55 | PDOC ---
PULMONARY PROGRESS NOTES Subjective PT HAD SHORT CODE THIS AM NOW INTUBATED SPOKE WITH RN THIS AM AFTER CODE SHE WAS MOVING ALL EXT Vitals Vital Signs Date Time Temp Pulse Resp B/P (MAP) Pulse Ox O2 Delivery O2 Flow Rate FiO2 06/30/17 15:33 100 Ventilator 06/30/17 15:00 84 20 127/81 (96) 06/30/17 12:00 100.0 100.0 06/30/17 02:39 3.0 Lungs: Clear Cardiovascular: S1 Abdomen: Soft Extremities: No Edema Skin: Warm Labs Laboratory Tests Test 06/29/17 02:42 06/29/17 03:00 06/29/17 07:47 06/29/17 08:36 O2 Saturation 93 % (92-99) Arterial Blood pH 7.37 (7.35-7.45) Arterial Blood pCO2 at Patient Temp 48 mmHg (35-46) Arterial Blood pO2 at Patient Temp 70 mmHg (65-108) Arterial Blood HCO3 27 mmol/L (21-28) Arterial Blood Base Excess 1 mmol/L (-3-3) FiO2 25.0 White Blood Count 13.9 x10^3/uL (4.0-11.0) Red Blood Count 4.14 x10^6/uL (3.50-5.40) Hemoglobin 12.5 g/dL (12.0-15.5) Hematocrit 38.1 % (36.0-47.0) Mean Corpuscular Volume 92 fL (79-100) Mean Corpuscular Hemoglobin 30 pg (25-35) Mean Corpuscular Hemoglobin Concent 33 g/dL (31-37) Red Cell Distribution Width 14.8 % (11.5-14.5) Platelet Count 326 x10^3/uL (140-400) Neutrophils (%) (Auto) 84 % (31-73) Lymphocytes (%) (Auto) 8 % (24-48) Monocytes (%) (Auto) 6 % (0-9) Eosinophils (%) (Auto) 2 % (0-3) Basophils (%) (Auto) 0 % (0-3) Neutrophils # (Auto) 11.7 x10^3uL (1.8-7.7) Lymphocytes # (Auto) 1.1 x10^3/uL (1.0-4.8) Monocytes # (Auto) 0.8 x10^3/uL (0.0-1.1) Eosinophils # (Auto) 0.2 x10^3/uL (0.0-0.7) Basophils # (Auto) 0.0 x10^3/uL (0.0-0.2) Prothrombin Time 13.4 SEC (11.7-14.0) Prothromb Time International Ratio 1.1 (0.8-1.1) D-Dimer (Aileen) 0.54 ug/mlFEU (0.00-0.50) Sodium Level 131 mmol/L (136-145) Potassium Level 4.4 mmol/L (3.5-5.1) Chloride Level 92 mmol/L (98-107) Carbon Dioxide Level 29 mmol/L (21-32) Anion Gap 10 (6-14) Blood Urea Nitrogen 24 mg/dL (7-20) Creatinine 0.9 mg/dL (0.6-1.0) Estimated GFR (Cockcroft-Gault) 64.1 BUN/Creatinine Ratio 27 (6-20) Glucose Level 164 mg/dL (70-99) Lactic Acid Level 0.8 mmol/L (0.4-2.0) Calcium Level 9.4 mg/dL (8.5-10.1) Magnesium Level 2.1 mg/dL (1.8-2.4) Total Bilirubin 0.6 mg/dL (0.2-1.0) Aspartate Amino Transf (AST/SGOT) 18 U/L (15-37) Alanine Aminotransferase (ALT/SGPT) 21 U/L (14-59) Alkaline Phosphatase 107 U/L (46-116) Creatine Kinase 100 U/L (26-192) Creatine Kinase MB (Mass) 0.9 ng/mL (0.0-3.6) Creatine Kinase MB Relative Index 0.9 % (0-4) Troponin I Quantitative < 0.017 ng/mL (0.000-0.055) GF-[id number]-[id number]-Type Natriuretic Peptide 171 pg/mL (0-124) Total Protein 6.5 g/dL (6.4-8.2) Albumin 3.4 g/dL (3.4-5.0) Albumin/Globulin Ratio 1.1 (1.0-1.7) Lipase 113 U/L (73-393) Glucose (Fingerstick) 185 mg/dL (70-99) Nasal Screen MRSA (PCR) Positive (Negative) Test 06/29/17 09:45 06/29/17 11:18 06/29/17 15:45 06/29/17 16:38 Troponin I Quantitative < 0.017 ng/mL (0.000-0.055) < 0.017 ng/mL (0.000-0.055) Glucose (Fingerstick) 191 mg/dL (70-99) 171 mg/dL (70-99) Test 06/30/17 08:31 06/30/17 08:47 06/30/17 10:25 O2 Saturation 96 % (92-99) Arterial Blood pH 7.32 (7.35-7.45) Arterial Blood pCO2 at Patient Temp 50 mmHg (35-46) Arterial Blood pO2 at Patient Temp 91 mmHg (65-108) Arterial Blood HCO3 25 mmol/L (21-28) Arterial Blood Base Excess -2 mmol/L (-3-3) FiO2 100 White Blood Count 24.5 x10^3/uL (4.0-11.0) Red Blood Count 3.85 x10^6/uL (3.50-5.40) Hemoglobin 11.5 g/dL (12.0-15.5) Hematocrit 35.6 % (36.0-47.0) Mean Corpuscular Volume 93 fL (79-100) Mean Corpuscular Hemoglobin 30 pg (25-35) Mean Corpuscular Hemoglobin Concent 32 g/dL (31-37) Red Cell Distribution Width 15.0 % (11.5-14.5) Platelet Count 352 x10^3/uL (140-400) Neutrophils (%) (Auto) 95 % (31-73) Lymphocytes (%) (Auto) 1 % (24-48) Monocytes (%) (Auto) 3 % (0-9) Eosinophils (%) (Auto) 0 % (0-3) Basophils (%) (Auto) 0 % (0-3) Neutrophils # (Auto) 23.3 x10^3uL (1.8-7.7) Lymphocytes # (Auto) 0.3 x10^3/uL (1.0-4.8) Monocytes # (Auto) 0.8 x10^3/uL (0.0-1.1) Eosinophils # (Auto) 0.0 x10^3/uL (0.0-0.7) Basophils # (Auto) 0.0 x10^3/uL (0.0-0.2) Segmented Neutrophils % 92 % (35-66) Band Neutrophils % 3 % (0-9) Lymphocytes % 1 % (24-48) Monocytes % 4 % (0-10) Platelet Estimate Adequate (ADEQUATE) Sodium Level 127 mmol/L (136-145) Potassium Level 4.4 mmol/L (3.5-5.1) Chloride Level 93 mmol/L (98-107) Carbon Dioxide Level 28 mmol/L (21-32) Anion Gap 6 (6-14) Blood Urea Nitrogen 26 mg/dL (7-20) Creatinine 1.2 mg/dL (0.6-1.0) Estimated GFR (Cockcroft-Gault) 46.0 Glucose Level 290 mg/dL (70-99) Calcium Level 9.2 mg/dL (8.5-10.1) Troponin I Quantitative 0.305 ng/mL (0.000-0.055) Lactic Acid Level 1.7 mmol/L (0.4-2.0) Laboratory Tests Test 06/29/17 16:38 06/30/17 08:31 06/30/17 08:47 06/30/17 10:25 Glucose (Fingerstick) 171 mg/dL (70-99) O2 Saturation 96 % (92-99) Arterial Blood pH 7.32 (7.35-7.45) Arterial Blood pCO2 at Patient Temp 50 mmHg (35-46) Arterial Blood pO2 at Patient Temp 91 mmHg (65-108) Arterial Blood HCO3 25 mmol/L (21-28) Arterial Blood Base Excess -2 mmol/L (-3-3) FiO2 100 White Blood Count 24.5 x10^3/uL (4.0-11.0) Red Blood Count 3.85 x10^6/uL (3.50-5.40) Hemoglobin 11.5 g/dL (12.0-15.5) Hematocrit 35.6 % (36.0-47.0) Mean Corpuscular Volume 93 fL (79-100) Mean Corpuscular Hemoglobin 30 pg (25-35) Mean Corpuscular Hemoglobin Concent 32 g/dL (31-37) Red Cell Distribution Width 15.0 % (11.5-14.5) Platelet Count 352 x10^3/uL (140-400) Neutrophils (%) (Auto) 95 % (31-73) Lymphocytes (%) (Auto) 1 % (24-48) Monocytes (%) (Auto) 3 % (0-9) Eosinophils (%) (Auto) 0 % (0-3) Basophils (%) (Auto) 0 % (0-3) Neutrophils # (Auto) 23.3 x10^3uL (1.8-7.7) Lymphocytes # (Auto) 0.3 x10^3/uL (1.0-4.8) Monocytes # (Auto) 0.8 x10^3/uL (0.0-1.1) Eosinophils # (Auto) 0.0 x10^3/uL (0.0-0.7) Basophils # (Auto) 0.0 x10^3/uL (0.0-0.2) Segmented Neutrophils % 92 % (35-66) Band Neutrophils % 3 % (0-9) Lymphocytes % 1 % (24-48) Monocytes % 4 % (0-10) Platelet Estimate Adequate (ADEQUATE) Sodium Level 127 mmol/L (136-145) Potassium Level 4.4 mmol/L (3.5-5.1) Chloride Level 93 mmol/L (98-107) Carbon Dioxide Level 28 mmol/L (21-32) Anion Gap 6 (6-14) Blood Urea Nitrogen 26 mg/dL (7-20) Creatinine 1.2 mg/dL (0.6-1.0) Estimated GFR (Cockcroft-Gault) 46.0 Glucose Level 290 mg/dL (70-99) Calcium Level 9.2 mg/dL (8.5-10.1) Troponin I Quantitative 0.305 ng/mL (0.000-0.055) Lactic Acid Level 1.7 mmol/L (0.4-2.0) Medications Active Scripts Medications Dose Route/Sig Max Daily Dose Days Date Category Doxycycline Hyclate 100 Mg Capsule 1 Cap PO BID 06/23/17 Rx Calan Sr (Verapamil Hcl) 120 Mg Tablet.er 120 Mg PO DAILY 06/23/17 Rx Lisinopril 40 Mg Tablet 40 Mg PO DAILY 06/23/17 Rx Culturelle (Lactobacillus Rhamnosus Gg) 1 Each Cap.sprink 1 Cap PO BID 06/23/17 Rx Aspirin Ec (Aspirin) 325 Mg Tablet. 325 Mg PO DAILYWBKFT 06/23/17 Rx Lisinopril 10 Mg Tablet 1 Tab PO DAILY 06/19/17 Reported Prednisone 50 Mg Tablet 1 Tab PO DAILY 06/10/17 Rx Tradjenta (Linagliptin) 5 Mg Tablet 5 Tab PO DAILY 06/10/17 Reported Proair Hfa Inhaler (Albuterol Sulfate) 8.5 Gm Hfa.aer.ad 2 Puff IH PRN Q4-6HRS 10/01/15 Reported Flovent 110MCG Hfa (Fluticasone Propionate) 12 Gm Aer.w.adap 2 Puff IH BID 10/01/15 Reported Montelukast Sodium Tablet (Montelukast Sodium) 10 Mg Tablet 10 Mg PO HS 10/01/15 Reported Aspirin 325 Mg Tablet 1 Tab PO DAILY 10/01/15 Reported Iron (Ferrous Sulfate) 325 Mg Capsule.er 325 Mg PO 10/01/15 Reported Metoclopramide Hcl 10 Mg Tablet 10 Mg PO QIDACHS 10/01/15 Reported Atorvastatin Calcium 80 Mg Tablet 1 Tab PO DAILY 10/01/15 Reported Lansoprazole 30 Mg Capsule. 1 Cap PO DAILY 10/01/15 Reported Verapamil Er (Verapamil Hcl) 240 Mg Cap24h.pel 0.5 Cap PO DAILY 10/01/15 Reported Folic Acid 1 Mg Tablet 1 Tab PO DAILY 10/01/15 Reported Zoloft (Sertraline Hcl) 25 Mg Tablet 1 Tab PO DAILY 10/01/15 Reported Hydrocodone-Apap 7.5-325 (Hydrocodone Bit/Acetaminophen) 1 Each Tablet 1 Tab PO PRN Q6HRS PRN 10/01/15 Reported Comments CXR REVIEWED WHITE OUT LEFT LUNG Impression . 1. Acute respiratory failure secondary to acute asthma exacerbation. 2. Diabetes. 3. Morbid obesity. 4. Acute nonspecific bronchitis. 5. Cardiopulmonary arrest sec to pt taking off 02 and possible mucus plug on left There is no evidence of deep venous thrombosis. IMPRESSION: 1. No evidence of deep venous thrombosis. Plan . support for now will repeat cxr may need a bronch prior to extubation anitbx negative venous doppler clinical suspicion for PE is very low, BUN and creat are up CT angio will cause more harm sedate start tube feeding CCT 30min MARTHA MAGALLANES MD Jun 30, 2017 15:55
[2017-06-30] MEDS: FERROUS SULFATE 325 MG TABLET. PO SCH (20:44)
[2017-06-30] MEDS: MONTELUKAST SODIUM 10 MG TABLET. PO SCH (20:44)
[2017-06-30] MEDS: ATORVASTATIN CALCIUM 40 MG TABLET. PO SCH (20:45)
[2017-06-30] MEDS: HYDROcodone/APAP 7.5/325MG 1 TAB TABLET PO PRN (20:47)
[2017-06-30] MEDS: NYSTATIN TOPICAL POWDER 15GM BOTTLE. TP SCH (22:59)
[2017-07-01] VITALS (24 sets, daily range): BP systolic 100–154; BP diastolic 66–102
[2017-07-01] MEDS: PIPERACILLIN/TAZO IV Push 3.375 GM VIAL. IVP SCH ×5 (00:41→23:48)
[2017-07-01] MEDS: methylPREDNISolone SOD SUCC PF 40 MG/ML VIAL. IV SCH ×5 (00:41→23:47)
[2017-07-01] MEDS: fentaNYL PF VIAL 100 MCG/2 ML VIAL IV PRN ×6 (00:42→23:53)
[2017-07-01] MEDS: PROPOFOL 100 ML IV PRN ×5 (02:57→21:58)
[2017-07-01 06:01] LABS: BASO % 0 % (0-3); EOS % 0 % (0-3); HEMATOCRIT 34.5 % (36.0-47.0); HEMOGLOBIN 11.5 g/dL (12.0-15.5); LYMPH # 0.6 x10^3/uL (1.0-4.8); LYMPH % 6 % (24-48); MEAN CORPUSCULAR HEMOGLOBIN 31 pg (25-35); MEAN CORPUSCULAR HGB CONC 33 g/dL (31-37); MEAN CORPUSCULAR VOLUME 92 fL (79-100); MONO % 5 % (0-9); NEUT % 89 % (31-73); PLATELET COUNT 235 x10^3/uL (140-400); RED BLOOD COUNT 3.75 x10^6/uL (3.50-5.40); RED CELL DISTRIBUTION WIDTH 15.3 % (11.5-14.5)
[2017-07-01 06:14] LABS: CALCIUM 9.2 mg/dL (8.5-10.1); CREATININE 1.2 mg/dL (0.6-1.0); POTASSIUM 4.2 mmol/L (3.5-5.1)
[2017-07-01] MEDS: METOCLOPRAMIDE 10 MG TABLET. PO SCH ×4 (07:50→20:54)
[2017-07-01] MEDS: PANTOPRAZOLE 40 MG TABLET.DR. PO SCH (07:50)
[2017-07-01] MEDS: ASPIRIN ENTERIC COATED 325 MG TABLET.DR. PO SCH (08:00)
[2017-07-01] MEDS: IPRATRPIUM/ALBUTEROL 0.5/2.5MG 3 ML NEBU. NEB SCH ×4 (08:06→19:40)
[2017-07-01] MEDS: BUDESONIDE 0.5 MG/2 ML NEBU. NEB SCH ×2 (08:06→19:40)
[2017-07-01 08:24] LABS: HCO3 ABG 27 mmol/L (21-28); PCO2 ABG 39 mmHg (35-46); PH ABG 7.46 (7.35-7.45); PO2 ABG 80 mmHg (65-108); SAT O2 ABG 96 % (92-99)
[2017-07-01 08:26] LABS: FIO2 ABG 40
[2017-07-01] MEDS: VERAPAMIL SR 120 MG TABLET.ER. PO SCH (08:45)
[2017-07-01] MEDS: SERTRALINE 25 MG TABLET. PO SCH (08:45)
[2017-07-01] MEDS: LISINOPRIL 10 MG TABLET PO SCH (08:45)
[2017-07-01] MEDS: FOLIC ACID 1 MG TABLET. PO SCH (08:45)
[2017-07-01] MEDS: LINAGLIPTIN 5 MG TABLET PO SCH (08:45)
[2017-07-01] MEDS: NYSTATIN TOPICAL POWDER 15GM BOTTLE. TP SCH ×2 (08:46→20:51)
[2017-07-01] MEDS: ENOXAPARIN 40 MG/0.4 ML SYRINGE. SQ SCH ×2 (08:47→20:52)
[2017-07-01] MEDS: CHLORHEXIDINE 0.12% 15 ML MOUTHWASH. MM SCH ×2 (09:00→20:51)
--- NOTE | 2017-07-01 11:05 | RAD ---
Single view chest History:Ventilator An AP view of the chest is submitted. Comparison: 06/30/2017. Findings: Endotracheal tube tip terminates about 4 cm from mirna. Enteric catheter courses into the stomach, tip not fully seen. There is improved aeration of the right lung base. There is persistent coarse airspace opacity of the mid to inferior left hemithorax although somewhat improved aeration. No pneumothorax is identified. Cardiac silhouette is similar. Impression: There is improved aeration of the hemithoraces, persistent coarse infiltrate on the left.
--- NOTE | 2017-07-01 11:05 | PDOC ---
PROGRESS NOTES Chief Complaint Chief Complaint Acute Respiratory failure- secondary to acute asthma exacerbation Pneumonia Acute nonspecific bronchitis Asthma Hypertension Morbid obesity DM 2 Dehydration Leukocytosis Morbid obesity History of Present Illness History of Present Illness Pt seen and examined in the ICU Sedated and intubated: AC/20/500/40 with 5% PEEP, FiO2 decreased to 40% Rash on upper extremities Vitals Vitals Vital Signs Date Time Temp Pulse Resp B/P (MAP) Pulse Ox O2 Delivery O2 Flow Rate FiO2 07/01/17 10:00 75 139/87 (104) 99 Ventilator 07/01/17 09:00 25 07/01/17 08:00 98.6 98.6 07/01/17 08:00 Physical Exam Physical Exam pt. intubated General: No acute distress Heart: Normal S1, Normal S2, Other (Distant ) Lungs: Clear, Other (No crackels or wheezes) Abdomen: Normal bowel sounds, Soft Extremities: No clubbing, No cyanosis Skin: No significant lesion, Other (b/l rash on dorsal side of hands) Labs LABS Laboratory Tests Test 06/30/17 17:56 07/01/17 05:45 07/01/17 08:15 Glucose (Fingerstick) 176 mg/dL (70-99) White Blood Count 10.0 x10^3/uL (4.0-11.0) Red Blood Count 3.75 x10^6/uL (3.50-5.40) Hemoglobin 11.5 g/dL (12.0-15.5) Hematocrit 34.5 % (36.0-47.0) Mean Corpuscular Volume 92 fL (79-100) Mean Corpuscular Hemoglobin 31 pg (25-35) Mean Corpuscular Hemoglobin Concent 33 g/dL (31-37) Red Cell Distribution Width 15.3 % (11.5-14.5) Platelet Count 235 x10^3/uL (140-400) Neutrophils (%) (Auto) 89 % (31-73) Lymphocytes (%) (Auto) 6 % (24-48) Monocytes (%) (Auto) 5 % (0-9) Eosinophils (%) (Auto) 0 % (0-3) Basophils (%) (Auto) 0 % (0-3) Neutrophils # (Auto) 8.9 x10^3uL (1.8-7.7) Lymphocytes # (Auto) 0.6 x10^3/uL (1.0-4.8) Monocytes # (Auto) 0.5 x10^3/uL (0.0-1.1) Eosinophils # (Auto) 0.0 x10^3/uL (0.0-0.7) Basophils # (Auto) 0.0 x10^3/uL (0.0-0.2) Sodium Level 134 mmol/L (136-145) Potassium Level 4.2 mmol/L (3.5-5.1) Chloride Level 100 mmol/L (98-107) Carbon Dioxide Level 27 mmol/L (21-32) Anion Gap 7 (6-14) Blood Urea Nitrogen 25 mg/dL (7-20) Creatinine 1.2 mg/dL (0.6-1.0) Estimated GFR (Cockcroft-Gault) 46.0 Glucose Level 192 mg/dL (70-99) Calcium Level 9.2 mg/dL (8.5-10.1) Magnesium Level 2.2 mg/dL (1.8-2.4) O2 Saturation 96 % (92-99) Arterial Blood pH 7.46 (7.35-7.45) Arterial Blood pCO2 at Patient Temp 39 mmHg (35-46) Arterial Blood pO2 at Patient Temp 80 mmHg (65-108) Arterial Blood HCO3 27 mmol/L (21-28) Arterial Blood Base Excess 3 mmol/L (-3-3) FiO2 40 Review of Systems Review of Systems unable- pt sedated and intubated Assessment and Plan Assessmemt and Plan Problems Medical Problems: (1) Elevated d-dimer Status: Acute Assessment: Acute Respiratory failure- secondary to acute asthma exacerbation Pneumonia Acute nonspecific bronchitis Asthma Hypertension Morbid obesity DM 2 Dehydration Leukocytosis Morbid obesity Plan: Continue ICU monitoring Continue ventilation Continue home medications Continue abx per ID Recheck labs in am Consulted PT/OT Problems: Comment Review of Relevant I have reviewed the following items jess (where applicable) has been applied. Labs Laboratory Tests Test 06/29/17 11:18 06/29/17 15:45 06/29/17 16:38 06/30/17 08:31 Glucose (Fingerstick) 191 mg/dL (70-99) 171 mg/dL (70-99) Troponin I Quantitative < 0.017 ng/mL (0.000-0.055) O2 Saturation 96 % (92-99) Arterial Blood pH 7.32 (7.35-7.45) Arterial Blood pCO2 at Patient Temp 50 mmHg (35-46) Arterial Blood pO2 at Patient Temp 91 mmHg (65-108) Arterial Blood HCO3 25 mmol/L (21-28) Arterial Blood Base Excess -2 mmol/L (-3-3) FiO2 100 Test 06/30/17 08:47 06/30/17 10:25 06/30/17 17:56 07/01/17 05:45 White Blood Count 24.5 x10^3/uL (4.0-11.0) 10.0 x10^3/uL (4.0-11.0) Red Blood Count 3.85 x10^6/uL (3.50-5.40) 3.75 x10^6/uL (3.50-5.40) Hemoglobin 11.5 g/dL (12.0-15.5) 11.5 g/dL (12.0-15.5) Hematocrit 35.6 % (36.0-47.0) 34.5 % (36.0-47.0) Mean Corpuscular Volume 93 fL (79-100) 92 fL (79-100) Mean Corpuscular Hemoglobin 30 pg (25-35) 31 pg (25-35) Mean Corpuscular Hemoglobin Concent 32 g/dL (31-37) 33 g/dL (31-37) Red Cell Distribution Width 15.0 % (11.5-14.5) 15.3 % (11.5-14.5) Platelet Count 352 x10^3/uL (140-400) 235 x10^3/uL (140-400) Neutrophils (%) (Auto) 95 % (31-73) 89 % (31-73) Lymphocytes (%) (Auto) 1 % (24-48) 6 % (24-48) Monocytes (%) (Auto) 3 % (0-9) 5 % (0-9) Eosinophils (%) (Auto) 0 % (0-3) 0 % (0-3) Basophils (%) (Auto) 0 % (0-3) 0 % (0-3) Neutrophils # (Auto) 23.3 x10^3uL (1.8-7.7) 8.9 x10^3uL (1.8-7.7) Lymphocytes # (Auto) 0.3 x10^3/uL (1.0-4.8) 0.6 x10^3/uL (1.0-4.8) Monocytes # (Auto) 0.8 x10^3/uL (0.0-1.1) 0.5 x10^3/uL (0.0-1.1) Eosinophils # (Auto) 0.0 x10^3/uL (0.0-0.7) 0.0 x10^3/uL (0.0-0.7) Basophils # (Auto) 0.0 x10^3/uL (0.0-0.2) 0.0 x10^3/uL (0.0-0.2) Segmented Neutrophils % 92 % (35-66) Band Neutrophils % 3 % (0-9) Lymphocytes % 1 % (24-48) Monocytes % 4 % (0-10) Platelet Estimate Adequate (ADEQUATE) Sodium Level 127 mmol/L (136-145) 134 mmol/L (136-145) Potassium Level 4.4 mmol/L (3.5-5.1) 4.2 mmol/L (3.5-5.1) Chloride Level 93 mmol/L (98-107) 100 mmol/L (98-107) Carbon Dioxide Level 28 mmol/L (21-32) 27 mmol/L (21-32) Anion Gap 6 (6-14) 7 (6-14) Blood Urea Nitrogen 26 mg/dL (7-20) 25 mg/dL (7-20) Creatinine 1.2 mg/dL (0.6-1.0) 1.2 mg/dL (0.6-1.0) Estimated GFR (Cockcroft-Gault) 46.0 46.0 Glucose Level 290 mg/dL (70-99) 192 mg/dL (70-99) Calcium Level 9.2 mg/dL (8.5-10.1) 9.2 mg/dL (8.5-10.1) Troponin I Quantitative 0.305 ng/mL (0.000-0.055) Lactic Acid Level 1.7 mmol/L (0.4-2.0) Glucose (Fingerstick) 176 mg/dL (70-99) Magnesium Level 2.2 mg/dL (1.8-2.4) Test 07/01/17 08:15 O2 Saturation 96 % (92-99) Arterial Blood pH 7.46 (7.35-7.45) Arterial Blood pCO2 at Patient Temp 39 mmHg (35-46) Arterial Blood pO2 at Patient Temp 80 mmHg (65-108) Arterial Blood HCO3 27 mmol/L (21-28) Arterial Blood Base Excess 3 mmol/L (-3-3) FiO2 40 Laboratory Tests Test 06/30/17 17:56 07/01/17 05:45 07/01/17 08:15 Glucose (Fingerstick) 176 mg/dL (70-99) White Blood Count 10.0 x10^3/uL (4.0-11.0) Red Blood Count 3.75 x10^6/uL (3.50-5.40) Hemoglobin 11.5 g/dL (12.0-15.5) Hematocrit 34.5 % (36.0-47.0) Mean Corpuscular Volume 92 fL (79-100) Mean Corpuscular Hemoglobin 31 pg (25-35) Mean Corpuscular Hemoglobin Concent 33 g/dL (31-37) Red Cell Distribution Width 15.3 % (11.5-14.5) Platelet Count 235 x10^3/uL (140-400) Neutrophils (%) (Auto) 89 % (31-73) Lymphocytes (%) (Auto) 6 % (24-48) Monocytes (%) (Auto) 5 % (0-9) Eosinophils (%) (Auto) 0 % (0-3) Basophils (%) (Auto) 0 % (0-3) Neutrophils # (Auto) 8.9 x10^3uL (1.8-7.7) Lymphocytes # (Auto) 0.6 x10^3/uL (1.0-4.8) Monocytes # (Auto) 0.5 x10^3/uL (0.0-1.1) Eosinophils # (Auto) 0.0 x10^3/uL (0.0-0.7) Basophils # (Auto) 0.0 x10^3/uL (0.0-0.2) Sodium Level 134 mmol/L (136-145) Potassium Level 4.2 mmol/L (3.5-5.1) Chloride Level 100 mmol/L (98-107) Carbon Dioxide Level 27 mmol/L (21-32) Anion Gap 7 (6-14) Blood Urea Nitrogen 25 mg/dL (7-20) Creatinine 1.2 mg/dL (0.6-1.0) Estimated GFR (Cockcroft-Gault) 46.0 Glucose Level 192 mg/dL (70-99) Calcium Level 9.2 mg/dL (8.5-10.1) Magnesium Level 2.2 mg/dL (1.8-2.4) O2 Saturation 96 % (92-99) Arterial Blood pH 7.46 (7.35-7.45) Arterial Blood pCO2 at Patient Temp 39 mmHg (35-46) Arterial Blood pO2 at Patient Temp 80 mmHg (65-108) Arterial Blood HCO3 27 mmol/L (21-28) Arterial Blood Base Excess 3 mmol/L (-3-3) FiO2 40 Microbiology 06/30/17 Blood Culture - Preliminary, Resulted NO GROWTH AFTER 1 DAY Medications Current Medications Sodium Chloride 1,000 ml @ 150 mls/hr Q6H40M IV Last administered on 03:10; Start 06/29/17 at 03:00; Stop 06/29/17 at 09:39; Status DC Methylprednisolone Sodium Succinate (SOLU-Medrol 125MG VIAL) 125 mg 1X ONCE IV Last administered on 06/29/17 03:10; Start 06/29/17 at 03:00; Stop at 03:01; Status DC Levofloxacin/ Dextrose 150 ml @ 100 mls/hr 1X ONCE IV Last administered on 03:09; Start 06/29/17 at 03:30; Stop 06/29/17 at 12:50; Status DC Enoxaparin Sodium (Lovenox Per Pharmacy Treatment Dosing) 1 each 1X ONCE MC ; Start 06/29/17 at 03:45; Stop 06/29/17 at 03:53; Status DC Enoxaparin Sodium (Lovenox 150mg Syringe) 140 mg Q12HR SQ Last administered on 06/29/17 04:07; Start 06/29/17 at 04:00; Stop 06/29/17 at 12:50; Status DC Info (Anti-Coagulation Monitoring By Pharmacy) 1 each PRN DAILY PRN MC SEE COMMENTS Last administered on 06/29/17 05:11; Start 06/29/17 at 04:00; Stop 06/29/17 at 12:57; Status DC Ondansetron HCl (Zofran) 4 mg PRN Q8HRS PRN IV NAUSEA/VOMITING; Start at 04:15; Stop 06/30/17 at 04:14; Status DC Methylprednisolone Sodium Succinate (SOLU-Medrol 40MG VIAL) 40 mg Q6HRS IV Last administered on 07/01/17 05:43; Start 06/29/17 at 06:00 Levofloxacin/ Dextrose (Levaquin Per Pharmacy) 1 each PRN DAILY PRN MC SEE COMMENTS; Start 06/29/17 at 04:15; Stop 06/29/17 at 17:11; Status DC Sodium Chloride 1,000 ml @ 100 mls/hr Q10H IV Last administered on 06/30/17 22:47; Start 06/29/17 at 05:15 Levofloxacin/ Dextrose 150 ml @ 100 mls/hr Q24H IV ; Start 06/30/17 at 05:00; Stop 06/30/17 at 05:00; Status DC Aspirin (Ecotrin) 325 mg DAILYWBKFT PO Last administered on 06/29/17 12:23; Start 06/29/17 at 13:00 Folic Acid (Folic Acid) 1 mg DAILY PO Last administered on 07/01/17 08:45; Start 06/29/17 at 13:00 Acetaminophen/ Hydrocodone Bitart (Lortab 7.5/325) 1 tab PRN Q6HRS PRN PO PAIN Last administered on 06/30/17 20:47; Start 06/29/17 at 12:15 Lactobacillus Rhamnosus (Culturelle) 1 cap BID PO Last administered on 20:44; Start 06/29/17 at 13:00; Stop 07/01/17 at 08:40; Status DC Linagliptin (Tradjenta) 5 mg DAILY PO Last administered on 07/01/17 08:45; Start 06/29/17 at 13:00 Lisinopril (Prinivil) 10 mg DAILY PO Last administered on 07/01/17 08:45; Start 06/29/17 at 13:00 Metoclopramide HCl (Reglan) 10 mg QIDACHS PO Last administered on 07/01/17 07 :50; Start 06/29/17 at 13:00 Montelukast Sodium (Singulair) 10 mg HS PO Last administered on 06/30/17 20: 44; Start 06/29/17 at 21:00 Sertraline HCl (Zoloft) 25 mg DAILY PO Last administered on 07/01/17 08:45; Start 06/29/17 at 13:00 Verapamil HCl (Calan Sr) 120 mg DAILY PO Last administered on 07/01/17 08:45 ; Start 06/29/17 at 13:00 Albuterol Sulfate (Ventolin Neb Soln) 2.5 mg PRN Q4HRS PRN NEB SHORTNESS OF BREATH Last administered on 06/30/17 02:07; Start 06/29/17 at 12:15 Atorvastatin Calcium (Lipitor) 80 mg QHS PO Last administered on 06/30/17 20: 45; Start 06/29/17 at 21:00 Non-Formulary Medication 2 puff BID IH ; Start 06/29/17 at 21:00; Status UNV Pantoprazole Sodium (Protonix) 40 mg DAILYAC PO Last administered on 07:50; Start 06/29/17 at 13:00; Stop 07/01/17 at 08:48; Status DC Ferrous Sulfate (Feosol) 325 mg QHS PO Last administered on 06/30/17 20:44; Start 06/29/17 at 21:00 Budesonide (Pulmicort) 0.5 mg RTBID NEB Last administered on 07/01/17 08:06; Start 06/29/17 at 13:00 Enoxaparin Sodium (Lovenox 40mg Syringe) 40 mg BID SQ Last administered on 08:47; Start 06/29/17 at 21:00 Azithromycin 500 mg/Sodium Chloride 250 ml @ 250 mls/hr Q24H IV Last administered on 06/29/17 14:18; Start 06/29/17 at 13:30; Stop 06/30/17 at 03 :30; Status DC Albuterol/ Ipratropium (Duoneb) 3 ml RTQID NEB Last administered on 07/01/17 08:06; Start 06/29/17 at 13:00 Guaifenesin (Mucinex) 600 mg BID PO Last administered on 06/30/17 20:45; Start 06/30/17 at 09:00 Azithromycin (Zithromax) 500 mg DAILY PO ; Start 06/30/17 at 09:00; Stop 06/30 at 09:00; Status DC Albuterol Sulfate (Ventolin Neb Soln) 2.5 mg 1X ONCE NEB ; Start 06/30/17 at 07:00; Stop 06/30/17 at 07:01; Status DC Azithromycin 500 mg/Sodium Chloride 250 ml @ 250 mls/hr Q24H IV ; Start at 14:00; Stop 06/30/17 at 14:00; Status DC Propofol 100 ml @ 0 mls/hr CONT PRN IV SEE I/O RECORD Last administered on 05:43; Start 06/30/17 at 08:15 Linezolid 300 ml @ 300 mls/hr Q12HR IV Last administered on 07/01/17 08:46; Start 06/30/17 at 11:30 Piperacillin Sod/ Tazobactam Sod 3.375 gm/Dextrose 50 ml @ 100 mls/hr Q6HRS IV ; Start 06/30/17 at 12:00; Status UNV Piperacillin Sod/ Tazobactam Sod (Zosyn) 3.375 gm Q6HRS IVP Last administered on 07/01/17 05:43; Start 06/30/17 at 11:30 Nystatin (Nystop) 1 bib BID TP Last administered on 07/01/17 08:46; Start at 21:00 Fentanyl Citrate (Fentanyl 2ml Vial) 50 mcg PRN Q2HR PRN IV SEVERE PAIN Last administered on 07/01/17 08:48; Start 06/30/17 at 22:45 Pantoprazole Sodium (PROTONIX VIAL for IV PUSH) 40 mg DAILYAC IVP ; Start 07/02 at 07:30 Chlorhexidine Gluconate (Peridex) 15 ml BID MM Last administered on 07/01/17 09:00; Start 07/01/17 at 09:00 Active Scripts Active Doxycycline Hyclate 100 Mg Capsule 1 Cap PO BID Calan Sr (Verapamil Hcl) 120 Mg Tablet.er 120 Mg PO DAILY Lisinopril 40 Mg Tablet 40 Mg PO DAILY Culturelle (Lactobacillus Rhamnosus Gg) 1 Each Cap.sprink 1 Cap PO BID Aspirin Ec (Aspirin) 325 Mg Tablet. 325 Mg PO DAILYWBKFT Prednisone 50 Mg Tablet 1 Tab PO DAILY Reported Lisinopril 10 Mg Tablet 1 Tab PO DAILY Tradjenta (Linagliptin) 5 Mg Tablet 5 Tab PO DAILY Proair Hfa Inhaler (Albuterol Sulfate) 8.5 Gm Hfa.aer.ad 2 Puff IH PRN Q4-6HRS Flovent 110MCG Hfa (Fluticasone Propionate) 12 Gm Aer.w.adap 2 Puff IH BID Montelukast Sodium Tablet (Montelukast Sodium) 10 Mg Tablet 10 Mg PO HS Aspirin 325 Mg Tablet 1 Tab PO DAILY Iron (Ferrous Sulfate) 325 Mg Capsule.er 325 Mg PO Metoclopramide Hcl 10 Mg Tablet 10 Mg PO QIDACHS Atorvastatin Calcium 80 Mg Tablet 1 Tab PO DAILY Lansoprazole 30 Mg Capsule.dr 1 Cap PO DAILY Verapamil Er (Verapamil Hcl) 240 Mg Cap24h.pel 0.5 Cap PO DAILY Folic Acid 1 Mg Tablet 1 Tab PO DAILY Zoloft (Sertraline Hcl) 25 Mg Tablet 1 Tab PO DAILY Hydrocodone-Apap 7.5-325 (Hydrocodone Bit/Acetaminophen) 1 Each Tablet 1 Tab PO PRN Q6HRS PRN Vitals/I & O Vital Sign - Last 24 Hours 06/30/17 06/30/17 06/30/17 06/30/17 11:00 11:21 12:00 12:00 Temp 100.0 100.0 Pulse 90 91 Resp 20 20 B/P (MAP) 109/67 (81) 105/66 (79) Pulse Ox 100 100 100 O2 Delivery Ventilator Ventilator Mechanical Ventilator Ventilator 06/30/17 06/30/17 06/30/17 06/30/17 13:00 13:16 14:00 15:00 Pulse 91 94 84 Resp 20 20 20 B/P (MAP) 129/73 (91) 113/80 (91) 127/81 (96) Pulse Ox 100 100 100 100 O2 Delivery Ventilator Ventilator Ventilator Ventilator 06/30/17 06/30/17 06/30/17 06/30/17 15:33 16:00 16:00 17:00 Temp 99.4 99.4 Pulse 93 84 Resp 20 20 B/P (MAP) 125/81 (96) 127/82 (97) Pulse Ox 100 100 100 O2 Delivery Ventilator Ventilator Mechanical Ventilator Ventilator 06/30/17 06/30/17 06/30/17 06/30/17 18:00 18:11 19:00 19:54 Temp 100.4 100.4 Pulse 98 82 Resp 20 20 B/P (MAP) 131/80 (97) 136/81 (99) Pulse Ox 100 99 100 99 O2 Delivery Ventilator Ventilator Ventilator Ventilator 06/30/17 06/30/17 06/30/17 06/30/17 20:00 20:00 20:47 21:00 Pulse 80 81 Resp 20 20 20 B/P (MAP) 127/80 (96) 121/80 (94) Pulse Ox 100 97 100 O2 Delivery Ventilator Mechanical Ventilator Ventilator Ventilator 06/30/17 06/30/17 06/30/17 06/30/17 21:47 21:50 22:00 23:00 Pulse 102 85 Resp 22 26 22 B/P (MAP) 150/81 (104) 127/81 (96) Pulse Ox 97 100 98 O2 Delivery Ventilator Ventilator Ventilator Ventilator 06/30/17 07/01/17 07/01/17 07/01/17 23:50 00:00 00:00 00:42 Temp 99.0 99.0 Pulse 80 Resp 20 20 B/P (MAP) 100/70 (80) Pulse Ox 97 98 98 O2 Delivery Ventilator Ventilator Mechanical Ventilator Ventilator 07/01/17 07/01/17 07/01/17 07/01/17 01:00 01:09 01:12 02:00 Pulse 77 76 Resp 20 20 20 B/P (MAP) 111/78 (89) 109/78 (88) Pulse Ox 97 100 96 O2 Delivery Ventilator Ventilator Ventilator Ventilator 07/01/17 07/01/17 07/01/17 07/01/17 03:00 03:35 04:00 04:00 Temp 99.3 99.3 Pulse 72 75 Resp 20 20 B/P (MAP) 108/77 (87) 122/80 (94) Pulse Ox 96 100 96 O2 Delivery Ventilator Ventilator Ventilator Mechanical Ventilator 07/01/17 07/01/17 07/01/17 07/01/17 05:00 05:20 06:01 07:00 Pulse 73 73 74 Resp 20 20 20 B/P (MAP) 120/73 (89) 115/66 (82) 148/92 (110) Pulse Ox 98 100 98 98 O2 Delivery Ventilator Ventilator Ventilator Ventilator 07/01/17 07/01/17 07/01/17 07/01/17 08:00 08:00 08:00 08:07 Temp 98.6 98.6 Pulse 88 Resp 21 B/P (MAP) 154/100 (118) Pulse Ox 99 100 O2 Delivery Mechanical Ventilator Mechanical Ventilator Ventilator Ventilator O2 Flow Rate 07/01/17 07/01/17 07/01/17 07/01/17 08:45 08:45 08:48 08:59 Pulse 88 88 Resp 21 B/P (MAP) 143/89 143/89 Pulse Ox 100 100 O2 Delivery Ventilator Ventilator 07/01/17 07/01/17 09:00 10:00 Pulse 84 75 Resp 25 B/P (MAP) 147/102 (117) 139/87 (104) Pulse Ox 100 99 O2 Delivery Ventilator Ventilator Intake and Output 06/30/17 06/30/17 07/01/17 15:00 23:00 07:00 Intake Total 300 ml 1355.91 ml 910 ml Output Total 488 ml 515 ml 880 ml Balance -188 ml 840.91 ml 30 ml TEJAL LUNDBERG III DO Jul 01, 2017 11:05
--- NOTE | 2017-07-01 11:59 | PDOC ---
Infectious Disease Note Subjective Subjective + cough, deneis SOA or CP Remains intubated or sedation FiO2 40% Fever Tmax 100.4 ROS ROS GI: Denies n/v/d Vital Sign Vital Signs Vital Signs Date Time Temp Pulse Resp B/P (MAP) Pulse Ox O2 Delivery O2 Flow Rate FiO2 07/01/17 11:16 100 Ventilator 07/01/17 11:00 90 27 142/89 (106) 07/01/17 08:00 98.6 98.6 07/01/17 08:00 Physical Exam PHYSICAL EXAM GENERAL: Awake, calm, intubated HEENT: PERRL, ETT LUNGS: Clear anteriorly HEART: S1, S2 regular. ABDOMEN: Obese, BS active, soft, NT : Green EXTREMITIES: 1+ edema BLE SKIN: No rash NEUROLOGIC: Nods to questions, follows commands PIV: ok Labs Lab Laboratory Tests Test 06/30/17 17:56 07/01/17 05:45 07/01/17 08:15 Glucose (Fingerstick) 176 mg/dL (70-99) White Blood Count 10.0 x10^3/uL (4.0-11.0) Red Blood Count 3.75 x10^6/uL (3.50-5.40) Hemoglobin 11.5 g/dL (12.0-15.5) Hematocrit 34.5 % (36.0-47.0) Mean Corpuscular Volume 92 fL (79-100) Mean Corpuscular Hemoglobin 31 pg (25-35) Mean Corpuscular Hemoglobin Concent 33 g/dL (31-37) Red Cell Distribution Width 15.3 % (11.5-14.5) Platelet Count 235 x10^3/uL (140-400) Neutrophils (%) (Auto) 89 % (31-73) Lymphocytes (%) (Auto) 6 % (24-48) Monocytes (%) (Auto) 5 % (0-9) Eosinophils (%) (Auto) 0 % (0-3) Basophils (%) (Auto) 0 % (0-3) Neutrophils # (Auto) 8.9 x10^3uL (1.8-7.7) Lymphocytes # (Auto) 0.6 x10^3/uL (1.0-4.8) Monocytes # (Auto) 0.5 x10^3/uL (0.0-1.1) Eosinophils # (Auto) 0.0 x10^3/uL (0.0-0.7) Basophils # (Auto) 0.0 x10^3/uL (0.0-0.2) Sodium Level 134 mmol/L (136-145) Potassium Level 4.2 mmol/L (3.5-5.1) Chloride Level 100 mmol/L (98-107) Carbon Dioxide Level 27 mmol/L (21-32) Anion Gap 7 (6-14) Blood Urea Nitrogen 25 mg/dL (7-20) Creatinine 1.2 mg/dL (0.6-1.0) Estimated GFR (Cockcroft-Gault) 46.0 Glucose Level 192 mg/dL (70-99) Calcium Level 9.2 mg/dL (8.5-10.1) Magnesium Level 2.2 mg/dL (1.8-2.4) O2 Saturation 96 % (92-99) Arterial Blood pH 7.46 (7.35-7.45) Arterial Blood pCO2 at Patient Temp 39 mmHg (35-46) Arterial Blood pO2 at Patient Temp 80 mmHg (65-108) Arterial Blood HCO3 27 mmol/L (21-28) Arterial Blood Base Excess 3 mmol/L (-3-3) FiO2 40 Single view chest Comparison: 06/30/2017. Impression: There is improved aeration of the hemithoraces, persistent coarse infiltrate on the left. Micro BC NGTD Objective Assessment Pneumonia. Respiratory failure. Status post code. Dehydration. Leukocytosis, improved Morbid obesity. MRSA in nares Plan Plan of Care Zyvox and Zosyn f/u am labs and cultures D/w mother Patient seen examined. Chart reviewed in detail. Case discussed with QUANTITATIVE STRATEGY ANALYST. Agree with above LYRIC REICH APRN Jul 01, 2017 11:59 ANDREAS RUBY MD Jul 01, 2017 17:58
[2017-07-01] MEDS: IV NORMAL SALINE 1000ML BAG 1,000 ML IV SCH ×2 (13:00→20:01)
--- NOTE | 2017-07-01 15:53 | PDOC ---
PULMONARY PROGRESS NOTES Subjective PT HAD SHORT CODE 06/29 NOW INTUBATED SPOKE WITH RN THIS AM AFTER CODE SHE WAS MOVING ALL EXT Vitals Vital Signs Date Time Temp Pulse Resp B/P (MAP) Pulse Ox O2 Delivery O2 Flow Rate FiO2 07/01/17 15:34 100 Ventilator 07/01/17 15:00 83 20 141/89 (106) 07/01/17 12:00 99.7 99.7 07/01/17 08:00 Lungs: Clear Cardiovascular: S1, S2 Abdomen: Soft Extremities: No Edema Skin: Warm Labs Laboratory Tests Test 06/29/17 16:38 06/30/17 08:31 06/30/17 08:47 06/30/17 10:25 Glucose (Fingerstick) 171 mg/dL (70-99) O2 Saturation 96 % (92-99) Arterial Blood pH 7.32 (7.35-7.45) Arterial Blood pCO2 at Patient Temp 50 mmHg (35-46) Arterial Blood pO2 at Patient Temp 91 mmHg (65-108) Arterial Blood HCO3 25 mmol/L (21-28) Arterial Blood Base Excess -2 mmol/L (-3-3) FiO2 100 White Blood Count 24.5 x10^3/uL (4.0-11.0) Red Blood Count 3.85 x10^6/uL (3.50-5.40) Hemoglobin 11.5 g/dL (12.0-15.5) Hematocrit 35.6 % (36.0-47.0) Mean Corpuscular Volume 93 fL (79-100) Mean Corpuscular Hemoglobin 30 pg (25-35) Mean Corpuscular Hemoglobin Concent 32 g/dL (31-37) Red Cell Distribution Width 15.0 % (11.5-14.5) Platelet Count 352 x10^3/uL (140-400) Neutrophils (%) (Auto) 95 % (31-73) Lymphocytes (%) (Auto) 1 % (24-48) Monocytes (%) (Auto) 3 % (0-9) Eosinophils (%) (Auto) 0 % (0-3) Basophils (%) (Auto) 0 % (0-3) Neutrophils # (Auto) 23.3 x10^3uL (1.8-7.7) Lymphocytes # (Auto) 0.3 x10^3/uL (1.0-4.8) Monocytes # (Auto) 0.8 x10^3/uL (0.0-1.1) Eosinophils # (Auto) 0.0 x10^3/uL (0.0-0.7) Basophils # (Auto) 0.0 x10^3/uL (0.0-0.2) Segmented Neutrophils % 92 % (35-66) Band Neutrophils % 3 % (0-9) Lymphocytes % 1 % (24-48) Monocytes % 4 % (0-10) Platelet Estimate Adequate (ADEQUATE) Sodium Level 127 mmol/L (136-145) Potassium Level 4.4 mmol/L (3.5-5.1) Chloride Level 93 mmol/L (98-107) Carbon Dioxide Level 28 mmol/L (21-32) Anion Gap 6 (6-14) Blood Urea Nitrogen 26 mg/dL (7-20) Creatinine 1.2 mg/dL (0.6-1.0) Estimated GFR (Cockcroft-Gault) 46.0 Glucose Level 290 mg/dL (70-99) Calcium Level 9.2 mg/dL (8.5-10.1) Troponin I Quantitative 0.305 ng/mL (0.000-0.055) Lactic Acid Level 1.7 mmol/L (0.4-2.0) Test 06/30/17 17:56 07/01/17 05:45 07/01/17 08:15 Glucose (Fingerstick) 176 mg/dL (70-99) White Blood Count 10.0 x10^3/uL (4.0-11.0) Red Blood Count 3.75 x10^6/uL (3.50-5.40) Hemoglobin 11.5 g/dL (12.0-15.5) Hematocrit 34.5 % (36.0-47.0) Mean Corpuscular Volume 92 fL (79-100) Mean Corpuscular Hemoglobin 31 pg (25-35) Mean Corpuscular Hemoglobin Concent 33 g/dL (31-37) Red Cell Distribution Width 15.3 % (11.5-14.5) Platelet Count 235 x10^3/uL (140-400) Neutrophils (%) (Auto) 89 % (31-73) Lymphocytes (%) (Auto) 6 % (24-48) Monocytes (%) (Auto) 5 % (0-9) Eosinophils (%) (Auto) 0 % (0-3) Basophils (%) (Auto) 0 % (0-3) Neutrophils # (Auto) 8.9 x10^3uL (1.8-7.7) Lymphocytes # (Auto) 0.6 x10^3/uL (1.0-4.8) Monocytes # (Auto) 0.5 x10^3/uL (0.0-1.1) Eosinophils # (Auto) 0.0 x10^3/uL (0.0-0.7) Basophils # (Auto) 0.0 x10^3/uL (0.0-0.2) Sodium Level 134 mmol/L (136-145) Potassium Level 4.2 mmol/L (3.5-5.1) Chloride Level 100 mmol/L (98-107) Carbon Dioxide Level 27 mmol/L (21-32) Anion Gap 7 (6-14) Blood Urea Nitrogen 25 mg/dL (7-20) Creatinine 1.2 mg/dL (0.6-1.0) Estimated GFR (Cockcroft-Gault) 46.0 Glucose Level 192 mg/dL (70-99) Calcium Level 9.2 mg/dL (8.5-10.1) Magnesium Level 2.2 mg/dL (1.8-2.4) O2 Saturation 96 % (92-99) Arterial Blood pH 7.46 (7.35-7.45) Arterial Blood pCO2 at Patient Temp 39 mmHg (35-46) Arterial Blood pO2 at Patient Temp 80 mmHg (65-108) Arterial Blood HCO3 27 mmol/L (21-28) Arterial Blood Base Excess 3 mmol/L (-3-3) FiO2 40 Laboratory Tests Test 06/30/17 17:56 07/01/17 05:45 07/01/17 08:15 Glucose (Fingerstick) 176 mg/dL (70-99) White Blood Count 10.0 x10^3/uL (4.0-11.0) Red Blood Count 3.75 x10^6/uL (3.50-5.40) Hemoglobin 11.5 g/dL (12.0-15.5) Hematocrit 34.5 % (36.0-47.0) Mean Corpuscular Volume 92 fL (79-100) Mean Corpuscular Hemoglobin 31 pg (25-35) Mean Corpuscular Hemoglobin Concent 33 g/dL (31-37) Red Cell Distribution Width 15.3 % (11.5-14.5) Platelet Count 235 x10^3/uL (140-400) Neutrophils (%) (Auto) 89 % (31-73) Lymphocytes (%) (Auto) 6 % (24-48) Monocytes (%) (Auto) 5 % (0-9) Eosinophils (%) (Auto) 0 % (0-3) Basophils (%) (Auto) 0 % (0-3) Neutrophils # (Auto) 8.9 x10^3uL (1.8-7.7) Lymphocytes # (Auto) 0.6 x10^3/uL (1.0-4.8) Monocytes # (Auto) 0.5 x10^3/uL (0.0-1.1) Eosinophils # (Auto) 0.0 x10^3/uL (0.0-0.7) Basophils # (Auto) 0.0 x10^3/uL (0.0-0.2) Sodium Level 134 mmol/L (136-145) Potassium Level 4.2 mmol/L (3.5-5.1) Chloride Level 100 mmol/L (98-107) Carbon Dioxide Level 27 mmol/L (21-32) Anion Gap 7 (6-14) Blood Urea Nitrogen 25 mg/dL (7-20) Creatinine 1.2 mg/dL (0.6-1.0) Estimated GFR (Cockcroft-Gault) 46.0 Glucose Level 192 mg/dL (70-99) Calcium Level 9.2 mg/dL (8.5-10.1) Magnesium Level 2.2 mg/dL (1.8-2.4) O2 Saturation 96 % (92-99) Arterial Blood pH 7.46 (7.35-7.45) Arterial Blood pCO2 at Patient Temp 39 mmHg (35-46) Arterial Blood pO2 at Patient Temp 80 mmHg (65-108) Arterial Blood HCO3 27 mmol/L (21-28) Arterial Blood Base Excess 3 mmol/L (-3-3) FiO2 40 Medications Active Scripts Medications Dose Route/Sig Max Daily Dose Days Date Category Doxycycline Hyclate 100 Mg Capsule 1 Cap PO BID 06/23/17 Rx Calan Sr (Verapamil Hcl) 120 Mg Tablet.er 120 Mg PO DAILY 06/23/17 Rx Lisinopril 40 Mg Tablet 40 Mg PO DAILY 06/23/17 Rx Culturelle (Lactobacillus Rhamnosus Gg) 1 Each Cap.sprink 1 Cap PO BID 06/23/17 Rx Aspirin Ec (Aspirin) 325 Mg Tablet.dr 325 Mg PO DAILYWBKFT 06/23/17 Rx Lisinopril 10 Mg Tablet 1 Tab PO DAILY 06/19/17 Reported Prednisone 50 Mg Tablet 1 Tab PO DAILY 06/10/17 Rx Tradjenta (Linagliptin) 5 Mg Tablet 5 Tab PO DAILY 06/10/17 Reported Proair Hfa Inhaler (Albuterol Sulfate) 8.5 Gm Hfa.aer.ad 2 Puff IH PRN Q4-6HRS 10/01/15 Reported Flovent 110MCG Hfa (Fluticasone Propionate) 12 Gm Aer.w.adap 2 Puff IH BID 10/01/15 Reported Montelukast Sodium Tablet (Montelukast Sodium) 10 Mg Tablet 10 Mg PO HS 10/01/15 Reported Aspirin 325 Mg Tablet 1 Tab PO DAILY 10/01/15 Reported Iron (Ferrous Sulfate) 325 Mg Capsule.er 325 Mg PO 10/01/15 Reported Metoclopramide Hcl 10 Mg Tablet 10 Mg PO QIDACHS 10/01/15 Reported Atorvastatin Calcium 80 Mg Tablet 1 Tab PO DAILY 10/01/15 Reported Lansoprazole 30 Mg Capsule.dr 1 Cap PO DAILY 10/01/15 Reported Verapamil Er (Verapamil Hcl) 240 Mg Cap24h.pel 0.5 Cap PO DAILY 10/01/15 Reported Folic Acid 1 Mg Tablet 1 Tab PO DAILY 10/01/15 Reported Zoloft (Sertraline Hcl) 25 Mg Tablet 1 Tab PO DAILY 10/01/15 Reported Hydrocodone-Apap 7.5-325 (Hydrocodone Bit/Acetaminophen) 1 Each Tablet 1 Tab PO PRN Q6HRS PRN 10/01/15 Reported Comments CXR REVIEWED WHITE OUT LEFT LUNG Impression . 1. Acute respiratory failure secondary to acute asthma exacerbation. 2. Diabetes. 3. Morbid obesity. 4. Acute nonspecific bronchitis. 5. Cardiopulmonary arrest sec to pt taking off 02 and possible mucus plug on left 6. Pneumonia Left side There is no evidence of deep venous thrombosis. IMPRESSION: 1. No evidence of deep venous thrombosis. Plan . Spoke with mother will proceed with bronch in am and possible extubate will repeat cxr in am anitbx negative venous doppler clinical suspicion for PE is very low, BUN and creat are up CT angio will cause more harm sedate start tube feeding CCT 30min MARTHA MAGALLANES MD Jul 01, 2017 15:53
[2017-07-01] MEDS: MONTELUKAST SODIUM 10 MG TABLET. PO SCH (20:54)
[2017-07-01] MEDS: ATORVASTATIN CALCIUM 40 MG TABLET. PO SCH (20:54)
[2017-07-01] MEDS: FERROUS SULFATE 325 MG TABLET. PO SCH (21:00)
[2017-07-02] VITALS (24 sets, daily range): BP systolic 115–164; BP diastolic 71–99
[2017-07-02] MEDS: PROPOFOL 100 ML IV PRN ×2 (01:01→04:25)
[2017-07-02 05:21] LABS: BASO % 0 % (0-3); EOS % 0 % (0-3); HEMATOCRIT 31.9 % (36.0-47.0); HEMOGLOBIN 10.5 g/dL (12.0-15.5); LYMPH # 0.5 x10^3/uL (1.0-4.8); LYMPH % 7 % (24-48); MEAN CORPUSCULAR HEMOGLOBIN 30 pg (25-35); MEAN CORPUSCULAR HGB CONC 33 g/dL (31-37); MEAN CORPUSCULAR VOLUME 91 fL (79-100); MONO % 5 % (0-9); NEUT % 88 % (31-73); PLATELET COUNT 239 x10^3/uL (140-400); RED BLOOD COUNT 3.51 x10^6/uL (3.50-5.40); RED CELL DISTRIBUTION WIDTH 15.2 % (11.5-14.5); WHITE BLOOD COUNT 7.2 x10^3/uL (4.0-11.0)
[2017-07-02 05:50] LABS: CALCIUM 9.4 mg/dL (8.5-10.1); GFR 56.7
[2017-07-02] MEDS: PIPERACILLIN/TAZO IV Push 3.375 GM VIAL. IVP SCH ×4 (05:51→23:18)
[2017-07-02] MEDS: methylPREDNISolone SOD SUCC PF 40 MG/ML VIAL. IV SCH ×4 (05:51→23:17)
[2017-07-02] MEDS: fentaNYL PF VIAL 100 MCG/2 ML VIAL IV PRN ×5 (06:38→18:11)
[2017-07-02] MEDS: ASPIRIN ENTERIC COATED 325 MG TABLET.DR. PO SCH (08:00)
[2017-07-02] MEDS: BUDESONIDE 0.5 MG/2 ML NEBU. NEB SCH ×2 (08:19→20:19)
[2017-07-02] MEDS: IPRATRPIUM/ALBUTEROL 0.5/2.5MG 3 ML NEBU. NEB SCH ×4 (08:19→20:19)
[2017-07-02] MEDS: METOCLOPRAMIDE 10 MG TABLET. PO SCH ×4 (08:30→20:57)
[2017-07-02] MEDS: LINAGLIPTIN 5 MG TABLET PO SCH (08:31)
[2017-07-02] MEDS: PANTOPRAZOLE IV PUSH 40 MG VIAL. IVP SCH (08:31)
[2017-07-02] MEDS: SERTRALINE 25 MG TABLET. PO SCH (08:31)
[2017-07-02] MEDS: FOLIC ACID 1 MG TABLET. PO SCH (08:31)
[2017-07-02] MEDS: HYDROcodone/APAP 7.5/325MG 1 TAB TABLET PO PRN ×2 (08:31→20:57)
[2017-07-02] MEDS: LISINOPRIL 10 MG TABLET PO SCH (08:31)
[2017-07-02] MEDS: CHLORHEXIDINE 0.12% 15 ML MOUTHWASH. MM SCH ×2 (08:31→20:59)
[2017-07-02] MEDS: VERAPAMIL SR 120 MG TABLET.ER. PO SCH (08:31)
[2017-07-02] MEDS: NYSTATIN TOPICAL POWDER 15GM BOTTLE. TP SCH ×2 (08:32→20:58)
[2017-07-02] MEDS: ENOXAPARIN 40 MG/0.4 ML SYRINGE. SQ SCH ×2 (08:32→20:57)
[2017-07-02 08:51] LABS: HCO3 ABG 26 mmol/L (21-28); PCO2 ABG 38 mmHg (35-46); PH ABG 7.45 (7.35-7.45); PO2 ABG 85 mmHg (65-108); SAT O2 ABG 96 % (92-99)
[2017-07-02 08:54] LABS: FIO2 ABG 40
--- NOTE | 2017-07-02 09:28 | PDOC ---
PULMONARY PROGRESS NOTES Subjective PT HAD SHORT CODE 06/29 NOW INTUBATED SPOKE WITH RN THIS AM AFTER CODE SHE WAS MOVING ALL EXT PT AWAKE WANTS TUBE OUT FOLLOW COMMANDS Vitals Vital Signs Date Time Temp Pulse Resp B/P (MAP) Pulse Ox O2 Delivery O2 Flow Rate FiO2 07/02/17 09:00 81 20 152/87 (108) 100 Ventilator 07/02/17 08:00 98.5 98.5 07/02/17 06:38 3.0 Lungs: Clear Cardiovascular: S1, S2 Abdomen: Soft Extremities: No Edema Skin: Warm Labs Laboratory Tests Test 06/30/17 10:25 06/30/17 17:56 07/01/17 05:45 07/01/17 08:15 Lactic Acid Level 1.7 mmol/L (0.4-2.0) Glucose (Fingerstick) 176 mg/dL (70-99) White Blood Count 10.0 x10^3/uL (4.0-11.0) Red Blood Count 3.75 x10^6/uL (3.50-5.40) Hemoglobin 11.5 g/dL (12.0-15.5) Hematocrit 34.5 % (36.0-47.0) Mean Corpuscular Volume 92 fL (79-100) Mean Corpuscular Hemoglobin 31 pg (25-35) Mean Corpuscular Hemoglobin Concent 33 g/dL (31-37) Red Cell Distribution Width 15.3 % (11.5-14.5) Platelet Count 235 x10^3/uL (140-400) Neutrophils (%) (Auto) 89 % (31-73) Lymphocytes (%) (Auto) 6 % (24-48) Monocytes (%) (Auto) 5 % (0-9) Eosinophils (%) (Auto) 0 % (0-3) Basophils (%) (Auto) 0 % (0-3) Neutrophils # (Auto) 8.9 x10^3uL (1.8-7.7) Lymphocytes # (Auto) 0.6 x10^3/uL (1.0-4.8) Monocytes # (Auto) 0.5 x10^3/uL (0.0-1.1) Eosinophils # (Auto) 0.0 x10^3/uL (0.0-0.7) Basophils # (Auto) 0.0 x10^3/uL (0.0-0.2) Sodium Level 134 mmol/L (136-145) Potassium Level 4.2 mmol/L (3.5-5.1) Chloride Level 100 mmol/L (98-107) Carbon Dioxide Level 27 mmol/L (21-32) Anion Gap 7 (6-14) Blood Urea Nitrogen 25 mg/dL (7-20) Creatinine 1.2 mg/dL (0.6-1.0) Estimated GFR (Cockcroft-Gault) 46.0 Glucose Level 192 mg/dL (70-99) Calcium Level 9.2 mg/dL (8.5-10.1) Magnesium Level 2.2 mg/dL (1.8-2.4) O2 Saturation 96 % (92-99) Arterial Blood pH 7.46 (7.35-7.45) Arterial Blood pCO2 at Patient Temp 39 mmHg (35-46) Arterial Blood pO2 at Patient Temp 80 mmHg (65-108) Arterial Blood HCO3 27 mmol/L (21-28) Arterial Blood Base Excess 3 mmol/L (-3-3) FiO2 40 Test 07/02/17 04:00 07/02/17 08:20 White Blood Count 7.2 x10^3/uL (4.0-11.0) Red Blood Count 3.51 x10^6/uL (3.50-5.40) Hemoglobin 10.5 g/dL (12.0-15.5) Hematocrit 31.9 % (36.0-47.0) Mean Corpuscular Volume 91 fL (79-100) Mean Corpuscular Hemoglobin 30 pg (25-35) Mean Corpuscular Hemoglobin Concent 33 g/dL (31-37) Red Cell Distribution Width 15.2 % (11.5-14.5) Platelet Count 239 x10^3/uL (140-400) Neutrophils (%) (Auto) 88 % (31-73) Lymphocytes (%) (Auto) 7 % (24-48) Monocytes (%) (Auto) 5 % (0-9) Eosinophils (%) (Auto) 0 % (0-3) Basophils (%) (Auto) 0 % (0-3) Neutrophils # (Auto) 6.3 x10^3uL (1.8-7.7) Lymphocytes # (Auto) 0.5 x10^3/uL (1.0-4.8) Monocytes # (Auto) 0.4 x10^3/uL (0.0-1.1) Eosinophils # (Auto) 0.0 x10^3/uL (0.0-0.7) Basophils # (Auto) 0.0 x10^3/uL (0.0-0.2) Sodium Level 138 mmol/L (136-145) Potassium Level 4.0 mmol/L (3.5-5.1) Chloride Level 103 mmol/L (98-107) Carbon Dioxide Level 27 mmol/L (21-32) Anion Gap 8 (6-14) Blood Urea Nitrogen 22 mg/dL (7-20) Creatinine 1.0 mg/dL (0.6-1.0) Estimated GFR (Cockcroft-Gault) 56.7 Glucose Level 191 mg/dL (70-99) Calcium Level 9.4 mg/dL (8.5-10.1) O2 Saturation 96 % (92-99) Arterial Blood pH 7.45 (7.35-7.45) Arterial Blood pCO2 at Patient Temp 38 mmHg (35-46) Arterial Blood pO2 at Patient Temp 85 mmHg (65-108) Arterial Blood HCO3 26 mmol/L (21-28) Arterial Blood Base Excess 2 mmol/L (-3-3) FiO2 40 Laboratory Tests Test 07/02/17 04:00 07/02/17 08:20 White Blood Count 7.2 x10^3/uL (4.0-11.0) Red Blood Count 3.51 x10^6/uL (3.50-5.40) Hemoglobin 10.5 g/dL (12.0-15.5) Hematocrit 31.9 % (36.0-47.0) Mean Corpuscular Volume 91 fL (79-100) Mean Corpuscular Hemoglobin 30 pg (25-35) Mean Corpuscular Hemoglobin Concent 33 g/dL (31-37) Red Cell Distribution Width 15.2 % (11.5-14.5) Platelet Count 239 x10^3/uL (140-400) Neutrophils (%) (Auto) 88 % (31-73) Lymphocytes (%) (Auto) 7 % (24-48) Monocytes (%) (Auto) 5 % (0-9) Eosinophils (%) (Auto) 0 % (0-3) Basophils (%) (Auto) 0 % (0-3) Neutrophils # (Auto) 6.3 x10^3uL (1.8-7.7) Lymphocytes # (Auto) 0.5 x10^3/uL (1.0-4.8) Monocytes # (Auto) 0.4 x10^3/uL (0.0-1.1) Eosinophils # (Auto) 0.0 x10^3/uL (0.0-0.7) Basophils # (Auto) 0.0 x10^3/uL (0.0-0.2) Sodium Level 138 mmol/L (136-145) Potassium Level 4.0 mmol/L (3.5-5.1) Chloride Level 103 mmol/L (98-107) Carbon Dioxide Level 27 mmol/L (21-32) Anion Gap 8 (6-14) Blood Urea Nitrogen 22 mg/dL (7-20) Creatinine 1.0 mg/dL (0.6-1.0) Estimated GFR (Cockcroft-Gault) 56.7 Glucose Level 191 mg/dL (70-99) Calcium Level 9.4 mg/dL (8.5-10.1) O2 Saturation 96 % (92-99) Arterial Blood pH 7.45 (7.35-7.45) Arterial Blood pCO2 at Patient Temp 38 mmHg (35-46) Arterial Blood pO2 at Patient Temp 85 mmHg (65-108) Arterial Blood HCO3 26 mmol/L (21-28) Arterial Blood Base Excess 2 mmol/L (-3-3) FiO2 40 Medications Active Scripts Medications Dose Route/Sig Max Daily Dose Days Date Category Doxycycline Hyclate 100 Mg Capsule 1 Cap PO BID 06/23/17 Rx Calan Sr (Verapamil Hcl) 120 Mg Tablet.er 120 Mg PO DAILY 06/23/17 Rx Lisinopril 40 Mg Tablet 40 Mg PO DAILY 06/23/17 Rx Culturelle (Lactobacillus Rhamnosus Gg) 1 Each Cap.sprink 1 Cap PO BID 06/23/17 Rx Aspirin Ec (Aspirin) 325 Mg Tablet. 325 Mg PO DAILYWBKFT 06/23/17 Rx Lisinopril 10 Mg Tablet 1 Tab PO DAILY 06/19/17 Reported Prednisone 50 Mg Tablet 1 Tab PO DAILY 06/10/17 Rx Tradjenta (Linagliptin) 5 Mg Tablet 5 Tab PO DAILY 06/10/17 Reported Proair Hfa Inhaler (Albuterol Sulfate) 8.5 Gm Hfa.aer.ad 2 Puff IH PRN Q4-6HRS 10/01/15 Reported Flovent 110MCG Hfa (Fluticasone Propionate) 12 Gm Aer.w.adap 2 Puff IH BID 10/01/15 Reported Montelukast Sodium Tablet (Montelukast Sodium) 10 Mg Tablet 10 Mg PO HS 10/01/15 Reported Aspirin 325 Mg Tablet 1 Tab PO DAILY 10/01/15 Reported Iron (Ferrous Sulfate) 325 Mg Capsule.er 325 Mg PO 10/01/15 Reported Metoclopramide Hcl 10 Mg Tablet 10 Mg PO QIDACHS 10/01/15 Reported Atorvastatin Calcium 80 Mg Tablet 1 Tab PO DAILY 10/01/15 Reported Lansoprazole 30 Mg Capsule.dr 1 Cap PO DAILY 10/01/15 Reported Verapamil Er (Verapamil Hcl) 240 Mg Cap24h.pel 0.5 Cap PO DAILY 10/01/15 Reported Folic Acid 1 Mg Tablet 1 Tab PO DAILY 10/01/15 Reported Zoloft (Sertraline Hcl) 25 Mg Tablet 1 Tab PO DAILY 10/01/15 Reported Hydrocodone-Apap 7.5-325 (Hydrocodone Bit/Acetaminophen) 1 Each Tablet 1 Tab PO PRN Q6HRS PRN 10/01/15 Reported Comments CXR REVIEWED WHITE OUT LEFT LUNG Impression . 1. Acute respiratory failure secondary to acute asthma exacerbation. 2. Diabetes. 3. Morbid obesity. 4. Acute nonspecific bronchitis. 5. Cardiopulmonary arrest sec to pt taking off 02 and possible mucus plug on left 6. Pneumonia Left side 7. ATELECTASIS ON LEFT RULE OUT MUCUS PLUGGING There is no evidence of deep venous thrombosis. IMPRESSION: 1. No evidence of deep venous thrombosis. Plan . BROCH TODAY AND POSSIBLE EXTUBATION CXR PENDING anitbx negative venous doppler clinical suspicion for PE is very low, BUN and creat are up CT angio will cause more harm sedate start tube feeding CCT 30min MARTHA MAGALLANES MD Jul 02, 2017 09:28
--- NOTE | 2017-07-02 09:42 | RAD ---
Single view chest History:Ventilator An AP view of the chest is submitted. Comparison: 07/01/2017. Findings: There is again endotracheal tube, tip about 3 cm from mirna. Enteric catheter courses into the stomach, not fully seen. There is no pneumothorax. There is persistent prominent opacity of the mid to inferior left hemithorax, also of the left perihilar region. This may be somewhat increased of the medial left lung base. Impression: 1. There is again prominent opacity of the mid to inferior left hemithorax, questionably somewhat increased of the more medial left lung base.
[2017-07-02] MEDS ORDERED: MIDAZOLAM HCL/PF 5 MG/5 ML VIAL. ONE (09:49)
--- NOTE | 2017-07-02 10:02 | PDOC4 ---
PROCEDURE Procedure BRONCH CHARITO MUCUS PLUGGING NO ENDO LESION MARTHA MAGALLANES MD Jul 02, 2017 10:02
[2017-07-02] MEDS: IV NORMAL SALINE 1000ML BAG 1,000 ML IV SCH ×2 (10:47→20:42)
--- NOTE | 2017-07-02 10:50 | OP ---
DATE OF SURGERY: 07/02/2017 ATTENDING PHYSICIAN: Mary Grace Sullivan MD. PROCEDURE: Bronchoscopy, bronchoalveolar lavage. INDICATIONS: The patient with respiratory failure, on mechanical ventilation. Chest x-ray revealed whiteout of the left lung, undergoing diagnostic therapeutic bronchoscopy prior to extubation. Risks, benefits and alternatives reviewed with family. They consented. DESCRIPTION OF PROCEDURE: A timeout was performed prior to sedation and procedure. The patient was given 2 mg of Versed IV. The bronchoscope was then passed through the indwelling, orally placed endotracheal tube. The endotracheal tube was properly positioned above the mirna. The right and left segments and subsegments were visualized. There was mucus plugging on the left. The mucosa was friable. In fact, with scope trauma, she started to bleed a bit. The scope was wedged into the left upper lobe bronchus, and the lavage was performed, the return was mixed with minimal amount of blood. FINDINGS: 1. Properly positioned endotracheal tube. 2. Mucus plugging, left greater than right. 3. Friable mucosa leading up to the left upper lobe. PLAN: 1. We will await the BAL results. The patient tolerated procedure well with no immediate complications. 2. We will proceed with extubation. MARTHA MAGALLANES MD DR: PREET/faizan JOB#: [id number] / [id number]
--- NOTE | 2017-07-02 11:20 | PDOC ---
Infectious Disease Note Subjective Subjective Extubated Resting voice O2 6LNC + cough, denies SOA or CP No fever last 24 hours ROS ROS GEN: Denies fevers, chills, sweats GI: Denies n/v/d N Vital Sign Vital Signs Vital Signs Date Time Temp Pulse Resp B/P (MAP) Pulse Ox O2 Delivery O2 Flow Rate FiO2 07/02/17 11:00 94 25 162/99 (120) 98 Nasal Cannula 6.0 07/02/17 08:00 98.5 98.5 Physical Exam PHYSICAL EXAM GENERAL: Alert, calm, NAD HEENT: PERRL, Oral cavity clear LUNGS: Clear anteriorly HEART: S1, S2 regular. ABDOMEN: Obese, BS active, soft, NT : Green EXTREMITIES: 1+ edema BLE SKIN: No rash NEUROLOGIC: Nods to questions, follows commands PIV: ok Labs Lab Laboratory Tests Test 07/02/17 04:00 07/02/17 08:20 White Blood Count 7.2 x10^3/uL (4.0-11.0) Red Blood Count 3.51 x10^6/uL (3.50-5.40) Hemoglobin 10.5 g/dL (12.0-15.5) Hematocrit 31.9 % (36.0-47.0) Mean Corpuscular Volume 91 fL (79-100) Mean Corpuscular Hemoglobin 30 pg (25-35) Mean Corpuscular Hemoglobin Concent 33 g/dL (31-37) Red Cell Distribution Width 15.2 % (11.5-14.5) Platelet Count 239 x10^3/uL (140-400) Neutrophils (%) (Auto) 88 % (31-73) Lymphocytes (%) (Auto) 7 % (24-48) Monocytes (%) (Auto) 5 % (0-9) Eosinophils (%) (Auto) 0 % (0-3) Basophils (%) (Auto) 0 % (0-3) Neutrophils # (Auto) 6.3 x10^3uL (1.8-7.7) Lymphocytes # (Auto) 0.5 x10^3/uL (1.0-4.8) Monocytes # (Auto) 0.4 x10^3/uL (0.0-1.1) Eosinophils # (Auto) 0.0 x10^3/uL (0.0-0.7) Basophils # (Auto) 0.0 x10^3/uL (0.0-0.2) Sodium Level 138 mmol/L (136-145) Potassium Level 4.0 mmol/L (3.5-5.1) Chloride Level 103 mmol/L (98-107) Carbon Dioxide Level 27 mmol/L (21-32) Anion Gap 8 (6-14) Blood Urea Nitrogen 22 mg/dL (7-20) Creatinine 1.0 mg/dL (0.6-1.0) Estimated GFR (Cockcroft-Gault) 56.7 Glucose Level 191 mg/dL (70-99) Calcium Level 9.4 mg/dL (8.5-10.1) O2 Saturation 96 % (92-99) Arterial Blood pH 7.45 (7.35-7.45) Arterial Blood pCO2 at Patient Temp 38 mmHg (35-46) Arterial Blood pO2 at Patient Temp 85 mmHg (65-108) Arterial Blood HCO3 26 mmol/L (21-28) Arterial Blood Base Excess 2 mmol/L (-3-3) FiO2 40 CXR Impression: 1. There is again prominent opacity of the mid to inferior left hemithorax, questionably somewhat increased of the more medial left lung base. Micro BC NGTD Sputum: resp [id number] Objective Assessment Pneumonia. Respiratory failure. s/p extubation Status post code. Dehydration. Leukocytosis, improved Morbid obesity. MRSA in nares Plan Plan of Care Zyvox and Zosyn f/u am labs and cultures D/w family Patient seen and examined. Case discussed with LEATHER TANNER. Chart reviewed in [place]. Agree with above plan. LYRIC REICH APRN Jul 02, 2017 11:20 ANDREAS RUBY MD Jul 02, 2017 16:23
--- NOTE | 2017-07-02 14:12 | PDOC ---
PROGRESS NOTES Chief Complaint Chief Complaint Acute Respiratory failure- secondary to acute asthma exacerbation Pneumonia Acute nonspecific bronchitis Asthma Hypertension Morbid obesity DM 2 Dehydration Leukocytosis Morbid obesity History of Present Illness History of Present Illness Pt seen and examined in the ICU Pt extubated 07/02/17 Pt sitting upright in bed, using hand gestures and head nodding for communication Rash on b/l upper extremities Vitals Vitals Vital Signs Date Time Temp Pulse Resp B/P (MAP) Pulse Ox O2 Delivery O2 Flow Rate FiO2 07/02/17 13:00 90 32 148/88 (108) 98 Nasal Cannula 4.0 07/02/17 12:00 97.9 97.9 Physical Exam General: Alert, Cooperative, No acute distress Heart: Normal S1, Normal S2 Lungs: Clear, Other (Wheezes throughout ) Abdomen: Normal bowel sounds, Soft Extremities: No clubbing, No cyanosis Skin: No breakdown, Other (b/l rash on dorsal side of hands) Labs LABS Laboratory Tests Test 07/02/17 04:00 07/02/17 08:20 White Blood Count 7.2 x10^3/uL (4.0-11.0) Red Blood Count 3.51 x10^6/uL (3.50-5.40) Hemoglobin 10.5 g/dL (12.0-15.5) Hematocrit 31.9 % (36.0-47.0) Mean Corpuscular Volume 91 fL (79-100) Mean Corpuscular Hemoglobin 30 pg (25-35) Mean Corpuscular Hemoglobin Concent 33 g/dL (31-37) Red Cell Distribution Width 15.2 % (11.5-14.5) Platelet Count 239 x10^3/uL (140-400) Neutrophils (%) (Auto) 88 % (31-73) Lymphocytes (%) (Auto) 7 % (24-48) Monocytes (%) (Auto) 5 % (0-9) Eosinophils (%) (Auto) 0 % (0-3) Basophils (%) (Auto) 0 % (0-3) Neutrophils # (Auto) 6.3 x10^3uL (1.8-7.7) Lymphocytes # (Auto) 0.5 x10^3/uL (1.0-4.8) Monocytes # (Auto) 0.4 x10^3/uL (0.0-1.1) Eosinophils # (Auto) 0.0 x10^3/uL (0.0-0.7) Basophils # (Auto) 0.0 x10^3/uL (0.0-0.2) Sodium Level 138 mmol/L (136-145) Potassium Level 4.0 mmol/L (3.5-5.1) Chloride Level 103 mmol/L (98-107) Carbon Dioxide Level 27 mmol/L (21-32) Anion Gap 8 (6-14) Blood Urea Nitrogen 22 mg/dL (7-20) Creatinine 1.0 mg/dL (0.6-1.0) Estimated GFR (Cockcroft-Gault) 56.7 Glucose Level 191 mg/dL (70-99) Calcium Level 9.4 mg/dL (8.5-10.1) O2 Saturation 96 % (92-99) Arterial Blood pH 7.45 (7.35-7.45) Arterial Blood pCO2 at Patient Temp 38 mmHg (35-46) Arterial Blood pO2 at Patient Temp 85 mmHg (65-108) Arterial Blood HCO3 26 mmol/L (21-28) Arterial Blood Base Excess 2 mmol/L (-3-3) FiO2 40 Review of Systems Review of Systems General: Admits to fatigue Heart: denies any chest pain GI: denies N/V Assessment and Plan Assessmemt and Plan Problems Medical Problems: (1) Elevated d-dimer Status: Acute Assessment: Acute Respiratory failure- secondary to acute asthma exacerbation Pneumonia Acute nonspecific bronchitis Asthma Hypertension Morbid obesity DM 2 Dehydration Leukocytosis Morbid obesity Plan: Labetalol 20mg PRN ordered Advance diet as tolerated Consulted Cardiology Continue ICU monitoring Continue breathing treatments PT/OT consulted Recheck labs in am Problems: Comment Review of Relevant I have reviewed the following items jess (where applicable) has been applied. Labs Laboratory Tests Test 06/30/17 17:56 07/01/17 05:45 07/01/17 08:15 07/02/17 04:00 Glucose (Fingerstick) 176 mg/dL (70-99) White Blood Count 10.0 x10^3/uL (4.0-11.0) 7.2 x10^3/uL (4.0-11.0) Red Blood Count 3.75 x10^6/uL (3.50-5.40) 3.51 x10^6/uL (3.50-5.40) Hemoglobin 11.5 g/dL (12.0-15.5) 10.5 g/dL (12.0-15.5) Hematocrit 34.5 % (36.0-47.0) 31.9 % (36.0-47.0) Mean Corpuscular Volume 92 fL (79-100) 91 fL (79-100) Mean Corpuscular Hemoglobin 31 pg (25-35) 30 pg (25-35) Mean Corpuscular Hemoglobin Concent 33 g/dL (31-37) 33 g/dL (31-37) Red Cell Distribution Width 15.3 % (11.5-14.5) 15.2 % (11.5-14.5) Platelet Count 235 x10^3/uL (140-400) 239 x10^3/uL (140-400) Neutrophils (%) (Auto) 89 % (31-73) 88 % (31-73) Lymphocytes (%) (Auto) 6 % (24-48) 7 % (24-48) Monocytes (%) (Auto) 5 % (0-9) 5 % (0-9) Eosinophils (%) (Auto) 0 % (0-3) 0 % (0-3) Basophils (%) (Auto) 0 % (0-3) 0 % (0-3) Neutrophils # (Auto) 8.9 x10^3uL (1.8-7.7) 6.3 x10^3uL (1.8-7.7) Lymphocytes # (Auto) 0.6 x10^3/uL (1.0-4.8) 0.5 x10^3/uL (1.0-4.8) Monocytes # (Auto) 0.5 x10^3/uL (0.0-1.1) 0.4 x10^3/uL (0.0-1.1) Eosinophils # (Auto) 0.0 x10^3/uL (0.0-0.7) 0.0 x10^3/uL (0.0-0.7) Basophils # (Auto) 0.0 x10^3/uL (0.0-0.2) 0.0 x10^3/uL (0.0-0.2) Sodium Level 134 mmol/L (136-145) 138 mmol/L (136-145) Potassium Level 4.2 mmol/L (3.5-5.1) 4.0 mmol/L (3.5-5.1) Chloride Level 100 mmol/L (98-107) 103 mmol/L (98-107) Carbon Dioxide Level 27 mmol/L (21-32) 27 mmol/L (21-32) Anion Gap 7 (6-14) 8 (6-14) Blood Urea Nitrogen 25 mg/dL (7-20) 22 mg/dL (7-20) Creatinine 1.2 mg/dL (0.6-1.0) 1.0 mg/dL (0.6-1.0) Estimated GFR (Cockcroft-Gault) 46.0 56.7 Glucose Level 192 mg/dL (70-99) 191 mg/dL (70-99) Calcium Level 9.2 mg/dL (8.5-10.1) 9.4 mg/dL (8.5-10.1) Magnesium Level 2.2 mg/dL (1.8-2.4) O2 Saturation 96 % (92-99) Arterial Blood pH 7.46 (7.35-7.45) Arterial Blood pCO2 at Patient Temp 39 mmHg (35-46) Arterial Blood pO2 at Patient Temp 80 mmHg (65-108) Arterial Blood HCO3 27 mmol/L (21-28) Arterial Blood Base Excess 3 mmol/L (-3-3) FiO2 40 Test 07/02/17 08:20 O2 Saturation 96 % (92-99) Arterial Blood pH 7.45 (7.35-7.45) Arterial Blood pCO2 at Patient Temp 38 mmHg (35-46) Arterial Blood pO2 at Patient Temp 85 mmHg (65-108) Arterial Blood HCO3 26 mmol/L (21-28) Arterial Blood Base Excess 2 mmol/L (-3-3) FiO2 40 Laboratory Tests Test 07/02/17 04:00 07/02/17 08:20 White Blood Count 7.2 x10^3/uL (4.0-11.0) Red Blood Count 3.51 x10^6/uL (3.50-5.40) Hemoglobin 10.5 g/dL (12.0-15.5) Hematocrit 31.9 % (36.0-47.0) Mean Corpuscular Volume 91 fL (79-100) Mean Corpuscular Hemoglobin 30 pg (25-35) Mean Corpuscular Hemoglobin Concent 33 g/dL (31-37) Red Cell Distribution Width 15.2 % (11.5-14.5) Platelet Count 239 x10^3/uL (140-400) Neutrophils (%) (Auto) 88 % (31-73) Lymphocytes (%) (Auto) 7 % (24-48) Monocytes (%) (Auto) 5 % (0-9) Eosinophils (%) (Auto) 0 % (0-3) Basophils (%) (Auto) 0 % (0-3) Neutrophils # (Auto) 6.3 x10^3uL (1.8-7.7) Lymphocytes # (Auto) 0.5 x10^3/uL (1.0-4.8) Monocytes # (Auto) 0.4 x10^3/uL (0.0-1.1) Eosinophils # (Auto) 0.0 x10^3/uL (0.0-0.7) Basophils # (Auto) 0.0 x10^3/uL (0.0-0.2) Sodium Level 138 mmol/L (136-145) Potassium Level 4.0 mmol/L (3.5-5.1) Chloride Level 103 mmol/L (98-107) Carbon Dioxide Level 27 mmol/L (21-32) Anion Gap 8 (6-14) Blood Urea Nitrogen 22 mg/dL (7-20) Creatinine 1.0 mg/dL (0.6-1.0) Estimated GFR (Cockcroft-Gault) 56.7 Glucose Level 191 mg/dL (70-99) Calcium Level 9.4 mg/dL (8.5-10.1) O2 Saturation 96 % (92-99) Arterial Blood pH 7.45 (7.35-7.45) Arterial Blood pCO2 at Patient Temp 38 mmHg (35-46) Arterial Blood pO2 at Patient Temp 85 mmHg (65-108) Arterial Blood HCO3 26 mmol/L (21-28) Arterial Blood Base Excess 2 mmol/L (-3-3) FiO2 40 Microbiology 06/30/17 Blood Culture - Preliminary, Resulted NO GROWTH AFTER 2 DAYS 07/02/17 Gram Stain - Final, Complete Medications Current Medications Sodium Chloride 1,000 ml @ 150 mls/hr Q6H40M IV Last administered on 03:10; Start 06/29/17 at 03:00; Stop 06/29/17 at 09:39; Status DC Methylprednisolone Sodium Succinate (SOLU-Medrol 125MG VIAL) 125 mg 1X ONCE IV Last administered on 06/29/17 03:10; Start 06/29/17 at 03:00; Stop at 03:01; Status DC Levofloxacin/ Dextrose 150 ml @ 100 mls/hr 1X ONCE IV Last administered on 03:09; Start 06/29/17 at 03:30; Stop 06/29/17 at 12:50; Status DC Enoxaparin Sodium (Lovenox Per Pharmacy Treatment Dosing) 1 each 1X ONCE MC ; Start 06/29/17 at 03:45; Stop 06/29/17 at 03:53; Status DC Enoxaparin Sodium (Lovenox 150mg Syringe) 140 mg Q12HR SQ Last administered on 06/29/17 04:07; Start 06/29/17 at 04:00; Stop 06/29/17 at 12:50; Status DC Info (Anti-Coagulation Monitoring By Pharmacy) 1 each PRN DAILY PRN MC SEE COMMENTS Last administered on 06/29/17 05:11; Start 06/29/17 at 04:00; Stop 06/29/17 at 12:57; Status DC Ondansetron HCl (Zofran) 4 mg PRN Q8HRS PRN IV NAUSEA/VOMITING; Start at 04:15; Stop 06/30/17 at 04:14; Status DC Methylprednisolone Sodium Succinate (SOLU-Medrol 40MG VIAL) 40 mg Q6HRS IV Last administered on 07/02/17 12:02; Start 06/29/17 at 06:00 Levofloxacin/ Dextrose (Levaquin Per Pharmacy) 1 each PRN DAILY PRN MC SEE COMMENTS; Start 06/29/17 at 04:15; Stop 06/29/17 at 17:11; Status DC Sodium Chloride 1,000 ml @ 100 mls/hr Q10H IV Last administered on 07/02/17 10:47; Start 06/29/17 at 05:15 Levofloxacin/ Dextrose 150 ml @ 100 mls/hr Q24H IV ; Start 06/30/17 at 05:00; Stop 06/30/17 at 05:00; Status DC Aspirin (Ecotrin) 325 mg DAILYWBKFT PO Last administered on 06/29/17 12:23; Start 06/29/17 at 13:00 Folic Acid (Folic Acid) 1 mg DAILY PO Last administered on 07/02/17 08:31; Start 06/29/17 at 13:00 Acetaminophen/ Hydrocodone Bitart (Lortab 7.5/325) 1 tab PRN Q6HRS PRN PO PAIN Last administered on 07/02/17 08:31; Start 06/29/17 at 12:15 Lactobacillus Rhamnosus (Culturelle) 1 cap BID PO Last administered on 20:44; Start 06/29/17 at 13:00; Stop 07/01/17 at 08:40; Status DC Linagliptin (Tradjenta) 5 mg DAILY PO Last administered on 07/02/17 08:31; Start 06/29/17 at 13:00 Lisinopril (Prinivil) 10 mg DAILY PO Last administered on 07/02/17 08:31; Start 06/29/17 at 13:00 Metoclopramide HCl (Reglan) 10 mg QIDACHS PO Last administered on 07/02/17 08 :30; Start 06/29/17 at 13:00 Montelukast Sodium (Singulair) 10 mg HS PO Last administered on 07/01/17 20: 54; Start 06/29/17 at 21:00 Sertraline HCl (Zoloft) 25 mg DAILY PO Last administered on 07/02/17 08:31; Start 06/29/17 at 13:00 Verapamil HCl (Calan Sr) 120 mg DAILY PO Last administered on 07/02/17 08:31 ; Start 06/29/17 at 13:00 Albuterol Sulfate (Ventolin Neb Soln) 2.5 mg PRN Q4HRS PRN NEB SHORTNESS OF BREATH Last administered on 06/30/17 02:07; Start 06/29/17 at 12:15 Atorvastatin Calcium (Lipitor) 80 mg QHS PO Last administered on 07/01/17 20: 54; Start 06/29/17 at 21:00 Non-Formulary Medication 2 puff BID IH ; Start 06/29/17 at 21:00; Status UNV Pantoprazole Sodium (Protonix) 40 mg DAILYAC PO Last administered on 07:50; Start 06/29/17 at 13:00; Stop 07/01/17 at 08:48; Status DC Ferrous Sulfate (Feosol) 325 mg QHS PO Last administered on 06/30/17 20:44; Start 06/29/17 at 21:00 Budesonide (Pulmicort) 0.5 mg RTBID NEB Last administered on 07/02/17 08:19; Start 06/29/17 at 13:00 Enoxaparin Sodium (Lovenox 40mg Syringe) 40 mg BID SQ Last administered on 08:32; Start 06/29/17 at 21:00 Azithromycin 500 mg/Sodium Chloride 250 ml @ 250 mls/hr Q24H IV Last administered on 06/29/17 14:18; Start 06/29/17 at 13:30; Stop 06/30/17 at 03 :30; Status DC Albuterol/ Ipratropium (Duoneb) 3 ml RTQID NEB Last administered on 07/02/17 12:25; Start 06/29/17 at 13:00 Guaifenesin (Mucinex) 600 mg BID PO Last administered on 07/01/17 20:54; Start 06/30/17 at 09:00 Azithromycin (Zithromax) 500 mg DAILY PO ; Start 06/30/17 at 09:00; Stop 06/30 at 09:00; Status DC Albuterol Sulfate (Ventolin Neb Soln) 2.5 mg 1X ONCE NEB ; Start 06/30/17 at 07:00; Stop 06/30/17 at 07:01; Status DC Azithromycin 500 mg/Sodium Chloride 250 ml @ 250 mls/hr Q24H IV ; Start at 14:00; Stop 06/30/17 at 14:00; Status DC Propofol 100 ml @ 0 mls/hr CONT PRN IV SEE I/O RECORD Last administered on 04:25; Start 06/30/17 at 08:15 Linezolid 300 ml @ 300 mls/hr Q12HR IV Last administered on 07/02/17 08:44; Start 06/30/17 at 11:30 Piperacillin Sod/ Tazobactam Sod 3.375 gm/Dextrose 50 ml @ 100 mls/hr Q6HRS IV ; Start 06/30/17 at 12:00; Status UNV Piperacillin Sod/ Tazobactam Sod (Zosyn) 3.375 gm Q6HRS IVP Last administered on 07/02/17 12:02; Start 06/30/17 at 11:30 Nystatin (Nystop) 1 bib BID TP Last administered on 07/02/17 08:32; Start at 21:00 Fentanyl Citrate (Fentanyl 2ml Vial) 50 mcg PRN Q2HR PRN IV SEVERE PAIN Last administered on 07/02/17 12:02; Start 06/30/17 at 22:45 Pantoprazole Sodium (PROTONIX VIAL for IV PUSH) 40 mg DAILYAC IVP Last administered on 07/02/17 08:31; Start 07/02/17 at 07:30 Chlorhexidine Gluconate (Peridex) 15 ml BID MM Last administered on 07/02/17 08:31; Start 07/01/17 at 09:00 Active Scripts Active Doxycycline Hyclate 100 Mg Capsule 1 Cap PO BID Calan Sr (Verapamil Hcl) 120 Mg Tablet.er 120 Mg PO DAILY Lisinopril 40 Mg Tablet 40 Mg PO DAILY Culturelle (Lactobacillus Rhamnosus Gg) 1 Each Cap.sprink 1 Cap PO BID Aspirin Ec (Aspirin) 325 Mg Tablet.dr 325 Mg PO DAILYWBKFT Prednisone 50 Mg Tablet 1 Tab PO DAILY Reported Lisinopril 10 Mg Tablet 1 Tab PO DAILY Tradjenta (Linagliptin) 5 Mg Tablet 5 Tab PO DAILY Proair Hfa Inhaler (Albuterol Sulfate) 8.5 Gm Hfa.aer.ad 2 Puff IH PRN Q4-6HRS Flovent 110MCG Hfa (Fluticasone Propionate) 12 Gm Aer.w.adap 2 Puff IH BID Montelukast Sodium Tablet (Montelukast Sodium) 10 Mg Tablet 10 Mg PO HS Aspirin 325 Mg Tablet 1 Tab PO DAILY Iron (Ferrous Sulfate) 325 Mg Capsule.er 325 Mg PO Metoclopramide Hcl 10 Mg Tablet 10 Mg PO QIDACHS Atorvastatin Calcium 80 Mg Tablet 1 Tab PO DAILY Lansoprazole 30 Mg Capsule.dr 1 Cap PO DAILY Verapamil Er (Verapamil Hcl) 240 Mg Cap24h.pel 0.5 Cap PO DAILY Folic Acid 1 Mg Tablet 1 Tab PO DAILY Zoloft (Sertraline Hcl) 25 Mg Tablet 1 Tab PO DAILY Hydrocodone-Apap 7.5-325 (Hydrocodone Bit/Acetaminophen) 1 Each Tablet 1 Tab PO PRN Q6HRS PRN Vitals/I & O Vital Sign - Last 24 Hours 07/01/17 07/01/17 07/01/17 07/01/17 14:00 15:00 15:34 16:00 Temp 99.6 99.6 Pulse 72 83 80 Resp 20 20 20 B/P (MAP) 134/84 (101) 141/89 (106) 148/90 (109) Pulse Ox 98 99 100 100 O2 Delivery Ventilator Ventilator Ventilator Ventilator 07/01/17 07/01/17 07/01/17 07/01/17 16:00 17:00 17:01 17:46 Pulse 72 Resp 20 20 B/P (MAP) 137/84 (101) Pulse Ox 100 100 100 O2 Delivery Mechanical Ventilator Ventilator Ventilator Ventilator 07/01/17 07/01/17 07/01/17 07/01/17 18:00 19:00 19:36 20:00 Temp 99.5 99.5 Pulse 76 66 70 Resp 20 20 20 B/P (MAP) 127/79 (95) 140/81 (100) 140/84 (102) Pulse Ox 100 98 98 98 O2 Delivery Ventilator Ventilator Ventilator Ventilator 07/01/17 07/01/17 07/01/17 07/01/17 20:00 20:02 21:00 21:13 Pulse 68 Resp 20 20 B/P (MAP) 144/85 (104) Pulse Ox 98 98 98 O2 Delivery Mechanical Ventilator Ventilator Ventilator Ventilator 07/01/17 07/01/17 07/01/17 07/01/17 21:14 22:00 23:00 23:43 Temp 98.1 98.1 Pulse 67 68 Resp 19 20 B/P (MAP) 145/89 (107) 138/86 (103) Pulse Ox 98 98 100 98 O2 Delivery Ventilator Ventilator Ventilator Ventilator 07/01/17 07/02/17 07/02/17 07/02/17 23:53 00:00 00:00 01:00 Pulse 66 62 Resp 20 B/P (MAP) 115/84 (94) 142/81 (101) Pulse Ox 100 99 99 O2 Delivery Ventilator Mechanical Ventilator Ventilator 07/02/17 07/02/17 07/02/17 07/02/17 01:20 02:00 03:00 03:46 Pulse 62 62 Resp 19 20 B/P (MAP) 146/84 (104) 158/83 (108) Pulse Ox 98 98 98 97 O2 Delivery Ventilator Ventilator Ventilator Ventilator 07/02/17 07/02/17 07/02/17 07/02/17 04:00 04:10 05:00 05:38 Temp 98.3 98.3 Pulse 62 64 Resp 20 20 B/P (MAP) 146/86 (106) 156/84 (108) Pulse Ox 97 98 97 O2 Delivery Ventilator Mechanical Ventilator Ventilator Ventilator 07/02/17 07/02/17 07/02/17 07/02/17 06:00 06:38 07:00 08:00 Temp 98.5 98.5 Pulse 64 62 78 Resp 20 20 20 B/P (MAP) 149/85 (106) 145/82 (103) 140/92 (108) Pulse Ox 99 99 97 98 O2 Delivery Ventilator Ventilator Ventilator O2 Flow Rate 3.0 07/02/17 07/02/17 07/02/17 07/02/17 08:00 08:19 08:31 08:31 Pulse 70 Resp 21 B/P (MAP) 155/94 Pulse Ox 99 100 O2 Delivery Mechanical Ventilator Ventilator Ventilator 07/02/17 07/02/17 07/02/17 07/02/17 08:31 09:00 09:30 09:40 Pulse 74 81 Resp 20 22 B/P (MAP) 155/94 152/87 (108) Pulse Ox 100 99 O2 Delivery Ventilator Ventilator Ventilator 07/02/17 07/02/17 07/02/17 07/02/17 09:59 10:00 10:25 10:30 Pulse 90 Resp 21 23 30 B/P (MAP) 164/98 (120) Pulse Ox 98 98 98 O2 Delivery Ventilator Ventilator Nasal Cannula Nasal Cannula O2 Flow Rate 4.0 6.0 07/02/17 07/02/17 07/02/17 07/02/17 11:00 12:00 12:00 12:02 Temp 97.9 97.9 Pulse 94 84 Resp 25 32 35 B/P (MAP) 162/99 (120) 162/96 (118) Pulse Ox 98 99 99 O2 Delivery Nasal Cannula Nasal Cannula Nasal Cannula Nasal Cannula O2 Flow Rate 6.0 6.0 6.0 6.0 07/02/17 07/02/17 12:25 13:00 Pulse 90 Resp 32 B/P (MAP) 148/88 (108) Pulse Ox 96 98 O2 Delivery Nasal Cannula Nasal Cannula O2 Flow Rate 4.0 4.0 Intake and Output 07/01/17 07/01/17 07/02/17 15:00 23:00 07:00 Intake Total 1684 ml 1458.31 ml Output Total 1140 ml 1780 ml 920 ml Balance -1140 ml -96 ml 538.31 ml TEJAL LUNDBERG III DO Jul 02, 2017 14:12
[2017-07-02] MEDS: LABETALOL 20 MG/4 ML DISP.SYRIN. IVP PRN (15:38)
--- NOTE | 2017-07-02 16:44 | PDOC ---
Provider Note Provider Note Full note dictated. Mild trop elevation during resp arrest. Normal echo two weeks ago Supportive care for now. If she has significant issues after pulm issues resolved, could consider further cardiac eval on an outpt basis. Thanks for consultation. RENEA HERNANDEZ MD Jul 02, 2017 16:44
[2017-07-02] MEDS: FERROUS SULFATE 325 MG TABLET. PO SCH (20:56)
[2017-07-02] MEDS: ATORVASTATIN CALCIUM 40 MG TABLET. PO SCH (20:57)
[2017-07-02] MEDS: MONTELUKAST SODIUM 10 MG TABLET. PO SCH (20:57)
[2017-07-02] MEDS: ALBUTEROL SULFATE 2.5 MG/3 ML NEBU. NEB PRN (23:51)
[2017-07-03] VITALS (25 sets, daily range): BP systolic 133–191; BP diastolic 68–115
[2017-07-03] MEDS: fentaNYL PF VIAL 100 MCG/2 ML VIAL IV PRN (01:15)
[2017-07-03 03:34] LABS: BASE EXCESS COOX -1 mmol/L (-3-3); BODY TEMP COOX 99.6 DEG; CARBON MONOXIDE 0.3 % (0.0-1.9); CORRECTED PCO2 COOX 42 mmHg; CORRECTED PH COOX 7.38; CORRECTED PO2 COOX 80 mmHg; HCO3 COOX 24 mmol/L (21-28); METHEMOGLOBIN 0.3 % (0.0-1.9); SAT O2 COOX 95 % (92-99)
[2017-07-03 03:35] LABS: PCO2 COOX 41 mmHg (35-46); PH COOX 7.39 (7.35-7.45); PO2 COOX 77 mmHg (65-108)
--- NOTE | 2017-07-03 03:44 | CONS ---
DATE OF CONSULTATION: 07/02/2017 REASON FOR CONSULTATION: Elevated troponin. HISTORY OF PRESENT ILLNESS: The patient is a 57-year-old woman with past medical history as noted below, who presents to the hospital in the setting of acute hypoxic respiratory failure. She has been treated with a noninvasive ventilation initially and approximately on June 30 she underwent a respiratory failure, which subsequently let to a PEA arrest and was coded for a few minutes. She recovered fairly well and was rapidly intubated and extubated over the course of the next 48 hours. Today, Cardiology was asked to see her due to an elevated troponin in the setting of this code. The patient has had previous cardiac evaluation including a coronary angiogram in 2015, which revealed 1 vessel coronary artery disease. Most recently, the patient underwent an echocardiogram in June 2017 at her previous admission for respiratory failure and pneumonia. In speaking with the patient, she reports that at baseline, she does not have any angina. Thinks that her acute respiratory issues started after inhaling some fumes from a broken Chase-Radha bottles. Denies any syncope or palpitations. PAST MEDICAL HISTORY: 1. Morbid obesity. 2. Nvid-wf-[id number] coronary artery disease involving distal RCA. 3. Hypertension. 4. Dyslipidemia. 5. COPD. 6. Obstructive sleep apnea. 7. Anemia of chronic disease with prior history of GI bleeding. PAST SURGICAL HISTORY: Including cholecystectomy and tubal ligation. FAMILY HISTORY: Noncontributory for any cardiovascular issues. SOCIAL HISTORY: No alcohol, tobacco or illicit drug use. She lives alone. CURRENT CARDIOVASCULAR MEDICATIONS: 1. Labetalol 20 mg IV push q. 2 hours p.r.n. 2. Lovenox 40 mg subcutaneous b.i.d. 3. Atorvastatin 80 mg daily. 4. Lisinopril 10 mg daily. 5. Aspirin 325 mg daily. REVIEW OF SYSTEMS: Negative for 10 out of 14 systems reviewed, unless otherwise mentioned above in HPI. ALLERGIES: PENICILLIN AND THEOPHYLLINE. PHYSICAL EXAMINATION: VITAL SIGNS: Afebrile, 76, 26, 139/78, 96% on 2 liters via nasal cannula. GENERAL: She appears tachypneic, in mild distress due to her obesity and difficulty breathing. HEAD AND NECK: Notable for thick neck. This could be consistent with her obstructive sleep apnea history. CARDIAC: Regular rate and rhythm without any significant murmurs, rubs or gallops. Distant heart sounds. LUNGS: Fairly clear to auscultation bilaterally. ABDOMEN: Obese, nontender and distant bowel sounds. EXTREMITIES: No clubbing, cyanosis or significant edema. She has significant bilateral pretibial fat. 2+ radial and 1+ dorsalis pedis pulses. NEUROLOGIC: No focal deficits and moving all extremities. MUSCULOSKELETAL: No obvious trauma. DIAGNOSTIC STUDIES: Hemoglobin 10.5, platelets 239, creatinine 1.0, potassium 4.0, INR 1.1. Blood gas this morning reveals an ABG, pH of 7.45 and a pCO2 of 38 with the pO2 of 85. Lower extremity ultrasound is negative for any DVT. EKG reveals sinus rhythm with a right bundle branch block. IMPRESSION: 1. Elevated troponin in the setting of respiratory failure and subsequent respiratory arrest. 2. Known moderate coronary artery disease. 3. Morbid obesity with hypertension and dyslipidemia. RECOMMENDATIONS: Prior to her recent respiratory arrest, the patient had a normal LV function. She does have moderate coronary atherosclerosis. She currently denies any chest pain. In light of this, I would continue supportive care. No acute indication for any cardiac testing in light of the fact that she does not have any EKG changes or acute ischemic findings. We will repeat an echocardiogram and consider further ischemic evaluation on an outpatient setting after her acute respiratory issues are resolved. Thank you for this consultation. RENEA HERNANDEZ MD DR: SAMEER/faizan JOB#: [id number] / [id number]
[2017-07-03 03:47] LABS: FIO2 COOX 28
--- NOTE | 2017-07-03 03:51 | RAD ---
INDICATION: resp distress COMPARISON: None. FINDINGS: Single view of chest obtained. Cardiac silhouette is enlarged. The left mid to lower lung is obscured secondary to overlying cardiac silhouette. Hypoexpanded exam of the lungs. No definite airspace consolidation of right lung IMPRESSION: Enlarged cardiac silhouette could be from cardiomegaly and/or pericardial effusion. Poor evaluation of the left lung with the majority of the left lung obscured by the overlying cardiac silhouette and lack of lateral view. Cannot exclude pathology within this region. No definite airspace consolidation right lung. Electronically signed by: En Bunch MD (07/03/2017 3:48 AM) [id number]
[2017-07-03 05:42] LABS: BASO % 0 % (0-3); EOS % 0 % (0-3); HEMATOCRIT 36.2 % (36.0-47.0); HEMOGLOBIN 11.8 g/dL (12.0-15.5); LYMPH # 0.6 x10^3/uL (1.0-4.8); LYMPH % 5 % (24-48); MEAN CORPUSCULAR HEMOGLOBIN 30 pg (25-35); MEAN CORPUSCULAR HGB CONC 33 g/dL (31-37); MEAN CORPUSCULAR VOLUME 93 fL (79-100); MONO % 6 % (0-9); NEUT % 89 % (31-73); PLATELET COUNT 291 x10^3/uL (140-400); RED BLOOD COUNT 3.89 x10^6/uL (3.50-5.40); WHITE BLOOD COUNT 11.1 x10^3/uL (4.0-11.0)
[2017-07-03 06:00] LABS: CALCIUM 9.7 mg/dL (8.5-10.1); CREATININE 1.3 mg/dL (0.6-1.0); GFR 41.9; POTASSIUM 4.2 mmol/L (3.5-5.1)
[2017-07-03] MEDS: PIPERACILLIN/TAZO IV Push 3.375 GM VIAL. IVP SCH ×3 (06:23→18:38)
[2017-07-03] MEDS: methylPREDNISolone SOD SUCC PF 40 MG/ML VIAL. IV SCH ×3 (06:23→18:38)
[2017-07-03] MEDS: HYDROcodone/APAP 7.5/325MG 1 TAB TABLET PO PRN ×3 (06:48→20:08)
[2017-07-03] MEDS: METOCLOPRAMIDE 10 MG TABLET. PO SCH ×5 (07:30→20:09)
[2017-07-03] MEDS: BUDESONIDE 0.5 MG/2 ML NEBU. NEB SCH ×2 (07:59→20:41)
[2017-07-03] MEDS: IPRATRPIUM/ALBUTEROL 0.5/2.5MG 3 ML NEBU. NEB SCH ×4 (07:59→20:41)
--- NOTE | 2017-07-03 08:50 | PDOC ---
Infectious Disease Note Subjective Subjective pt is back on bipap this am, says is breathing better + cough, denies SOA or CP no diarrhea ROS ROS on bipap says is doing better Vital Sign Vital Signs Vital Signs Date Time Temp Pulse Resp B/P (MAP) Pulse Ox O2 Delivery O2 Flow Rate FiO2 07/03/17 07:45 98 BiPAP/CPAP 07/03/17 06:48 38 2.0 07/03/17 06:00 90 180/82 (114) 07/03/17 04:00 99.0 99.0 Physical Exam PHYSICAL EXAM GENERAL:lying on her side on bipap HEENT: anicteric LUNGS:coarse bs at bases HEART: S1, S2 regular. ABDOMEN: Obese, BS active, soft, nontender : Green EXTREMITIES: 1+ edema BLE SKIN: No gen rash NEURO: Nods to questions, follows commands PIV: ok Labs Lab Laboratory Tests Test 07/03/17 03:15 07/03/17 05:15 O2 Saturation 95 % (92-99) Arterial Blood pH 7.39 (7.35-7.45) Arterial Blood pH (Temp corrected) 7.38 Arterial Blood pCO2 at Patient Temp 41 mmHg (35-46) Arterial Blood pCO2 (Temp correct) 42 mmHg Arterial Blood pO2 at Patient Temp 77 mmHg (65-108) Arterial Blood pO2 (Temp corrected) 80 mmHg Arterial Blood HCO3 24 mmol/L (21-28) Arterial Blood Base Excess -1 mmol/L (-3-3) Oxyhemoglobin 94.0 % Methemoglobin 0.3 % (0.0-1.9) Carbon Monoxide, Quantitative 0.3 % (0.0-1.9) FiO2 28 White Blood Count 11.1 x10^3/uL (4.0-11.0) Red Blood Count 3.89 x10^6/uL (3.50-5.40) Hemoglobin 11.8 g/dL (12.0-15.5) Hematocrit 36.2 % (36.0-47.0) Mean Corpuscular Volume 93 fL (79-100) Mean Corpuscular Hemoglobin 30 pg (25-35) Mean Corpuscular Hemoglobin Concent 33 g/dL (31-37) Red Cell Distribution Width 15.0 % (11.5-14.5) Platelet Count 291 x10^3/uL (140-400) Neutrophils (%) (Auto) 89 % (31-73) Lymphocytes (%) (Auto) 5 % (24-48) Monocytes (%) (Auto) 6 % (0-9) Eosinophils (%) (Auto) 0 % (0-3) Basophils (%) (Auto) 0 % (0-3) Neutrophils # (Auto) 9.9 x10^3uL (1.8-7.7) Lymphocytes # (Auto) 0.6 x10^3/uL (1.0-4.8) Monocytes # (Auto) 0.6 x10^3/uL (0.0-1.1) Eosinophils # (Auto) 0.0 x10^3/uL (0.0-0.7) Basophils # (Auto) 0.0 x10^3/uL (0.0-0.2) Sodium Level 139 mmol/L (136-145) Potassium Level 4.2 mmol/L (3.5-5.1) Chloride Level 103 mmol/L (98-107) Carbon Dioxide Level 29 mmol/L (21-32) Anion Gap 7 (6-14) Blood Urea Nitrogen 24 mg/dL (7-20) Creatinine 1.3 mg/dL (0.6-1.0) Estimated GFR (Cockcroft-Gault) 41.9 Glucose Level 214 mg/dL (70-99) Calcium Level 9.7 mg/dL (8.5-10.1) Micro BC neg Sputum NRF Objective Assessment Pneumonia. Respiratory failure. s/p extubation now on bipap Status post code Dehydration. Leukocytosis,BC neg, sputum nrf Morbid obesity. MRSA in nares Plan Plan of Care Continue Zyvox and Zosyn f/u am labs and cultures continue supportive care SOLO MARTIN MD Jul 03, 2017 08:50
[2017-07-03] MEDS: IV NORMAL SALINE 1000ML BAG 1,000 ML IV SCH ×2 (09:15→19:18)
--- NOTE | 2017-07-03 11:26 | PDOC ---
PULMONARY PROGRESS NOTES Subjective PT HAD SHORT CODE 06/29 EXTUBATED 07/02 REQUIRED BIPAP THIS AM FOR DYSPNEA AWAKE Vitals Vital Signs Date Time Temp Pulse Resp B/P (MAP) Pulse Ox O2 Delivery O2 Flow Rate FiO2 07/03/17 08:00 Bi-pap 07/03/17 07:50 26 98 2.0 07/03/17 06:00 90 180/82 (114) 07/03/17 04:00 99.0 99.0 General: Alert, No acute distress Lungs: Other (decrease bs) Cardiovascular: S1, S2 Abdomen: Soft Neuro Exam: Alert Extremities: Other (trace edema) Skin: Warm Labs Laboratory Tests Test 07/02/17 04:00 07/02/17 08:20 07/03/17 03:15 07/03/17 05:15 White Blood Count 7.2 x10^3/uL (4.0-11.0) 11.1 x10^3/uL (4.0-11.0) Red Blood Count 3.51 x10^6/uL (3.50-5.40) 3.89 x10^6/uL (3.50-5.40) Hemoglobin 10.5 g/dL (12.0-15.5) 11.8 g/dL (12.0-15.5) Hematocrit 31.9 % (36.0-47.0) 36.2 % (36.0-47.0) Mean Corpuscular Volume 91 fL (79-100) 93 fL (79-100) Mean Corpuscular Hemoglobin 30 pg (25-35) 30 pg (25-35) Mean Corpuscular Hemoglobin Concent 33 g/dL (31-37) 33 g/dL (31-37) Red Cell Distribution Width 15.2 % (11.5-14.5) 15.0 % (11.5-14.5) Platelet Count 239 x10^3/uL (140-400) 291 x10^3/uL (140-400) Neutrophils (%) (Auto) 88 % (31-73) 89 % (31-73) Lymphocytes (%) (Auto) 7 % (24-48) 5 % (24-48) Monocytes (%) (Auto) 5 % (0-9) 6 % (0-9) Eosinophils (%) (Auto) 0 % (0-3) 0 % (0-3) Basophils (%) (Auto) 0 % (0-3) 0 % (0-3) Neutrophils # (Auto) 6.3 x10^3uL (1.8-7.7) 9.9 x10^3uL (1.8-7.7) Lymphocytes # (Auto) 0.5 x10^3/uL (1.0-4.8) 0.6 x10^3/uL (1.0-4.8) Monocytes # (Auto) 0.4 x10^3/uL (0.0-1.1) 0.6 x10^3/uL (0.0-1.1) Eosinophils # (Auto) 0.0 x10^3/uL (0.0-0.7) 0.0 x10^3/uL (0.0-0.7) Basophils # (Auto) 0.0 x10^3/uL (0.0-0.2) 0.0 x10^3/uL (0.0-0.2) Sodium Level 138 mmol/L (136-145) 139 mmol/L (136-145) Potassium Level 4.0 mmol/L (3.5-5.1) 4.2 mmol/L (3.5-5.1) Chloride Level 103 mmol/L (98-107) 103 mmol/L (98-107) Carbon Dioxide Level 27 mmol/L (21-32) 29 mmol/L (21-32) Anion Gap 8 (6-14) 7 (6-14) Blood Urea Nitrogen 22 mg/dL (7-20) 24 mg/dL (7-20) Creatinine 1.0 mg/dL (0.6-1.0) 1.3 mg/dL (0.6-1.0) Estimated GFR (Cockcroft-Gault) 56.7 41.9 Glucose Level 191 mg/dL (70-99) 214 mg/dL (70-99) Calcium Level 9.4 mg/dL (8.5-10.1) 9.7 mg/dL (8.5-10.1) O2 Saturation 96 % (92-99) 95 % (92-99) Arterial Blood pH 7.45 (7.35-7.45) 7.39 (7.35-7.45) Arterial Blood pCO2 at Patient Temp 38 mmHg (35-46) 41 mmHg (35-46) Arterial Blood pO2 at Patient Temp 85 mmHg (65-108) 77 mmHg (65-108) Arterial Blood HCO3 26 mmol/L (21-28) 24 mmol/L (21-28) Arterial Blood Base Excess 2 mmol/L (-3-3) -1 mmol/L (-3-3) FiO2 40 28 Arterial Blood pH (Temp corrected) 7.38 Arterial Blood pCO2 (Temp correct) 42 mmHg Arterial Blood pO2 (Temp corrected) 80 mmHg Oxyhemoglobin 94.0 % Methemoglobin 0.3 % (0.0-1.9) Carbon Monoxide, Quantitative 0.3 % (0.0-1.9) Laboratory Tests Test 07/03/17 03:15 07/03/17 05:15 O2 Saturation 95 % (92-99) Arterial Blood pH 7.39 (7.35-7.45) Arterial Blood pH (Temp corrected) 7.38 Arterial Blood pCO2 at Patient Temp 41 mmHg (35-46) Arterial Blood pCO2 (Temp correct) 42 mmHg Arterial Blood pO2 at Patient Temp 77 mmHg (65-108) Arterial Blood pO2 (Temp corrected) 80 mmHg Arterial Blood HCO3 24 mmol/L (21-28) Arterial Blood Base Excess -1 mmol/L (-3-3) Oxyhemoglobin 94.0 % Methemoglobin 0.3 % (0.0-1.9) Carbon Monoxide, Quantitative 0.3 % (0.0-1.9) FiO2 28 White Blood Count 11.1 x10^3/uL (4.0-11.0) Red Blood Count 3.89 x10^6/uL (3.50-5.40) Hemoglobin 11.8 g/dL (12.0-15.5) Hematocrit 36.2 % (36.0-47.0) Mean Corpuscular Volume 93 fL (79-100) Mean Corpuscular Hemoglobin 30 pg (25-35) Mean Corpuscular Hemoglobin Concent 33 g/dL (31-37) Red Cell Distribution Width 15.0 % (11.5-14.5) Platelet Count 291 x10^3/uL (140-400) Neutrophils (%) (Auto) 89 % (31-73) Lymphocytes (%) (Auto) 5 % (24-48) Monocytes (%) (Auto) 6 % (0-9) Eosinophils (%) (Auto) 0 % (0-3) Basophils (%) (Auto) 0 % (0-3) Neutrophils # (Auto) 9.9 x10^3uL (1.8-7.7) Lymphocytes # (Auto) 0.6 x10^3/uL (1.0-4.8) Monocytes # (Auto) 0.6 x10^3/uL (0.0-1.1) Eosinophils # (Auto) 0.0 x10^3/uL (0.0-0.7) Basophils # (Auto) 0.0 x10^3/uL (0.0-0.2) Sodium Level 139 mmol/L (136-145) Potassium Level 4.2 mmol/L (3.5-5.1) Chloride Level 103 mmol/L (98-107) Carbon Dioxide Level 29 mmol/L (21-32) Anion Gap 7 (6-14) Blood Urea Nitrogen 24 mg/dL (7-20) Creatinine 1.3 mg/dL (0.6-1.0) Estimated GFR (Cockcroft-Gault) 41.9 Glucose Level 214 mg/dL (70-99) Calcium Level 9.7 mg/dL (8.5-10.1) Medications Active Scripts Medications Dose Route/Sig Max Daily Dose Days Date Category Doxycycline Hyclate 100 Mg Capsule 1 Cap PO BID 06/23/17 Rx Calan Sr (Verapamil Hcl) 120 Mg Tablet.er 120 Mg PO DAILY 06/23/17 Rx Lisinopril 40 Mg Tablet 40 Mg PO DAILY 06/23/17 Rx Culturelle (Lactobacillus Rhamnosus Gg) 1 Each Cap.sprink 1 Cap PO BID 06/23/17 Rx Aspirin Ec (Aspirin) 325 Mg Tablet.dr 325 Mg PO DAILYWBKFT 06/23/17 Rx Lisinopril 10 Mg Tablet 1 Tab PO DAILY 06/19/17 Reported Prednisone 50 Mg Tablet 1 Tab PO DAILY 06/10/17 Rx Tradjenta (Linagliptin) 5 Mg Tablet 5 Tab PO DAILY 06/10/17 Reported Proair Hfa Inhaler (Albuterol Sulfate) 8.5 Gm Hfa.aer.ad 2 Puff IH PRN Q4-6HRS 10/01/15 Reported Flovent 110MCG Hfa (Fluticasone Propionate) 12 Gm Aer.w.adap 2 Puff IH BID 10/01/15 Reported Montelukast Sodium Tablet (Montelukast Sodium) 10 Mg Tablet 10 Mg PO HS 10/01/15 Reported Aspirin 325 Mg Tablet 1 Tab PO DAILY 10/01/15 Reported Iron (Ferrous Sulfate) 325 Mg Capsule.er 325 Mg PO 10/01/15 Reported Metoclopramide Hcl 10 Mg Tablet 10 Mg PO QIDACHS 10/01/15 Reported Atorvastatin Calcium 80 Mg Tablet 1 Tab PO DAILY 10/01/15 Reported Lansoprazole 30 Mg Capsule.dr 1 Cap PO DAILY 10/01/15 Reported Verapamil Er (Verapamil Hcl) 240 Mg Cap24h.pel 0.5 Cap PO DAILY 10/01/15 Reported Folic Acid 1 Mg Tablet 1 Tab PO DAILY 10/01/15 Reported Zoloft (Sertraline Hcl) 25 Mg Tablet 1 Tab PO DAILY 10/01/15 Reported Hydrocodone-Apap 7.5-325 (Hydrocodone Bit/Acetaminophen) 1 Each Tablet 1 Tab PO PRN Q6HRS PRN 10/01/15 Reported Comments CXR REVIEWED 07/03 mild volume loss Left base Impression . 1. Acute respiratory failure secondary to acute asthma exacerbation. 2. Diabetes. 3. Morbid obesity. 4. Acute nonspecific bronchitis. 5. Cardiopulmonary arrest sec to pt taking off 02 and possible mucus plug on left 6. Pneumonia Left side 7. ATELECTASIS ON LEFT , S/P BRONCH WITH MUCUS PLUGGING Plan . PRN BIPAP BROCH CULTURES NEG SO FAR CXR STABLE NEBS anitbx negative venous doppler d/w family BECKIE MARTÍNEZ MD Jul 03, 2017 11:26
[2017-07-03] MEDS: FOLIC ACID 1 MG TABLET. PO SCH (11:36)
[2017-07-03] MEDS: ASPIRIN ENTERIC COATED 325 MG TABLET.DR. PO SCH (11:36)
[2017-07-03] MEDS: LINAGLIPTIN 5 MG TABLET PO SCH (11:36)
[2017-07-03] MEDS: LISINOPRIL 10 MG TABLET PO SCH (11:36)
[2017-07-03] MEDS: NYSTATIN TOPICAL POWDER 15GM BOTTLE. TP SCH ×2 (11:37→20:11)
[2017-07-03] MEDS: PANTOPRAZOLE IV PUSH 40 MG VIAL. IVP SCH (11:37)
[2017-07-03] MEDS: ENOXAPARIN 40 MG/0.4 ML SYRINGE. SQ SCH ×2 (11:37→20:10)
[2017-07-03] MEDS: SERTRALINE 25 MG TABLET. PO SCH (11:37)
[2017-07-03] MEDS: VERAPAMIL SR 120 MG TABLET.ER. PO SCH (11:42)
[2017-07-03] MEDS ORDERED: SODIUM CHLORIDE 0.65% NASAL SPRAY 45ML BOTTLE. NS PRN (12:45)
--- NOTE | 2017-07-03 13:37 | PDOC ---
PROGRESS NOTES Chief Complaint Chief Complaint Acute Respiratory failure Pneumonia Acute nonspecific bronchitis Asthma Hypertension Morbid obesity DM 2 Dehydration Leukocytosis Morbid obesity History of Present Illness History of Present Illness Pt seen and examined in the ICU. Pt was extubated 07/02, now on BiPAP (IPAP/EPAP :16/6, Rate:18, O2:35). Pt sitting upright in bed. Vitals Vitals Vital Signs Date Time Temp Pulse Resp B/P (MAP) Pulse Ox O2 Delivery O2 Flow Rate FiO2 07/03/17 13:03 36 98 Nasal Cannula 2.0 07/03/17 11:42 93 181/101 07/03/17 04:00 99.0 99.0 Physical Exam Physical Exam Eyes: EOMI, sclera anicteric General: Alert, Cooperative, No acute distress Heart: Regular rate, Normal S1, Normal S2 Lungs: Clear, Other (no rales, or rhonchi) Extremities: No clubbing, No cyanosis Skin: No breakdown, Other (Multiple tiny abrasions on the dorsum of the hands b /l) Labs LABS Laboratory Tests Test 07/03/17 03:15 07/03/17 05:15 O2 Saturation 95 % (92-99) Arterial Blood pH 7.39 (7.35-7.45) Arterial Blood pH (Temp corrected) 7.38 Arterial Blood pCO2 at Patient Temp 41 mmHg (35-46) Arterial Blood pCO2 (Temp correct) 42 mmHg Arterial Blood pO2 at Patient Temp 77 mmHg (65-108) Arterial Blood pO2 (Temp corrected) 80 mmHg Arterial Blood HCO3 24 mmol/L (21-28) Arterial Blood Base Excess -1 mmol/L (-3-3) Oxyhemoglobin 94.0 % Methemoglobin 0.3 % (0.0-1.9) Carbon Monoxide, Quantitative 0.3 % (0.0-1.9) FiO2 28 White Blood Count 11.1 x10^3/uL (4.0-11.0) Red Blood Count 3.89 x10^6/uL (3.50-5.40) Hemoglobin 11.8 g/dL (12.0-15.5) Hematocrit 36.2 % (36.0-47.0) Mean Corpuscular Volume 93 fL (79-100) Mean Corpuscular Hemoglobin 30 pg (25-35) Mean Corpuscular Hemoglobin Concent 33 g/dL (31-37) Red Cell Distribution Width 15.0 % (11.5-14.5) Platelet Count 291 x10^3/uL (140-400) Neutrophils (%) (Auto) 89 % (31-73) Lymphocytes (%) (Auto) 5 % (24-48) Monocytes (%) (Auto) 6 % (0-9) Eosinophils (%) (Auto) 0 % (0-3) Basophils (%) (Auto) 0 % (0-3) Neutrophils # (Auto) 9.9 x10^3uL (1.8-7.7) Lymphocytes # (Auto) 0.6 x10^3/uL (1.0-4.8) Monocytes # (Auto) 0.6 x10^3/uL (0.0-1.1) Eosinophils # (Auto) 0.0 x10^3/uL (0.0-0.7) Basophils # (Auto) 0.0 x10^3/uL (0.0-0.2) Sodium Level 139 mmol/L (136-145) Potassium Level 4.2 mmol/L (3.5-5.1) Chloride Level 103 mmol/L (98-107) Carbon Dioxide Level 29 mmol/L (21-32) Anion Gap 7 (6-14) Blood Urea Nitrogen 24 mg/dL (7-20) Creatinine 1.3 mg/dL (0.6-1.0) Estimated GFR (Cockcroft-Gault) 41.9 Glucose Level 214 mg/dL (70-99) Calcium Level 9.7 mg/dL (8.5-10.1) Review of Systems Review of Systems Not obtained - pt on BiPAP. Assessment and Plan Assessmemt and Plan Problems Medical Problems: (1) Elevated d-dimer Status: Acute ASSESSMENT: Acute Respiratory failure Pneumonia Acute nonspecific bronchitis Asthma Hypertension Morbid obesity DM 2 Dehydration Leukocytosis Morbid obesity PLAN: Pt on BiPAP and ICU monitoring Continue breathing treatments Continue cardiac monitoring Begin advancing diet Continue Abxs Appreciate input from subspecialists Follow up with PCP 1 week after discharge Problems: Comment Review of Relevant I have reviewed the following items jess (where applicable) has been applied. Labs Laboratory Tests Test 07/02/17 04:00 07/02/17 08:20 07/03/17 03:15 07/03/17 05:15 White Blood Count 7.2 x10^3/uL (4.0-11.0) 11.1 x10^3/uL (4.0-11.0) Red Blood Count 3.51 x10^6/uL (3.50-5.40) 3.89 x10^6/uL (3.50-5.40) Hemoglobin 10.5 g/dL (12.0-15.5) 11.8 g/dL (12.0-15.5) Hematocrit 31.9 % (36.0-47.0) 36.2 % (36.0-47.0) Mean Corpuscular Volume 91 fL (79-100) 93 fL (79-100) Mean Corpuscular Hemoglobin 30 pg (25-35) 30 pg (25-35) Mean Corpuscular Hemoglobin Concent 33 g/dL (31-37) 33 g/dL (31-37) Red Cell Distribution Width 15.2 % (11.5-14.5) 15.0 % (11.5-14.5) Platelet Count 239 x10^3/uL (140-400) 291 x10^3/uL (140-400) Neutrophils (%) (Auto) 88 % (31-73) 89 % (31-73) Lymphocytes (%) (Auto) 7 % (24-48) 5 % (24-48) Monocytes (%) (Auto) 5 % (0-9) 6 % (0-9) Eosinophils (%) (Auto) 0 % (0-3) 0 % (0-3) Basophils (%) (Auto) 0 % (0-3) 0 % (0-3) Neutrophils # (Auto) 6.3 x10^3uL (1.8-7.7) 9.9 x10^3uL (1.8-7.7) Lymphocytes # (Auto) 0.5 x10^3/uL (1.0-4.8) 0.6 x10^3/uL (1.0-4.8) Monocytes # (Auto) 0.4 x10^3/uL (0.0-1.1) 0.6 x10^3/uL (0.0-1.1) Eosinophils # (Auto) 0.0 x10^3/uL (0.0-0.7) 0.0 x10^3/uL (0.0-0.7) Basophils # (Auto) 0.0 x10^3/uL (0.0-0.2) 0.0 x10^3/uL (0.0-0.2) Sodium Level 138 mmol/L (136-145) 139 mmol/L (136-145) Potassium Level 4.0 mmol/L (3.5-5.1) 4.2 mmol/L (3.5-5.1) Chloride Level 103 mmol/L (98-107) 103 mmol/L (98-107) Carbon Dioxide Level 27 mmol/L (21-32) 29 mmol/L (21-32) Anion Gap 8 (6-14) 7 (6-14) Blood Urea Nitrogen 22 mg/dL (7-20) 24 mg/dL (7-20) Creatinine 1.0 mg/dL (0.6-1.0) 1.3 mg/dL (0.6-1.0) Estimated GFR (Cockcroft-Gault) 56.7 41.9 Glucose Level 191 mg/dL (70-99) 214 mg/dL (70-99) Calcium Level 9.4 mg/dL (8.5-10.1) 9.7 mg/dL (8.5-10.1) O2 Saturation 96 % (92-99) 95 % (92-99) Arterial Blood pH 7.45 (7.35-7.45) 7.39 (7.35-7.45) Arterial Blood pCO2 at Patient Temp 38 mmHg (35-46) 41 mmHg (35-46) Arterial Blood pO2 at Patient Temp 85 mmHg (65-108) 77 mmHg (65-108) Arterial Blood HCO3 26 mmol/L (21-28) 24 mmol/L (21-28) Arterial Blood Base Excess 2 mmol/L (-3-3) -1 mmol/L (-3-3) FiO2 40 28 Arterial Blood pH (Temp corrected) 7.38 Arterial Blood pCO2 (Temp correct) 42 mmHg Arterial Blood pO2 (Temp corrected) 80 mmHg Oxyhemoglobin 94.0 % Methemoglobin 0.3 % (0.0-1.9) Carbon Monoxide, Quantitative 0.3 % (0.0-1.9) Laboratory Tests Test 07/03/17 03:15 07/03/17 05:15 O2 Saturation 95 % (92-99) Arterial Blood pH 7.39 (7.35-7.45) Arterial Blood pH (Temp corrected) 7.38 Arterial Blood pCO2 at Patient Temp 41 mmHg (35-46) Arterial Blood pCO2 (Temp correct) 42 mmHg Arterial Blood pO2 at Patient Temp 77 mmHg (65-108) Arterial Blood pO2 (Temp corrected) 80 mmHg Arterial Blood HCO3 24 mmol/L (21-28) Arterial Blood Base Excess -1 mmol/L (-3-3) Oxyhemoglobin 94.0 % Methemoglobin 0.3 % (0.0-1.9) Carbon Monoxide, Quantitative 0.3 % (0.0-1.9) FiO2 28 White Blood Count 11.1 x10^3/uL (4.0-11.0) Red Blood Count 3.89 x10^6/uL (3.50-5.40) Hemoglobin 11.8 g/dL (12.0-15.5) Hematocrit 36.2 % (36.0-47.0) Mean Corpuscular Volume 93 fL (79-100) Mean Corpuscular Hemoglobin 30 pg (25-35) Mean Corpuscular Hemoglobin Concent 33 g/dL (31-37) Red Cell Distribution Width 15.0 % (11.5-14.5) Platelet Count 291 x10^3/uL (140-400) Neutrophils (%) (Auto) 89 % (31-73) Lymphocytes (%) (Auto) 5 % (24-48) Monocytes (%) (Auto) 6 % (0-9) Eosinophils (%) (Auto) 0 % (0-3) Basophils (%) (Auto) 0 % (0-3) Neutrophils # (Auto) 9.9 x10^3uL (1.8-7.7) Lymphocytes # (Auto) 0.6 x10^3/uL (1.0-4.8) Monocytes # (Auto) 0.6 x10^3/uL (0.0-1.1) Eosinophils # (Auto) 0.0 x10^3/uL (0.0-0.7) Basophils # (Auto) 0.0 x10^3/uL (0.0-0.2) Sodium Level 139 mmol/L (136-145) Potassium Level 4.2 mmol/L (3.5-5.1) Chloride Level 103 mmol/L (98-107) Carbon Dioxide Level 29 mmol/L (21-32) Anion Gap 7 (6-14) Blood Urea Nitrogen 24 mg/dL (7-20) Creatinine 1.3 mg/dL (0.6-1.0) Estimated GFR (Cockcroft-Gault) 41.9 Glucose Level 214 mg/dL (70-99) Calcium Level 9.7 mg/dL (8.5-10.1) Microbiology 06/30/17 Blood Culture - Preliminary, Resulted NO GROWTH AFTER 3 DAYS 07/02/17 Gram Stain - Final, Complete Medications Current Medications Sodium Chloride 1,000 ml @ 150 mls/hr Q6H40M IV Last administered on 03:10; Start 06/29/17 at 03:00; Stop 06/29/17 at 09:39; Status DC Methylprednisolone Sodium Succinate (SOLU-Medrol 125MG VIAL) 125 mg 1X ONCE IV Last administered on 06/29/17 03:10; Start 06/29/17 at 03:00; Stop at 03:01; Status DC Levofloxacin/ Dextrose 150 ml @ 100 mls/hr 1X ONCE IV Last administered on 03:09; Start 06/29/17 at 03:30; Stop 06/29/17 at 12:50; Status DC Enoxaparin Sodium (Lovenox Per Pharmacy Treatment Dosing) 1 each 1X ONCE MC ; Start 06/29/17 at 03:45; Stop 06/29/17 at 03:53; Status DC Enoxaparin Sodium (Lovenox 150mg Syringe) 140 mg Q12HR SQ Last administered on 06/29/17 04:07; Start 06/29/17 at 04:00; Stop 06/29/17 at 12:50; Status DC Info (Anti-Coagulation Monitoring By Pharmacy) 1 each PRN DAILY PRN MC SEE COMMENTS Last administered on 06/29/17 05:11; Start 06/29/17 at 04:00; Stop 06/29/17 at 12:57; Status DC Ondansetron HCl (Zofran) 4 mg PRN Q8HRS PRN IV NAUSEA/VOMITING; Start at 04:15; Stop 06/30/17 at 04:14; Status DC Methylprednisolone Sodium Succinate (SOLU-Medrol 40MG VIAL) 40 mg Q6HRS IV Last administered on 07/03/17 11:42; Start 06/29/17 at 06:00 Levofloxacin/ Dextrose (Levaquin Per Pharmacy) 1 each PRN DAILY PRN MC SEE COMMENTS; Start 06/29/17 at 04:15; Stop 06/29/17 at 17:11; Status DC Sodium Chloride 1,000 ml @ 100 mls/hr Q10H IV Last administered on 07/03/17 09:15; Start 06/29/17 at 05:15 Levofloxacin/ Dextrose 150 ml @ 100 mls/hr Q24H IV ; Start 06/30/17 at 05:00; Stop 06/30/17 at 05:00; Status DC Aspirin (Ecotrin) 325 mg DAILYWBKFT PO Last administered on 07/03/17 11:36; Start 06/29/17 at 13:00 Folic Acid (Folic Acid) 1 mg DAILY PO Last administered on 07/03/17 11:36; Start 06/29/17 at 13:00 Acetaminophen/ Hydrocodone Bitart (Lortab 7.5/325) 1 tab PRN Q6HRS PRN PO PAIN Last administered on 07/03/17 13:03; Start 06/29/17 at 12:15 Lactobacillus Rhamnosus (Culturelle) 1 cap BID PO Last administered on 20:44; Start 06/29/17 at 13:00; Stop 07/01/17 at 08:40; Status DC Linagliptin (Tradjenta) 5 mg DAILY PO Last administered on 07/03/17 11:36; Start 06/29/17 at 13:00 Lisinopril (Prinivil) 10 mg DAILY PO Last administered on 07/03/17 11:36; Start 06/29/17 at 13:00 Metoclopramide HCl (Reglan) 10 mg QIDACHS PO Last administered on 07/03/17 11 :30; Start 06/29/17 at 13:00 Montelukast Sodium (Singulair) 10 mg HS PO Last administered on 07/02/17 20: 57; Start 06/29/17 at 21:00 Sertraline HCl (Zoloft) 25 mg DAILY PO Last administered on 07/03/17 11:37; Start 06/29/17 at 13:00 Verapamil HCl (Calan Sr) 120 mg DAILY PO Last administered on 07/03/17 11:42 ; Start 06/29/17 at 13:00 Albuterol Sulfate (Ventolin Neb Soln) 2.5 mg PRN Q4HRS PRN NEB SHORTNESS OF BREATH Last administered on 07/02/17 23:51; Start 06/29/17 at 12:15 Atorvastatin Calcium (Lipitor) 80 mg QHS PO Last administered on 07/02/17 20: 57; Start 06/29/17 at 21:00 Non-Formulary Medication 2 puff BID IH ; Start 06/29/17 at 21:00; Status UNV Pantoprazole Sodium (Protonix) 40 mg DAILYAC PO Last administered on 07:50; Start 06/29/17 at 13:00; Stop 07/01/17 at 08:48; Status DC Ferrous Sulfate (Feosol) 325 mg QHS PO Last administered on 07/02/17 20:56; Start 06/29/17 at 21:00 Budesonide (Pulmicort) 0.5 mg RTBID NEB Last administered on 07/03/17 07:59; Start 06/29/17 at 13:00 Enoxaparin Sodium (Lovenox 40mg Syringe) 40 mg BID SQ Last administered on 11:37; Start 06/29/17 at 21:00 Azithromycin 500 mg/Sodium Chloride 250 ml @ 250 mls/hr Q24H IV Last administered on 06/29/17 14:18; Start 06/29/17 at 13:30; Stop 06/30/17 at 03 :30; Status DC Albuterol/ Ipratropium (Duoneb) 3 ml RTQID NEB Last administered on 07/03/17 07:59; Start 06/29/17 at 13:00 Guaifenesin (Mucinex) 600 mg BID PO Last administered on 07/03/17 11:36; Start 06/30/17 at 09:00 Azithromycin (Zithromax) 500 mg DAILY PO ; Start 06/30/17 at 09:00; Stop 06/30 at 09:00; Status DC Albuterol Sulfate (Ventolin Neb Soln) 2.5 mg 1X ONCE NEB ; Start 06/30/17 at 07:00; Stop 06/30/17 at 07:01; Status DC Azithromycin 500 mg/Sodium Chloride 250 ml @ 250 mls/hr Q24H IV ; Start at 14:00; Stop 06/30/17 at 14:00; Status DC Propofol 100 ml @ 0 mls/hr CONT PRN IV SEE I/O RECORD Last administered on 04:25; Start 06/30/17 at 08:15; Stop 07/02/17 at 23:45; Status DC Linezolid 300 ml @ 300 mls/hr Q12HR IV Last administered on 07/03/17 11:36; Start 06/30/17 at 11:30 Piperacillin Sod/ Tazobactam Sod 3.375 gm/Dextrose 50 ml @ 100 mls/hr Q6HRS IV ; Start 06/30/17 at 12:00; Status UNV Piperacillin Sod/ Tazobactam Sod (Zosyn) 3.375 gm Q6HRS IVP Last administered on 07/03/17 11:43; Start 06/30/17 at 11:30 Nystatin (Nystop) 1 bib BID TP Last administered on 07/03/17 11:37; Start at 21:00 Fentanyl Citrate (Fentanyl 2ml Vial) 50 mcg PRN Q2HR PRN IV SEVERE PAIN Last administered on 07/03/17 01:15; Start 06/30/17 at 22:45 Pantoprazole Sodium (PROTONIX VIAL for IV PUSH) 40 mg DAILYAC IVP Last administered on 07/03/17 11:37; Start 07/02/17 at 07:30; Stop 07/03/17 at 12 :30; Status DC Chlorhexidine Gluconate (Peridex) 15 ml BID MM Last administered on 07/02/17 08:31; Start 07/01/17 at 09:00; Stop 07/02/17 at 23:45; Status DC Labetalol HCl (Normodyne) 20 mg PRN Q2HR PRN IVP HYPERTENSION, SEE COMMENTS Last administered on 07/02/17t 15:38; Start 07/02/17 at 14:00 Lactobacillus Rhamnosus (Culturelle) 1 cap BID PO ; Start 07/03/17 at 21:00 Pantoprazole Sodium (Protonix) 40 mg DAILYAC PO ; Start 07/04/17 at 07:30 Etomidate (Amidate) 20 mg STK-MED ONCE IV ; Start 06/30/17 at 07:12; Stop at 11:35; Status DC Rocuronium [place] (Zemuron) 50 mg STK-MED ONCE .ROUTE ; Start 06/30/17 at 07: 13; Stop 07/03/17 at 11:35; Status DC Midazolam HCl (Versed) 5 mg STK-MED ONCE .ROUTE ; Start 07/02/17 at 09:49; Stop 07/03/17 at 12:21; Status DC Sodium Chloride (Saline Mist Nasal) 1 bib PRN Q1HR PRN NS NASAL CONGESTION Last administered on 07/03/17t 13:03; Start 07/03/17 at 12:45 Active Scripts Active Doxycycline Hyclate 100 Mg Capsule 1 Cap PO BID Calan Sr (Verapamil Hcl) 120 Mg Tablet.er 120 Mg PO DAILY Lisinopril 40 Mg Tablet 40 Mg PO DAILY Culturelle (Lactobacillus Rhamnosus Gg) 1 Each Cap.sprink 1 Cap PO BID Aspirin Ec (Aspirin) 325 Mg Tablet. 325 Mg PO DAILYWBKFT Prednisone 50 Mg Tablet 1 Tab PO DAILY Reported Lisinopril 10 Mg Tablet 1 Tab PO DAILY Tradjenta (Linagliptin) 5 Mg Tablet 5 Tab PO DAILY Proair Hfa Inhaler (Albuterol Sulfate) 8.5 Gm Hfa.aer.ad 2 Puff IH PRN Q4-6HRS Flovent 110MCG Hfa (Fluticasone Propionate) 12 Gm Aer.w.adap 2 Puff IH BID Montelukast Sodium Tablet (Montelukast Sodium) 10 Mg Tablet 10 Mg PO HS Aspirin 325 Mg Tablet 1 Tab PO DAILY Iron (Ferrous Sulfate) 325 Mg Capsule.er 325 Mg PO Metoclopramide Hcl 10 Mg Tablet 10 Mg PO QIDACHS Atorvastatin Calcium 80 Mg Tablet 1 Tab PO DAILY Lansoprazole 30 Mg Capsule. 1 Cap PO DAILY Verapamil Er (Verapamil Hcl) 240 Mg Cap24h.pel 0.5 Cap PO DAILY Folic Acid 1 Mg Tablet 1 Tab PO DAILY Zoloft (Sertraline Hcl) 25 Mg Tablet 1 Tab PO DAILY Hydrocodone-Apap 7.5-325 (Hydrocodone Bit/Acetaminophen) 1 Each Tablet 1 Tab PO PRN Q6HRS PRN Vitals/I & O Vital Sign - Last 24 Hours 07/02/17 07/02/17 07/02/17 07/02/17 14:00 14:22 15:00 15:38 Pulse 99 86 96 Resp 34 32 32 B/P (MAP) 156/90 (112) 157/96 (116) 204/111 Pulse Ox 97 94 97 O2 Delivery Nasal Cannula Nasal Cannula Nasal Cannula O2 Flow Rate 4.0 2.0 2.0 07/02/17 07/02/17 07/02/17 07/02/17 16:00 16:00 16:39 17:00 Temp 98.4 98.4 Pulse 76 88 Resp 26 30 B/P (MAP) 139/78 (98) 116/71 (86) Pulse Ox 96 95 97 O2 Delivery Nasal Cannula Nasal Cannula Nasal Cannula Nasal Cannula O2 Flow Rate 2.0 2.0 2.0 2.0 07/02/17 07/02/17 07/02/17 07/02/17 18:00 18:11 18:50 19:00 Temp 99.2 99.2 Pulse 88 84 Resp 31 30 24 B/P (MAP) 141/98 (112) 156/87 (110) Pulse Ox 98 96 97 100 O2 Delivery Nasal Cannula Nasal Cannula Nasal Cannula O2 Flow Rate 2.0 2.0 2.0 07/02/17 07/02/17 07/02/17 07/02/17 20:00 20:00 20:21 20:21 Pulse 98 Resp 24 B/P (MAP) 160/91 (114) Pulse Ox 97 92 92 O2 Delivery Nasal Cannula Nasal Cannula Nasal Cannula Nasal Cannula O2 Flow Rate 2.0 2.0 2.0 2.0 07/02/17 07/02/17 07/02/17 07/02/17 20:46 20:57 21:00 22:00 Pulse 90 85 Resp 30 22 22 B/P (MAP) 160/80 (106) 143/80 (101) Pulse Ox 98 98 O2 Delivery Nasal Cannula Nasal Cannula Nasal Cannula Nasal Cannula O2 Flow Rate 2.0 2.0 2.0 2.0 07/02/17 07/02/17 07/03/17 07/03/17 23:00 23:51 00:00 00:02 Temp 99.6 99.6 Pulse 80 80 Resp 22 B/P (MAP) 158/80 (106) 147/70 (95) Pulse Ox 99 98 96 O2 Delivery Nasal Cannula Nasal Cannula Nasal Cannula Nasal Cannula O2 Flow Rate 2.0 2.0 2.0 2.0 07/03/17 07/03/17 07/03/17 07/03/17 01:00 01:15 01:45 02:00 Pulse 80 88 Resp 22 B/P (MAP) 140/68 (92) 150/68 (95) Pulse Ox 100 99 95 O2 Delivery Nasal Cannula Nasal Cannula Nasal Cannula Nasal Cannula O2 Flow Rate 2.0 2.0 2.0 07/03/17 07/03/17 07/03/17 07/03/17 02:58 04:00 04:00 05:00 Temp 99.0 99.0 Pulse 87 87 78 Resp B/P (MAP) 144/68 (93) 133/68 (89) 150/70 (96) Pulse Ox 96 96 96 O2 Delivery Nasal Cannula Nasal Cannula Nasal Cannula Nasal Cannula O2 Flow Rate 2.0 2.0 2.0 2.0 07/03/17 07/03/17 07/03/17 07/03/17 06:00 06:48 07:45 07:50 Pulse 90 Resp 38 26 B/P (MAP) 180/82 (114) Pulse Ox 96 96 98 98 O2 Delivery Nasal Cannula Nasal Cannula BiPAP/CPAP Nasal Cannula O2 Flow Rate 2.0 2.0 2.0 07/03/17 07/03/17 07/03/17 07/03/17 08:00 09:45 11:36 11:42 Pulse 93 93 B/P (MAP) 181/101 181/101 Pulse Ox 98 O2 Delivery Bi-pap BiPAP/CPAP 07/03/17 13:03 Resp 36 Pulse Ox 98 O2 Delivery Nasal Cannula O2 Flow Rate 2.0 Intake and Output 07/02/17 07/02/17 07/03/17 15:00 23:00 07:00 Intake Total 1509 ml 1455 ml Output Total 360 ml 436 ml 180 ml Balance -360 ml 1073 ml 1275 ml CASTLE,NIAL K III DO Jul 03, 2017 13:37
[2017-07-03] MEDS: LABETALOL 20 MG/4 ML DISP.SYRIN. IVP PRN (14:29)
[2017-07-03] MEDS: MONTELUKAST SODIUM 10 MG TABLET. PO SCH (20:09)
[2017-07-03] MEDS: LACTOBACILLUS RHAMNOSUS GG 1 CAPSULE. PO SCH (20:09)
[2017-07-03] MEDS: ATORVASTATIN CALCIUM 40 MG TABLET. PO SCH (20:10)
[2017-07-03] MEDS: FERROUS SULFATE 325 MG TABLET. PO SCH (20:12)
[2017-07-04] VITALS (15 sets, daily range): BP systolic 149–187; BP diastolic 69–111
[2017-07-04] MEDS: PIPERACILLIN/TAZO IV Push 3.375 GM VIAL. IVP SCH ×5 (00:09→23:33)
[2017-07-04] MEDS: methylPREDNISolone SOD SUCC PF 40 MG/ML VIAL. IV SCH ×5 (00:10→23:33)
[2017-07-04] MEDS: LABETALOL 20 MG/4 ML DISP.SYRIN. IVP PRN ×2 (05:28→23:26)
[2017-07-04] MEDS: IV NORMAL SALINE 1000ML BAG 1,000 ML IV SCH ×2 (05:28→17:31)
[2017-07-04 05:47] LABS: BASO % 0 % (0-3); EOS % 0 % (0-3); HEMATOCRIT 35.5 % (36.0-47.0); HEMOGLOBIN 11.6 g/dL (12.0-15.5); LYMPH # 0.7 x10^3/uL (1.0-4.8); LYMPH % 7 % (24-48); MEAN CORPUSCULAR HEMOGLOBIN 30 pg (25-35); MEAN CORPUSCULAR HGB CONC 33 g/dL (31-37); MEAN CORPUSCULAR VOLUME 92 fL (79-100); MONO % 6 % (0-9); NEUT % 87 % (31-73); PLATELET COUNT 286 x10^3/uL (140-400); RED BLOOD COUNT 3.85 x10^6/uL (3.50-5.40); RED CELL DISTRIBUTION WIDTH 14.9 % (11.5-14.5); WHITE BLOOD COUNT 10.3 x10^3/uL (4.0-11.0)
[2017-07-04 05:55] LABS: CALCIUM 9.8 mg/dL (8.5-10.1); GFR 56.7; POTASSIUM 4.4 mmol/L (3.5-5.1)
[2017-07-04] MEDS: BUDESONIDE 0.5 MG/2 ML NEBU. NEB SCH ×2 (07:23→20:09)
[2017-07-04] MEDS: IPRATRPIUM/ALBUTEROL 0.5/2.5MG 3 ML NEBU. NEB SCH ×4 (07:23→20:09)
[2017-07-04 07:55] LABS: HCO3 ABG 25 mmol/L (21-28); PO2 ABG 110 mmHg (65-108); SAT O2 ABG 98 % (92-99)
[2017-07-04 07:57] LABS: FIO2 ABG 35; PCO2 ABG 45 mmHg (35-46); PH ABG 7.37 (7.35-7.45)
--- NOTE | 2017-07-04 08:10 | PDOC ---
Infectious Disease Note Subjective Subjective pt is on bipap, improving slowly says is breathing better no n/v/ diarrhea ROS ROS GEN: Denies fevers, chills, sweats HEENT: Denies blurred vision, sore throat CV: Denies chest pain RESP: as above GI: Denies n/v/d NEURO: Denies confusion, dizziness MSK: Denies weakness, joint pain/swelling Vital Sign Vital Signs Vital Signs Date Time Temp Pulse Resp B/P (MAP) Pulse Ox O2 Delivery O2 Flow Rate FiO2 07/04/17 07:02 100 BiPAP/CPAP 07/04/17 07:00 67 26 187/104 (131) 07/04/17 04:00 98.0 98.0 07/03/17 16:00 3.0 Physical Exam PHYSICAL EXAM GENERAL: NAD, Alert on bipap HEENT: PERRL, anicteric NECK: Supple LUNGS: coarse bs ,no w heezing HEART: S1S2, no murmur ABD: Obese,Soft, NT, no organomegaly, no rebound EXT: trace edema, no cyanosis [employer]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, 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, moves all 4 ext SKIN: No rash IV: ok Labs Lab Laboratory Tests Test 07/03/17 18:43 07/03/17 21:13 07/04/17 05:00 07/04/17 07:50 Troponin I Quantitative 0.021 ng/mL (0.000-0.055) Glucose (Fingerstick) 227 mg/dL (70-99) White Blood Count 10.3 x10^3/uL (4.0-11.0) Red Blood Count 3.85 x10^6/uL (3.50-5.40) Hemoglobin 11.6 g/dL (12.0-15.5) Hematocrit 35.5 % (36.0-47.0) Mean Corpuscular Volume 92 fL (79-100) Mean Corpuscular Hemoglobin 30 pg (25-35) Mean Corpuscular Hemoglobin Concent 33 g/dL (31-37) Red Cell Distribution Width 14.9 % (11.5-14.5) Platelet Count 286 x10^3/uL (140-400) Neutrophils (%) (Auto) 87 % (31-73) Lymphocytes (%) (Auto) 7 % (24-48) Monocytes (%) (Auto) 6 % (0-9) Eosinophils (%) (Auto) 0 % (0-3) Basophils (%) (Auto) 0 % (0-3) Neutrophils # (Auto) 9.0 x10^3uL (1.8-7.7) Lymphocytes # (Auto) 0.7 x10^3/uL (1.0-4.8) Monocytes # (Auto) 0.6 x10^3/uL (0.0-1.1) Eosinophils # (Auto) 0.0 x10^3/uL (0.0-0.7) Basophils # (Auto) 0.0 x10^3/uL (0.0-0.2) Sodium Level 138 mmol/L (136-145) Potassium Level 4.4 mmol/L (3.5-5.1) Chloride Level 103 mmol/L (98-107) Carbon Dioxide Level 26 mmol/L (21-32) Anion Gap 9 (6-14) Blood Urea Nitrogen 25 mg/dL (7-20) Creatinine 1.0 mg/dL (0.6-1.0) Estimated GFR (Cockcroft-Gault) 56.7 Glucose Level 188 mg/dL (70-99) Calcium Level 9.8 mg/dL (8.5-10.1) O2 Saturation 98 % (92-99) Arterial Blood pH 7.37 (7.35-7.45) Arterial Blood pCO2 at Patient Temp 45 mmHg (35-46) Arterial Blood pO2 at Patient Temp 110 mmHg (65-108) Arterial Blood HCO3 25 mmol/L (21-28) Arterial Blood Base Excess -1 mmol/L (-3-3) FiO2 35 Micro BC neg Sputum NRF Objective Assessment acute hypoxic Respiratory failure. s/p extubation now on bipap Status post code Pneumonia Dehydration. Leukocytosis,BC neg, sputum nrf Morbid obesity. MRSA in nares Plan Plan of Care Continue empiric Zyvox and Zosyn f/u am labs and cultures continue supportive care SOLO MARTIN MD Jul 04, 2017 08:10
[2017-07-04] MEDS: PANTOPRAZOLE 40 MG TABLET.DR. PO SCH (09:00)
[2017-07-04] MEDS: ENOXAPARIN 40 MG/0.4 ML SYRINGE. SQ SCH ×2 (09:00→20:56)
[2017-07-04] MEDS: METOCLOPRAMIDE 10 MG TABLET. PO SCH ×4 (09:00→20:56)
[2017-07-04] MEDS: ASPIRIN ENTERIC COATED 325 MG TABLET.DR. PO SCH (09:01)
[2017-07-04] MEDS: VERAPAMIL SR 120 MG TABLET.ER. PO SCH (09:01)
[2017-07-04] MEDS: LACTOBACILLUS RHAMNOSUS GG 1 CAPSULE. PO SCH ×2 (09:01→20:55)
[2017-07-04] MEDS: FOLIC ACID 1 MG TABLET. PO SCH (09:01)
[2017-07-04] MEDS: SERTRALINE 25 MG TABLET. PO SCH (09:02)
[2017-07-04] MEDS: LISINOPRIL 10 MG TABLET PO SCH (09:02)
[2017-07-04] MEDS: NYSTATIN TOPICAL POWDER 15GM BOTTLE. TP SCH ×2 (09:02→20:56)
[2017-07-04] MEDS: LINAGLIPTIN 5 MG TABLET PO SCH (09:02)
--- NOTE | 2017-07-04 10:10 | PDOC ---
PULMONARY PROGRESS NOTES Subjective PT HAD SHORT CODE 06/29 EXTUBATED 07/02 REQUIRED BIPAP MORE FOR ANXIETY Vitals Vital Signs Date Time Temp Pulse Resp B/P (MAP) Pulse Ox O2 Delivery O2 Flow Rate FiO2 07/04/17 09:02 80 181/102 07/04/17 07:02 100 BiPAP/CPAP 07/04/17 07:00 26 07/04/17 04:00 98.0 98.0 07/03/17 16:00 3.0 General: Alert, No acute distress Lungs: Clear, Other (no rales, or rhonchi) Cardiovascular: S1, S2 Abdomen: Soft Neuro Exam: Alert Extremities: Other (trace edema) Skin: Warm Labs Laboratory Tests Test 07/03/17 03:15 07/03/17 05:15 07/03/17 18:43 07/03/17 21:13 O2 Saturation 95 % (92-99) Arterial Blood pH 7.39 (7.35-7.45) Arterial Blood pH (Temp corrected) 7.38 Arterial Blood pCO2 at Patient Temp 41 mmHg (35-46) Arterial Blood pCO2 (Temp correct) 42 mmHg Arterial Blood pO2 at Patient Temp 77 mmHg (65-108) Arterial Blood pO2 (Temp corrected) 80 mmHg Arterial Blood HCO3 24 mmol/L (21-28) Arterial Blood Base Excess -1 mmol/L (-3-3) Oxyhemoglobin 94.0 % Methemoglobin 0.3 % (0.0-1.9) Carbon Monoxide, Quantitative 0.3 % (0.0-1.9) FiO2 28 White Blood Count 11.1 x10^3/uL (4.0-11.0) Red Blood Count 3.89 x10^6/uL (3.50-5.40) Hemoglobin 11.8 g/dL (12.0-15.5) Hematocrit 36.2 % (36.0-47.0) Mean Corpuscular Volume 93 fL (79-100) Mean Corpuscular Hemoglobin 30 pg (25-35) Mean Corpuscular Hemoglobin Concent 33 g/dL (31-37) Red Cell Distribution Width 15.0 % (11.5-14.5) Platelet Count 291 x10^3/uL (140-400) Neutrophils (%) (Auto) 89 % (31-73) Lymphocytes (%) (Auto) 5 % (24-48) Monocytes (%) (Auto) 6 % (0-9) Eosinophils (%) (Auto) 0 % (0-3) Basophils (%) (Auto) 0 % (0-3) Neutrophils # (Auto) 9.9 x10^3uL (1.8-7.7) Lymphocytes # (Auto) 0.6 x10^3/uL (1.0-4.8) Monocytes # (Auto) 0.6 x10^3/uL (0.0-1.1) Eosinophils # (Auto) 0.0 x10^3/uL (0.0-0.7) Basophils # (Auto) 0.0 x10^3/uL (0.0-0.2) Sodium Level 139 mmol/L (136-145) Potassium Level 4.2 mmol/L (3.5-5.1) Chloride Level 103 mmol/L (98-107) Carbon Dioxide Level 29 mmol/L (21-32) Anion Gap 7 (6-14) Blood Urea Nitrogen 24 mg/dL (7-20) Creatinine 1.3 mg/dL (0.6-1.0) Estimated GFR (Cockcroft-Gault) 41.9 Glucose Level 214 mg/dL (70-99) Calcium Level 9.7 mg/dL (8.5-10.1) Troponin I Quantitative 0.021 ng/mL (0.000-0.055) Glucose (Fingerstick) 227 mg/dL (70-99) Test 07/04/17 05:00 07/04/17 07:50 White Blood Count 10.3 x10^3/uL (4.0-11.0) Red Blood Count 3.85 x10^6/uL (3.50-5.40) Hemoglobin 11.6 g/dL (12.0-15.5) Hematocrit 35.5 % (36.0-47.0) Mean Corpuscular Volume 92 fL (79-100) Mean Corpuscular Hemoglobin 30 pg (25-35) Mean Corpuscular Hemoglobin Concent 33 g/dL (31-37) Red Cell Distribution Width 14.9 % (11.5-14.5) Platelet Count 286 x10^3/uL (140-400) Neutrophils (%) (Auto) 87 % (31-73) Lymphocytes (%) (Auto) 7 % (24-48) Monocytes (%) (Auto) 6 % (0-9) Eosinophils (%) (Auto) 0 % (0-3) Basophils (%) (Auto) 0 % (0-3) Neutrophils # (Auto) 9.0 x10^3uL (1.8-7.7) Lymphocytes # (Auto) 0.7 x10^3/uL (1.0-4.8) Monocytes # (Auto) 0.6 x10^3/uL (0.0-1.1) Eosinophils # (Auto) 0.0 x10^3/uL (0.0-0.7) Basophils # (Auto) 0.0 x10^3/uL (0.0-0.2) Sodium Level 138 mmol/L (136-145) Potassium Level 4.4 mmol/L (3.5-5.1) Chloride Level 103 mmol/L (98-107) Carbon Dioxide Level 26 mmol/L (21-32) Anion Gap 9 (6-14) Blood Urea Nitrogen 25 mg/dL (7-20) Creatinine 1.0 mg/dL (0.6-1.0) Estimated GFR (Cockcroft-Gault) 56.7 Glucose Level 188 mg/dL (70-99) Calcium Level 9.8 mg/dL (8.5-10.1) O2 Saturation 98 % (92-99) Arterial Blood pH 7.37 (7.35-7.45) Arterial Blood pCO2 at Patient Temp 45 mmHg (35-46) Arterial Blood pO2 at Patient Temp 110 mmHg (65-108) Arterial Blood HCO3 25 mmol/L (21-28) Arterial Blood Base Excess -1 mmol/L (-3-3) FiO2 35 Laboratory Tests Test 07/03/17 18:43 07/03/17 21:13 07/04/17 05:00 07/04/17 07:50 Troponin I Quantitative 0.021 ng/mL (0.000-0.055) Glucose (Fingerstick) 227 mg/dL (70-99) White Blood Count 10.3 x10^3/uL (4.0-11.0) Red Blood Count 3.85 x10^6/uL (3.50-5.40) Hemoglobin 11.6 g/dL (12.0-15.5) Hematocrit 35.5 % (36.0-47.0) Mean Corpuscular Volume 92 fL (79-100) Mean Corpuscular Hemoglobin 30 pg (25-35) Mean Corpuscular Hemoglobin Concent 33 g/dL (31-37) Red Cell Distribution Width 14.9 % (11.5-14.5) Platelet Count 286 x10^3/uL (140-400) Neutrophils (%) (Auto) 87 % (31-73) Lymphocytes (%) (Auto) 7 % (24-48) Monocytes (%) (Auto) 6 % (0-9) Eosinophils (%) (Auto) 0 % (0-3) Basophils (%) (Auto) 0 % (0-3) Neutrophils # (Auto) 9.0 x10^3uL (1.8-7.7) Lymphocytes # (Auto) 0.7 x10^3/uL (1.0-4.8) Monocytes # (Auto) 0.6 x10^3/uL (0.0-1.1) Eosinophils # (Auto) 0.0 x10^3/uL (0.0-0.7) Basophils # (Auto) 0.0 x10^3/uL (0.0-0.2) Sodium Level 138 mmol/L (136-145) Potassium Level 4.4 mmol/L (3.5-5.1) Chloride Level 103 mmol/L (98-107) Carbon Dioxide Level 26 mmol/L (21-32) Anion Gap 9 (6-14) Blood Urea Nitrogen 25 mg/dL (7-20) Creatinine 1.0 mg/dL (0.6-1.0) Estimated GFR (Cockcroft-Gault) 56.7 Glucose Level 188 mg/dL (70-99) Calcium Level 9.8 mg/dL (8.5-10.1) O2 Saturation 98 % (92-99) Arterial Blood pH 7.37 (7.35-7.45) Arterial Blood pCO2 at Patient Temp 45 mmHg (35-46) Arterial Blood pO2 at Patient Temp 110 mmHg (65-108) Arterial Blood HCO3 25 mmol/L (21-28) Arterial Blood Base Excess -1 mmol/L (-3-3) FiO2 35 Medications Active Scripts Medications Dose Route/Sig Max Daily Dose Days Date Category Doxycycline Hyclate 100 Mg Capsule 1 Cap PO BID 06/23/17 Rx Calan Sr (Verapamil Hcl) 120 Mg Tablet.er 120 Mg PO DAILY 06/23/17 Rx Lisinopril 40 Mg Tablet 40 Mg PO DAILY 06/23/17 Rx Culturelle (Lactobacillus Rhamnosus Gg) 1 Each Cap.sprink 1 Cap PO BID 06/23/17 Rx Aspirin Ec (Aspirin) 325 Mg Tablet. 325 Mg PO DAILYWBKFT 06/23/17 Rx Lisinopril 10 Mg Tablet 1 Tab PO DAILY 06/19/17 Reported Prednisone 50 Mg Tablet 1 Tab PO DAILY 06/10/17 Rx Tradjenta (Linagliptin) 5 Mg Tablet 5 Tab PO DAILY 06/10/17 Reported Proair Hfa Inhaler (Albuterol Sulfate) 8.5 Gm Hfa.aer.ad 2 Puff IH PRN Q4-6HRS 10/01/15 Reported Flovent 110MCG Hfa (Fluticasone Propionate) 12 Gm Aer.w.adap 2 Puff IH BID 10/01/15 Reported Montelukast Sodium Tablet (Montelukast Sodium) 10 Mg Tablet 10 Mg PO HS 10/01/15 Reported Aspirin 325 Mg Tablet 1 Tab PO DAILY 10/01/15 Reported Iron (Ferrous Sulfate) 325 Mg Capsule.er 325 Mg PO 10/01/15 Reported Metoclopramide Hcl 10 Mg Tablet 10 Mg PO QIDACHS 10/01/15 Reported Atorvastatin Calcium 80 Mg Tablet 1 Tab PO DAILY 10/01/15 Reported Lansoprazole 30 Mg Capsule. 1 Cap PO DAILY 10/01/15 Reported Verapamil Er (Verapamil Hcl) 240 Mg Cap24h.pel 0.5 Cap PO DAILY 10/01/15 Reported Folic Acid 1 Mg Tablet 1 Tab PO DAILY 10/01/15 Reported Zoloft (Sertraline Hcl) 25 Mg Tablet 1 Tab PO DAILY 10/01/15 Reported Hydrocodone-Apap 7.5-325 (Hydrocodone Bit/Acetaminophen) 1 Each Tablet 1 Tab PO PRN Q6HRS PRN 10/01/15 Reported Comments CXR REVIEWED 07/03 mild volume loss Left base Impression . 1. Acute respiratory failure secondary to acute asthma exacerbation. 2. Diabetes. 3. Morbid obesity. 4. Acute nonspecific bronchitis. 5. Cardiopulmonary arrest sec to pt taking off 02 and possible mucus plug on left 6. Pneumonia Left side 7. ATELECTASIS ON LEFT , S/P BRONCH WITH MUCUS PLUGGING Plan . PRN BIPAP BRONCH CULTURES NEG SO FAR CXR STABLE NEBS anitbx negative venous doppler Transfer to floor add Johnnyx d/w BECKIE CARPENTER MD Jul 04, 2017 10:10
[2017-07-04] MEDS ORDERED: ALPRAZolam 0.25 MG TABLET PO PRN (10:15)
[2017-07-04] MEDS: HYDROcodone/APAP 7.5/325MG 1 TAB TABLET PO PRN ×2 (11:33→20:09)
--- NOTE | 2017-07-04 13:30 | PDOC ---
PROGRESS NOTES Chief Complaint Chief Complaint Acute Respiratory failure Pneumonia Acute nonspecific bronchitis Asthma Hypertension Morbid obesity DM 2 Dehydration Leukocytosis Morbid obesity History of Present Illness History of Present Illness Pt seen and examined today in the ICU Pt was extubated 07/02 Pt sitting upright in bed, c/o SOA, hoarseness, secretions, and cough Vitals Vitals Vital Signs Date Time Temp Pulse Resp B/P (MAP) Pulse Ox O2 Delivery O2 Flow Rate FiO2 07/04/17 12:34 26 99 Nasal Cannula 3.0 07/04/17 11:00 85 173/111 (131) 07/04/17 08:00 98.0 98.0 Physical Exam Physical Exam Eyes: sclera anicteric, no conjunctival injection Neuro: stoner hand II-XII grossly intact b/l General: Alert, Cooperative, No acute distress Heart: Regular rate, Normal S1, Normal S2, No murmurs Lungs: Clear, Other (no rales, or rhonchi) Abdomen: Normal bowel sounds, Soft, No tenderness Extremities: No clubbing, No cyanosis Skin: No breakdown, Other (Multiple tiny abrasions on the dorsum of the hands b /l) Labs LABS Laboratory Tests Test 07/03/17 18:43 07/03/17 21:13 07/04/17 05:00 07/04/17 07:50 Troponin I Quantitative 0.021 ng/mL (0.000-0.055) Glucose (Fingerstick) 227 mg/dL (70-99) White Blood Count 10.3 x10^3/uL (4.0-11.0) Red Blood Count 3.85 x10^6/uL (3.50-5.40) Hemoglobin 11.6 g/dL (12.0-15.5) Hematocrit 35.5 % (36.0-47.0) Mean Corpuscular Volume 92 fL (79-100) Mean Corpuscular Hemoglobin 30 pg (25-35) Mean Corpuscular Hemoglobin Concent 33 g/dL (31-37) Red Cell Distribution Width 14.9 % (11.5-14.5) Platelet Count 286 x10^3/uL (140-400) Neutrophils (%) (Auto) 87 % (31-73) Lymphocytes (%) (Auto) 7 % (24-48) Monocytes (%) (Auto) 6 % (0-9) Eosinophils (%) (Auto) 0 % (0-3) Basophils (%) (Auto) 0 % (0-3) Neutrophils # (Auto) 9.0 x10^3uL (1.8-7.7) Lymphocytes # (Auto) 0.7 x10^3/uL (1.0-4.8) Monocytes # (Auto) 0.6 x10^3/uL (0.0-1.1) Eosinophils # (Auto) 0.0 x10^3/uL (0.0-0.7) Basophils # (Auto) 0.0 x10^3/uL (0.0-0.2) Sodium Level 138 mmol/L (136-145) Potassium Level 4.4 mmol/L (3.5-5.1) Chloride Level 103 mmol/L (98-107) Carbon Dioxide Level 26 mmol/L (21-32) Anion Gap 9 (6-14) Blood Urea Nitrogen 25 mg/dL (7-20) Creatinine 1.0 mg/dL (0.6-1.0) Estimated GFR (Cockcroft-Gault) 56.7 Glucose Level 188 mg/dL (70-99) Calcium Level 9.8 mg/dL (8.5-10.1) O2 Saturation 98 % (92-99) Arterial Blood pH 7.37 (7.35-7.45) Arterial Blood pCO2 at Patient Temp 45 mmHg (35-46) Arterial Blood pO2 at Patient Temp 110 mmHg (65-108) Arterial Blood HCO3 25 mmol/L (21-28) Arterial Blood Base Excess -1 mmol/L (-3-3) FiO2 35 Review of Systems Review of Systems GEN: Denies fevers, chills, or sweats CV: Denies chest pain RESP: Admits to shortness of air and cough GI: Denies n/v/d Assessment and Plan Assessmemt and Plan Problems Medical Problems: (1) Elevated d-dimer Status: Acute Assessment: Acute Respiratory failure Pneumonia Acute nonspecific bronchitis Asthma Hypertension Morbid obesity DM 2 Dehydration Leukocytosis Morbid obesity Plan: Transfer to telemetry Continue breathing treatment Continue wound care Continue abx Continue home medications Continue PT/OT Recheck labs in am Problems: Comment Review of Relevant I have reviewed the following items jess (where applicable) has been applied. Labs Laboratory Tests Test 07/03/17 03:15 07/03/17 05:15 07/03/17 18:43 07/03/17 21:13 O2 Saturation 95 % (92-99) Arterial Blood pH 7.39 (7.35-7.45) Arterial Blood pH (Temp corrected) 7.38 Arterial Blood pCO2 at Patient Temp 41 mmHg (35-46) Arterial Blood pCO2 (Temp correct) 42 mmHg Arterial Blood pO2 at Patient Temp 77 mmHg (65-108) Arterial Blood pO2 (Temp corrected) 80 mmHg Arterial Blood HCO3 24 mmol/L (21-28) Arterial Blood Base Excess -1 mmol/L (-3-3) Oxyhemoglobin 94.0 % Methemoglobin 0.3 % (0.0-1.9) Carbon Monoxide, Quantitative 0.3 % (0.0-1.9) FiO2 28 White Blood Count 11.1 x10^3/uL (4.0-11.0) Red Blood Count 3.89 x10^6/uL (3.50-5.40) Hemoglobin 11.8 g/dL (12.0-15.5) Hematocrit 36.2 % (36.0-47.0) Mean Corpuscular Volume 93 fL (79-100) Mean Corpuscular Hemoglobin 30 pg (25-35) Mean Corpuscular Hemoglobin Concent 33 g/dL (31-37) Red Cell Distribution Width 15.0 % (11.5-14.5) Platelet Count 291 x10^3/uL (140-400) Neutrophils (%) (Auto) 89 % (31-73) Lymphocytes (%) (Auto) 5 % (24-48) Monocytes (%) (Auto) 6 % (0-9) Eosinophils (%) (Auto) 0 % (0-3) Basophils (%) (Auto) 0 % (0-3) Neutrophils # (Auto) 9.9 x10^3uL (1.8-7.7) Lymphocytes # (Auto) 0.6 x10^3/uL (1.0-4.8) Monocytes # (Auto) 0.6 x10^3/uL (0.0-1.1) Eosinophils # (Auto) 0.0 x10^3/uL (0.0-0.7) Basophils # (Auto) 0.0 x10^3/uL (0.0-0.2) Sodium Level 139 mmol/L (136-145) Potassium Level 4.2 mmol/L (3.5-5.1) Chloride Level 103 mmol/L (98-107) Carbon Dioxide Level 29 mmol/L (21-32) Anion Gap 7 (6-14) Blood Urea Nitrogen 24 mg/dL (7-20) Creatinine 1.3 mg/dL (0.6-1.0) Estimated GFR (Cockcroft-Gault) 41.9 Glucose Level 214 mg/dL (70-99) Calcium Level 9.7 mg/dL (8.5-10.1) Troponin I Quantitative 0.021 ng/mL (0.000-0.055) Glucose (Fingerstick) 227 mg/dL (70-99) Test 07/04/17 05:00 07/04/17 07:50 White Blood Count 10.3 x10^3/uL (4.0-11.0) Red Blood Count 3.85 x10^6/uL (3.50-5.40) Hemoglobin 11.6 g/dL (12.0-15.5) Hematocrit 35.5 % (36.0-47.0) Mean Corpuscular Volume 92 fL (79-100) Mean Corpuscular Hemoglobin 30 pg (25-35) Mean Corpuscular Hemoglobin Concent 33 g/dL (31-37) Red Cell Distribution Width 14.9 % (11.5-14.5) Platelet Count 286 x10^3/uL (140-400) Neutrophils (%) (Auto) 87 % (31-73) Lymphocytes (%) (Auto) 7 % (24-48) Monocytes (%) (Auto) 6 % (0-9) Eosinophils (%) (Auto) 0 % (0-3) Basophils (%) (Auto) 0 % (0-3) Neutrophils # (Auto) 9.0 x10^3uL (1.8-7.7) Lymphocytes # (Auto) 0.7 x10^3/uL (1.0-4.8) Monocytes # (Auto) 0.6 x10^3/uL (0.0-1.1) Eosinophils # (Auto) 0.0 x10^3/uL (0.0-0.7) Basophils # (Auto) 0.0 x10^3/uL (0.0-0.2) Sodium Level 138 mmol/L (136-145) Potassium Level 4.4 mmol/L (3.5-5.1) Chloride Level 103 mmol/L (98-107) Carbon Dioxide Level 26 mmol/L (21-32) Anion Gap 9 (6-14) Blood Urea Nitrogen 25 mg/dL (7-20) Creatinine 1.0 mg/dL (0.6-1.0) Estimated GFR (Cockcroft-Gault) 56.7 Glucose Level 188 mg/dL (70-99) Calcium Level 9.8 mg/dL (8.5-10.1) O2 Saturation 98 % (92-99) Arterial Blood pH 7.37 (7.35-7.45) Arterial Blood pCO2 at Patient Temp 45 mmHg (35-46) Arterial Blood pO2 at Patient Temp 110 mmHg (65-108) Arterial Blood HCO3 25 mmol/L (21-28) Arterial Blood Base Excess -1 mmol/L (-3-3) FiO2 35 Laboratory Tests Test 07/03/17 18:43 07/03/17 21:13 07/04/17 05:00 07/04/17 07:50 Troponin I Quantitative 0.021 ng/mL (0.000-0.055) Glucose (Fingerstick) 227 mg/dL (70-99) White Blood Count 10.3 x10^3/uL (4.0-11.0) Red Blood Count 3.85 x10^6/uL (3.50-5.40) Hemoglobin 11.6 g/dL (12.0-15.5) Hematocrit 35.5 % (36.0-47.0) Mean Corpuscular Volume 92 fL (79-100) Mean Corpuscular Hemoglobin 30 pg (25-35) Mean Corpuscular Hemoglobin Concent 33 g/dL (31-37) Red Cell Distribution Width 14.9 % (11.5-14.5) Platelet Count 286 x10^3/uL (140-400) Neutrophils (%) (Auto) 87 % (31-73) Lymphocytes (%) (Auto) 7 % (24-48) Monocytes (%) (Auto) 6 % (0-9) Eosinophils (%) (Auto) 0 % (0-3) Basophils (%) (Auto) 0 % (0-3) Neutrophils # (Auto) 9.0 x10^3uL (1.8-7.7) Lymphocytes # (Auto) 0.7 x10^3/uL (1.0-4.8) Monocytes # (Auto) 0.6 x10^3/uL (0.0-1.1) Eosinophils # (Auto) 0.0 x10^3/uL (0.0-0.7) Basophils # (Auto) 0.0 x10^3/uL (0.0-0.2) Sodium Level 138 mmol/L (136-145) Potassium Level 4.4 mmol/L (3.5-5.1) Chloride Level 103 mmol/L (98-107) Carbon Dioxide Level 26 mmol/L (21-32) Anion Gap 9 (6-14) Blood Urea Nitrogen 25 mg/dL (7-20) Creatinine 1.0 mg/dL (0.6-1.0) Estimated GFR (Cockcroft-Gault) 56.7 Glucose Level 188 mg/dL (70-99) Calcium Level 9.8 mg/dL (8.5-10.1) O2 Saturation 98 % (92-99) Arterial Blood pH 7.37 (7.35-7.45) Arterial Blood pCO2 at Patient Temp 45 mmHg (35-46) Arterial Blood pO2 at Patient Temp 110 mmHg (65-108) Arterial Blood HCO3 25 mmol/L (21-28) Arterial Blood Base Excess -1 mmol/L (-3-3) FiO2 35 Microbiology 06/30/17 Blood Culture - Preliminary, Resulted NO GROWTH AFTER 4 DAYS 07/02/17 Gram Stain - Final, Complete Medications Current Medications Sodium Chloride 1,000 ml @ 150 mls/hr Q6H40M IV Last administered on 03:10; Start 06/29/17 at 03:00; Stop 06/29/17 at 09:39; Status DC Methylprednisolone Sodium Succinate (SOLU-Medrol 125MG VIAL) 125 mg 1X ONCE IV Last administered on 06/29/17 03:10; Start 06/29/17 at 03:00; Stop at 03:01; Status DC Levofloxacin/ Dextrose 150 ml @ 100 mls/hr 1X ONCE IV Last administered on 03:09; Start 06/29/17 at 03:30; Stop 06/29/17 at 12:50; Status DC Enoxaparin Sodium (Lovenox Per Pharmacy Treatment Dosing) 1 each 1X ONCE MC ; Start 06/29/17 at 03:45; Stop 06/29/17 at 03:53; Status DC Enoxaparin Sodium (Lovenox 150mg Syringe) 140 mg Q12HR SQ Last administered on 06/29/17 04:07; Start 06/29/17 at 04:00; Stop 06/29/17 at 12:50; Status DC Info (Anti-Coagulation Monitoring By Pharmacy) 1 each PRN DAILY PRN MC SEE COMMENTS Last administered on 06/29/17 05:11; Start 06/29/17 at 04:00; Stop 06/29/17 at 12:57; Status DC Ondansetron HCl (Zofran) 4 mg PRN Q8HRS PRN IV NAUSEA/VOMITING; Start at 04:15; Stop 06/30/17 at 04:14; Status DC Methylprednisolone Sodium Succinate (SOLU-Medrol 40MG VIAL) 40 mg Q6HRS IV Last administered on 07/04/17 11:33; Start 06/29/17 at 06:00 Levofloxacin/ Dextrose (Levaquin Per Pharmacy) 1 each PRN DAILY PRN MC SEE COMMENTS; Start 06/29/17 at 04:15; Stop 06/29/17 at 17:11; Status DC Sodium Chloride 1,000 ml @ 100 mls/hr Q10H IV Last administered on 07/04/17 05:28; Start 06/29/17 at 05:15 Levofloxacin/ Dextrose 150 ml @ 100 mls/hr Q24H IV ; Start 06/30/17 at 05:00; Stop 06/30/17 at 05:00; Status DC Aspirin (Ecotrin) 325 mg DAILYWBKFT PO Last administered on 07/04/17 09:01; Start 06/29/17 at 13:00 Folic Acid (Folic Acid) 1 mg DAILY PO Last administered on 07/04/17 09:01; Start 06/29/17 at 13:00 Acetaminophen/ Hydrocodone Bitart (Lortab 7.5/325) 1 tab PRN Q6HRS PRN PO PAIN Last administered on 07/04/17 11:33; Start 06/29/17 at 12:15 Lactobacillus Rhamnosus (Culturelle) 1 cap BID PO Last administered on 20:44; Start 06/29/17 at 13:00; Stop 07/01/17 at 08:40; Status DC Linagliptin (Tradjenta) 5 mg DAILY PO Last administered on 07/04/17 09:02; Start 06/29/17 at 13:00 Lisinopril (Prinivil) 10 mg DAILY PO Last administered on 07/04/17 09:02; Start 06/29/17 at 13:00 Metoclopramide HCl (Reglan) 10 mg QIDACHS PO Last administered on 07/04/17 11 :34; Start 06/29/17 at 13:00 Montelukast Sodium (Singulair) 10 mg HS PO Last administered on 07/03/17 20: 09; Start 06/29/17 at 21:00 Sertraline HCl (Zoloft) 25 mg DAILY PO Last administered on 07/04/17 09:02; Start 06/29/17 at 13:00 Verapamil HCl (Calan Sr) 120 mg DAILY PO Last administered on 07/04/17 09:01 ; Start 06/29/17 at 13:00 Albuterol Sulfate (Ventolin Neb Soln) 2.5 mg PRN Q4HRS PRN NEB SHORTNESS OF BREATH Last administered on 07/02/17 23:51; Start 06/29/17 at 12:15 Atorvastatin Calcium (Lipitor) 80 mg QHS PO Last administered on 07/03/17 20: 10; Start 06/29/17 at 21:00 Non-Formulary Medication 2 puff BID IH ; Start 06/29/17 at 21:00; Status UNV Pantoprazole Sodium (Protonix) 40 mg DAILYAC PO Last administered on 07:50; Start 06/29/17 at 13:00; Stop 07/01/17 at 08:48; Status DC Ferrous Sulfate (Feosol) 325 mg QHS PO Last administered on 07/03/17 20:12; Start 06/29/17 at 21:00 Budesonide (Pulmicort) 0.5 mg RTBID NEB Last administered on 07/04/17 07:23; Start 06/29/17 at 13:00 Enoxaparin Sodium (Lovenox 40mg Syringe) 40 mg BID SQ Last administered on 09:00; Start 06/29/17 at 21:00 Azithromycin 500 mg/Sodium Chloride 250 ml @ 250 mls/hr Q24H IV Last administered on 06/29/17 14:18; Start 06/29/17 at 13:30; Stop 06/30/17 at 03 :30; Status DC Albuterol/ Ipratropium (Duoneb) 3 ml RTQID NEB Last administered on 07/04/17 11:29; Start 06/29/17 at 13:00 Guaifenesin (Mucinex) 600 mg BID PO Last administered on 07/04/17 09:01; Start 06/30/17 at 09:00 Azithromycin (Zithromax) 500 mg DAILY PO ; Start 06/30/17 at 09:00; Stop 06/30 at 09:00; Status DC Albuterol Sulfate (Ventolin Neb Soln) 2.5 mg 1X ONCE NEB ; Start 06/30/17 at 07:00; Stop 06/30/17 at 07:01; Status DC Azithromycin 500 mg/Sodium Chloride 250 ml @ 250 mls/hr Q24H IV ; Start at 14:00; Stop 06/30/17 at 14:00; Status DC Propofol 100 ml @ 0 mls/hr CONT PRN IV SEE I/O RECORD Last administered on 04:25; Start 06/30/17 at 08:15; Stop 07/02/17 at 23:45; Status DC Linezolid 300 ml @ 300 mls/hr Q12HR IV Last administered on 07/04/17 08:59; Start 06/30/17 at 11:30 Piperacillin Sod/ Tazobactam Sod 3.375 gm/Dextrose 50 ml @ 100 mls/hr Q6HRS IV ; Start 06/30/17 at 12:00; Status UNV Piperacillin Sod/ Tazobactam Sod (Zosyn) 3.375 gm Q6HRS IVP Last administered on 07/04/17 11:34; Start 06/30/17 at 11:30 Nystatin (Nystop) 1 bib BID TP Last administered on 07/04/17 09:02; Start at 21:00 Fentanyl Citrate (Fentanyl 2ml Vial) 50 mcg PRN Q2HR PRN IV SEVERE PAIN Last administered on 07/03/17 01:15; Start 06/30/17 at 22:45 Pantoprazole Sodium (PROTONIX VIAL for IV PUSH) 40 mg DAILYAC IVP Last administered on 07/03/17 11:37; Start 07/02/17 at 07:30; Stop 07/03/17 at 12 :30; Status DC Chlorhexidine Gluconate (Peridex) 15 ml BID MM Last administered on 07/02/17 08:31; Start 07/01/17 at 09:00; Stop 07/02/17 at 23:45; Status DC Labetalol HCl (Normodyne) 20 mg PRN Q2HR PRN IVP HYPERTENSION, SEE COMMENTS Last administered on 07/04/17 05:28; Start 07/02/17 at 14:00 Lactobacillus Rhamnosus (Culturelle) 1 cap BID PO Last administered on 09:01; Start 07/03/17 at 21:00 Pantoprazole Sodium (Protonix) 40 mg DAILYAC PO Last administered on 09:00; Start 07/04/17 at 07:30 Etomidate (Amidate) 20 mg STK-MED ONCE IV ; Start 06/30/17 at 07:12; Stop at 11:35; Status DC Rocuronium [place] (Zemuron) 50 mg STK-MED ONCE .ROUTE ; Start 06/30/17 at 07: 13; Stop 07/03/17 at 11:35; Status DC Midazolam HCl (Versed) 5 mg STK-MED ONCE .ROUTE ; Start 07/02/17 at 09:49; Stop 07/03/17 at 12:21; Status DC Sodium Chloride (Saline Mist Nasal) 1 bib PRN Q1HR PRN NS NASAL CONGESTION Last administered on 07/03/17 13:03; Start 07/03/17 at 12:45 Alprazolam (Xanax) 0.25 mg PRN BID PRN PO ANXIETY / AGITATION; Start 07/04/17 at 10:15 Active Scripts Active Doxycycline Hyclate 100 Mg Capsule 1 Cap PO BID Calan Sr (Verapamil Hcl) 120 Mg Tablet.er 120 Mg PO DAILY Lisinopril 40 Mg Tablet 40 Mg PO DAILY Culturelle (Lactobacillus Rhamnosus Gg) 1 Each Cap.sprink 1 Cap PO BID Aspirin Ec (Aspirin) 325 Mg Tablet. 325 Mg PO DAILYWBKFT Prednisone 50 Mg Tablet 1 Tab PO DAILY Reported Lisinopril 10 Mg Tablet 1 Tab PO DAILY Tradjenta (Linagliptin) 5 Mg Tablet 5 Tab PO DAILY Proair Hfa Inhaler (Albuterol Sulfate) 8.5 Gm Hfa.aer.ad 2 Puff IH PRN Q4-6HRS Flovent 110MCG Hfa (Fluticasone Propionate) 12 Gm Aer.w.adap 2 Puff IH BID Montelukast Sodium Tablet (Montelukast Sodium) 10 Mg Tablet 10 Mg PO HS Aspirin 325 Mg Tablet 1 Tab PO DAILY Iron (Ferrous Sulfate) 325 Mg Capsule.er 325 Mg PO Metoclopramide Hcl 10 Mg Tablet 10 Mg PO QIDACHS Atorvastatin Calcium 80 Mg Tablet 1 Tab PO DAILY Lansoprazole 30 Mg Capsule. 1 Cap PO DAILY Verapamil Er (Verapamil Hcl) 240 Mg Cap24h.pel 0.5 Cap PO DAILY Folic Acid 1 Mg Tablet 1 Tab PO DAILY Zoloft (Sertraline Hcl) 25 Mg Tablet 1 Tab PO DAILY Hydrocodone-Apap 7.5-325 (Hydrocodone Bit/Acetaminophen) 1 Each Tablet 1 Tab PO PRN Q6HRS PRN Vitals/I & O Vital Sign - Last 24 Hours 07/03/17 07/03/17 07/03/17 07/03/17 14:00 14:29 15:00 16:00 Pulse 86 89 72 Resp 34 38 B/P (MAP) 185/105 (131) 185/105 174/108 (130) Pulse Ox 99 98 O2 Delivery Nasal Cannula BiPAP/CPAP Nasal Cannula O2 Flow Rate 3.0 3.0 07/03/17 07/03/17 07/03/17 07/03/17 16:00 16:57 17:00 18:00 Temp 98.9 98.9 Pulse 82 74 78 Resp 34 26 30 B/P (MAP) 176/102 (126) 176/95 (122) 183/101 (128) Pulse Ox 99 99 100 100 O2 Delivery BiPAP/CPAP BiPAP/CPAP BiPAP/CPAP BiPAP/CPAP 07/03/17 07/03/17 07/03/17 07/03/17 19:00 20:00 20:00 20:08 Temp 98.1 98.1 Pulse 73 81 Resp 30 30 20 B/P (MAP) 162/92 (115) 170/103 (125) Pulse Ox 100 99 100 O2 Delivery BiPAP/CPAP BiPAP/CPAP Bi-pap BiPAP/CPAP 07/03/17 07/03/17 07/03/17 07/03/17 20:41 21:00 22:00 22:40 Pulse 82 77 Resp 30 30 B/P (MAP) 158/83 (108) 166/97 (120) Pulse Ox 99 99 98 99 O2 Delivery BiPAP/CPAP BiPAP/CPAP BiPAP/CPAP BiPAP/CPAP 07/03/17 07/03/17 07/03/17 07/04/17 23:00 23:59 23:59 01:00 Temp 98.2 98.2 Pulse 79 66 66 Resp 30 30 30 B/P (MAP) 167/97 (120) 152/95 (114) 160/69 (99) Pulse Ox 99 99 99 O2 Delivery BiPAP/CPAP BiPAP/CPAP Bi-pap BiPAP/CPAP 07/04/17 07/04/17 07/04/17 07/04/17 01:05 02:00 03:00 03:10 Pulse 70 74 Resp 30 30 B/P (MAP) 152/93 (112) 174/101 (125) Pulse Ox 100 100 100 100 O2 Delivery BiPAP/CPAP BiPAP/CPAP BiPAP/CPAP BiPAP/CPAP 07/04/17 07/04/17 07/04/17 07/04/17 04:00 04:00 05:00 05:15 Temp 98.0 98.0 Pulse 71 68 Resp 30 38 B/P (MAP) 162/96 (118) 177/103 (127) Pulse Ox 100 99 100 O2 Delivery Bi-pap BiPAP/CPAP BiPAP/CPAP BiPAP/CPAP 07/04/17 07/04/17 07/04/17 07/04/17 05:28 06:00 07:00 07:02 Pulse 80 67 67 Resp 29 26 B/P (MAP) 190/107 176/102 (126) 187/104 (131) Pulse Ox 100 100 100 O2 Delivery BiPAP/CPAP BiPAP/CPAP BiPAP/CPAP 07/04/17 07/04/17 07/04/17 07/04/17 08:00 08:00 09:00 09:01 Temp 98.0 98.0 Pulse 68 82 80 Resp 25 33 B/P (MAP) 181/102 (128) 177/98 (124) 181/102 Pulse Ox 100 99 O2 Delivery Nasal Cannula BiPAP/CPAP Nasal Cannula O2 Flow Rate 3.0 3.0 07/04/17 07/04/17 07/04/17 07/04/17 09:02 10:00 11:00 11:30 Pulse 80 90 85 Resp 35 36 B/P (MAP) 181/102 149/79 (102) 173/111 (131) Pulse Ox 96 100 93 O2 Delivery Nasal Cannula Nasal Cannula Nasal Cannula O2 Flow Rate 3.0 3.0 3.0 07/04/17 07/04/17 11:33 12:34 Resp 20 26 Pulse Ox 100 99 O2 Delivery Nasal Cannula Nasal Cannula O2 Flow Rate 3.0 3.0 Intake and Output 07/03/17 07/03/17 07/04/17 15:00 23:00 07:00 Intake Total 330 ml 1349.96 ml 1450 ml Output Total 650 ml 400 ml 465 ml Balance -320 ml 949.96 ml 985 ml TEJAL LUNDBERG III DO Jul 04, 2017 13:30
[2017-07-04] MEDS: MONTELUKAST SODIUM 10 MG TABLET. PO SCH (20:55)
[2017-07-04] MEDS: ATORVASTATIN CALCIUM 40 MG TABLET. PO SCH (20:55)
[2017-07-04] MEDS: FERROUS SULFATE 325 MG TABLET. PO SCH (20:56)
[2017-07-05] VITALS (11 sets, daily range): BP systolic 151–201; BP diastolic 93–112
[2017-07-05] MEDS: IV NORMAL SALINE 1000ML BAG 1,000 ML IV SCH ×2 (05:33→15:38)
[2017-07-05] MEDS: PIPERACILLIN/TAZO IV Push 3.375 GM VIAL. IVP SCH ×3 (05:37→18:16)
[2017-07-05] MEDS: methylPREDNISolone SOD SUCC PF 40 MG/ML VIAL. IV SCH ×3 (05:38→21:19)
[2017-07-05 06:08] LABS: BASO % 0 % (0-3); EOS % 0 % (0-3); HEMATOCRIT 37.7 % (36.0-47.0); LYMPH # 0.7 x10^3/uL (1.0-4.8); LYMPH % 6 % (24-48); MEAN CORPUSCULAR HEMOGLOBIN 30 pg (25-35); MEAN CORPUSCULAR HGB CONC 32 g/dL (31-37); MEAN CORPUSCULAR VOLUME 92 fL (79-100); MONO % 5 % (0-9); NEUT % 89 % (31-73); PLATELET COUNT 339 x10^3/uL (140-400); RED BLOOD COUNT 4.08 x10^6/uL (3.50-5.40); WHITE BLOOD COUNT 12.6 x10^3/uL (4.0-11.0)
[2017-07-05 06:44] LABS: CALCIUM 9.9 mg/dL (8.5-10.1); CREATININE 1.1 mg/dL (0.6-1.0); GFR 50.8; POTASSIUM 4.3 mmol/L (3.5-5.1)
[2017-07-05] MEDS: IPRATRPIUM/ALBUTEROL 0.5/2.5MG 3 ML NEBU. NEB SCH ×4 (07:30→19:51)
[2017-07-05] MEDS: BUDESONIDE 0.5 MG/2 ML NEBU. NEB SCH ×2 (07:30→19:51)
[2017-07-05] MEDS: ASPIRIN ENTERIC COATED 325 MG TABLET.DR. PO SCH (07:58)
[2017-07-05] MEDS: METOCLOPRAMIDE 10 MG TABLET. PO SCH ×4 (07:58→21:17)
[2017-07-05] MEDS: LACTOBACILLUS RHAMNOSUS GG 1 CAPSULE. PO SCH ×2 (07:58→21:12)
[2017-07-05] MEDS: PANTOPRAZOLE 40 MG TABLET.DR. PO SCH (07:58)
[2017-07-05] MEDS: FOLIC ACID 1 MG TABLET. PO SCH (07:59)
[2017-07-05] MEDS: LISINOPRIL 10 MG TABLET PO SCH (07:59)
[2017-07-05] MEDS: LINAGLIPTIN 5 MG TABLET PO SCH (07:59)
[2017-07-05] MEDS: HYDROcodone/APAP 7.5/325MG 1 TAB TABLET PO PRN (07:59)
[2017-07-05] MEDS: ENOXAPARIN 40 MG/0.4 ML SYRINGE. SQ SCH ×2 (08:00→21:41)
[2017-07-05] MEDS: SERTRALINE 25 MG TABLET. PO SCH (08:00)
[2017-07-05] MEDS: VERAPAMIL SR 120 MG TABLET.ER. PO SCH (08:12)
--- NOTE | 2017-07-05 10:54 | PDOC ---
Infectious Disease Note Subjective Subjective pt says is breathing better no f/c/ n/v/ diarrhea ROS ROS GEN: Denies fevers, chills, sweats HEENT: Denies blurred vision, sore throat CV: Denies chest pain RESP: improving slowly GI: Denies n/v/d NEURO: Denies confusion, dizziness MSK: Denies weakness, joint pain/swelling Vital Sign Vital Signs Vital Signs Date Time Temp Pulse Resp B/P (MAP) Pulse Ox O2 Delivery O2 Flow Rate FiO2 07/05/17 08:12 80 07/05/17 08:05 Nasal Cannula 3.0 07/05/17 07:33 98 07/05/17 07:30 98.4 22 178/110 (132) 98.4 Labs Lab Laboratory Tests Test 07/05/17 05:30 07/05/17 07:14 White Blood Count 12.6 x10^3/uL (4.0-11.0) Red Blood Count 4.08 x10^6/uL (3.50-5.40) Hemoglobin 12.0 g/dL (12.0-15.5) Hematocrit 37.7 % (36.0-47.0) Mean Corpuscular Volume 92 fL (79-100) Mean Corpuscular Hemoglobin 30 pg (25-35) Mean Corpuscular Hemoglobin Concent 32 g/dL (31-37) Red Cell Distribution Width 15.0 % (11.5-14.5) Platelet Count 339 x10^3/uL (140-400) Neutrophils (%) (Auto) 89 % (31-73) Lymphocytes (%) (Auto) 6 % (24-48) Monocytes (%) (Auto) 5 % (0-9) Eosinophils (%) (Auto) 0 % (0-3) Basophils (%) (Auto) 0 % (0-3) Neutrophils # (Auto) 11.2 x10^3uL (1.8-7.7) Lymphocytes # (Auto) 0.7 x10^3/uL (1.0-4.8) Monocytes # (Auto) 0.7 x10^3/uL (0.0-1.1) Eosinophils # (Auto) 0.0 x10^3/uL (0.0-0.7) Basophils # (Auto) 0.0 x10^3/uL (0.0-0.2) Sodium Level 139 mmol/L (136-145) Potassium Level 4.3 mmol/L (3.5-5.1) Chloride Level 104 mmol/L (98-107) Carbon Dioxide Level 26 mmol/L (21-32) Anion Gap 9 (6-14) Blood Urea Nitrogen 29 mg/dL (7-20) Creatinine 1.1 mg/dL (0.6-1.0) Estimated GFR (Cockcroft-Gault) 50.8 Glucose Level 216 mg/dL (70-99) Calcium Level 9.9 mg/dL (8.5-10.1) Glucose (Fingerstick) 209 mg/dL (70-99) Micro BC neg Sputum NRF Objective Assessment acute hypoxic Respiratory failure. s/p extubation acute asthma exacerbation Pneumonia/pneumonitis Leukocytosis,BC neg, sputum nrf Morbid obesity. MRSA in nares atelectasis on lt side Plan Plan of Care Continue empiric Zyvox and Zosyn will transition to po soon encourage aggressive pulm toilet f/u am labs and cultures continue supportive care SOLO MARTIN MD Jul 05, 2017 10:54
--- NOTE | 2017-07-05 11:46 | PDOC ---
PULMONARY PROGRESS NOTES Subjective PT HAD SHORT CODE 06/29 EXTUBATED 07/02 OFF BIPAP Vitals Vital Signs Date Time Temp Pulse Resp B/P (MAP) Pulse Ox O2 Delivery O2 Flow Rate FiO2 07/05/17 08:12 80 07/05/17 08:05 Nasal Cannula 3.0 07/05/17 07:33 98 07/05/17 07:30 98.4 22 178/110 (132) 98.4 General: Alert, No acute distress Lungs: Clear, Other (no rales, or rhonchi) Cardiovascular: S1, S2 Abdomen: Soft Neuro Exam: Alert Extremities: Other (trace edema) Skin: Warm Labs Laboratory Tests Test 07/03/17 18:43 07/03/17 21:13 07/04/17 05:00 07/04/17 07:50 Troponin I Quantitative 0.021 ng/mL (0.000-0.055) Glucose (Fingerstick) 227 mg/dL (70-99) White Blood Count 10.3 x10^3/uL (4.0-11.0) Red Blood Count 3.85 x10^6/uL (3.50-5.40) Hemoglobin 11.6 g/dL (12.0-15.5) Hematocrit 35.5 % (36.0-47.0) Mean Corpuscular Volume 92 fL (79-100) Mean Corpuscular Hemoglobin 30 pg (25-35) Mean Corpuscular Hemoglobin Concent 33 g/dL (31-37) Red Cell Distribution Width 14.9 % (11.5-14.5) Platelet Count 286 x10^3/uL (140-400) Neutrophils (%) (Auto) 87 % (31-73) Lymphocytes (%) (Auto) 7 % (24-48) Monocytes (%) (Auto) 6 % (0-9) Eosinophils (%) (Auto) 0 % (0-3) Basophils (%) (Auto) 0 % (0-3) Neutrophils # (Auto) 9.0 x10^3uL (1.8-7.7) Lymphocytes # (Auto) 0.7 x10^3/uL (1.0-4.8) Monocytes # (Auto) 0.6 x10^3/uL (0.0-1.1) Eosinophils # (Auto) 0.0 x10^3/uL (0.0-0.7) Basophils # (Auto) 0.0 x10^3/uL (0.0-0.2) Sodium Level 138 mmol/L (136-145) Potassium Level 4.4 mmol/L (3.5-5.1) Chloride Level 103 mmol/L (98-107) Carbon Dioxide Level 26 mmol/L (21-32) Anion Gap 9 (6-14) Blood Urea Nitrogen 25 mg/dL (7-20) Creatinine 1.0 mg/dL (0.6-1.0) Estimated GFR (Cockcroft-Gault) 56.7 Glucose Level 188 mg/dL (70-99) Calcium Level 9.8 mg/dL (8.5-10.1) O2 Saturation 98 % (92-99) Arterial Blood pH 7.37 (7.35-7.45) Arterial Blood pCO2 at Patient Temp 45 mmHg (35-46) Arterial Blood pO2 at Patient Temp 110 mmHg (65-108) Arterial Blood HCO3 25 mmol/L (21-28) Arterial Blood Base Excess -1 mmol/L (-3-3) FiO2 35 Test 07/05/17 05:30 07/05/17 07:14 White Blood Count 12.6 x10^3/uL (4.0-11.0) Red Blood Count 4.08 x10^6/uL (3.50-5.40) Hemoglobin 12.0 g/dL (12.0-15.5) Hematocrit 37.7 % (36.0-47.0) Mean Corpuscular Volume 92 fL (79-100) Mean Corpuscular Hemoglobin 30 pg (25-35) Mean Corpuscular Hemoglobin Concent 32 g/dL (31-37) Red Cell Distribution Width 15.0 % (11.5-14.5) Platelet Count 339 x10^3/uL (140-400) Neutrophils (%) (Auto) 89 % (31-73) Lymphocytes (%) (Auto) 6 % (24-48) Monocytes (%) (Auto) 5 % (0-9) Eosinophils (%) (Auto) 0 % (0-3) Basophils (%) (Auto) 0 % (0-3) Neutrophils # (Auto) 11.2 x10^3uL (1.8-7.7) Lymphocytes # (Auto) 0.7 x10^3/uL (1.0-4.8) Monocytes # (Auto) 0.7 x10^3/uL (0.0-1.1) Eosinophils # (Auto) 0.0 x10^3/uL (0.0-0.7) Basophils # (Auto) 0.0 x10^3/uL (0.0-0.2) Sodium Level 139 mmol/L (136-145) Potassium Level 4.3 mmol/L (3.5-5.1) Chloride Level 104 mmol/L (98-107) Carbon Dioxide Level 26 mmol/L (21-32) Anion Gap 9 (6-14) Blood Urea Nitrogen 29 mg/dL (7-20) Creatinine 1.1 mg/dL (0.6-1.0) Estimated GFR (Cockcroft-Gault) 50.8 Glucose Level 216 mg/dL (70-99) Calcium Level 9.9 mg/dL (8.5-10.1) Glucose (Fingerstick) 209 mg/dL (70-99) Laboratory Tests Test 07/05/17 05:30 07/05/17 07:14 White Blood Count 12.6 x10^3/uL (4.0-11.0) Red Blood Count 4.08 x10^6/uL (3.50-5.40) Hemoglobin 12.0 g/dL (12.0-15.5) Hematocrit 37.7 % (36.0-47.0) Mean Corpuscular Volume 92 fL (79-100) Mean Corpuscular Hemoglobin 30 pg (25-35) Mean Corpuscular Hemoglobin Concent 32 g/dL (31-37) Red Cell Distribution Width 15.0 % (11.5-14.5) Platelet Count 339 x10^3/uL (140-400) Neutrophils (%) (Auto) 89 % (31-73) Lymphocytes (%) (Auto) 6 % (24-48) Monocytes (%) (Auto) 5 % (0-9) Eosinophils (%) (Auto) 0 % (0-3) Basophils (%) (Auto) 0 % (0-3) Neutrophils # (Auto) 11.2 x10^3uL (1.8-7.7) Lymphocytes # (Auto) 0.7 x10^3/uL (1.0-4.8) Monocytes # (Auto) 0.7 x10^3/uL (0.0-1.1) Eosinophils # (Auto) 0.0 x10^3/uL (0.0-0.7) Basophils # (Auto) 0.0 x10^3/uL (0.0-0.2) Sodium Level 139 mmol/L (136-145) Potassium Level 4.3 mmol/L (3.5-5.1) Chloride Level 104 mmol/L (98-107) Carbon Dioxide Level 26 mmol/L (21-32) Anion Gap 9 (6-14) Blood Urea Nitrogen 29 mg/dL (7-20) Creatinine 1.1 mg/dL (0.6-1.0) Estimated GFR (Cockcroft-Gault) 50.8 Glucose Level 216 mg/dL (70-99) Calcium Level 9.9 mg/dL (8.5-10.1) Glucose (Fingerstick) 209 mg/dL (70-99) Medications Active Scripts Medications Dose Route/Sig Max Daily Dose Days Date Category Doxycycline Hyclate 100 Mg Capsule 1 Cap PO BID 06/23/17 Rx Calan Sr (Verapamil Hcl) 120 Mg Tablet.er 120 Mg PO DAILY 06/23/17 Rx Lisinopril 40 Mg Tablet 40 Mg PO DAILY 06/23/17 Rx Culturelle (Lactobacillus Rhamnosus Gg) 1 Each Cap.sprink 1 Cap PO BID 06/23/17 Rx Aspirin Ec (Aspirin) 325 Mg Tablet. 325 Mg PO DAILYWBKFT 06/23/17 Rx Lisinopril 10 Mg Tablet 1 Tab PO DAILY 06/19/17 Reported Prednisone 50 Mg Tablet 1 Tab PO DAILY 06/10/17 Rx Tradjenta (Linagliptin) 5 Mg Tablet 5 Tab PO DAILY 06/10/17 Reported Proair Hfa Inhaler (Albuterol Sulfate) 8.5 Gm Hfa.aer.ad 2 Puff IH PRN Q4-6HRS 10/01/15 Reported Flovent 110MCG Hfa (Fluticasone Propionate) 12 Gm Aer.w.adap 2 Puff IH BID 10/01/15 Reported Montelukast Sodium Tablet (Montelukast Sodium) 10 Mg Tablet 10 Mg PO HS 10/01/15 Reported Aspirin 325 Mg Tablet 1 Tab PO DAILY 10/01/15 Reported Iron (Ferrous Sulfate) 325 Mg Capsule.er 325 Mg PO 10/01/15 Reported Metoclopramide Hcl 10 Mg Tablet 10 Mg PO QIDACHS 10/01/15 Reported Atorvastatin Calcium 80 Mg Tablet 1 Tab PO DAILY 10/01/15 Reported Lansoprazole 30 Mg Capsule.dr 1 Cap PO DAILY 10/01/15 Reported Verapamil Er (Verapamil Hcl) 240 Mg Cap24h.pel 0.5 Cap PO DAILY 10/01/15 Reported Folic Acid 1 Mg Tablet 1 Tab PO DAILY 10/01/15 Reported Zoloft (Sertraline Hcl) 25 Mg Tablet 1 Tab PO DAILY 10/01/15 Reported Hydrocodone-Apap 7.5-325 (Hydrocodone Bit/Acetaminophen) 1 Each Tablet 1 Tab PO PRN Q6HRS PRN 10/01/15 Reported Comments CXR REVIEWED 07/03 mild volume loss Left base Impression . 1. Acute respiratory failure secondary to acute asthma exacerbation. 2. Diabetes. 3. Morbid obesity. 4. Acute nonspecific bronchitis. 5. Cardiopulmonary arrest sec to pt taking off 02 and possible mucus plug on left 6. Pneumonia Left side 7. ATELECTASIS ON LEFT , S/P BRONCH WITH MUCUS PLUGGING Plan . QHS BIPAP BRONCH CULTURES NEG SO FAR CXR STABLE NEBS anitbx negative venous doppler Pt wants to have CPAP, will need SS as OP PRN BECKIE Cabrales MD Jul 05, 2017 11:46
[2017-07-05] MEDS: NYSTATIN TOPICAL POWDER 15GM BOTTLE. TP SCH ×2 (12:04→21:44)
[2017-07-05] MEDS: LABETALOL 20 MG/4 ML DISP.SYRIN. IVP PRN (15:39)
[2017-07-05] MEDS ORDERED: LISINOPRIL 20 MG TABLET PO ONE (16:09)
--- NOTE | 2017-07-05 16:11 | PDOC ---
PROGRESS NOTES Chief Complaint Chief Complaint Acute hypoxic respiratory failure ASSESSMENT AND PLAN: 1. Asthma exacerbation: intub.ed 06/29, extub.ed 07/02. BiPAP at night. taper IV steroids 2. bilat PNA: on zosyn, linezolid 3. Mucous plugging: s/p bronch 4. Cardiopulm arrest: respir etiology, prompting intubation. no sequelae. 5. HTN: much improved on increased lisinopril and new clonidine. monitor; if remains stable, can switch to clonidine patch 6. DM2: poorly controlled on steroids; cont current regimen, monitor with steroid taper 7. Morbid obesity 8. DRAKE: sleep study on O/P basis 9. Dispo: d/w OT/PT: appropriate for acute rehab. SW notified History of Present Illness History of Present Illness feels better, no SOB at rest, but SARABIA Vitals Vitals Vital Signs Date Time Temp Pulse Resp B/P (MAP) Pulse Ox O2 Delivery O2 Flow Rate FiO2 07/05/17 15:39 85 07/05/17 15:19 97.6 22 177/103 (127) 97 Nasal Cannula 3.0 97.6 Physical Exam General: Alert, Oriented X3, Cooperative, No acute distress Heart: Regular rate, No murmurs Lungs: Clear Abdomen: Normal bowel sounds, Soft, No tenderness Extremities: No clubbing, No cyanosis Skin: No breakdown, Other (Multiple tiny abrasions on the dorsum of the hands b /l; excema on hand dorsi) Labs LABS Laboratory Tests Test 07/05/17 05:30 07/05/17 07:14 07/05/17 11:59 White Blood Count 12.6 x10^3/uL (4.0-11.0) Red Blood Count 4.08 x10^6/uL (3.50-5.40) Hemoglobin 12.0 g/dL (12.0-15.5) Hematocrit 37.7 % (36.0-47.0) Mean Corpuscular Volume 92 fL (79-100) Mean Corpuscular Hemoglobin 30 pg (25-35) Mean Corpuscular Hemoglobin Concent 32 g/dL (31-37) Red Cell Distribution Width 15.0 % (11.5-14.5) Platelet Count 339 x10^3/uL (140-400) Neutrophils (%) (Auto) 89 % (31-73) Lymphocytes (%) (Auto) 6 % (24-48) Monocytes (%) (Auto) 5 % (0-9) Eosinophils (%) (Auto) 0 % (0-3) Basophils (%) (Auto) 0 % (0-3) Neutrophils # (Auto) 11.2 x10^3uL (1.8-7.7) Lymphocytes # (Auto) 0.7 x10^3/uL (1.0-4.8) Monocytes # (Auto) 0.7 x10^3/uL (0.0-1.1) Eosinophils # (Auto) 0.0 x10^3/uL (0.0-0.7) Basophils # (Auto) 0.0 x10^3/uL (0.0-0.2) Sodium Level 139 mmol/L (136-145) Potassium Level 4.3 mmol/L (3.5-5.1) Chloride Level 104 mmol/L (98-107) Carbon Dioxide Level 26 mmol/L (21-32) Anion Gap 9 (6-14) Blood Urea Nitrogen 29 mg/dL (7-20) Creatinine 1.1 mg/dL (0.6-1.0) Estimated GFR (Cockcroft-Gault) 50.8 Glucose Level 216 mg/dL (70-99) Calcium Level 9.9 mg/dL (8.5-10.1) Glucose (Fingerstick) 209 mg/dL (70-99) 204 mg/dL (70-99) DANYA KLINE MD Jul 05, 2017 16:11
[2017-07-05] MEDS ORDERED: cloNIDine HCL 0.1 MG TABLET PO PRN (17:30)
[2017-07-05] MEDS: MONTELUKAST SODIUM 10 MG TABLET. PO SCH (21:17)
[2017-07-05] MEDS: cloNIDine HCL 0.2 MG TABLET PO SCH (21:17)
[2017-07-05] MEDS: ATORVASTATIN CALCIUM 40 MG TABLET. PO SCH (21:17)
[2017-07-05] MEDS: FERROUS SULFATE 325 MG TABLET. PO SCH (21:21)
[2017-07-06] MEDS: PIPERACILLIN/TAZO IV Push 3.375 GM VIAL. IVP SCH ×2 (00:53→06:13)
[2017-07-06 03:25] VITALS: BP 178/92
--- NOTE | 2017-07-06 04:19 | EKG ---
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 : 1960 Requested By: RENEA HERNANDEZ Order Number: [id number] Reading MD: Measurements Intervals [place] Rate: 81 P: 56 MO: 172 QRS: -64 QRSD: 146 T: 82 QT: 390 QTc: 459 Interpretive Statements SINUS RHYTHM ATRIAL PREMATURE COMPLEX(ES) ABNORMAL LEFT AXIS DEVIATION LEFT ANTERIOR FASCICULAR BLOCK NON SPECIFIC INTRAVENTRICULAR BLOCK QRS(T) CONTOUR ABNORMALITY CONSIDER INFERIOR INFARCT ABNORMAL ECG RI6.01 Unconfirmed report Compared to ECG 06/21/2017 15:57:41 Left anterior fascicular block now present Right ventricular hypertrophy no longer present Early repolarization no longer present Myocardial infarct finding still present
[2017-07-06 05:16] LABS: BASO % 0 % (0-3); EOS % 0 % (0-3); HEMATOCRIT 38.5 % (36.0-47.0); HEMOGLOBIN 12.2 g/dL (12.0-15.5); LYMPH # 0.9 x10^3/uL (1.0-4.8); LYMPH % 6 % (24-48); MEAN CORPUSCULAR HEMOGLOBIN 30 pg (25-35); MEAN CORPUSCULAR HGB CONC 32 g/dL (31-37); MEAN CORPUSCULAR VOLUME 93 fL (79-100); MONO % 7 % (0-9); NEUT % 88 % (31-73); PLATELET COUNT 336 x10^3/uL (140-400); RED BLOOD COUNT 4.14 x10^6/uL (3.50-5.40); RED CELL DISTRIBUTION WIDTH 15.4 % (11.5-14.5); WHITE BLOOD COUNT 16.7 x10^3/uL (4.0-11.0)
[2017-07-06 05:38] LABS: CALCIUM 10.1 mg/dL (8.5-10.1); GFR 56.7; POTASSIUM 4.3 mmol/L (3.5-5.1)
[2017-07-06] MEDS: cloNIDine HCL 0.2 MG TABLET PO SCH ×3 (06:15→22:05)
[2017-07-06] MEDS: BUDESONIDE 0.5 MG/2 ML NEBU. NEB SCH ×2 (07:52→20:25)
[2017-07-06] MEDS: IPRATRPIUM/ALBUTEROL 0.5/2.5MG 3 ML NEBU. NEB SCH ×4 (07:52→20:26)
[2017-07-06 08:04] VITALS: BP 129/79
--- NOTE | 2017-07-06 08:53 | CARD ---
APPROVED REPORT EXAM: Two-dimensional and M-mode echocardiogram with Doppler and color Doppler. Other Information Quality : Technically Limited INDICATION LV Function:Systolic 2D DIMENSIONS IVSd1.7 (0.7-1.1cm)LVDd3.8 (3.9-5.9cm) PWd1.5 (0.7-1.1cm)LVDs2.7 (2.5-4.0cm) FS (%) 31.1 %SV38.0 ml LVEF(%)59.5 (>50%) LEFT VENTRICLE The left ventricle is normal size. There is mild to moderate concentric left ventricular hypertrophy. Left ventricle systolic function is low normal. EF 50% GREAT VESSELS Not assessed. PERICARDIAL EFFUSION There is no pleural effusion. There is no evidence of significant pericardial effusion. Critical Notification Critical Value: No <Conclusion> Left ventricle systolic function is low normal. EF 50% Technically very difficult study. Unable to assess wall motion. No significant pericardial effusion.
[2017-07-06] MEDS: NYSTATIN TOPICAL POWDER 15GM BOTTLE. TP SCH ×2 (09:00→22:22)
[2017-07-06] MEDS ORDERED: predniSONE 20 MG TABLET PO SCH (09:00)
[2017-07-06] MEDS: METOCLOPRAMIDE 10 MG TABLET. PO SCH ×4 (09:03→22:19)
[2017-07-06] MEDS: SERTRALINE 25 MG TABLET. PO SCH (09:03)
[2017-07-06] MEDS: ASPIRIN ENTERIC COATED 325 MG TABLET.DR. PO SCH (09:03)
[2017-07-06] MEDS: LISINOPRIL 40 MG TABLET. PO SCH (09:03)
[2017-07-06] MEDS: FOLIC ACID 1 MG TABLET. PO SCH (09:04)
[2017-07-06] MEDS: PANTOPRAZOLE 40 MG TABLET.DR. PO SCH (09:04)
[2017-07-06] MEDS: LACTOBACILLUS RHAMNOSUS GG 1 CAPSULE. PO SCH ×2 (09:04→22:06)
[2017-07-06] MEDS: LINAGLIPTIN 5 MG TABLET PO SCH (09:04)
[2017-07-06] MEDS: methylPREDNISolone SOD SUCC PF 40 MG/ML VIAL. IV SCH ×2 (09:04→22:10)
[2017-07-06] MEDS: VERAPAMIL SR 120 MG TABLET.ER. PO SCH (09:05)
[2017-07-06] MEDS: ENOXAPARIN 40 MG/0.4 ML SYRINGE. SQ SCH ×2 (09:06→22:11)
--- NOTE | 2017-07-06 09:55 | PDOC ---
Infectious Disease Note Subjective Subjective pt says is breathing better no f/c/ n/v/ diarrhea ROS ROS GEN: Denies fevers, chills, sweats HEENT: Denies blurred vision, sore throat CV: Denies chest pain RESP: baseline shortness of air, cough improving GI: Denies n/v/d NEURO: Denies confusion, dizziness MSK: Denies weakness, joint pain/swelling Vital Sign Vital Signs Vital Signs Date Time Temp Pulse Resp B/P (MAP) Pulse Ox O2 Delivery O2 Flow Rate FiO2 07/06/17 09:05 88 129/79 07/06/17 08:04 98.2 20 98 Nasal Cannula 3.0 98.2 Physical Exam PHYSICAL EXAM GENERAL: NAD, Alert oxo3 HEENT: anicteric NECK: Supple LUNGS: coarse bs ,no wheezing HEART: S1S2, no murmur ABD: Obese,soft, NT, EXT: +edema, no cyanosis 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, 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, nonfocal grossly SKIN: No gen rash IV: ok Labs Lab Laboratory Tests Test 07/05/17 11:59 07/05/17 16:55 07/05/17 21:03 07/06/17 04:43 Glucose (Fingerstick) 204 mg/dL (70-99) 227 mg/dL (70-99) 175 mg/dL (70-99) White Blood Count 16.7 x10^3/uL (4.0-11.0) Red Blood Count 4.14 x10^6/uL (3.50-5.40) Hemoglobin 12.2 g/dL (12.0-15.5) Hematocrit 38.5 % (36.0-47.0) Mean Corpuscular Volume 93 fL (79-100) Mean Corpuscular Hemoglobin 30 pg (25-35) Mean Corpuscular Hemoglobin Concent 32 g/dL (31-37) Red Cell Distribution Width 15.4 % (11.5-14.5) Platelet Count 336 x10^3/uL (140-400) Neutrophils (%) (Auto) 88 % (31-73) Lymphocytes (%) (Auto) 6 % (24-48) Monocytes (%) (Auto) 7 % (0-9) Eosinophils (%) (Auto) 0 % (0-3) Basophils (%) (Auto) 0 % (0-3) Neutrophils # (Auto) 14.6 x10^3uL (1.8-7.7) Lymphocytes # (Auto) 0.9 x10^3/uL (1.0-4.8) Monocytes # (Auto) 1.1 x10^3/uL (0.0-1.1) Eosinophils # (Auto) 0.0 x10^3/uL (0.0-0.7) Basophils # (Auto) 0.0 x10^3/uL (0.0-0.2) Sodium Level 138 mmol/L (136-145) Potassium Level 4.3 mmol/L (3.5-5.1) Chloride Level 103 mmol/L (98-107) Carbon Dioxide Level 29 mmol/L (21-32) Anion Gap 6 (6-14) Blood Urea Nitrogen 28 mg/dL (7-20) Creatinine 1.0 mg/dL (0.6-1.0) Estimated GFR (Cockcroft-Gault) 56.7 Glucose Level 201 mg/dL (70-99) Calcium Level 10.1 mg/dL (8.5-10.1) Test 07/06/17 07:25 Glucose (Fingerstick) 204 mg/dL (70-99) Micro BC neg Sputum NRF Objective Assessment acute hypoxic Respiratory failure. s/p extubation acute asthma exacerbation Pulm infiltrates s/p bronch nrf Leukocytosis from steroids,BC neg, sputum nrf Morbid obesity. MRSA in nares atelectasis on lt sides/p bronch with mucus plug Plan Plan of Care Continue empiric Zyvox dc Zosyn start augmentin encourage aggressive pulm toilet continue supportive care SOLO MARTIN MD Jul 06, 2017 09:55
[2017-07-06] MEDS: HYDROcodone/APAP 7.5/325MG 1 TAB TABLET PO PRN ×2 (10:26→22:10)
[2017-07-06 12:15] VITALS: BP 141/92
--- NOTE | 2017-07-06 13:06 | PDOC ---
PULMONARY PROGRESS NOTES Subjective PT HAD SHORT CODE 06/29 EXTUBATED 07/02 OFF BIPAP Vitals Vital Signs Date Time Temp Pulse Resp B/P (MAP) Pulse Ox O2 Delivery O2 Flow Rate FiO2 07/06/17 12:15 98.4 83 20 141/92 (108) 93 Nasal Cannula 3.0 98.4 General: Alert, No acute distress Lungs: Clear, Other (no rales, or rhonchi) Cardiovascular: S1, S2 Abdomen: Soft Neuro Exam: Alert Extremities: Other (trace edema) Skin: Warm Labs Laboratory Tests Test 07/05/17 05:30 07/05/17 07:14 07/05/17 11:59 07/05/17 16:55 White Blood Count 12.6 x10^3/uL (4.0-11.0) Red Blood Count 4.08 x10^6/uL (3.50-5.40) Hemoglobin 12.0 g/dL (12.0-15.5) Hematocrit 37.7 % (36.0-47.0) Mean Corpuscular Volume 92 fL (79-100) Mean Corpuscular Hemoglobin 30 pg (25-35) Mean Corpuscular Hemoglobin Concent 32 g/dL (31-37) Red Cell Distribution Width 15.0 % (11.5-14.5) Platelet Count 339 x10^3/uL (140-400) Neutrophils (%) (Auto) 89 % (31-73) Lymphocytes (%) (Auto) 6 % (24-48) Monocytes (%) (Auto) 5 % (0-9) Eosinophils (%) (Auto) 0 % (0-3) Basophils (%) (Auto) 0 % (0-3) Neutrophils # (Auto) 11.2 x10^3uL (1.8-7.7) Lymphocytes # (Auto) 0.7 x10^3/uL (1.0-4.8) Monocytes # (Auto) 0.7 x10^3/uL (0.0-1.1) Eosinophils # (Auto) 0.0 x10^3/uL (0.0-0.7) Basophils # (Auto) 0.0 x10^3/uL (0.0-0.2) Sodium Level 139 mmol/L (136-145) Potassium Level 4.3 mmol/L (3.5-5.1) Chloride Level 104 mmol/L (98-107) Carbon Dioxide Level 26 mmol/L (21-32) Anion Gap 9 (6-14) Blood Urea Nitrogen 29 mg/dL (7-20) Creatinine 1.1 mg/dL (0.6-1.0) Estimated GFR (Cockcroft-Gault) 50.8 Glucose Level 216 mg/dL (70-99) Calcium Level 9.9 mg/dL (8.5-10.1) Glucose (Fingerstick) 209 mg/dL (70-99) 204 mg/dL (70-99) 227 mg/dL (70-99) Test 07/05/17 21:03 07/06/17 04:43 07/06/17 07:25 07/06/17 12:09 Glucose (Fingerstick) 175 mg/dL (70-99) 204 mg/dL (70-99) 208 mg/dL (70-99) White Blood Count 16.7 x10^3/uL (4.0-11.0) Red Blood Count 4.14 x10^6/uL (3.50-5.40) Hemoglobin 12.2 g/dL (12.0-15.5) Hematocrit 38.5 % (36.0-47.0) Mean Corpuscular Volume 93 fL (79-100) Mean Corpuscular Hemoglobin 30 pg (25-35) Mean Corpuscular Hemoglobin Concent 32 g/dL (31-37) Red Cell Distribution Width 15.4 % (11.5-14.5) Platelet Count 336 x10^3/uL (140-400) Neutrophils (%) (Auto) 88 % (31-73) Lymphocytes (%) (Auto) 6 % (24-48) Monocytes (%) (Auto) 7 % (0-9) Eosinophils (%) (Auto) 0 % (0-3) Basophils (%) (Auto) 0 % (0-3) Neutrophils # (Auto) 14.6 x10^3uL (1.8-7.7) Lymphocytes # (Auto) 0.9 x10^3/uL (1.0-4.8) Monocytes # (Auto) 1.1 x10^3/uL (0.0-1.1) Eosinophils # (Auto) 0.0 x10^3/uL (0.0-0.7) Basophils # (Auto) 0.0 x10^3/uL (0.0-0.2) Sodium Level 138 mmol/L (136-145) Potassium Level 4.3 mmol/L (3.5-5.1) Chloride Level 103 mmol/L (98-107) Carbon Dioxide Level 29 mmol/L (21-32) Anion Gap 6 (6-14) Blood Urea Nitrogen 28 mg/dL (7-20) Creatinine 1.0 mg/dL (0.6-1.0) Estimated GFR (Cockcroft-Gault) 56.7 Glucose Level 201 mg/dL (70-99) Calcium Level 10.1 mg/dL (8.5-10.1) Laboratory Tests Test 07/05/17 16:55 07/05/17 21:03 07/06/17 04:43 07/06/17 07:25 Glucose (Fingerstick) 227 mg/dL (70-99) 175 mg/dL (70-99) 204 mg/dL (70-99) White Blood Count 16.7 x10^3/uL (4.0-11.0) Red Blood Count 4.14 x10^6/uL (3.50-5.40) Hemoglobin 12.2 g/dL (12.0-15.5) Hematocrit 38.5 % (36.0-47.0) Mean Corpuscular Volume 93 fL (79-100) Mean Corpuscular Hemoglobin 30 pg (25-35) Mean Corpuscular Hemoglobin Concent 32 g/dL (31-37) Red Cell Distribution Width 15.4 % (11.5-14.5) Platelet Count 336 x10^3/uL (140-400) Neutrophils (%) (Auto) 88 % (31-73) Lymphocytes (%) (Auto) 6 % (24-48) Monocytes (%) (Auto) 7 % (0-9) Eosinophils (%) (Auto) 0 % (0-3) Basophils (%) (Auto) 0 % (0-3) Neutrophils # (Auto) 14.6 x10^3uL (1.8-7.7) Lymphocytes # (Auto) 0.9 x10^3/uL (1.0-4.8) Monocytes # (Auto) 1.1 x10^3/uL (0.0-1.1) Eosinophils # (Auto) 0.0 x10^3/uL (0.0-0.7) Basophils # (Auto) 0.0 x10^3/uL (0.0-0.2) Sodium Level 138 mmol/L (136-145) Potassium Level 4.3 mmol/L (3.5-5.1) Chloride Level 103 mmol/L (98-107) Carbon Dioxide Level 29 mmol/L (21-32) Anion Gap 6 (6-14) Blood Urea Nitrogen 28 mg/dL (7-20) Creatinine 1.0 mg/dL (0.6-1.0) Estimated GFR (Cockcroft-Gault) 56.7 Glucose Level 201 mg/dL (70-99) Calcium Level 10.1 mg/dL (8.5-10.1) Test 07/06/17 12:09 Glucose (Fingerstick) 208 mg/dL (70-99) Medications Active Scripts Medications Dose Route/Sig Max Daily Dose Days Date Category Doxycycline Hyclate 100 Mg Capsule 1 Cap PO BID 06/23/17 Rx Calan Sr (Verapamil Hcl) 120 Mg Tablet.er 120 Mg PO DAILY 06/23/17 Rx Lisinopril 40 Mg Tablet 40 Mg PO DAILY 06/23/17 Rx Culturelle (Lactobacillus Rhamnosus Gg) 1 Each Cap.sprink 1 Cap PO BID 06/23/17 Rx Aspirin Ec (Aspirin) 325 Mg Tablet. 325 Mg PO DAILYWBKFT 06/23/17 Rx Lisinopril 10 Mg Tablet 1 Tab PO DAILY 06/19/17 Reported Prednisone 50 Mg Tablet 1 Tab PO DAILY 06/10/17 Rx Tradjenta (Linagliptin) 5 Mg Tablet 5 Tab PO DAILY 06/10/17 Reported Proair Hfa Inhaler (Albuterol Sulfate) 8.5 Gm Hfa.aer.ad 2 Puff IH PRN Q4-6HRS 10/01/15 Reported Flovent 110MCG Hfa (Fluticasone Propionate) 12 Gm Aer.w.adap 2 Puff IH BID 10/01/15 Reported Montelukast Sodium Tablet (Montelukast Sodium) 10 Mg Tablet 10 Mg PO HS 10/01/15 Reported Aspirin 325 Mg Tablet 1 Tab PO DAILY 10/01/15 Reported Iron (Ferrous Sulfate) 325 Mg Capsule.er 325 Mg PO 10/01/15 Reported Metoclopramide Hcl 10 Mg Tablet 10 Mg PO QIDACHS 10/01/15 Reported Atorvastatin Calcium 80 Mg Tablet 1 Tab PO DAILY 10/01/15 Reported Lansoprazole 30 Mg Capsule.dr 1 Cap PO DAILY 10/01/15 Reported Verapamil Er (Verapamil Hcl) 240 Mg Cap24h.pel 0.5 Cap PO DAILY 10/01/15 Reported Folic Acid 1 Mg Tablet 1 Tab PO DAILY 10/01/15 Reported Zoloft (Sertraline Hcl) 25 Mg Tablet 1 Tab PO DAILY 10/01/15 Reported Hydrocodone-Apap 7.5-325 (Hydrocodone Bit/Acetaminophen) 1 Each Tablet 1 Tab PO PRN Q6HRS PRN 10/01/15 Reported Comments CXR REVIEWED 07/03 mild volume loss Left base Impression . 1. Acute respiratory failure secondary to acute asthma exacerbation. 2. Diabetes. 3. Morbid obesity. 4. Acute nonspecific bronchitis. 5. Cardiopulmonary arrest sec to pt taking off 02 and possible mucus plug on left 6. Pneumonia Left side 7. ATELECTASIS ON LEFT , S/P BRONCH WITH MUCUS PLUGGING Plan . QHS BIPAP BRONCH CULTURES NEG SO FAR/ Normal zuleyka CXR STABLE NEBS anitbx negative venous doppler Pt wants to have CPAP, will need SS as OP PRN Xanax dc plans per PCP/ 6 min walk at ne BECKIE MARTÍNEZ MD Jul 06, 2017 13:06
[2017-07-06 14:30] VITALS: BP 138/86
[2017-07-06] MEDS ORDERED: ONDANSETRON ODT 4 MG TAB.RAPDIS. PO ONE (14:45)
[2017-07-06 19:25] VITALS: BP 117/79
[2017-07-06] MEDS: FERROUS SULFATE 325 MG TABLET. PO SCH (22:04)
[2017-07-06] MEDS: MONTELUKAST SODIUM 10 MG TABLET. PO SCH (22:06)
[2017-07-06] MEDS: ATORVASTATIN CALCIUM 40 MG TABLET. PO SCH (22:06)
[2017-07-06] MEDS: AMOXICILLIN/K CLAV 875/125MG TABLET. PO SCH (22:06)
[2017-07-06 23:30] VITALS: BP 109/76
[2017-07-07 03:20] VITALS: BP 140/88
[2017-07-07 05:47] LABS: BASO % 0 % (0-3); EOS % 0 % (0-3); HEMATOCRIT 36.9 % (36.0-47.0); LYMPH # 0.6 x10^3/uL (1.0-4.8); LYMPH % 4 % (24-48); MEAN CORPUSCULAR HEMOGLOBIN 30 pg (25-35); MEAN CORPUSCULAR HGB CONC 32 g/dL (31-37); MEAN CORPUSCULAR VOLUME 93 fL (79-100); MONO % 4 % (0-9); NEUT % 92 % (31-73); PLATELET COUNT 313 x10^3/uL (140-400); RED BLOOD COUNT 3.99 x10^6/uL (3.50-5.40); RED CELL DISTRIBUTION WIDTH 15.3 % (11.5-14.5); WHITE BLOOD COUNT 16.3 x10^3/uL (4.0-11.0)
[2017-07-07 06:02] LABS: CALCIUM 10.3 mg/dL (8.5-10.1); CREATININE 0.9 mg/dL (0.6-1.0); GFR 64.1; POTASSIUM 4.3 mmol/L (3.5-5.1)
[2017-07-07] MEDS: HYDROcodone/APAP 7.5/325MG 1 TAB TABLET PO PRN (06:07)
[2017-07-07] MEDS: cloNIDine HCL 0.2 MG TABLET PO SCH ×2 (06:08→14:48)
[2017-07-07 07:00] VITALS: BP 114/78
[2017-07-07] MEDS: IPRATRPIUM/ALBUTEROL 0.5/2.5MG 3 ML NEBU. NEB SCH ×3 (07:32→15:58)
[2017-07-07] MEDS: BUDESONIDE 0.5 MG/2 ML NEBU. NEB SCH (07:32)
[2017-07-07] MEDS: LINAGLIPTIN 5 MG TABLET PO SCH (08:36)
[2017-07-07] MEDS: PANTOPRAZOLE 40 MG TABLET.DR. PO SCH (08:36)
[2017-07-07] MEDS: SERTRALINE 25 MG TABLET. PO SCH (08:36)
[2017-07-07] MEDS: ASPIRIN ENTERIC COATED 325 MG TABLET.DR. PO SCH (08:36)
[2017-07-07] MEDS: FOLIC ACID 1 MG TABLET. PO SCH (08:36)
[2017-07-07] MEDS: LACTOBACILLUS RHAMNOSUS GG 1 CAPSULE. PO SCH (08:36)
[2017-07-07] MEDS: AMOXICILLIN/K CLAV 875/125MG TABLET. PO SCH (08:36)
[2017-07-07] MEDS: METOCLOPRAMIDE 10 MG TABLET. PO SCH ×3 (08:36→16:30)
[2017-07-07] MEDS: VERAPAMIL SR 120 MG TABLET.ER. PO SCH (08:37)
[2017-07-07] MEDS: LISINOPRIL 40 MG TABLET. PO SCH (08:37)
[2017-07-07] MEDS: methylPREDNISolone SOD SUCC PF 40 MG/ML VIAL. IV SCH (08:38)
[2017-07-07] MEDS: ENOXAPARIN 40 MG/0.4 ML SYRINGE. SQ SCH (08:38)
[2017-07-07] MEDS: NYSTATIN TOPICAL POWDER 15GM BOTTLE. TP SCH (08:46)
[2017-07-07 11:00] VITALS: BP 135/81
--- NOTE | 2017-07-07 13:33 | PDOC ---
PULMONARY PROGRESS NOTES Subjective PT HAD SHORT CODE 06/29 EXTUBATED 07/02 ON OXYGEN ALL DAY Vitals Vital Signs Date Time Temp Pulse Resp B/P (MAP) Pulse Ox O2 Delivery O2 Flow Rate FiO2 07/07/17 12:20 96 Nasal Cannula 3.0 07/07/17 11:00 97.7 83 18 135/81 (99) 97.7 General: Alert, No acute distress Lungs: Clear Cardiovascular: S1, S2 Abdomen: Soft Neuro Exam: Alert Extremities: Other (trace edema) Skin: Warm Labs Laboratory Tests Test 07/05/17 16:55 07/05/17 21:03 07/06/17 04:43 07/06/17 07:25 Glucose (Fingerstick) 227 mg/dL (70-99) 175 mg/dL (70-99) 204 mg/dL (70-99) White Blood Count 16.7 x10^3/uL (4.0-11.0) Red Blood Count 4.14 x10^6/uL (3.50-5.40) Hemoglobin 12.2 g/dL (12.0-15.5) Hematocrit 38.5 % (36.0-47.0) Mean Corpuscular Volume 93 fL (79-100) Mean Corpuscular Hemoglobin 30 pg (25-35) Mean Corpuscular Hemoglobin Concent 32 g/dL (31-37) Red Cell Distribution Width 15.4 % (11.5-14.5) Platelet Count 336 x10^3/uL (140-400) Neutrophils (%) (Auto) 88 % (31-73) Lymphocytes (%) (Auto) 6 % (24-48) Monocytes (%) (Auto) 7 % (0-9) Eosinophils (%) (Auto) 0 % (0-3) Basophils (%) (Auto) 0 % (0-3) Neutrophils # (Auto) 14.6 x10^3uL (1.8-7.7) Lymphocytes # (Auto) 0.9 x10^3/uL (1.0-4.8) Monocytes # (Auto) 1.1 x10^3/uL (0.0-1.1) Eosinophils # (Auto) 0.0 x10^3/uL (0.0-0.7) Basophils # (Auto) 0.0 x10^3/uL (0.0-0.2) Sodium Level 138 mmol/L (136-145) Potassium Level 4.3 mmol/L (3.5-5.1) Chloride Level 103 mmol/L (98-107) Carbon Dioxide Level 29 mmol/L (21-32) Anion Gap 6 (6-14) Blood Urea Nitrogen 28 mg/dL (7-20) Creatinine 1.0 mg/dL (0.6-1.0) Estimated GFR (Cockcroft-Gault) 56.7 Glucose Level 201 mg/dL (70-99) Calcium Level 10.1 mg/dL (8.5-10.1) Test 07/06/17 12:09 07/06/17 17:09 07/06/17 20:40 07/07/17 04:10 Glucose (Fingerstick) 208 mg/dL (70-99) 243 mg/dL (70-99) 149 mg/dL (70-99) White Blood Count 16.3 x10^3/uL (4.0-11.0) Red Blood Count 3.99 x10^6/uL (3.50-5.40) Hemoglobin 12.0 g/dL (12.0-15.5) Hematocrit 36.9 % (36.0-47.0) Mean Corpuscular Volume 93 fL (79-100) Mean Corpuscular Hemoglobin 30 pg (25-35) Mean Corpuscular Hemoglobin Concent 32 g/dL (31-37) Red Cell Distribution Width 15.3 % (11.5-14.5) Platelet Count 313 x10^3/uL (140-400) Neutrophils (%) (Auto) 92 % (31-73) Lymphocytes (%) (Auto) 4 % (24-48) Monocytes (%) (Auto) 4 % (0-9) Eosinophils (%) (Auto) 0 % (0-3) Basophils (%) (Auto) 0 % (0-3) Neutrophils # (Auto) 15.1 x10^3uL (1.8-7.7) Lymphocytes # (Auto) 0.6 x10^3/uL (1.0-4.8) Monocytes # (Auto) 0.6 x10^3/uL (0.0-1.1) Eosinophils # (Auto) 0.0 x10^3/uL (0.0-0.7) Basophils # (Auto) 0.0 x10^3/uL (0.0-0.2) Sodium Level 137 mmol/L (136-145) Potassium Level 4.3 mmol/L (3.5-5.1) Chloride Level 101 mmol/L (98-107) Carbon Dioxide Level 28 mmol/L (21-32) Anion Gap 8 (6-14) Blood Urea Nitrogen 29 mg/dL (7-20) Creatinine 0.9 mg/dL (0.6-1.0) Estimated GFR (Cockcroft-Gault) 64.1 Glucose Level 246 mg/dL (70-99) Calcium Level 10.3 mg/dL (8.5-10.1) Test 07/07/17 07:41 07/07/17 12:00 Glucose (Fingerstick) 202 mg/dL (70-99) 210 mg/dL (70-99) Laboratory Tests Test 07/06/17 17:09 07/06/17 20:40 07/07/17 04:10 07/07/17 07:41 Glucose (Fingerstick) 243 mg/dL (70-99) 149 mg/dL (70-99) 202 mg/dL (70-99) White Blood Count 16.3 x10^3/uL (4.0-11.0) Red Blood Count 3.99 x10^6/uL (3.50-5.40) Hemoglobin 12.0 g/dL (12.0-15.5) Hematocrit 36.9 % (36.0-47.0) Mean Corpuscular Volume 93 fL (79-100) Mean Corpuscular Hemoglobin 30 pg (25-35) Mean Corpuscular Hemoglobin Concent 32 g/dL (31-37) Red Cell Distribution Width 15.3 % (11.5-14.5) Platelet Count 313 x10^3/uL (140-400) Neutrophils (%) (Auto) 92 % (31-73) Lymphocytes (%) (Auto) 4 % (24-48) Monocytes (%) (Auto) 4 % (0-9) Eosinophils (%) (Auto) 0 % (0-3) Basophils (%) (Auto) 0 % (0-3) Neutrophils # (Auto) 15.1 x10^3uL (1.8-7.7) Lymphocytes # (Auto) 0.6 x10^3/uL (1.0-4.8) Monocytes # (Auto) 0.6 x10^3/uL (0.0-1.1) Eosinophils # (Auto) 0.0 x10^3/uL (0.0-0.7) Basophils # (Auto) 0.0 x10^3/uL (0.0-0.2) Sodium Level 137 mmol/L (136-145) Potassium Level 4.3 mmol/L (3.5-5.1) Chloride Level 101 mmol/L (98-107) Carbon Dioxide Level 28 mmol/L (21-32) Anion Gap 8 (6-14) Blood Urea Nitrogen 29 mg/dL (7-20) Creatinine 0.9 mg/dL (0.6-1.0) Estimated GFR (Cockcroft-Gault) 64.1 Glucose Level 246 mg/dL (70-99) Calcium Level 10.3 mg/dL (8.5-10.1) Test 07/07/17 12:00 Glucose (Fingerstick) 210 mg/dL (70-99) Medications Active Scripts Medications Dose Route/Sig Max Daily Dose Days Date Category Doxycycline Hyclate 100 Mg Capsule 1 Cap PO BID 06/23/17 Rx Calan Sr (Verapamil Hcl) 120 Mg Tablet.er 120 Mg PO DAILY 06/23/17 Rx Lisinopril 40 Mg Tablet 40 Mg PO DAILY 06/23/17 Rx Culturelle (Lactobacillus Rhamnosus Gg) 1 Each Cap.sprink 1 Cap PO BID 06/23/17 Rx Aspirin Ec (Aspirin) 325 Mg Tablet.dr 325 Mg PO DAILYWBKFT 06/23/17 Rx Lisinopril 10 Mg Tablet 1 Tab PO DAILY 06/19/17 Reported Prednisone 50 Mg Tablet 1 Tab PO DAILY 06/10/17 Rx Tradjenta (Linagliptin) 5 Mg Tablet 5 Tab PO DAILY 06/10/17 Reported Proair Hfa Inhaler (Albuterol Sulfate) 8.5 Gm Hfa.aer.ad 2 Puff IH PRN Q4-6HRS 10/01/15 Reported Flovent 110MCG Hfa (Fluticasone Propionate) 12 Gm Aer.w.adap 2 Puff IH BID 10/01/15 Reported Montelukast Sodium Tablet (Montelukast Sodium) 10 Mg Tablet 10 Mg PO HS 10/01/15 Reported Aspirin 325 Mg Tablet 1 Tab PO DAILY 10/01/15 Reported Iron (Ferrous Sulfate) 325 Mg Capsule.er 325 Mg PO 10/01/15 Reported Metoclopramide Hcl 10 Mg Tablet 10 Mg PO QIDACHS 10/01/15 Reported Atorvastatin Calcium 80 Mg Tablet 1 Tab PO DAILY 10/01/15 Reported Lansoprazole 30 Mg Capsule.dr 1 Cap PO DAILY 10/01/15 Reported Verapamil Er (Verapamil Hcl) 240 Mg Cap24h.pel 0.5 Cap PO DAILY 10/01/15 Reported Folic Acid 1 Mg Tablet 1 Tab PO DAILY 10/01/15 Reported Zoloft (Sertraline Hcl) 25 Mg Tablet 1 Tab PO DAILY 10/01/15 Reported Hydrocodone-Apap 7.5-325 (Hydrocodone Bit/Acetaminophen) 1 Each Tablet 1 Tab PO PRN Q6HRS PRN 10/01/15 Reported Comments CXR REVIEWED 07/03 mild volume loss Left base Impression . 1. Acute respiratory failure secondary to acute asthma exacerbation. resolved 2. Diabetes. 3. Morbid obesity. 4. Acute nonspecific bronchitis. 5. Cardiopulmonary arrest sec to pt taking off 02 and possible mucus plug on left 6. Pneumonia Left side 7. ATELECTASIS ON LEFT , S/P BRONCH WITH MUCUS PLUGGING Plan . QHS BIPAP PRN/ SS OP BRONCH CULTURES NEG SO FAR/ Normal zuleyka CXR STABLE NEBS anitbx negative venous doppler Pt wants to have CPAP, will need SS as OP PRN Xanax dc plans per PCP BECKIE MARTÍNEZ MD Jul 07, 2017 13:33
[2017-07-07 14:54] VITALS: BP 111/75
--- NOTE | 2017-07-07 15:22 | PDOC ---
PROGRESS NOTES Chief Complaint Chief Complaint Acute hypoxic respiratory failure ASSESSMENT AND PLAN: 1. Asthma exacerbation: intub.ed 06/29, extub.ed 07/02. BiPAP at night. taper IV steroids 2. bilat PNA: on zosyn, linezolid 3. Mucous plugging: s/p bronch 4. Cardiopulm arrest: respir etiology, prompting intubation. no sequelae. 5. HTN: much improved on increased lisinopril and new clonidine. monitor; if remains stable, can switch to clonidine patch 6. DM2: poorly controlled on steroids; cont current regimen, monitor with steroid taper 7. Morbid obesity 8. DRAKE: sleep study on O/P basis 9. Dispo: d/w OT/PT: appropriate for acute rehab. SW notified History of Present Illness History of Present Illness feels ok, no acute issues Vitals Vitals Vital Signs Date Time Temp Pulse Resp B/P (MAP) Pulse Ox O2 Delivery O2 Flow Rate FiO2 07/07/17 14:54 98.3 95 19 111/75 (87) 93 Nasal Cannula 3.0 98.3 Physical Exam General: Alert, Oriented X3, Cooperative, No acute distress Heart: Regular rate, No murmurs Lungs: Clear Abdomen: Normal bowel sounds, Soft, No tenderness Extremities: No clubbing, No cyanosis Skin: No breakdown, Other (Multiple tiny abrasions on the dorsum of the hands b /l; excema on hand dorsi) Labs LABS Laboratory Tests Test 07/06/17 17:09 07/06/17 20:40 07/07/17 04:10 07/07/17 07:41 Glucose (Fingerstick) 243 mg/dL (70-99) 149 mg/dL (70-99) 202 mg/dL (70-99) White Blood Count 16.3 x10^3/uL (4.0-11.0) Red Blood Count 3.99 x10^6/uL (3.50-5.40) Hemoglobin 12.0 g/dL (12.0-15.5) Hematocrit 36.9 % (36.0-47.0) Mean Corpuscular Volume 93 fL (79-100) Mean Corpuscular Hemoglobin 30 pg (25-35) Mean Corpuscular Hemoglobin Concent 32 g/dL (31-37) Red Cell Distribution Width 15.3 % (11.5-14.5) Platelet Count 313 x10^3/uL (140-400) Neutrophils (%) (Auto) 92 % (31-73) Lymphocytes (%) (Auto) 4 % (24-48) Monocytes (%) (Auto) 4 % (0-9) Eosinophils (%) (Auto) 0 % (0-3) Basophils (%) (Auto) 0 % (0-3) Neutrophils # (Auto) 15.1 x10^3uL (1.8-7.7) Lymphocytes # (Auto) 0.6 x10^3/uL (1.0-4.8) Monocytes # (Auto) 0.6 x10^3/uL (0.0-1.1) Eosinophils # (Auto) 0.0 x10^3/uL (0.0-0.7) Basophils # (Auto) 0.0 x10^3/uL (0.0-0.2) Sodium Level 137 mmol/L (136-145) Potassium Level 4.3 mmol/L (3.5-5.1) Chloride Level 101 mmol/L (98-107) Carbon Dioxide Level 28 mmol/L (21-32) Anion Gap 8 (6-14) Blood Urea Nitrogen 29 mg/dL (7-20) Creatinine 0.9 mg/dL (0.6-1.0) Estimated GFR (Cockcroft-Gault) 64.1 Glucose Level 246 mg/dL (70-99) Calcium Level 10.3 mg/dL (8.5-10.1) Test 07/07/17 12:00 Glucose (Fingerstick) 210 mg/dL (70-99) DANYA KLINE MD Jul 07, 2017 15:22
[2017-07-07] MEDS ORDERED: ALPR0.254 PO (16:03)
[2017-07-07] MEDS ORDERED: LACT1CAP19 PO (16:03)
[2017-07-07] MEDS ORDERED: GUAI600T47 PO (16:03)
[2017-07-07] MEDS ORDERED: CLON0.2T10 PO (16:03)
[2017-07-07] MEDS ORDERED: AMOX1TAB11 PO (16:03)
[2017-07-07] MEDS ORDERED: LINEZOLID 600 MG TABLET PO SCH (21:00)
--- NOTE | 2017-07-10 19:19 | DS ---
DATE OF DISCHARGE: 07/07/2017 CHIEF COMPLAINT: Acute hypoxic respiratory failure. HOSPITAL COURSE: The patient is a 57-year-old morbidly obese woman with history of asthma who had been admitted the week prior to current admission for asthma exacerbation. She presented with same symptoms. In addition, she was found with bilateral pneumonia. Respiratory symptoms unfortunately deteriorated on the night of her admission and she required intubation. She was extubated on July 02 and maintained on BiPAP at night. Steroids were tapered. She was continued on Zosyn and linezolid up until discharge. Antibiotics were changed to p.o. afterwards. The patient also underwent a bronchoscopy and was found with mucus plugging, which was removed. With her respiratory failure requiring intubation, she was also resuscitated from a cardiovascular standpoint. However, no further sequelae from cardiology standpoint occurred and the patient was continued on her lisinopril with addition of clonidine for better blood pressure control. Only other complication was her diabetes, which was poorly controlled, especially on steroids. Medications including insulin were adjusted. The patient was deemed stable for acute rehab on July 07. PHYSICAL EXAMINATION: VITAL SIGNS: Blood pressure of 111/75, heart rate of 95, respiratory rate at 19. No fevers. GENERAL: Alert and oriented, no acute distress. HEENT: No scleral icterus. LUNGS: Clear. HEART: Regular rate and rhythm. ABDOMEN: Positive bowel sounds. EXTREMITIES: No edema. DISCHARGE DIAGNOSES: Bilateral pneumonia, asthma exacerbation. DISCHARGE DISPOSITION: To acute rehab. DISCHARGE CONDITION: Improved. DISCHARGE MEDICATIONS: Please refer to MAR. DISCHARGE INSTRUCTIONS: The patient will follow up with her PCP upon return to home. DANYA KLINE MD DR: [place]/nts JOB#: [id number] / [id number] DEEPIKA Ovalles DO
== END 2017-07-07 18:19 | DRG 166 ==
LOC: ER 02:31 → 6 SOUTH 04:33 → 1 WEST ICU 06-30 08:04 → 2 NORTH 07-05 04:45
PROVIDERS: ADMIT Internal Medicine Hematology & Oncology; ATTEND Internal Medicine Hematology & Oncology
PROC: 5A09357 Assistance with Respiratory Ventilation, Less than 24 Consecutive Hours, Continuous Positive Airway Pressure (ICD-10-PCS; 2017-06-29)
PROC: 0BH17EZ Insertion of Endotracheal Airway into Trachea, Via Natural or Artificial Opening (ICD-10-PCS; 2017-06-30)
PROC: 5A12012 Performance of Cardiac Output, Single, Manual (ICD-10-PCS; 2017-06-30)
PROC: 5A1945Z Respiratory Ventilation, 24-96 Consecutive Hours (ICD-10-PCS; principal; 2017-07-02)
PROC: 0B9G8ZX Drainage of Left Upper Lung Lobe, Via Natural or Artificial Opening Endoscopic, Diagnostic (ICD-10-PCS; 2017-07-02)
PROC: 5A09457 Assistance with Respiratory Ventilation, 24-96 Consecutive Hours, Continuous Positive Airway Pressure (ICD-10-PCS; 2017-07-03)
PROC: 5A09357 Assistance with Respiratory Ventilation, Less than 24 Consecutive Hours, Continuous Positive Airway Pressure (ICD-10-PCS; 2017-07-04)
PROC: 5A09357 Assistance with Respiratory Ventilation, Less than 24 Consecutive Hours, Continuous Positive Airway Pressure (ICD-10-PCS; 2017-07-05)
PROC: 5A09357 Assistance with Respiratory Ventilation, Less than 24 Consecutive Hours, Continuous Positive Airway Pressure (ICD-10-PCS; 2017-07-07)
DX: J96.21 Acute and chronic respiratory failure with hypoxia (principal); J18.9 Pneumonia, unspecified organism; I46.9 Cardiac arrest, cause unspecified; T17.890A Other foreign object in other parts of respiratory tract causing asphyxiation, initial encounter; J44.0 Chronic obstructive pulmonary disease with (acute) lower respiratory infection; E86.0 Dehydration; I48.91 Unspecified atrial fibrillation; Z68.42 Body mass index [BMI] 45.0-49.9, adult; J45.901 Unspecified asthma with (acute) exacerbation; J98.11 Atelectasis; E66.01 Morbid (severe) obesity due to excess calories; E11.65 Type 2 diabetes mellitus with hyperglycemia; I10 Essential (primary) hypertension; J20.9 Acute bronchitis, unspecified; G47.33 Obstructive sleep apnea (adult) (pediatric); T38.0X5A Adverse effect of glucocorticoids and synthetic analogues, initial encounter; D72.828 Other elevated white blood cell count; E78.5 Hyperlipidemia, unspecified; I25.10 Atherosclerotic heart disease of native coronary artery without angina pectoris; Z90.49 Acquired absence of other specified parts of digestive tract; Z88.8 Allergy status to other drugs, medicaments and biological substances; Z79.899 Other long term (current) drug therapy
CPT/HCPCS: 31622; 36415; 36600; 71010; 74000; 80048; 80053; 82553; 82805; 82962; 83605; 83690; 83735; 83880; 84484; 85007; 85025; 85379; 85610; 87040; 87070; 87205; 87641; 93005; 93308; 93970; 94002; 94003; 94250; 94640; 94660; 94760; 96365; 96372; 96375; C9113; J0171; J0456; J1650; J1956; J2020; J2543; J2704; J2920; J2930; J3010; J3490; J7030; J7050; J7613; J7620; J7626; J8597; 92526; 92610; 97110; 97116; 97530; 97535; 99285-25